=== PATIENT | male | born 1940 | race Caucasian/White ===

== ENCOUNTER 2021-07-25 10:54 | Emergency (ER) | payer BC, MEDICARE ==
[2021-07-25] MEDS ORDERED: SODIUM CHLORIDE 0.9% 1,000 ML IV STA (12:28)
--- NOTE | 2021-07-25 12:38 | ED ---
General Adult HPI - General Chief complaint: Syncope Stated complaint: SHARON/Fall Time Seen by Provider: 07/25/21 11:54 Source: patient, RN notes reviewed, old records reviewed Mode of arrival: wheelchair Limitations: no limitations - History of Present Illness Initial comments: I evaluated the patient at the beginning of my shift after he had been in the room for approximately an hour and a half. He is an 80-year-old male with past medical history remarkable for hypertension, hypothyroidism who presents emergency Department complaining of a multitude a history of increased generalized fatigue, exertional shortness of breath, lack of appetite. Patient had was concerned with was a syncopal episode yesterday. He states he stood up and felt lightheaded immediately and fell back on the couch. He did not hit his head as far as he knows. They brought him to the emergency departemnet today because he was feeling worse. He is having a nonproductive cough. Denies chest pain, abdominal pain. Denies any nausea, vomiting, diarrhea. He was not v accinated for COVID-19. Denies any known sick contacts. Denies any fevers. He has no other acute complaints at this time. Patient's son-in-law presents with the patient and assists with the history, as the patient does not have his hearing aids and is hard of hearing. - Related Data Home Medications Medication Instructions Recorded Confirmed Levothyroxine Sodium [Synthroid] 50 mcg PO DAILY 07/25/21 07/25/21 Simvastatin [Zocor] 40 mg PO HS 07/25/21 07/25/21 carvediloL [Coreg] 6.25 mg PO BID 07/25/21 07/25/21 Previous Rx's Medication Instructions Recorded Sulfamethox-Tmp 800-160Mg [Bactrim 1 tab PO Q12HR 5 Days #10 tab 07/25/21 DS 800-160 mg] Allergies Allergy/AdvReac Type Severity Reaction Status Date / Time No Known Allergies Allergy Verified 07/25/21 13:04 Review of Systems ROS Statement: Those systems with pertinent positive or pertinent negative responses have been documented in the HPI. Review of Systems: CONST: Endorses generalized fatigue. EYES: Denies blurry vision ENT: Denies nasal congestion C/V: Denies Chest pain RESP: Endorses shortness of breath GI: Denies abdominal pain : Denies dysuria SKIN: Denies rash. MSK: Denies joint pain. NEURO: Denies headache ROS Other: All systems not noted in ROS Statement are negative. Past Medical History Past Medical History: Cancer, Hypertension History of Any Multi-Drug Resistant Organisms: None Reported Past Surgical History: Cholecystectomy, Hernia Repair Past Psychological History: No Psychological Hx Reported Smoking Status: Never smoker Past Alcohol Use History: None Reported Past Drug Use History: None Reported General Exam - General Exam Comments Initial Comments: General: Appears somewhat fatigued and dehydrated. HEAD: Normal with no signs of head trauma. EYES: PERRLA, EOMI, conjunctiva normal, no discharge. ENT: Hard of hearing but hearing is grossly intact. Normal oropharynx. Mucous membranes are somewhat dry. RESPIRATORY: Relatively clear breath sounds bilaterally without any obvious wheezes or rhonchi. No increased work of breathing. Patient is mildly hypoxic on room air between 91 and 93% at rest. C/V: Patient is tachycardic with a regular rhythm. S1 and S2 auscultated. No peripheral edema. Peripheral pulses are 2+ and intact throughout. ABD: Abd is soft, nontender, nondistended EXT: Normal range of motion, no obvious deformity SKIN: No rashes or lesions observed on exposed skin. NEURO: Alert and oriented x 4. Cranial nerves II-XII intact. No focal sensory or strength deficits. NIH stroke scale is 0. Limitations: no limitations Course Vital Signs 07/25/21 07/25/21 07/25/21 11:16 13:05 14:30 Temperature 97.7 F Pulse Rate 105 H 90 85 Respiratory 16 20 20 Rate Blood Pressure 128/76 146/79 145/87 O2 Sat by Pulse 91 L 92 L 95 Oximetry 07/25/21 07/25/21 07/25/21 16:25 17:02 17:30 Temperature 98.2 F Pulse Rate 83 81 81 Respiratory 20 18 18 Rate Blood Pressure 149/88 149/64 142/80 O2 Sat by Pulse 93 L 94 L 94 L Oximetry 07/25/21 07/25/21 18:00 18:38 Temperature Pulse Rate 82 82 Respiratory 18 18 Rate Blood Pressure 149/83 159/89 O2 Sat by Pulse 94 L 95 Oximetry Medical Decision Making - Medical Decision Making Based on the patient's presentation and physical exam, I'm concerned for infectious etiology for his current symptoms but possibly cardiac etiology. Patient does not perk out. While score for pulmonary embolism is low at 1.5. Therefore screening d-dimer will be obtained. We will also obtain Covid swab. As the patient had 1 possible syncopal episode yesterday, we will obtain a CT head due to his age and uncertainty of etiology. Neuro exam however is normal at this time. Patient will administered a 1 L fluid bolus and connected to continuous cardiac monitoring. He was in agreement this plan. Patient's EKG shows normal sinus rhythm without any signs of acute ischemia. Ch est x-ray shows patchy bibasilar opacities suggestive of pneumonia. CT brain showed no acute intracranial process. There are old chronic findings. Laboratory studies were remarkable for a negative troponin. D-dimer is elevated to 1.65. Urinalysis reveals a urinary tract infection. Covid is positive. I discussed the findings with the patient and son-in-law. He is feeling improved. Oxygen saturations remained in the low to mid 90%'s. Good like to go home if possible. We will obtain a CT PE to rule out possibly pulmonary embolism as he does have an elevated d-dimer and they were in agreement this plan. CT PE revealed no signs of acute pulmonary embolism. There are bilateral patchy interstitial infiltrates suggestive of pneumonia, likely from covid. Heart score is 2. Due to the patient being Covid positive, I do believe that he would benefit from monoclonal antibody therapy. Patient consented to therapy. He will be treated. He will also be started on antibiotics for his UTI. I discussed the CT imaging with the patient and believe it is safe for him to be discharged home following therapy with close follow-up. They were in agreement this plan. Patient did not have an ALLERGIC reaction following therapy and will be discharged home in fair condition. I will provide the patient with a prescription for Bactrim DS. I instructed the patient to follow up with their PCP in the next 3 days. I explained that the patient should return to the emergency department if they experience any worsening symptoms. Strict return precautions were discussed with the patient. The patient expressed understanding of these instructions. I answered all questions that the patient had. The patient was discharged home in fair condition with their prescriptions and follow up information. - Lab Data Result diagrams: 07/25/21 12:32 07/25/21 12:32 Lab Results 07/25/21 07/25/21 07/25/21 Range/Units 12:32 12:32 12:32 WBC 4.5 (3.8-10.6) k/uL RBC 5.42 (4.30-5.90) m/uL Hgb 16.1 (13.0-17.5) gm/dL Hct 48.5 (39.0-53.0) % MCV 89.5 (80.0-100.0) fL MCH 29.8 (25.0-35.0) pg MCHC 33.2 (31.0-37.0) g/dL RDW 13.9 (11.5-15.5) % Plt Count 119 L (150-450) k/uL MPV 8.8 Neutrophils % 74 % Lymphocytes % 18 % Monocytes % 6 % Eosinophils % 0 % Basophils % 0 % Neutrophils # 3.3 (1.3-7.7) k/uL Lymphocytes # 0.8 L (1.0-4.8) k/uL Monocytes # 0.3 (0-1.0) k/uL Eosinophils # 0.0 (0-0.7) k/uL Basophils # 0.0 (0-0.2) k/uL PT 10.7 (9.0-12.0) sec INR 1.0 (<1.2) APTT 23.7 (22.0-30.0) sec D-Dimer 1.65 H (<0.60) mg/L FEU Sodium 140 (137-145) mmol/L Potassium 5.0 (3.5-5.1) mmol/L Chloride 105 (98-107) mmol/L Carbon Dioxide 22 (22-30) mmol/L Anion Gap 13 mmol/L BUN 34 H (9-20) mg/dL Creatinine 1.21 (0.66-1.25) mg/dL Est GFR (CKD-EPI)AfAm 64 (>60 ml/min/1.73 sqM) Est GFR (CKD-EPI)NonAf 56 (>60 ml/min/1.73 sqM) Glucose 116 H (74-99) mg/dL Plasma Lactic Acid Jakub (0.7-2.0) mmol/L Calcium 9.0 (8.4-10.2) mg/dL Magnesium 2.4 H (1.6-2.3) mg/dL Total Bilirubin 1.0 (0.2-1.3) mg/dL AST 128 H (17-59) U/L ALT 55 H (4-49) U/L Alkaline Phosphatase 92 (38-126) U/L Troponin I (0.000-0.034) ng/mL Total Protein 7.2 (6.3-8.2) g/dL Albumin 3.9 (3.5-5.0) g/dL Urine Color Urine Appearance (Clear) Urine pH (5.0-8.0) Ur Specific [place] (1.001-1.035) Urine Protein (Negative) Urine Glucose (UA) (Negative) Urine Ketones (Negative) Urine Blood (Negative) Urine Nitrite (Negative) Urine Bilirubin (Negative) Urine Urobilinogen (<2.0) mg/dL Ur Leukocyte Esterase (Negative) Urine RBC (0-5) /hpf Urine WBC (0-5) /hpf Ur Squamous Epith Cells (0-4) /hpf Urine Bacteria (None) /hpf Urine Mucus (None) /hpf Coronavirus (PCR) (Not Detectd) 07/25/21 07/25/21 07/25/21 Range/Units 12:32 12:32 13:00 WBC (3.8-10.6) k/uL RBC (4.30-5.90) m/uL Hgb (13.0-17.5) gm/dL Hct (39.0-53.0) % MCV (80.0-100.0) fL MCH (25.0-35.0) pg MCHC (31.0-37.0) g/dL RDW (11.5-15.5) % Plt Count (150-450) k/uL MPV Neutrophils % % Lymphocytes % % Monocytes % % Eosinophils % % Basophils % % Neutrophils # (1.3-7.7) k/uL Lymphocytes # (1.0-4.8) k/uL Monocytes # (0-1.0) k/uL Eosinophils # (0-0.7) k/uL Basophils # (0-0.2) k/uL PT (9.0-12.0) sec INR (<1.2) APTT (22.0-30.0) sec D-Dimer (<0.60) mg/L FEU Sodium (137-145) mmol/L Potassium (3.5-5.1) mmol/L Chloride (98-107) mmol/L Carbon Dioxide (22-30) mmol/L Anion Gap mmol/L BUN (9-20) mg/dL Creatinine (0.66-1.25) mg/dL Est GFR (CKD-EPI)AfAm (>60 ml/min/1.73 sqM) Est GFR (CKD-EPI)NonAf (>60 ml/min/1.73 sqM) Glucose (74-99) mg/dL Plasma Lactic Acid Jakub 1.8 (0.7-2.0) mmol/L Calcium (8.4-10.2) mg/dL Magnesium (1.6-2.3) mg/dL Total Bilirubin (0.2-1.3) mg/dL AST (17-59) U/L ALT (4-49) U/L Alkaline Phosphatase (38-126) U/L Troponin I 0.023 (0.000-0.034) ng/mL Total Protein (6.3-8.2) g/dL Albumin (3.5-5.0) g/dL Urine Color Urine Appearance (Clear) Urine pH (5.0-8.0) Ur Specific [place] (1.001-1.035) Urine Protein (Negative) Urine Glucose (UA) (Negative) Urine Ketones (Negative) Urine Blood (Negative) Urine Nitrite (Negative) Urine Bilirubin (Negative) Urine Urobilinogen (<2.0) mg/dL Ur Leukocyte Esterase (Negative) Urine RBC (0-5) /hpf Urine WBC (0-5) /hpf Ur Squamous Epith Cells (0-4) /hpf Urine Bacteria (None) /hpf Urine Mucus (None) /hpf Coronavirus (PCR) Detected A (Not Detectd) 07/25/21 Range/Units 16:25 WBC (3.8-10.6) k/uL RBC (4.30-5.90) m/uL Hgb (13.0-17.5) gm/dL Hct (39.0-53.0) % MCV (80.0-100.0) fL MCH (25.0-35.0) pg MCHC (31.0-37.0) g/dL RDW (11.5-15.5) % Plt Count (150-450) k/uL MPV Neutrophils % % Lymphocytes % % Monocytes % % Eosinophils % % Basophils % % Neutrophils # (1.3-7.7) k/uL Lymphocytes # (1.0-4.8) k/uL Monocytes # (0-1.0) k/uL Eosinophils # (0-0.7) k/uL Basophils # (0-0.2) k/uL PT (9.0-12.0) sec INR (<1.2) APTT (22.0-30.0) sec D-Dimer (<0.60) mg/L FEU Sodium (137-145) mmol/L Potassium (3.5-5.1) mmol/L Chloride (98-107) mmol/L Carbon Dioxide (22-30) mmol/L Anion Gap mmol/L BUN (9-20) mg/dL Creatinine (0.66-1.25) mg/dL Est GFR (CKD-EPI)AfAm (>60 ml/min/1.73 sqM) Est GFR (CKD-EPI)NonAf (>60 ml/min/1.73 sqM) Glucose (74-99) mg/dL Plasma Lactic Acid Jakub (0.7-2.0) mmol/L Calcium (8.4-10.2) mg/dL Magnesium (1.6-2.3) mg/dL Total Bilirubin (0.2-1.3) mg/dL AST (17-59) U/L ALT (4-49) U/L Alkaline Phosphatase (38-126) U/L Troponin I (0.000-0.034) ng/mL Total Protein (6.3-8.2) g/dL Albumin (3.5-5.0) g/dL Urine Color Yellow Urine Appearance Clear (Clear) Urine pH 5.5 (5.0-8.0) Ur Specific [place] >1.050 H (1.001-1.035) Urine Protein 2+ H (Negative) Urine Glucose (UA) Negative (Negative) Urine Ketones 1+ H (Negative) Urine Blood Moderate H (Negative) Urine Nitrite Positive (Negative) Urine Bilirubin Negative (Negative) Urine Urobilinogen <2.0 (<2.0) mg/dL Ur Leukocyte Esterase Moderate H (Negative) Urine RBC 3 (0-5) /hpf Urine WBC 35 H (0-5) /hpf Ur Squamous Epith Cells 2 (0-4) /hpf Urine Bacteria Many H (None) /hpf Urine Mucus Occasional H (None) /hpf Coronavirus (PCR) (Not Detectd) - EKG Data -: EKG Interpreted by Me EKG Comments: 12-lead Electrocardiogram Interpretation Note EKG was reviewed and interpreted by myself. 12-lead ECG performed at 1124 is interpreted by me as revealing normal sinus rhythm at a rate of 99 beats per minute. [place] is rightward deviated. AR interval is 152 ms, QRS duration is 84 ms, QTc is 433 ms.. There were no ST or T wave abnormalities to suggest myocardial ischemia or injury. R wave progression across the precordium was satisfactory. By my interpretation this EKG is non-diagnostic for acute ischemia. No prior EKG for comparison. Disposition Clinical Impression: COVID-19, Fatigue, UTI (urinary tract infection) Disposition: HOME SELF-CARE Condition: Fair Instructions (If sedation given, give patient instructions): Coronavirus Disease 2019 (COVID-19) Prescriptions: Sulfamethox-Tmp 800-160Mg [Bactrim DS 800-160 mg] 1 tab PO Q12HR 5 Days #10 tab Is patient prescribed a controlled substance at d/c from ED?: No Referrals: Nonstaff,Physician [Primary Care Provider] - 1-2 days Jennifer Hernandez MD [REFERRING] - 1-2 days
[2021-07-25 13:09] LABS: Basophils % (A) 0 %; Eosinophils % (A) 0 %; HCT 48.5 % (39.0-53.0); HGB 16.1 gm/dL (13.0-17.5); Lymphocytes # (A) 0.8 k/uL (1.0-4.8); Lymphocytes % (A) 18 %; MCH 29.8 pg (25.0-35.0); MCHC 33.2 g/dL (31.0-37.0); MCV 89.5 fL (80.0-100.0); Mean Platelet Volume 8.8; Monocytes # (A) 0.3 k/uL (0-1.0); Monocytes % (A) 6 %; Neutrophils # (A) 3.3 k/uL (1.3-7.7); Neutrophils % (A) 74 %; Platelet Count 119 k/uL (150-450); RBC 5.42 m/uL (4.30-5.90); RDW 13.9 % (11.5-15.5); WBC 4.5 k/uL (3.8-10.6)
--- NOTE | 2021-07-25 13:11 | CT ---
EXAMINATION TYPE: CT brain wo con DATE OF EXAM: 07/25/2021 COMPARISON: None HISTORY: SHARON, Fall TECHNIQUE: CT scan of the head performed without contrast CT DLP: 1064.4 mGycm Automated exposure control for dose reduction was used. FINDINGS: No acute intracranial hemorrhage, midline shift or mass effect. Garcia-white matter differentiation is preserved. Prominence of the CSF spaces and pedicles likely on the basis of mild brain volume loss. Mild patchy low-attenuation in the white matter and periventricular region likely on the basis of chr onic microvascular ischemic changes. Tiny scattered low attenuating lesions in the posterior limb of the left internal capsule bilateral b claire ganglia likely on the basis of lacunar infarcts. No acute orbital osseous or soft tissue abnormalities seen. Mild mucosal sinus disease in the right maxillary sinus. No air-fluid level in the paranasal sinuses and mastoid air cells. IMPRESSION: 1. NO ACUTE INTRACRANIAL HEMORRHAGE MIDLINE SHIFT OR MASS EFFECT. 2. 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
[2021-07-25 13:21] LABS: Albumin 3.9 g/dL (3.5-5.0); Magnesium 2.4 mg/dL (1.6-2.3); Total Protein 7.2 g/dL (6.3-8.2)
--- NOTE | 2021-07-25 13:27 | XR ---
EXAMINATION TYPE: XR chest 2V DATE OF EXAM: 07/25/2021 COMPARISON: NONE HISTORY: 80 years Male. STUDY INDICATION GIVEN: Weakness . TECHNIQUE: Frontal and lateral chest radiographs IMPRESSION: Patchy bibasilar opacities may be reflective of chronic lung disease such as interstitial fibrosis, s ubsegmental atelectasis, or pneumonic infiltrate. The cardiomediastinal silhouette is normal. No pneumothorax or large effusion. Generalized osteopenia. Degenerative changes in the spine and bilateral shoulder joints.
[2021-07-25 13:32] LABS: Partial Thromboplastin Time 23.7 sec (22.0-30.0); Prothrombin Time 10.7 sec (9.0-12.0)
--- NOTE | 2021-07-25 14:46 | CT ---
EXAMINATION TYPE: CT chest angio for PE DATE OF EXAM: 07/25/2021 COMPARISON: None HISTORY: Cough. Congestion. Elevated d-dimer CT DLP: mGycm Automated exposure control for dose reduction was used. Images obtained from the thoracic inlet to the diaphragm with contrast Isovue 80 mL. There are 3-D po st processed images. There is some patchy peripheral pulmonary interstitial groundglass infiltrates. There is no pleural e ffusion. Heart appears slightly enlarged. There is no pericardial effusion. There is no mediastinal a denopathy. There are no hilar masses. There is normal contrast opacification of the pulmonary arterie s. There are no filling defects. Thoracic spine is intact. There is no compression fracture. Sternum is intact. I see no bony destructive process. IMPRESSION: No evidence of pulmonary embolism. Moderate bilateral patchy interstitial infiltrates. This is consis tent with multifocal pneumonia.
[2021-07-25] MEDS ORDERED: BAMLANIVIMAB (EUA) 700 MG, ETESEVIMAB (EUA) 1,400 MG in SODIUM CHLORIDE 0.9% 50 ML IVPB ONE (16:00)
[2021-07-25 16:27] VITALS: TEMP 98.2
[2021-07-25] MEDS ORDERED: SODIUM CHLORIDE 0.9% 50 ML IVPB ONE (16:30)
[2021-07-25 17:03] VITALS: RESP 18
[2021-07-25 17:14] LABS: Appearance,Urine Clear (Clear); Bacteria,Urine Many /hpf; Bilirubin,Urine Negative (Negative); Blood,Urine Moderate (Negative); Color,Urine Yellow; Glucose,Urine (UA) Negative (Negative); Ketones,Urine 1+ (Negative); Leukocyte Esterase,Urine Moderate (Negative); Mucus,Urine Occasional /hpf; Nitrite,Urine Positive (Negative); PH, Urine 5.5 (5.0-8.0); Protein,Urine 2+ (Negative); RBC,Urine 3 /hpf (0-5); Squamous Epithelial Cell,Urine 2 /hpf (0-4); Urobilinogen,Urine <2.0 mg/dL (<2.0); WBC,Urine 35 /hpf (0-5)
[2021-07-25 17:28] LABS: Specific Gravity,Urine >1.050 (1.001-1.035)
[2021-07-25] MEDS ORDERED: SULFAMETH-TMP DS STARTER PACK 2 TAB BTL PO STA (18:19)
[2021-07-25 18:42] VITALS: PULSE 82
[2021-07-25 18:43] VITALS: BP 159/89
== END 2021-07-25 18:38 | disposition home or self-care (01) ==
LOC: EC 10:54
DX: U07.1 COVID-19 (principal); N39.0 Urinary tract infection, site not specified; I10 Essential (primary) hypertension; Z79.899 Other long term (current) drug therapy
CPT/HCPCS: 36415; 93005; 85379; 80053; 83605; 83735; 84484; 85025; 85610; 85730; 81001; 87086; 87635; 71046; 70450; 71275; 99285; 96365; 96361; Q9967; J3490; 87077; 87186

== ENCOUNTER 2021-07-26 22:21 | Inpatient (IN) | payer BC, MEDICARE ==
--- NOTE | 2021-07-26 23:22 | ED ---
SOB HPI - General Chief Complaint: Shortness of Breath Stated Complaint: Low O2 Time Seen by Provider: 07/26/21 22:49 Source: patient, family Mode of arrival: wheelchair Limitations: no limitations - History of Present Illness Initial Comments: This patient is an 80-year-old man here to be evaluated for low pulse oximetry readings at home. The patient has been having a number days of coughing, fever and chills, diarrhea. He was seen in the emergency department yesterday and diagnosed with COVID-19 infection. The patient had the [place] antibody therapy and went home. Today the evening he was noted to have some low pulse oximetry readings. He was short of breath at home. The patient is not feeling short of breath on the supplemental oxygen here. MD Complaint: shortness of breath, cough -: days(s) Severity scale (1-10): 0 Improves With: oxygen Worsens With: nothing Associated Symptoms: cough Treatments Prior to Arrival: none - Related Data Home Medications Medication Instructions Recorded Confirmed Levothyroxine Sodium [Synthroid] 50 mcg PO DAILY 07/25/21 07/25/21 Simvastatin [Zocor] 40 mg PO HS 07/25/21 07/25/21 carvediloL [Coreg] 6.25 mg PO BID 07/25/21 07/25/21 Previous Rx's Medication Instructions Recorded Sulfamethox-Tmp 800-160Mg [Bactrim 1 tab PO Q12HR 5 Days #10 tab 07/25/21 DS 800-160 mg] Allergies Allergy/AdvReac Type Severity Reaction Status Date / Time No Known Allergies Allergy Verified 07/26/21 22:36 Review of Systems ROS Statement: Those systems with pertinent positive or pertinent negative responses have been documented in the HPI. ROS Other: All systems not noted in ROS Statement are negative. Constitutional: Reports: fever, chills Respiratory: Reports: cough, dyspnea Cardiovascular: Denies: chest pain, palpitations Gastrointestinal: Reports: diarrhea. Denies: abdominal pain, nausea, vomiting Genitourinary: Denies: dysuria, hematuria Musculoskeletal: Denies: back pain Skin: Denies: rash Neurological: Denies: headache, weakness Past Medical History Past Medical History: Cancer, Hypertension History of Any Multi-Drug Resistant Organisms: None Reported Past Surgical History: Cholecystectomy, Hernia Repair Past Psychological History: No Psychological Hx Reported Smoking Status: Never smoker Past Alcohol Use History: None Reported Past Drug Use History: None Reported General Exam Limitations: no limitations General appearance: alert, in no apparent distress Head exam: Present: atraumatic, normocephalic Eye exam: Present: normal appearance. Absent: scleral icterus, conjunctival injection ENT exam: Present: mucous membranes dry Neck exam: Present: normal inspection, full ROM Respiratory exam: Present: respiratory distress (Mild tachypnea), rales. Abs ent: wheezes, rhonchi, stridor Cardiovascular Exam: Present: normal rhythm, tachycardia, normal heart sounds. Absent: systolic murmur, diastolic murmur, rubs, gallop GI/Abdominal exam: Present: soft. Absent: distended, tenderness, guarding, rebound, rigid, mass, pulsatile mass Extremities exam: Present: normal inspection, normal capillary refill. Absent: pedal edema, calf tenderness Back exam: Present: normal inspection Neurological exam: Present: alert Skin exam: Present: warm, dry, intact, normal color. Absent: rash Course Vital Signs 07/26/21 07/26/21 22:32 23:47 Temperature 96.9 F L Pulse Rate 101 H 96 Respiratory 24 18 Rate Blood Pressure 100/68 117/79 O2 Sat by Pulse 84 L 93 L Oximetry Medical Decision Making - Lab Data Result diagrams: 07/26/21 23:28 07/26/21 23:28 Lab Results 07/26/21 07/26/21 07/26/21 Range/Units 23:28 23:28 23:28 WBC 6.5 (3.8-10.6) k/uL RBC 5.13 (4.30-5.90) m/uL Hgb 15.1 (13.0-17.5) gm/dL Hct 45.5 (39.0-53.0) % MCV 88.8 (80.0-100.0) fL MCH 29.5 (25.0-35.0) pg MCHC 33.3 (31.0-37.0) g/dL RDW 13.7 (11.5-15.5) % Plt Count 133 L (150-450) k/uL MPV 8.3 Neutrophils % 82 % Lymphocytes % 10 % Monocytes % 7 % Eosinophils % 0 % Basophils % 0 % Neutrophils # 5.3 (1.3-7.7) k/uL Lymphocytes # 0.7 L (1.0-4.8) k/uL Monocytes # 0.4 (0-1.0) k/uL Eosinophils # 0.0 (0-0.7) k/uL Basophils # 0.0 (0-0.2) k/uL PT 11.3 (9.0-12.0) sec INR 1.1 (<1.2) APTT 23.3 (22.0-30.0) sec D-Dimer 1.53 H (<0.60) mg/L FEU Sodium 135 L (137-145) mmol/L Potassium 4.7 (3.5-5.1) mmol/L Chloride 104 (98-107) mmol/L Carbon Dioxide 21 L (22-30) mmol/L Anion Gap 10 mmol/L BUN 32 H (9-20) mg/dL Creatinine 1.50 H (0.66-1.25) mg/dL Est GFR (CKD-EPI)AfAm 50 (>60 ml/min/1.73 sqM) Est GFR (CKD-EPI)NonAf 43 (>60 ml/min/1.73 sqM) Glucose 124 H (74-99) mg/dL Plasma Lactic Acid Jakub (0.7-2.0) mmol/L Calcium 8.6 (8.4-10.2) mg/dL Total Bilirubin 0.7 (0.2-1.3) mg/dL AST 113 H (17-59) U/L ALT 51 H (4-49) U/L Alkaline Phosphatase 83 (38-126) U/L Troponin I (0.000-0.034) ng/mL NT-Pro-B Natriuret Pep pg/mL Total Protein 6.3 (6.3-8.2) g/dL Albumin 3.3 L (3.5-5.0) g/dL 07/26/21 07/26/21 07/26/21 Range/Units 23:28 23:28 23:28 WBC (3.8-10.6) k/uL RBC (4.30-5.90) m/uL Hgb (13.0-17.5) gm/dL Hct (39.0-53.0) % MCV (80.0-100.0) fL MCH (25.0-35.0) pg MCHC (31.0-37.0) g/dL RDW (11.5-15.5) % Plt Count (150-450) k/uL MPV Neutrophils % % Lymphocytes % % Monocytes % % Eosinophils % % Basophils % % Neutrophils # (1.3-7.7) k/uL Lymphocytes # (1.0-4.8) k/uL Monocytes # (0-1.0) k/uL Eosinophils # (0-0.7) k/uL Basophils # (0-0.2) k/uL PT (9.0-12.0) sec INR (<1.2) APTT (22.0-30.0) sec D-Dimer (<0.60) mg/L FEU Sodium (137-145) mmol/L Potassium (3.5-5.1) mmol/L Chloride (98-107) mmol/L Carbon Dioxide (22-30) mmol/L Anion Gap mmol/L BUN (9-20) mg/dL Creatinine (0.66-1.25) mg/dL Est GFR (CKD-EPI)AfAm (>60 ml/min/1.73 sqM) Est GFR (CKD-EPI)NonAf (>60 ml/min/1.73 sqM) Glucose (74-99) mg/dL Plasma Lactic Acid Jakub 1.6 (0.7-2.0) mmol/L Calcium (8.4-10.2) mg/dL Total Bilirubin (0.2-1.3) mg/dL AST (17-59) U/L ALT (4-49) U/L Alkaline Phosphatase (38-126) U/L Troponin I 0.031 (0.000-0.034) ng/mL NT-Pro-B Natriuret Pep 833 pg/mL Total Protein (6.3-8.2) g/dL Albumin (3.5-5.0) g/dL - EKG Data EKG shows normal: sinus rhythm, axis (Left axis deviation), intervals (Normal), ST-T waves (Normal) Rate: normal (Rate 95 bpm) Interpretation: other (Possible old septal infarct.) Disposition Clinical Impression: COVID-19, Pneumonia due to COVID-19 virus Disposition: ADMITTED IP TO THIS [facility] Referrals: James Ghotra MD [Primary Care Provider] - 1-2 days
--- NOTE | 2021-07-26 23:48 | XR ---
EXAMINATION TYPE: XR chest 1V portable DATE OF EXAM: 07/26/2021 COMPARISON: Yesterday HISTORY: Short of breath TECHNIQUE: FINDINGS: Heart and mediastinum are normal. There is some mild interstitial infiltrate in the mid and lower lung amin. There are chest leads. There are no hilar masses. Costophrenic angles are clear. IMPRESSION: Pulmonary interstitial infiltrates are new compared to exam yesterday. No pulmonary conso lidation.
[2021-07-26 23:56] LABS: Basophils % (A) 0 %; Eosinophils % (A) 0 %; HCT 45.5 % (39.0-53.0); HGB 15.1 gm/dL (13.0-17.5); Lymphocytes # (A) 0.7 k/uL (1.0-4.8); Lymphocytes % (A) 10 %; MCH 29.5 pg (25.0-35.0); MCHC 33.3 g/dL (31.0-37.0); MCV 88.8 fL (80.0-100.0); Mean Platelet Volume 8.3; Monocytes # (A) 0.4 k/uL (0-1.0); Monocytes % (A) 7 %; Neutrophils # (A) 5.3 k/uL (1.3-7.7); Neutrophils % (A) 82 %; Platelet Count 133 k/uL (150-450); RBC 5.13 m/uL (4.30-5.90); RDW 13.7 % (11.5-15.5); WBC 6.5 k/uL (3.8-10.6)
[2021-07-27 00:07] LABS: INR 1.1 (<1.2); Partial Thromboplastin Time 23.3 sec (22.0-30.0); Prothrombin Time 11.3 sec (9.0-12.0)
[2021-07-27 00:23] LABS: Albumin 3.3 g/dL (3.5-5.0); Calcium 8.6 mg/dL (8.4-10.2); Potassium 4.7 mmol/L (3.5-5.1); Total Bilirubin 0.7 mg/dL (0.2-1.3); Total Protein 6.3 g/dL (6.3-8.2)
[2021-07-27] MEDS ORDERED: NALOXONE 0.4 MG/ML 1 ML VIAL IV PRN (00:48)
--- NOTE | 2021-07-27 03:39 | P.HPIM ---
History of Present Illness H&P Date: 07/27/21 Patient is an 80-year-old male with a PMH of hypertension and hypothyroidism who presents to the emergency room with complaints of gradually worsening shortness of breath, lethargy, and cough. The patient had previously presented to the emergency room on 07/25 with similar complaints and was diagnosed with COVID 19. He was given Bamlanivimab and was sent home. The patient reports that he continued to feel worse and the patient's son-in-law at the bedside reports that the checked his SpO2 via monitor at home which was 83%, at which point they decided to bring him to the emergency room. The patient reports ongoing nonproductive cough and poor oral intake with diarrhea. The patient is not v accinated for COVID 19. Chest CTA on the prior visit was negative for PE. After evaluation was reviewed. Review of systems: Pertinent positives and negatives as discussed in HPI, a complete review of systems was performed and all other systems are negative. Physical examination: General: non toxic, no distress, appears at stated age, normal weight Derm: no unusual rashes/lesions no unusual ecchymoses, warm, dry Head: atraumatic, normocephalic, symmetric Eyes: EOMI, no lid lag, anicteric sclera, pupils equal round reactive to light ENT: Nose and ears atraumatic, no thrush, no pharyngeal erythema Neck: No thyromegaly, no cervical lymphadenopathy, trachea midline, supple Mouth: no lip lesion, mucus membranes very dry Cardiovascular: S1S2 reg, no murmur, positive posterior tibial pulse bilateral, no edema, capillary refill less than 2 seconds Lungs: Scattered rhonchi, no wheezing, no accessory muscle use Abdominal: soft, nontender to palpation, no guarding, no appreciable organomegaly, normal bowel sounds Ext: no gross muscle atrophy, muscle strength 5 out of 5 in all 4 extremities grossly, no contractures, Neuro: CN II-XI grossly intact, light touch intact all 4 extremities, finger to nose within normal limits, Psych: Alert, oriented, appropriate affect Assessment/plan COVID-19 pneumonia with acute hypoxic respiratory failure -Decadron -Supplemental oxygen -Pulmonary consulted -Vitamin C, vitamin D, melatonin, zinc Acute kidney injury likely secondary to poor oral intake -IV fluids Thrombocytopenia -Likely secondary to ongoing COVID pneumonia -Monitor for now Current conditions: Hypertension, hypothyroidism -Continue home meds DVT prophylaxis -Lovenox The patient is admitted with an anticipated greater than 2 midnight stay for evaluation of COVID CODE STATUS: Full Code Discussed with: Patient, son in law Anticipated discharge date: 2-[address]: Home Past Medical History Past Medical History: Cancer, Hypertension History of Any Multi-Drug Resistant Organisms: None Reported Past Surgical History: Cholecystectomy, Hernia Repair Past Psychological History: No Psychological Hx Reported Smoking Status: Never smoker Past Alcohol Use History: None Reported Past Drug Use History: None Reported Medications and Allergies Home Medications Medication Instructions Recorded Confirmed Type Levothyroxine Sodium [Synthroid] 50 mcg PO DAILY 07/25/21 07/25/21 History Simvastatin [Zocor] 40 mg PO HS 07/25/21 07/25/21 History Sulfamethox-Tmp 800-160Mg [Bactrim 1 tab PO Q12HR 5 Days #10 tab 07/25/21 Rx DS 800-160 mg] carvediloL [Coreg] 6.25 mg PO BID 07/25/21 07/25/21 History Allergies Allergy/AdvReac Type Severity Reaction Status Date / Time No Known Allergies Allergy Verified 07/26/21 22:36 Physical Exam Vitals: Vital Signs Temp Pulse Resp BP Pulse Ox 07/27/21 02:47 87 17 119/69 93 L 07/26/21 23:47 96 18 117/79 93 L 07/26/21 22:32 96.9 F L 101 H 24 100/68 84 L Intake and Output 07/26/21 07/26/21 07/27/21 14:59 22:59 06:59 Other: Weight 70.307 kg Results CBC & Chem 7: 07/26/21 23:28 07/26/21 23:28 Labs: Abnormal Lab Results - Last 24 Hours (Table) 07/26/21 07/26/21 07/26/21 Range/Units 23:28 23:28 23:28 Plt Count 133 L (150-450) k/uL Lymphocytes # 0.7 L (1.0-4.8) k/uL D-Dimer 1.53 H (<0.60) mg/L FEU Sodium 135 L (137-145) mmol/L Carbon Dioxide 21 L (22-30) mmol/L BUN 32 H (9-20) mg/dL Creatinine 1.50 H (0.66-1.25) mg/dL Glucose 124 H (74-99) mg/dL AST 113 H (17-59) U/L ALT 51 H (4-49) U/L Albumin 3.3 L (3.5-5.0) g/dL
[2021-07-27] MEDS ORDERED: dexAMETHasone 2 MG TAB PO ONE (04:00)
[2021-07-27] MEDS: SODIUM CHLORIDE 0.9% 1,000 ML IV SCH ×2 (04:36→22:05)
[2021-07-27] MEDS: CHOLECALCIFEROL 125 MCG (5000 IU) TABLET PO SCH (08:20)
[2021-07-27] MEDS: ZINC SULFATE 220 MG CAP PO SCH (08:20)
[2021-07-27] MEDS: ENOXAPARIN 40 MG/0.4 ML SYRINGE SQ SCH (08:20)
[2021-07-27] MEDS: dexAMETHasone 2 MG TAB PO SCH (08:20)
[2021-07-27] MEDS: ASCORBIC ACID 500 MG TAB PO SCH (08:20)
[2021-07-27 09:40] LABS: African American GFR (CKD) 49.5 (60.0-200.0); BUN/Creat Ratio 22.87 Ratio (12.00-20.00); Blood Urea Nitrogen 34.3 mg/dL (9.0-27.0); Calcium 8.2 mg/dL (8.7-10.3); Non-African American GFR(CKD) 42.7 (60.0-200.0); Potassium 4.8 mmol/L (3.5-5.5)
[2021-07-27] MEDS ORDERED: REMDESIVIR 200 MG in SODIUM CHLORIDE 0.9% 250 ML IVPB ONE (10:00)
[2021-07-27 10:02] LABS: HCT 42.9 % (39.6-50.0); HGB 14.1 g/dL (13.0-17.0); MCHC 32.9 g/dL (32.0-37.0); MCV 88.1 fL (80.0-97.0); Mean Platelet Volume 10.6 fL (9.5-12.2); Platelet Count 134 X 10*3/uL (140-440); RBC 4.87 X 10*6/uL (4.40-5.60); RDW 14.1 % (11.5-14.5); WBC 5.87 X 10*3/uL (4.50-10.00)
--- NOTE | 2021-07-27 11:04 | P.CNPUL ---
History of Present Illness Consult date: 07/27/21 Requesting physician: Blanca Alva Reason for consult: dyspnea, cough, hypoxemia, pneumonia, abnormal CXR/CT Chief complaint: Hypoxia, dyspnea History of present illness: 80-year-old white male patient with past medical history of hypertension, hypothyroidism, nonsmoker, who presented to emergency department on 07/26/2021 evaluation of low O2 saturation readings at home. Patient started having symptoms of COVID-19 infection last [place] on 07/23/2021. Has been having symptoms of coughing, fever, chills, diarrhea. On 07/25/2021 he was seen in the emergency department for a possible syncopal episode, increased generalized fatigue, exertional shortness of breath, lack of appetite. he had a brain CT was completed showing no acute intracranial findings. He was diagnosed with COVID-19 pneumonia. Is not vaccinated against COVID-19. His d-dimer was also elevated at 1.65, and CT angiogram was obtained showing no signs of acute pulmonary embolism, but was positive for bilateral patchy interstitial infiltrates. Patient was on room air, he did receive monoclonal antibody in the emergency department on 07/25/2021. He was also diagnosed with a urinary tract infection and was given a course of Bactrim DS and discharged home. The discharge home he continued to worsen, and his pulse oximetry readings were low. Patient was more short of breath. His chest x-ray showed pulmonary inter stitial infiltrates. His pulse ox in the emergency department was 84% on room air, and he was placed on supplemental oxygen currently requiring 5 L. He has been afebrile, he is receiving IV hydration with 0.9 normal saline at a rate of 75 ML per hour. Started on Decadron and COVID-19 vitamins and prophylactic anticoagulation in the form of Lovenox. Admission blood work was reviewed showing white blood cell count is 6.5, hemoglobin is 15.1, platelet count of 133, lymphocyte count 0.7 d-dimer is 1.53, sodium is 135, potassium is 4.7, CO2 is 21, BUN is 32, creatinine is 1.5, and patient previously had normal renal function, plasma lactic acid was 1.6, AST was 113 ALT was 51, pro calcitonin level was negative at 0.19. Review of Systems All systems: negative Constitutional: Reports anorexia, Reports fatigue, Reports weakness, Denies chills, Denies fever Eyes: denies blurred vision, denies pain Ears, nose, mouth and throat: Denies headache, Denies sore throat Cardiovascular: Denies chest pain, Denies shortness of breath Respiratory: Reports cough, Reports dyspnea Gastrointestinal: Denies abdominal pain, Denies diarrhea, Denies nausea, Denies vomiting Musculoskeletal: Denies myalgias Integumentary: Denies pruritus, Denies rash Neurological: Denies numbness, Denies weakness Psychiatric: Denies anxiety, Denies depression Endocrine: Denies fatigue, Denies weight change Past Medical History Past Medical History: Cancer, Hypertension History of Any Multi-Drug Resistant Organisms: None Reported Past Surgical History: Cholecystectomy, Hernia Repair Past Psychological History: No Psychological Hx Reported Smoking Status: Never smoker Past Alcohol Use History: None Reported Past Drug Use History: None Reported Medications and Allergies Home Medications Medication Instructions Recorded Confirmed Type Levothyroxine Sodium [Synthroid] 50 mcg PO DAILY 07/25/21 07/27/21 History Simvastatin [Zocor] 40 mg PO HS 07/25/21 07/27/21 History Sulfamethox-Tmp 800-160Mg [Bactrim 1 tab PO Q12HR 5 Days #10 tab 07/25/21 07/27/21 Rx DS 800-160 mg] carvediloL [Coreg] 6.25 mg PO BID 07/25/21 07/27/21 History Allergies Allergy/AdvReac Type Severity Reaction Status Date / Time No Known Allergies Allergy Verified 07/27/21 09:28 Physical Exam Vitals: Vital Signs Temp Pulse Pulse Resp BP BP Pulse Ox 07/27/21 08:00 78 16 119/70 96 07/27/21 02:56 99.0 F 86 18 130/74 96 07/27/21 02:47 87 17 119/69 93 L 07/26/21 23:47 96 18 117/79 93 L 07/26/21 22:32 96.9 F L 101 H 24 100/68 84 L Intake and Output 07/26/21 07/27/21 07/27/21 22:59 06:59 14:59 Other: Weight 70.307 kg 70.307 kg GENERAL EXAM: Alert, pleasant, 80-year-old white female, on 5 L oxygen with a pulse ox of 93-96%, comfortable in no apparent distress. HEAD: Normocephalic/atraumatic. EYES: Normal reaction of pupils, equal size. Conjunctiva pink, sclera white. NOSE: Clear with pink turbinates. THROAT: No erythema or exudates. NECK: No masses, no JVD, no thyroid enlargement, no adenopathy. CHEST: No chest wall deformity. Symmetrical expansion. LUNGS: Equal air entry with basilar crackles CVS: Regular rate and rhythm, normal S1 and S2, no gallops, no murmurs, no rubs ABDOMEN: Soft, nontender. No hepatosplenomegaly, normal bowel sounds, no guarding or rigidity. EXTREMITIES: No clubbing, no edema, no cyanosis, 2+ pulses and upper and lower extremities. MUSCULOSKELETAL: Muscle strength and tone normal. SPINE: No scoliosis or deformity SKIN: No rashes CENTRAL NERVOUS SYSTEM: Alert and oriented -3. No focal deficits, tone is normal in all 4 extremities. PSYCHIATRIC: Alert and oriented -3. Appropriate affect. Intact judgment and insight. Results - Laboratory Findings CBC and BMP: 07/27/21 06:35 07/27/21 06:35 PT/INR, D-dimer PT 11.3 sec (9.0-12.0) 07/26/21 23:28 INR 1.1 (<1.2) 07/26/21 23:28 D-Dimer 1.53 mg/L FEU (<0.60) H 07/26/21 23:28 Abnormal lab findings: Abnormal Labs 07/26/21 07/26/21 07/26/21 23:28 23:28 23:28 Plt Count 133 L Absolute Nucleated RBC Lymphocytes # 0.7 L NRBC/100 WBC Diff D-Dimer 1.53 H Sodium 135 L Carbon Dioxide 21 L Anion Gap BUN 32 H Creatinine 1.50 H Est GFR (CKD-EPI)AfAm Est GFR (CKD-EPI)NonAf BUN/Creatinine Ratio Glucose 124 H Calcium AST 113 H ALT 51 H Albumin 3.3 L Procalcitonin 07/26/21 07/27/21 07/27/21 23:28 06:35 06:35 Plt Count 134 L Absolute Nucleated RBC 0.02 H Lymphocytes # NRBC/100 WBC Diff 0.3 H D-Dimer Sodium Carbon Dioxide 18.0 L Anion Gap 15.00 H BUN 34.3 H Creatinine Est GFR (CKD-EPI)AfAm 49.5 L Est GFR (CKD-EPI)NonAf 42.7 L BUN/Creatinine Ratio 22.87 H Glucose Calcium 8.2 L AST ALT Albumin Procalcitonin 0.19 H - Diagnostic Findings Chest x-ray: report reviewed, image reviewed CT scan - chest: report reviewed, image reviewed Assessment and Plan Plan: Assessment: #1. Acute hypoxic respiratory failure related to COVID-19 pneumonia with onset of symptoms 5 days ago on 07/23/2021, status post monoclonal antibody fusion on 07/25/2021. We will start on Remdesivir today on 07/27/2021 #2. Elevated d-dimer, CT angiogram of the chest was negative for pulmonary embolism #3. Elevated LFTs, related to viral pneumonia #4. Recent urinary tract infection diagnosed on 07/25/2021, patient was discharged home on Bactrim DS, recheck urinalysis #5. Recent syncopal or presyncopal episode at home on 07/25/2021 possibly related to dehydration, brain CT was obtained and was negative #6. History of hypertension #7. Hypothyroidism #8. Nonsmoker Plan: We'll start patient on Remdesivir Continue Decadron 6 mg once daily Continue COVID-19 vitamins and prophylactic Lovenox We'll send a urinalysis, however the pro calcitonin level is low Continue IV hydration We'll continue to monitor progression of his symptoms I performed a history & physical examination of the patient and discussed their management with my nurse practitioner, Lucy Acosta. I reviewed the nurse practitioner's note and agree with the documented findings and plan of care. Lung sounds are positive for diminished breath sounds throughout the lung amin. The findings and the impression was discussed with the patient. I attest to the documentation by the nurse practitioner. Time with Patient: Greater than 30
[2021-07-27 11:37] LABS: Appearance,Urine Cloudy (Clear); Bacteria,Urine Rare /hpf; Bilirubin,Urine Negative (Negative); Blood,Urine Moderate (Negative); Color,Urine Yellow; Glucose,Urine (UA) Negative (Negative); Ketones,Urine 1+ (Negative); Leukocyte Esterase,Urine Trace (Negative); Mucus,Urine Rare /hpf; Nitrite,Urine Negative (Negative); PH, Urine 5.5 (5.0-8.0); Protein,Urine 2+ (Negative); RBC,Urine 1 /hpf (0-5); Specific Gravity,Urine 1.023 (1.001-1.035); Squamous Epithelial Cell,Urine 1 /hpf (0-4); Urobilinogen,Urine <2.0 mg/dL (<2.0); WBC,Urine 6 /hpf (0-5)
[2021-07-27] MEDS: carvediloL 6.25 MG TAB PO SCH ×2 (12:55→21:53)
[2021-07-27] MEDS: LEVOTHYROXINE 50 MCG TAB PO SCH (12:55)
--- NOTE | 2021-07-27 17:57 | P.PN ---
Subjective Progress Note Date: 07/27/21 Patient is an 80-year-old male with a PMH of hypertension and hypothyroidism who presents to the emergency room with complaints of gradually worsening shortness of breath, lethargy, and cough. The patient had previously presented to the emergency room on 07/25 with similar complaints and was diagnosed with COVID 19. He was given Bamlanivimab and was sent home. The patient reports that he con tinued to feel worse and the patient's son-in-law at the bedside reports that the checked his SpO2 via monitor at home which was 83%, at which point they decided to bring him to the emergency room. The patient reports ongoing nonproductive cough and poor oral intake with diarrhea. The patient is not vaccinated for COVID 19. Chest CTA on the prior visit was negative for PE. Patient seen and evaluated at bedside, today patient does not report any worsening of his breathing or report any new significant chest pain. Patient remains in no acute distress. Patient questions and concerns addressed at bedside, proper counseling done. Plan discussed with nursing staff. Objective - Vital Signs Vital signs: Vital Signs Temp 97.6 F 07/27/21 15:52 Pulse 87 07/27/21 15:52 Resp 20 07/27/21 15:52 BP 128/78 07/27/21 15:52 Pulse Ox 96 07/27/21 15:52 Intake & Output 07/26/21 07/27/21 07/27/21 18:59 06:59 18:59 Weight 70.307 kg Other: Voiding Method Urinal General: non toxic, no acute distress, hard of hearing Head: atraumatic, normocephalic, symmetric Eyes: no lid lesion], anicteric sclera Mouth: no lip lesion, mucus membranes moist Abdominal: Nondistended Ext: no gross muscle atrophy, no edema extremities Neuro: Alert oriented to time place and person, exam grossly nonfocal, hard of hearing Psych: Mood and affect appropriate, patient not so certain Skin exam: No rashes no jaundice - Labs CBC & Chem 7: 07/27/21 06:35 07/27/21 06:35 Labs: Abnormal Lab Results - Last 24 Hours (Table) 07/26/21 07/26/21 07/26/21 Range/Units 23:28 23:28 23:28 Plt Count 133 L (150-450) k/uL Absolute Nucleated RBC (0.00-0.00) X 10*3/uL Lymphocytes # 0.7 L (1.0-4.8) k/uL NRBC/100 WBC Diff (0.0-0.0) /100 WBCS D-Dimer 1.53 H (<0.60) mg/L FEU Sodium 135 L (137-145) mmol/L Carbon Dioxide 21 L (22-30) mmol/L Anion Gap (4.00-12.00) mmol/L BUN 32 H (9-20) mg/dL Creatinine 1.50 H (0.66-1.25) mg/dL Est GFR (CKD-EPI)AfAm (60.0-200.0) Est GFR (CKD-EPI)NonAf (60.0-200.0) BUN/Creatinine Ratio (12.00-20.00) Ratio Glucose 124 H (74-99) mg/dL Calcium (8.7-10.3) mg/dL AST 113 H (17-59) U/L ALT 51 H (4-49) U/L Albumin 3.3 L (3.5-5.0) g/dL Procalcitonin (0.02-0.09) ng/mL Urine Protein (Negative) Urine Ketones (Negative) Urine Blood (Negative) Ur Leukocyte Esterase (Negative) Urine WBC (0-5) /hpf Urine Bacteria (None) /hpf Urine Mucus (None) /hpf 07/26/21 07/27/21 07/27/21 Range/Units 23:28 06:35 06:35 Plt Count 134 L (150-450) k/uL Absolute Nucleated RBC 0.02 H (0.00-0.00) X 10*3/uL Lymphocytes # (1.0-4.8) k/uL NRBC/100 WBC Diff 0.3 H (0.0-0.0) /100 WBCS D-Dimer (<0.60) mg/L FEU Sodium (137-145) mmol/L Carbon Dioxide 18.0 L (22-30) mmol/L Anion Gap 15.00 H (4.00-12.00) mmol/L BUN 34.3 H (9-20) mg/dL Creatinine (0.66-1.25) mg/dL Est GFR (CKD-EPI)AfAm 49.5 L (60.0-200.0) Est GFR (CKD-EPI)NonAf 42.7 L (60.0-200.0) BUN/Creatinine Ratio 22.87 H (12.00-20.00) Ratio Glucose (74-99) mg/dL Calcium 8.2 L (8.7-10.3) mg/dL AST (17-59) U/L ALT (4-49) U/L Albumin (3.5-5.0) g/dL Procalcitonin 0.19 H (0.02-0.09) ng/mL Urine Protein (Negative) Urine Ketones (Negative) Urine Blood (Negative) Ur Leukocyte Esterase (Negative) Urine WBC (0-5) /hpf Urine Bacteria (None) /hpf Urine Mucus (None) /hpf 07/27/21 Range/Units 10:05 Plt Count (150-450) k/uL Absolute Nucleated RBC (0.00-0.00) X 10*3/uL Lymphocytes # (1.0-4.8) k/uL NRBC/100 WBC Diff (0.0-0.0) /100 WBCS D-Dimer (<0.60) mg/L FEU Sodium (137-145) mmol/L Carbon Dioxide (22-30) mmol/L Anion Gap (4.00-12.00) mmol/L BUN (9-20) mg/dL Creatinine (0.66-1.25) mg/dL Est GFR (CKD-EPI)AfAm (60.0-200.0) Est GFR (CKD-EPI)NonAf (60.0-200.0) BUN/Creatinine Ratio (12.00-20.00) Ratio Glucose (74-99) mg/dL Calcium (8.7-10.3) mg/dL AST (17-59) U/L ALT (4-49) U/L Albumin (3.5-5.0) g/dL Procalcitonin (0.02-0.09) ng/mL Urine Protein 2+ H (Negative) Urine Ketones 1+ H (Negative) Urine Blood Moderate H (Negative) Ur Leukocyte Esterase Trace H (Negative) Urine WBC 6 H (0-5) /hpf Urine Bacteria Rare H (None) /hpf Urine Mucus Rare H (None) /hpf Assessment and Plan Assessment: Acute hypoxic respiratory failure Likely due to COVID-[address] angiogram of the chest was negative for pulmonary embolism Status post monoclonal antibody fusion on 07/25/2021 Pulm started remdesivir 07/27/21-07/31/21 -Decadron -Supplemental oxygen -Pulmonary consulted -Vitamin C, vitamin D, melatonin, zinc COVID-19 pneumonia In the setting of above, continue management as above Acute kidney injury likely secondary to poor oral intake -IV fluids Thrombocytopenia -Likely secondary to ongoing COVID pneumonia -Monitor for now Hypertension -Continue home meds Hypothyroidism -Continue home meds DVT prophylaxis:Lovenox The patient is admitted with an anticipated greater than 2 midnight stay for evaluation of COVID CODE STATUS: Full Code Discussed with: Patient, son in law Anticipated discharge date: 2-[address]: Home
[2021-07-27] MEDS: ATORVASTATIN 20 MG TAB PO SCH (22:05)
[2021-07-28 04:52] LABS: HCT 43.4 % (39.0-53.0); HGB 14.2 gm/dL (13.0-17.5); MCH 29.5 pg (25.0-35.0); MCHC 32.8 g/dL (31.0-37.0); MCV 89.9 fL (80.0-100.0); Mean Platelet Volume 8.6; Platelet Count 157 k/uL (150-450); RBC 4.82 m/uL (4.30-5.90); RDW 13.9 % (11.5-15.5); WBC 9.5 k/uL (3.8-10.6)
[2021-07-28 05:09] LABS: Calcium 8.4 mg/dL (8.4-10.2); Potassium 4.3 mmol/L (3.5-5.1)
[2021-07-28] MEDS: LEVOTHYROXINE 50 MCG TAB PO SCH (06:31)
[2021-07-28] MEDS: SODIUM CHLORIDE 0.9% 1,000 ML IV SCH (07:48)
[2021-07-28] MEDS: CHOLECALCIFEROL 125 MCG (5000 IU) TABLET PO SCH (07:52)
[2021-07-28] MEDS: dexAMETHasone 2 MG TAB PO SCH (07:52)
[2021-07-28] MEDS: ASCORBIC ACID 500 MG TAB PO SCH (07:52)
[2021-07-28] MEDS: ENOXAPARIN 40 MG/0.4 ML SYRINGE SQ SCH (07:52)
[2021-07-28] MEDS: carvediloL 6.25 MG TAB PO SCH ×2 (07:52→19:23)
[2021-07-28] MEDS: ZINC SULFATE 220 MG CAP PO SCH (07:52)
[2021-07-28] MEDS: REMDESIVIR 100 MG in SODIUM CHLORIDE 0.9% 250 ML IVPB SCH (10:32)
--- NOTE | 2021-07-28 10:54 | P.PN ---
Subjective Progress Note Date: 07/28/21 Principal diagnosis: COVID-19 pneumonia 80-year-old white male patient with past medical history of hypertension, hypothyroidism, nonsmoker, who presented to emergency department on 07/26/2021 evaluation of low O2 saturation readings at home. Patient started having symptoms of COVID-19 infection last Monday on 07/23/2021. Has been having symptoms of coughing, fever, chills, diarrhea. On 07/25/2021 he was seen in the emergency department for a possible syncopal episode, increased generalized fatigue, exertional shortness of breath, lack of appetite. he had a brain CT w as completed showing no acute intracranial findings. He was diagnosed with COVID-19 pneumonia. Is not vaccinated against COVID-19. His d-dimer was also elevated at 1.65, and CT angiogram was obtained showing no signs of acute pulmonary embolism, but was positive for bilateral patchy interstitial i nfiltrates. Patient was on room air, he did receive monoclonal antibody in the emergency department on 07/25/2021. He was also diagnosed with a urinary tract infection and was given a course of Bactrim DS and discharged home. The discharge home he continued to worsen, and his pulse oximetry readings were low. Patient was more short of breath. His chest x-ray showed pulmonary interstitial infiltrates. His pulse ox in the emergency department was 84% on room air, and he was placed on supplemental oxygen currently requiring 5 L. He has been afebrile, he is receiving IV hydration with 0.9 normal saline at a rate of 75 ML per hour. Started on Decadron and COVID-19 vitamins and prophylactic anticoagulation in the form of Lovenox. Admission blood work was reviewed showing white blood cell count is 6.5, hemoglobin is 15.1, platelet count of 133, lymphocyte count 0.7 d-dimer is 1.53, sodium is 135, potassium is 4.7, CO2 is 21, BUN is 32, creatinine is 1.5, and patient previously had normal renal function, plasma lactic acid was 1.6, AST was 113 ALT was 51, pro calcitonin level was negative at 0.19. The patient is seen today 07/28/2021 in follow-up on the observation unit. He is currently resting fairly comfortably in bed. Awake and alert in no acute distress. He states his breathing is about the same today compared to yesterday. He is maintaining O2 saturations in the low 90s on 5 L nasal cannula. She's afebrile. Hemodynamically stable. White count 9.5. Hemoglobin 14.2. Sodium 138. Potassium 4.3. Glucose 144. This is day #2 of Remdesivir. He is continued on Decadron, Lovenox, vitamin supplements. Objective - Vital Signs Vital signs: Vital Signs Temp 97.4 F L 07/28/21 07:41 Pulse 78 07/28/21 07:41 Resp 18 07/28/21 08:00 BP 149/77 07/28/21 07:41 Pulse Ox 94 L 07/28/21 07:41 Intake & Output 07/27/21 07/28/21 07/28/21 18:59 06:59 18:59 Output Total 200 Balance -200 Output: Urine 200 Other: Voiding Method Urinal Urinal # Voids 1 # Bowel Movements 1 - Exam GENERAL EXAM: Alert, pleasant 80-year-old gentleman, on 5 L nasal cannula, fairly comfortable in no apparent distress. HEAD: Normocephalic. EYES: Normal reaction of pupils, equal size. NOSE: Clear with pink turbinates. THROAT: No erythema or exudates. NECK: No masses, no JVD. CHEST: No chest wall deformity. LUNGS: Equal air entry with coarse crackles in the bilateral bases CVS: S1 and S2 normal with no audible murmur, regular rhythm. ABDOMEN: No hepatosplenomegaly, normal bowel sounds, no guarding or rigidity. SPINE: No scoliosis or deformity SKIN: No rashes CENTRAL NERVOUS SYSTEM: No focal deficits, tone is normal in all 4 extremities. EXTREMITIES: There is no peripheral edema. No clubbing, no cyanosis. Peripheral pulses are intact. - Labs CBC & Chem 7: 07/28/21 04:26 07/28/21 04:26 Labs: Abnormal Lab Results - Last 24 Hours (Table) 07/27/21 07/28/21 Range/Units 10:05 04:26 Chloride 111 H (98-107) mmol/L Carbon Dioxide 19 L (22-30) mmol/L BUN 44 H (9-20) mg/dL Glucose 144 H (74-99) mg/dL Urine Protein 2+ H (Negative) Urine Ketones 1+ H (Negative) Urine Blood Moderate H (Negative) Ur Leukocyte Esterase Trace H (Negative) Urine WBC 6 H (0-5) /hpf Urine Bacteria Rare H (None) /hpf Urine Mucus Rare H (None) /hpf Assessment and Plan Assessment: 1 Acute hypoxic respiratory failure related to COVID-19 pneumonia with onset of symptoms 5 days ago on 07/23/2021, status post monoclonal antibody fusion on 07/25/2021. Started on Remdesivir on 07/27/2021 2 Elevated d-dimer, CT angiogram of the chest was negative for pulmonary embolism 3 Elevated LFTs, related to viral pneumonia 4 Recent urinary tract infection diagnosed on 07/25/2021, patient was discharged home on Bactrim DS, recheck urinalysis 5 Recent syncopal or presyncopal episode at home on 07/25/2021 possibly related to dehydration, brain CT was obtained and was negative 6 History of hypertension 7 Hypothyroidism 8 Nonsmoker Plan: The patient was seen and evaluated by Dr. Lal Currently stable from the pulmonary standpoint Titrate the FiO2 as tolerated Day #2 of Remdesivir Continue Decadron, Lovenox, vitamin supplements We'll continue to follow I, the cosigning physician, performed a history & physical examination of the patient. Lungs sounds with coarse crackles in the bilateral bases. Maintaining good O2 saturations in the 90s on 5 L nasal cannula. I discussed the assessment and plan of care with my nurse practitioner, Vale Florez. I attest to the above note as dictated by her.
--- NOTE | 2021-07-28 19:11 | P.PN ---
Subjective Progress Note Date: 07/28/21 Principal diagnosis: shortness of breath Patient is an 80-year-old male with a past medical history of hypertension and hypothyroidism who presented to the emergency department secondary to shortness of breath, lethargy, and cough. On 07/25 he was diagnosed with COVID-19. He was given monoclonal antibody and was subsequently discharged home. He checked his home pulse ox was found to be at 83%. He presented to the ER. There he was found to have tachycardia with a pulse of 101 and oxygen saturation of 84% on room air. Laboratory analysis showed an elevated creatinine at 1.5 which may be due to his CT of the chest on 07/25 which revealed no evidence of pulmonary embolism). He was also found to have an AST of 113 and ALT of 51. He was initially diagnosed with a urinary tract infection however repeat urinalysis showed a white blood cell count of 1. He is given a dose of Decadron and arrangements were made for admission. Patient was seen by pulmonary. He was started on Remdesivir. Patient seen and examined at bedside. He states he does not feel short of breath though he becomes dyspneic when speaking. He denies any chest pain. No nausea or vomiting. No diarrhea. He states he is eating and drinking well. General: non toxic, no distress, appears at stated age Derm: warm, dry Head: atraumatic, normocephalic, symmetric, hard of hearing Eyes: EOMI, no lid lag, anicteric sclera Mouth: no lip lesion, mucus membranes dry Cardiovascular: S1S2 reg, no murmur, positive posterior tibial pulse bilateral, Lungs: Course breath sounds bilateral, no rhonchi, no rales , no accessory muscle use Abdominal: soft, nontender to palpation, no guarding, no appreciable organomegaly Ext: no gross muscle atrophy, no edema, no contractures Neuro: CN II-XI grossly intact, no focal neuro deficits Psych: Alert, oriented, appropriate affect COVID-19 pneumonia in an unvaccinated individual Acute hypoxic respiratory failure -Decadron d #2 - Remdesivir d# 2 - zinc, vit D, and vit C - follow COVID labs - Pulm recs appreciated - wean O2 as able - had CT chest 07/25 negative for PE Thrombocytopenia, resolved HTN, controlled - Coreg - follow BD Hypothyroidism - synthroid Hyperchloremic metabolic acidosis -Discontinue IV fluids -Recheck basic metabolic profile in a.m. FABIENNE, resolved DVT prophylaxis: Lovenox Discussed with: patient, nursing Anticipated discharge: in 3-[address]: home A total of 45 minutes was spent on the care of this complex patient more than 50% of the time was spent in counseling and care coordination. Objective - Vital Signs Vital signs: Vital Signs Temp 97.8 F 07/28/21 02:00 Pulse 80 07/28/21 02:00 Resp 18 07/28/21 02:00 BP 126/58 07/28/21 02:00 Pulse Ox 92 L 07/28/21 02:00 Intake & Output 07/27/21 07/28/21 07/28/21 18:59 06:59 18:59 Output Total 200 Balance -200 Output: Urine 200 Other: Voiding Method Urinal - Labs CBC & Chem 7: 07/28/21 04:26 07/28/21 04:26 Labs: Abnormal Lab Results - Last 24 Hours (Table) 07/26/21 07/27/21 07/27/21 Range/Units 23:28 06:35 06:35 Plt Count 134 L (140-440) X 10*3/uL Absolute Nucleated RBC 0.02 H (0.00-0.00) X 10*3/uL NRBC/100 WBC Diff 0.3 H (0.0-0.0) /100 WBCS Chloride (98-107) mmol/L Carbon Dioxide 18.0 L (21.6-31.8) mmol/L Anion Gap 15.00 H (4.00-12.00) mmol/L BUN 34.3 H (9.0-27.0) mg/dL Est GFR (CKD-EPI)AfAm 49.5 L (60.0-200.0) Est GFR (CKD-EPI)NonAf 42.7 L (60.0-200.0) BUN/Creatinine Ratio 22.87 H (12.00-20.00) Ratio Glucose (74-99) mg/dL Calcium 8.2 L (8.7-10.3) mg/dL Procalcitonin 0.19 H (0.02-0.09) ng/mL Urine Protein (Negative) Urine Ketones (Negative) Urine Blood (Negative) Ur Leukocyte Esterase (Negative) Urine WBC (0-5) /hpf Urine Bacteria (None) /hpf Urine Mucus (None) /hpf 07/27/21 07/28/21 Range/Units 10:05 04:26 Plt Count (140-440) X 10*3/uL Absolute Nucleated RBC (0.00-0.00) X 10*3/uL NRBC/100 WBC Diff (0.0-0.0) /100 WBCS Chloride 111 H (98-107) mmol/L Carbon Dioxide 19 L (21.6-31.8) mmol/L Anion Gap (4.00-12.00) mmol/L BUN 44 H (9.0-27.0) mg/dL Est GFR (CKD-EPI)AfAm (60.0-200.0) Est GFR (CKD-EPI)NonAf (60.0-200.0) BUN/Creatinine Ratio (12.00-20.00) Ratio Glucose 144 H (74-99) mg/dL Calcium (8.7-10.3) mg/dL Procalcitonin (0.02-0.09) ng/mL Urine Protein 2+ H (Negative) Urine Ketones 1+ H (Negative) Urine Blood Moderate H (Negative) Ur Leukocyte Esterase Trace H (Negative) Urine WBC 6 H (0-5) /hpf Urine Bacteria Rare H (None) /hpf Urine Mucus Rare H (None) /hpf
[2021-07-28] MEDS: ATORVASTATIN 20 MG TAB PO SCH (20:02)
[2021-07-29] MEDS: LEVOTHYROXINE 50 MCG TAB PO SCH (05:54)
[2021-07-29] MEDS: ASCORBIC ACID 500 MG TAB PO SCH (08:10)
[2021-07-29] MEDS: carvediloL 6.25 MG TAB PO SCH ×2 (08:10→16:42)
[2021-07-29] MEDS: ENOXAPARIN 40 MG/0.4 ML SYRINGE SQ SCH (08:10)
[2021-07-29] MEDS: ZINC SULFATE 220 MG CAP PO SCH (08:11)
[2021-07-29] MEDS: dexAMETHasone 2 MG TAB PO SCH (08:11)
[2021-07-29] MEDS: CHOLECALCIFEROL 125 MCG (5000 IU) TABLET PO SCH (08:11)
[2021-07-29 09:01] LABS: HCT 46.4 % (39.0-53.0); HGB 15.4 gm/dL (13.0-17.5); MCH 29.7 pg (25.0-35.0); MCHC 33.1 g/dL (31.0-37.0); MCV 89.8 fL (80.0-100.0); Mean Platelet Volume 8.4; Platelet Count 227 k/uL (150-450); RBC 5.17 m/uL (4.30-5.90); RDW 13.9 % (11.5-15.5); WBC 14.7 k/uL (3.8-10.6)
[2021-07-29] MEDS: REMDESIVIR 100 MG in SODIUM CHLORIDE 0.9% 250 ML IVPB SCH (09:16)
[2021-07-29 09:24] LABS: ALT 51 U/L (4-49); AST 69 U/L (17-59); African American GFR (CKD) 81 (>60 ml/min/1.73 sqM); Albumin 3.1 g/dL (3.5-5.0); Alkaline Phosphatase 80 U/L (38-126); Anion Gap 7 mmol/L; Blood Urea Nitrogen 43 mg/dL (9-20); C Reactive Protein 3.6 mg/dL (<1.0); Calcium 8.7 mg/dL (8.4-10.2); Carbon Dioxide 19 mmol/L (22-30); Chloride 111 mmol/L (98-107); Glucose 158 mg/dL (74-99); LDH 1605 U/L (313-618); Magnesium 2.2 mg/dL (1.6-2.3); Non-African American GFR(CKD) 70 (>60 ml/min/1.73 sqM); Phosphorus 3.6 mg/dL (2.5-4.5); Potassium 4.1 mmol/L (3.5-5.1); Sodium 137 mmol/L (137-145); Total Bilirubin 0.7 mg/dL (0.2-1.3); Total Protein 6.1 g/dL (6.3-8.2)
--- NOTE | 2021-07-29 16:04 | P.PN ---
Subjective Progress Note Date: 07/29/21 Principal diagnosis: COVID-19 pneumonia 80-year-old white male patient with past medical history of hypertension, hypothyroidism, nonsmoker, who presented to emergency department on 07/26/2021 evaluation of low O2 saturation readings at home. Patient started having symptoms of COVID-19 infection last Monday on 07/23/2021. Has been having symptoms of coughing, fever, chills, diarrhea. On 07/25/2021 he was seen in the emergency department for a possible syncopal episode, increased generalized fatigue, exertional shortness of breath, lack of appetite. he had a brain CT w as completed showing no acute intracranial findings. He was diagnosed with COVID-19 pneumonia. Is not vaccinated against COVID-19. His d-dimer was also elevated at 1.65, and CT angiogram was obtained showing no signs of acute pulmonary embolism, but was positive for bilateral patchy interstitial i nfiltrates. Patient was on room air, he did receive monoclonal antibody in the emergency department on 07/25/2021. He was also diagnosed with a urinary tract infection and was given a course of Bactrim DS and discharged home. The discharge home he continued to worsen, and his pulse oximetry readings were low. Patient was more short of breath. His chest x-ray showed pulmonary interstitial infiltrates. His pulse ox in the emergency department was 84% on room air, and he was placed on supplemental oxygen currently requiring 5 L. He has been afebrile, he is receiving IV hydration with 0.9 normal saline at a rate of 75 ML per hour. Started on Decadron and COVID-19 vitamins and prophylactic anticoagulation in the form of Lovenox. Admission blood work was reviewed showing white blood cell count is 6.5, hemoglobin is 15.1, platelet count of 133, lymphocyte count 0.7 d-dimer is 1.53, sodium is 135, potassium is 4.7, CO2 is 21, BUN is 32, creatinine is 1.5, and patient previously had normal renal function, plasma lactic acid was 1.6, AST was 113 ALT was 51, pro calcitonin level was negative at 0.19. The patient is seen today 07/28/2021 in follow-up on the observation unit. He is currently resting fairly comfortably in bed. Awake and alert in no acute distress. He states his breathing is about the same today compared to yesterday. He is maintaining O2 saturations in the low 90s on 5 L nasal cannula. She's afebrile. Hemodynamically stable. White count 9.5. Hemoglobin 14.2. Sodium 138. Potassium 4.3. Glucose 144. This is day #2 of Remdesivir. He is continued on Decadron, Lovenox, vitamin supplements. The patient is seen today 07/29/2021 in follow-up on the regular medical floor. He is currently resting in bed. He is now requiring 15 L high flow nasal cannu la to maintain O2 saturations in the low 90s. He was on 5 L yesterday. He is afebrile. I count 14.7. Hemoglobin 15.4. D-dimer 1.27. Sodium 137. Creatinine 1.0. Glucose 158. AST 69. ALT 51. LDH 1605. C-reactive protein 3.6. He is continued on Lovenox, Decadron, vitamin supplements. He is also on Remdesivir day #3. Objective - Vital Signs Vital signs: Vital Signs Temp 97.6 F 07/29/21 13:43 Pulse 84 07/29/21 13:43 Resp 18 07/29/21 13:43 BP 132/78 07/29/21 13:43 Pulse Ox 90 L 07/29/21 13:43 Intake & Output 07/28/21 07/29/21 07/29/21 18:59 06:59 18:59 Intake Total 480 Balance 480 Intake: Oral 480 Other: Voiding Method Urinal Urinal Urinal # Voids 1 2 # Bowel Movements 1 - Exam GENERAL EXAM: Alert, pleasant 80-year-old gentleman, on 15 L high flow nasal cannula, in mild respiratory distress distress. HEAD: Normocephalic. EYES: Normal reaction of pupils, equal size. NOSE: Clear with pink turbinates. THROAT: No erythema or exudates. NECK: No masses, no JVD. CHEST: No chest wall deformity. LUNGS: Equal air entry with coarse crackles in the bilateral bases CVS: S1 and S2 normal with no audible murmur, regular rhythm. ABDOMEN: No hepatosplenomegaly, normal bowel sounds, no guarding or rigidity. SPINE: No scoliosis or deformity SKIN: No rashes CENTRAL NERVOUS SYSTEM: No focal deficits, tone is normal in all 4 extremities. EXTREMITIES: There is no peripheral edema. No clubbing, no cyanosis. Peripheral pulses are intact. - Labs CBC & Chem 7: 07/29/21 08:31 07/29/21 08:31 Labs: Abnormal Lab Results - Last 24 Hours (Table) 07/29/21 07/29/21 07/29/21 Range/Units 08:31 08:31 08:31 WBC 14.7 H (3.8-10.6) k/uL D-Dimer 1.27 H (<0.60) mg/L FEU Chloride 111 H (98-107) mmol/L Carbon Dioxide 19 L (22-30) mmol/L BUN 43 H (9-20) mg/dL Glucose 158 H (74-99) mg/dL AST 69 H (17-59) U/L ALT 51 H (4-49) U/L Lactate Dehydrogenase 1605 H (313-618) U/L C-Reactive Protein 3.6 H (<1.0) mg/dL Total Protein 6.1 L (6.3-8.2) g/dL Albumin 3.1 L (3.5-5.0) g/dL Assessment and Plan Assessment: 1 Acute hypoxic respiratory failure related to COVID-19 pneumonia with onset of symptoms 5 days ago on 07/23/2021, status post monoclonal antibody fusion on 07/25/2021. Started on Remdesivir on 07/27/2021. We will stop it today 07/29/2021. Initiate Baricitinib. Oxygen requirements are up to 15 L high flow nasal cannula today. 2 Elevated d-dimer, CT angiogram of the chest was negative for pulmonary embolism 3 Elevated LFTs, related to viral pneumonia 4 Recent urinary tract infection diagnosed on 07/25/2021, patient was discharged home on Bactrim DS, recheck urinalysis 5 Recent syncopal or presyncopal episode at home on 07/25/2021 possibly related to dehydration, brain CT was obtained and was negative 6 History of hypertension 7 Hypothyroidism 8 Nonsmoker Plan: The patient was seen and evaluated by Dr. Lal The patient is requiring increased oxygen requirements now on 15 L high flow We'll add nonrebreather and may require AirVo We will discontinue the Remdesivir and initiate Baricitinib Continue Decadron, Lovenox, vitamin supplements Prognosis is guarded We'll continue to follow I, the cosigning physician, performed a history & physical examination of the patient. Lungs sounds with coarse crackles in the bilateral bases. Maintaining O2 saturations in the 90s on 15 L nasal cannula. I discussed the assessment and plan of care with my nurse practitioner, Vale Florez. I attest to the above note as dictated by her.
[2021-07-29] MEDS: BARICITINIB 2 MG TABLET PO SCH (17:01)
--- NOTE | 2021-07-29 17:37 | P.PN ---
Subjective Progress Note Date: 07/29/21 (delayed charting seen at 1030) Principal diagnosis: shortness of breath Patient is an 80-year-old male with a past medical history of hypertension and hypothyroidism who presented to the emergency department secondary to shortness of breath, lethargy, and cough. On 07/25 he was diagnosed with COVID-19. He was given monoclonal antibody and was subsequently discharged home. He checked his home pulse ox was found to be at 83%. He presented to the ER. There he was found to have tachycardia with a pulse of 101 and oxygen saturation of 84% on room air. Laboratory analysis showed an elevated creatinine at 1.5 which may be due to his CT of the chest on 07/25 which revealed no evidence of pulmonary embolism). He was also found to have an AST of 113 and ALT of 51. He was initially diagnosed with a urinary tract infection however repeat urinalysis showed a white blood cell count of 1. He is given a dose of Decadron and arrangements were made for admission. Patient was seen by pulmonary. He was started on Remdesivir and Decadron was continued. Overnight on 07/28 and 07/29 his oxygen requirements went from 5 L to 15 years. His Remdesivir was stopped a nd he was started on Baricitnib. Patient seen and examined at bedside. In denies shortness of breath appears dyspneic. He states he ate some breakfast. Denies any nausea or vomiting. Denies any chest discomfort. States he overall feels well. General: non toxic, no distress, appears at stated age Derm: warm, dry Head: atraumatic, normocephalic, symmetric, hard of hearing Eyes: EOMI, no lid lag, anicteric sclera Mouth: no lip lesion, mucus membranes dry Cardiovascular: S1S2 reg, no murmur, positive posterior tibial pulse bilateral, Lungs: Course breath sounds bilateral, no rhonchi, no rales , no accessory muscle use, 3 word conversational dyspnea Abdominal: soft, nontender to palpation, no guarding, no appreciable organomegaly Ext: no gross muscle atrophy, no edema, no contractures Neuro: CN II-XI grossly intact, no focal neuro deficits Psych: Alert, oriented, appropriate affect COVID-19 pneumonia in an unvaccinated individual Acute hypoxic respiratory failure -Decadron d #3 -Started on Baricitnib, Remdesivir is continued as patient's oxygen status worsened - zinc, vit D, and vit C - follow COVID labs - Pulm recs appreciated - wean O2 as able - had CT chest 07/25 negative for PE Thrombocytopenia, resolved HTN, controlled - Coreg - follow Bp Hypothyroidism - synthroid Hyperchloremic metabolic acidosis -Recheck basic metabolic profile in a.m. FABIENNE, resolved Patient's nephew updated over phone. DVT prophylaxis: Lovenox Discussed with: patient, nursing Anticipated discharge: Unknown Anticipated discharge place: home A total of 35 minutes was spent on the care of this complex patient more than 50% of the time was spent in counseling and care coordination. Objective - Vital Signs Vital signs: Vital Signs Temp 97.6 F 07/29/21 13:43 Pulse 84 07/29/21 13:43 Resp 18 07/29/21 13:43 BP 132/78 07/29/21 13:43 Pulse Ox 90 L 07/29/21 13:43 Intake & Output 07/28/21 07/29/21 07/29/21 18:59 06:59 18:59 Intake Total 480 250 Balance 480 250 Intake: Intake, IV Titration 250 Amount Remdesivir 100 mg In 250 Sodium Chloride 0.9% 250 ml @ 250 mls/hr IVPB DAILY@1000 [facility] Rx#: [id number] Oral 480 Other: Voiding Method Urinal Urinal Urinal # Voids 1 2 # Bowel Movements 1 2 - Labs CBC & Chem 7: 07/29/21 08:31 07/29/21 08:31 Labs: Abnormal Lab Results - Last 24 Hours (Table) 07/29/21 07/29/21 07/29/21 Range/Units 08:31 08:31 08:31 WBC 14.7 H (3.8-10.6) k/uL D-Dimer 1.27 H (<0.60) mg/L FEU Chloride 111 H (98-107) mmol/L Carbon Dioxide 19 L (22-30) mmol/L BUN 43 H (9-20) mg/dL Glucose 158 H (74-99) mg/dL AST 69 H (17-59) U/L ALT 51 H (4-49) U/L Lactate Dehydrogenase 1605 H (313-618) U/L C-Reactive Protein 3.6 H (<1.0) mg/dL Total Protein 6.1 L (6.3-8.2) g/dL Albumin 3.1 L (3.5-5.0) g/dL
[2021-07-29] MEDS: ATORVASTATIN 20 MG TAB PO SCH (20:22)
[2021-07-30] MEDS: LEVOTHYROXINE 50 MCG TAB PO SCH (06:05)
[2021-07-30 07:44] LABS: Basophils % (A) 0 %; Eosinophils % (A) 0 %; HCT 43.5 % (39.0-53.0); HGB 14.6 gm/dL (13.0-17.5); Lymphocytes # (A) 0.8 k/uL (1.0-4.8); Lymphocytes % (A) 8 %; MCH 29.4 pg (25.0-35.0); MCHC 33.6 g/dL (31.0-37.0); MCV 87.5 fL (80.0-100.0); Mean Platelet Volume 8.7; Monocytes # (A) 0.7 k/uL (0-1.0); Monocytes % (A) 7 %; Neutrophils # (A) 8.3 k/uL (1.3-7.7); Neutrophils % (A) 83 %; Platelet Count 231 k/uL (150-450); RBC 4.97 m/uL (4.30-5.90); RDW 14.3 % (11.5-15.5); WBC 10.1 k/uL (3.8-10.6)
[2021-07-30 07:45] LABS: Glucose 131 mg/dL (74-99)
[2021-07-30 07:49] LABS: ALT 51 U/L (4-49); AST 50 U/L (17-59); African American GFR (CKD) 77 (>60 ml/min/1.73 sqM); Albumin 2.6 g/dL (3.5-5.0); Albumin/Globulin Ratio 0.9; Alkaline Phosphatase 79 U/L (38-126); Anion Gap 7 mmol/L; Blood Urea Nitrogen 38 mg/dL (9-20); C Reactive Protein 2.3 mg/dL (<1.0); Calcium 8.3 mg/dL (8.4-10.2); Carbon Dioxide 19 mmol/L (22-30); Chloride 116 mmol/L (98-107); Globulin 2.8 g/dL; Non-African American GFR(CKD) 67 (>60 ml/min/1.73 sqM); Sodium 142 mmol/L (137-145); Total Bilirubin 0.6 mg/dL (0.2-1.3); Total Protein 5.4 g/dL (6.3-8.2)
[2021-07-30] MEDS: ENOXAPARIN 40 MG/0.4 ML SYRINGE SQ SCH (10:11)
[2021-07-30] MEDS: dexAMETHasone 2 MG TAB PO SCH (10:12)
[2021-07-30] MEDS: ASCORBIC ACID 500 MG TAB PO SCH (10:12)
[2021-07-30] MEDS: carvediloL 6.25 MG TAB PO SCH ×2 (10:12→17:01)
[2021-07-30] MEDS: ZINC SULFATE 220 MG CAP PO SCH (10:12)
[2021-07-30] MEDS: CHOLECALCIFEROL 125 MCG (5000 IU) TABLET PO SCH (10:12)
--- NOTE | 2021-07-30 15:42 | P.PN ---
Subjective Progress Note Date: 07/30/21 (delayed charting seen at 0915) Principal diagnosis: shortness of breath Patient is an 80-year-old male with a past medical history of hypertension and hypothyroidism who presented to the emergency department secondary to shortness of breath, lethargy, and cough. On 07/25 he was diagnosed with COVID-19. He was given monoclonal antibody and was subsequently discharged home. He checked his home pulse ox was found to be at 83%. He presented to the ER. There he was found to have tachycardia with a pulse of 101 and oxygen saturation of 84% on room air. Laboratory analysis showed an elevated creatinine at 1.5 which may be due to his CT of the chest on 07/25 which revealed no evidence of pulmonary embolism). He was also found to have an AST of 113 and ALT of 51. He was initially diagnosed with a urinary tract infection however repeat urinalysis showed a white blood cell count of 1. He is given a dose of Decadron and arrangements were made for admission. Patient was seen by pulmonary. He was started on Remdesivir and Decadron was continued. Overnight on 07/28 and 07/29 his oxygen requirements went from 5 L to 15 years. His Remdesivir was stopped a nd he was started on Baricitnib. Patient seen and examined at bedside. He denies shortness of breath appears dyspneic. Denies any nausea or vomiting. Denies any chest discomfort. States he overall feels well and wants to go home. General: ill appearing, no distress, appears at stated age Derm: warm, dry Head: atraumatic, normocephalic, symmetric, hard of hearing Eyes: EOMI, no lid lag, anicteric sclera Mouth: no lip lesion, mucus membranes dry Cardiovascular: S1S2 reg, no murmur, positive posterior tibial pulse bilateral, Lungs: Course breath sounds bilateral, no rhonchi, no rales , + accessory muscle use, 3 word conversational dyspnea Abdominal: soft, nontender to palpation, no guarding, no appreciable organomegaly Ext: no gross muscle atrophy, no edema, no contractures Neuro: CN II-XI grossly intact, no focal neuro deficits Psych: Alert, oriented, appropriate affect COVID-19 pneumonia in an unvaccinated individual Acute hypoxic respiratory failure -Decadron d #4 -Baracitnib D # 2 - zinc, vit D, and vit C - follow COVID labs - Pulm recs appreciated - wean O2 as able - had CT chest 07/25 negative for PE Thrombocytopenia, resolved HTN, controlled - Coreg - follow Bp Hypothyroidism - synthroid Hyperchloremic metabolic acidosis - start lactate Ringers -Recheck basic metabolic profile in a.m. FABIENNE, resolved DVT prophylaxis: Lovenox Discussed with: patient, nursing Anticipated discharge: Unknown Anticipated discharge place: home A total of 35 minutes was spent on the care of this complex patient more than 50% of the time was spent in counseling and care coordination. Objective - Vital Signs Vital signs: Vital Signs Temp 98.3 F 07/30/21 13:37 Pulse 71 07/30/21 13:37 Resp 18 07/30/21 13:37 BP 148/89 07/30/21 13:37 Pulse Ox 91 L 07/30/21 13:37 Intake & Output 07/29/21 07/30/21 07/30/21 18:59 06:59 18:59 Intake Total 250 320 Balance 250 320 Intake: Intake, IV Titration 250 Amount Remdesivir 100 mg In 250 Sodium Chloride 0.9% 250 ml @ 250 mls/hr IVPB DAILY@1000 [facility] Rx#: [id number] Oral 320 Other: Voiding Method Urinal Urinal Urinal # Voids 1 # Bowel Movements 2 - Labs CBC & Chem 7: 07/30/21 06:55 07/30/21 06:55 Labs: Abnormal Lab Results - Last 24 Hours (Table) 07/29/21 07/30/21 07/30/21 Range/Units 08:31 06:55 06:55 Neutrophils # 8.3 H (1.3-7.7) k/uL Lymphocytes # 0.8 L (1.0-4.8) k/uL D-Dimer (<0.60) mg/L FEU Chloride 116 H (98-107) mmol/L Carbon Dioxide 19 L (22-30) mmol/L BUN 38 H (9-20) mg/dL Glucose 131 H (74-99) mg/dL Calcium 8.3 L (8.4-10.2) mg/dL Ferritin 2007.0 H (22.0-322.0) ng/mL ALT 51 H (4-49) U/L C-Reactive Protein 2.3 H (<1.0) mg/dL Total Protein 5.4 L (6.3-8.2) g/dL Albumin 2.6 L (3.5-5.0) g/dL 07/30/21 Range/Units 06:55 Neutrophils # (1.3-7.7) k/uL Lymphocytes # (1.0-4.8) k/uL D-Dimer 1.49 H (<0.60) mg/L FEU Chloride (98-107) mmol/L Carbon Dioxide (22-30) mmol/L BUN (9-20) mg/dL Glucose (74-99) mg/dL Calcium (8.4-10.2) mg/dL Ferritin (22.0-322.0) ng/mL ALT (4-49) U/L C-Reactive Protein (<1.0) mg/dL Total Protein (6.3-8.2) g/dL Albumin (3.5-5.0) g/dL
[2021-07-30] MEDS: BARICITINIB 2 MG TABLET PO SCH (17:01)
[2021-07-30] MEDS: LACTATED RINGERS 1,000 ML IV SCH (17:02)
--- NOTE | 2021-07-30 19:45 | P.PN ---
Subjective Progress Note Date: 07/30/21 Principal diagnosis: COVID-19 pneumonia 80-year-old white male patient with past medical history of hypertension, hypothyroidism, nonsmoker, who presented to emergency department on 07/26/2021 evaluation of low O2 saturation readings at home. Patient started having symptoms of COVID-19 infection last Monday on 07/23/2021. Has been having symptoms of coughing, fever, chills, diarrhea. On 07/25/2021 he was seen in the emergency department for a possible syncopal episode, increased generalized fatigue, exertional shortness of breath, lack of appetite. he had a brain CT w as completed showing no acute intracranial findings. He was diagnosed with COVID-19 pneumonia. Is not vaccinated against COVID-19. His d-dimer was also elevated at 1.65, and CT angiogram was obtained showing no signs of acute pulmonary embolism, but was positive for bilateral patchy interstitial i nfiltrates. Patient was on room air, he did receive monoclonal antibody in the emergency department on 07/25/2021. He was also diagnosed with a urinary tract infection and was given a course of Bactrim DS and discharged home. The discharge home he continued to worsen, and his pulse oximetry readings were low. Patient was more short of breath. His chest x-ray showed pulmonary interstitial infiltrates. His pulse ox in the emergency department was 84% on room air, and he was placed on supplemental oxygen currently requiring 5 L. He has been afebrile, he is receiving IV hydration with 0.9 normal saline at a rate of 75 ML per hour. Started on Decadron and COVID-19 vitamins and prophylactic anticoagulation in the form of Lovenox. Admission blood work was reviewed showing white blood cell count is 6.5, hemoglobin is 15.1, platelet count of 133, lymphocyte count 0.7 d-dimer is 1.53, sodium is 135, potassium is 4.7, CO2 is 21, BUN is 32, creatinine is 1.5, and patient previously had normal renal function, plasma lactic acid was 1.6, AST was 113 ALT was 51, pro calcitonin level was negative at 0.19. The patient is seen today 07/28/2021 in follow-up on the observation unit. He is currently resting fairly comfortably in bed. Awake and alert in no acute distress. He states his breathing is about the same today compared to yesterday. He is maintaining O2 saturations in the low 90s on 5 L nasal cannula. She's afebrile. Hemodynamically stable. White count 9.5. Hemoglobin 14.2. Sodium 138. Potassium 4.3. Glucose 144. This is day #2 of Remdesivir. He is continued on Decadron, Lovenox, vitamin supplements. The patient is seen today 07/29/2021 in follow-up on the regular medical floor. He is currently resting in bed. He is now requiring 15 L high flow nasal cannu la to maintain O2 saturations in the low 90s. He was on 5 L yesterday. He is afebrile. I count 14.7. Hemoglobin 15.4. D-dimer 1.27. Sodium 137. Creatinine 1.0. Glucose 158. AST 69. ALT 51. LDH 1605. C-reactive protein 3.6. He is continued on Lovenox, Decadron, vitamin supplements. He is also on Remdesivir day #3. The patient is seen today 07/30/2021 in follow-up by the regular medical floor. He is currently sitting up in bed having dinner. Doing a bit better today compared to yesterday. He is still requiring 15 L high flow nasal cannula. White count 10.1. Hemoglobin 14.6. Lymphocytic 0.8. D-dimer 1.49. Sodium 142. Potassium 4.0. Creatinine 1.04. C-reactive protein 2.3. He remains on Baricitinib, Decadron, Lovenox, vitamin supplements. Objective - Vital Signs Vital signs: Vital Signs Temp 97.8 F 07/30/21 17:28 Pulse 68 07/30/21 17:28 Resp 16 07/30/21 17:28 BP 173/78 07/30/21 17:28 Pulse Ox 92 L 07/30/21 17:28 Intake & Output 07/30/21 07/30/21 07/31/21 06:59 18:59 06:59 Intake Total 320 Balance 320 Intake: Oral 320 Other: Voiding Method Urinal Urinal # Voids 1 - Exam GENERAL EXAM: Alert, pleasant 80-year-old gentleman, on 15 L high flow nasal cannula, in mild respiratory distress distress. HEAD: Normocephalic. EYES: Normal reaction of pupils, equal size. NOSE: Clear with pink turbinates. THROAT: No erythema or exudates. NECK: No masses, no JVD. CHEST: No chest wall deformity. LUNGS: Equal air entry with coarse crackles in the bilateral bases CVS: S1 and S2 normal with no audible murmur, regular rhythm. ABDOMEN: No hepatosplenomegaly, normal bowel sounds, no guarding or rigidity. SPINE: No scoliosis or deformity SKIN: No rashes CENTRAL NERVOUS SYSTEM: No focal deficits, tone is normal in all 4 extremities. EXTREMITIES: There is no peripheral edema. No clubbing, no cyanosis. Pe ripheral pulses are intact. - Labs CBC & Chem 7: 07/30/21 06:55 07/30/21 06:55 Labs: Abnormal Lab Results - Last 24 Hours (Table) 07/30/21 07/30/21 07/30/21 Range/Units 06:55 06:55 06:55 Neutrophils # 8.3 H (1.3-7.7) k/uL Lymphocytes # 0.8 L (1.0-4.8) k/uL D-Dimer 1.49 H (<0.60) mg/L FEU Chloride 116 H (98-107) mmol/L Carbon Dioxide 19 L (22-30) mmol/L BUN 38 H (9-20) mg/dL Glucose 131 H (74-99) mg/dL Calcium 8.3 L (8.4-10.2) mg/dL ALT 51 H (4-49) U/L C-Reactive Protein 2.3 H (<1.0) mg/dL Total Protein 5.4 L (6.3-8.2) g/dL Albumin 2.6 L (3.5-5.0) g/dL Assessment and Plan Assessment: 1 Acute hypoxic respiratory failure related to COVID-19 pneumonia with onset of symptoms 5 days ago on 07/23/2021, status post monoclonal antibody fusion on 07/25/2021. Started on Remdesivir on 07/27/2021. Stopped on 07/29/2021. Initiated Baricitinib. Oxygen requirements are up to 15 L high flow nasal cannula. 2 Elevated d-dimer, CT angiogram of the chest was negative for pulmonary embolism 3 Elevated LFTs, related to viral pneumonia 4 Recent urinary tract infection diagnosed on 07/25/2021, patient was discharged home on Bactrim DS, recheck urinalysis 5 Recent syncopal or presyncopal episode at home on 07/25/2021 possibly related to dehydration, brain CT was obtained and was negative 6 History of hypertension 7 Hypothyroidism 8 Nonsmoker Plan: The patient was seen and evaluated by Dr. Lal Continue Baricitinib Continue Decadron, Lovenox, vitamin supplements Prognosis is guarded Follow-up chest x-ray in a.m. We'll continue to follow I, the cosigning physician, performed a history & physical examination of the patient. Lungs sounds with coarse crackles in the bilateral bases. Maintaining O2 saturations in the 90s on 15 L nasal cannula. I discussed the assessment and plan of care with my nurse practitioner, Vale Florez. I attest to the above note as dictated by her.
[2021-07-30] MEDS: ATORVASTATIN 20 MG TAB PO SCH (20:59)
[2021-07-31] MEDS: LEVOTHYROXINE 50 MCG TAB PO SCH (06:03)
[2021-07-31 07:03] LABS: Basophils % (A) 0 %; Eosinophils % (A) 0 %; HCT 42.8 % (39.0-53.0); HGB 14.7 gm/dL (13.0-17.5); Lymphocytes # (A) 1.1 k/uL (1.0-4.8); Lymphocytes % (A) 9 %; MCH 29.9 pg (25.0-35.0); MCHC 34.4 g/dL (31.0-37.0); MCV 86.9 fL (80.0-100.0); Mean Platelet Volume 8.2; Monocytes # (A) 0.9 k/uL (0-1.0); Monocytes % (A) 7 %; Neutrophils # (A) 10.2 k/uL (1.3-7.7); Neutrophils % (A) 82 %; Platelet Count 244 k/uL (150-450); RBC 4.93 m/uL (4.30-5.90); RDW 14.2 % (11.5-15.5); WBC 12.4 k/uL (3.8-10.6)
[2021-07-31 07:24] LABS: ALT 46 U/L (4-49); AST 43 U/L (17-59); African American GFR (CKD) 83 (>60 ml/min/1.73 sqM); Albumin 2.6 g/dL (3.5-5.0); Albumin/Globulin Ratio 0.9; Alkaline Phosphatase 84 U/L (38-126); Anion Gap 6 mmol/L; Blood Urea Nitrogen 33 mg/dL (9-20); Calcium 8.3 mg/dL (8.4-10.2); Carbon Dioxide 19 mmol/L (22-30); Chloride 111 mmol/L (98-107); Globulin 2.9 g/dL; Glucose 107 mg/dL (74-99); Non-African American GFR(CKD) 72 (>60 ml/min/1.73 sqM); Potassium 4.1 mmol/L (3.5-5.1); Sodium 136 mmol/L (137-145); Total Bilirubin 0.9 mg/dL (0.2-1.3); Total Protein 5.5 g/dL (6.3-8.2)
--- NOTE | 2021-07-31 08:10 | XR ---
EXAMINATION TYPE: XR chest 1V portable DATE OF EXAM: 07/31/2021 CLINICAL HISTORY: Cough and covid pneumonia progress study. TECHNIQUE: Single AP portable upright view of the chest is obtained. COMPARISON: Chest x-ray from 5 days earlier. CTA chest 6 days earlier. FINDINGS: Background mild underlying emphysematous change with persistent bilateral multifocal incre ased opacities greater in the lower lungs. Cardiac silhouette size stable and within normal limits. O sseous structures are somewhat demineralized. IMPRESSION: Mild underlying emphysematous change with persistent bilateral multifocal opacities great est in the lower lungs consistent with known covid-19 infection, no significant change from most rece nt x-ray 5 days earlier.
[2021-07-31] MEDS: CHOLECALCIFEROL 125 MCG (5000 IU) TABLET PO SCH (09:46)
[2021-07-31] MEDS: ENOXAPARIN 40 MG/0.4 ML SYRINGE SQ SCH (09:46)
[2021-07-31] MEDS: carvediloL 6.25 MG TAB PO SCH ×2 (09:46→16:48)
[2021-07-31] MEDS: dexAMETHasone 2 MG TAB PO SCH (09:46)
[2021-07-31] MEDS: ZINC SULFATE 220 MG CAP PO SCH (09:46)
[2021-07-31] MEDS: ASCORBIC ACID 500 MG TAB PO SCH (09:46)
[2021-07-31] MEDS: LACTATED RINGERS 1,000 ML IV SCH (11:31)
--- NOTE | 2021-07-31 15:30 | P.PN ---
Subjective Progress Note Date: 07/31/21 (delayed charting seen at 1030) Principal diagnosis: shortness of breath Patient is an 80-year-old male with a past medical history of hypertension and hypothyroidism who presented to the emergency department secondary to shortness of breath, lethargy, and cough. On 07/25 he was diagnosed with COVID-19. He was given monoclonal antibody and was subsequently discharged home. He checked his home pulse ox was found to be at 83%. He presented to the ER. There he was found to have tachycardia with a pulse of 101 and oxygen saturation of 84% on room air. Laboratory analysis showed an elevated creatinine at 1.5 which may be due to his CT of the chest on 07/25 which revealed no evidence of pulmonary embolism). He was also found to have an AST of 113 and ALT of 51. He was initially diagnosed with a urinary tract infection however repeat urinalysis showed a white blood cell count of 1. He is given a dose of Decadron and arrangements were made for admission. Patient was seen by pulmonary. He was started on Remdesivir and Decadron was continued. Overnight on 07/28 and 07/29 his oxygen requirements went from 5 L to 15 years. His Remdesivir was stopped a nd he was started on Baricitnib. Patient seen and examined at bedside. He states that he is feeling fine. Denies any chest pain, shortness breath, or nausea. He has been up in the chair today. He does seem slightly more confused. General: ill appearing, no distress, appears at stated age Derm: warm, dry Head: atraumatic, normocephalic, symmetric, hard of hearing Eyes: EOMI, no lid lag, anicteric sclera Mouth: no lip lesion, mucus membranes dry Cardiovascular: S1S2 reg, no murmur, positive posterior tibial pulse bilateral, Lungs: Course breath sounds bilateral, no rhonchi, no rales , + accessory muscle use, 3 word conversational dyspnea Abdominal: soft, nontender to palpation, no guarding, no appreciable organomegaly Ext: no gross muscle atrophy, no edema, no contractures Neuro: CN II-XI grossly intact, no focal neuro deficits Psych: Alert, oriented, appropriate affect COVID-19 pneumonia in an unvaccinated individual Acute hypoxic respiratory failure -Decadron d #5 -Baracitnib D # 3 - zinc, vit D, and vit C - follow COVID labs - Pulm recs appreciated - wean O2 as able - had CT chest 07/25 negative for PE Thrombocytopenia, resolved HTN, controlled - Coreg - follow Bp Hypothyroidism - synthroid Hyperchloremic metabolic acidosis, improving -Continue SLR -Recheck basic metabolic profile in a.m. FABIENNE, resolved DVT prophylaxis: Lovenox Discussed with: patient, nursing Anticipated discharge: Unknown Anticipated discharge place: home A total of 35 minutes was spent on the care of this complex patient more than 50% of the time was spent in counseling and care coordination. Objective - Vital Signs Vital signs: Vital Signs Temp 97.6 F 07/31/21 08:43 Pulse 78 07/31/21 08:43 Resp 18 07/31/21 08:43 BP 135/67 07/31/21 08:43 Pulse Ox 96 07/31/21 08:43 Intake & Output 07/30/21 07/31/21 07/31/21 18:59 06:59 18:59 Output Total 150 Balance -150 Output: Urine 150 Other: Voiding Method Urinal Urinal # Voids 3 1 - Labs CBC & Chem 7: 07/31/21 06:34 07/31/21 06:30 Labs: Abnormal Lab Results - Last 24 Hours (Table) 07/31/21 07/31/21 Range/Units 06:30 06:34 WBC 12.4 H (3.8-10.6) k/uL Neutrophils # 10.2 H (1.3-7.7) k/uL Sodium 136 L (137-145) mmol/L Chloride 111 H (98-107) mmol/L Carbon Dioxide 19 L (22-30) mmol/L BUN 33 H (9-20) mg/dL Glucose 107 H (74-99) mg/dL Calcium 8.3 L (8.4-10.2) mg/dL Total Protein 5.5 L (6.3-8.2) g/dL Albumin 2.6 L (3.5-5.0) g/dL
--- NOTE | 2021-07-31 16:45 | P.PN ---
Subjective Progress Note Date: 07/31/21 Principal diagnosis: dyspnea On 07/31/2021 patient seen in follow-up on medical surgical floor. He is more confused on today's exam, his FiO2 requirement is up to 15 L per high flow nasal cannula, and his pulse ox is 92-96%, afebrile, hemodynamically he is stable, does not appear to be in acute respiratory distress, lung sounds reveal bibasilar crackles, he is a poor historian, but he is able to make his basic needs known, today's chest x-ray shows a mild underlying emphysematous change with persistent bilateral multifocal opacities consistent with known history of COVID-19 infection. He remains on Decadron 6 blood gram daily, he is on prophylactic dose Lovenox 40 mg daily, he is on IV fluids with lactated Ringer's at 50 ML per hour and COVID-19 vitamins. he continues onBaricitinib 4 mg daily. Objective - Vital Signs Vital signs: Vital Signs Temp 97.6 F 07/31/21 14:51 Pulse 88 07/31/21 14:51 Resp 18 07/31/21 14:51 BP 130/74 07/31/21 14:51 Pulse Ox 93 L 07/31/21 14:51 Intake & Output 07/30/21 07/31/21 07/31/21 18:59 06:59 18:59 Output Total 150 Balance -150 Output: Urine 150 Other: Voiding Method Urinal Urinal # Voids 3 1 - Exam GENERAL EXAM: Alert, very pleasant, 80-year-old white male, confused, resting in bed, does not appear to be in acute respiratory distress, he is currently on 15 L oxygen pulse ox of 93% comfortable in no apparent distress. HEAD: Normocephalic/atraumatic. EYES: Normal reaction of pupils, equal size. Conjunctiva pink, sclera white. NOSE: Clear with pink turbinates. THROAT: No erythema or exudates. NECK: No masses, no JVD, no thyroid enlargement, no adenopathy. CHEST: No chest wall deformity. Symmetrical expansion. LUNGS: Equal air entry with basilar rales CVS: Regular rate and rhythm, normal S1 and S2, no gallops, no murmurs, no rubs ABDOMEN: Soft, nontender. No hepatosplenomegaly, normal bowel sounds, no guarding or rigidity. EXTREMITIES: No clubbing, no edema, no cyanosis, 2+ pulses and upper and lower extremities. MUSCULOSKELETAL: Muscle strength and tone normal. SPINE: No scoliosis or deformity SKIN: No rashes CENTRAL NERVOUS SYSTEM: Alert and oriented -2. No focal deficits, tone is normal in all 4 extremities. PSYCHIATRIC: Alert and oriented -2. Appropriate affect. Intact judgment and insight. - Labs CBC & Chem 7: 07/31/21 06:34 07/31/21 06:30 Labs: Abnormal Lab Results - Last 24 Hours (Table) 07/31/21 07/31/21 Range/Units 06:30 06:34 WBC 12.4 H (3.8-10.6) k/uL Neutrophils # 10.2 H (1.3-7.7) k/uL Sodium 136 L (137-145) mmol/L Chloride 111 H (98-107) mmol/L Carbon Dioxide 19 L (22-30) mmol/L BUN 33 H (9-20) mg/dL Glucose 107 H (74-99) mg/dL Calcium 8.3 L (8.4-10.2) mg/dL Total Protein 5.5 L (6.3-8.2) g/dL Albumin 2.6 L (3.5-5.0) g/dL Assessment and Plan Plan: Assessment: #1. Acute hypoxic respiratory failure related to COVID-19 pneumonia with onset of symptoms 5 days ago on 07/23/2021, status post monoclonal antibody fusion on 07/25/2021. We will start on Remdesivir today on 07/27/2021, Fio2 requirements were sent, and patient was started on Baricitinib on 07/29/2021 #2. Elevated d-dimer, CT angiogram of the chest was negative for pulmonary embolism #3. Elevated LFTs, related to viral pneumonia #4. Recent urinary tract infection diagnosed on 07/25/2021, patient was discharged home on Bactrim DS, recheck urinalysis #5. Recent syncopal or presyncopal episode at home on 07/25/2021 possibly related to dehydration, brain CT was obtained and was negative #6. History of hypertension #7. Hypothyroidism #8. Nonsmoker #9. Increased confusion possibly multifactorial related to hypoxic respiratory failure, and metabolic encephalopathy Plan: Continue Decadron 6 mg once daily Continue Baricitinib Continue COVID-19 vitamins and prophylactic Lovenox Urinalysis was reviewed, and did not show clear evidence of urinary tract infection Continue IV hydration We'll continue to monitor progression of his symptoms I performed a history & physical examination of the patient and discussed their management with my nurse practitioner, Lucy Acosta. I reviewed the nurse practitioner's note and agree with the documented findings and plan of care. Lung sounds are positive for diminished breath sounds throughout the lung amin. The findings and the impression was discussed with the patient. I attest to the documentation by the nurse practitioner. Time with Patient: Less than 30
[2021-07-31] MEDS: BARICITINIB 2 MG TABLET PO SCH (16:47)
[2021-07-31] MEDS: ATORVASTATIN 20 MG TAB PO SCH (20:57)
[2021-08-01] MEDS: LEVOTHYROXINE 50 MCG TAB PO SCH (05:39)
[2021-08-01 08:13] LABS: ALT 45 U/L (4-49); AST 41 U/L (17-59); African American GFR (CKD) 86 (>60 ml/min/1.73 sqM); Albumin 2.5 g/dL (3.5-5.0); Albumin/Globulin Ratio 0.8; Alkaline Phosphatase 92 U/L (38-126); Anion Gap 5 mmol/L; Blood Urea Nitrogen 28 mg/dL (9-20); Calcium 8.3 mg/dL (8.4-10.2); Carbon Dioxide 22 mmol/L (22-30); Chloride 108 mmol/L (98-107); Glucose 97 mg/dL (74-99); LDH 1573 U/L (313-618); Non-African American GFR(CKD) 75 (>60 ml/min/1.73 sqM); Potassium 4.1 mmol/L (3.5-5.1); Sodium 135 mmol/L (137-145); Total Protein 5.5 g/dL (6.3-8.2)
[2021-08-01 08:15] LABS: Basophils % (A) 0 %; Eosinophils % (A) 0 %; HGB 15.4 gm/dL (13.0-17.5); Lymphocytes # (A) 1.2 k/uL (1.0-4.8); Lymphocytes % (A) 8 %; MCH 30.1 pg (25.0-35.0); MCV 85.9 fL (80.0-100.0); Mean Platelet Volume 8.7; Monocytes # (A) 1.2 k/uL (0-1.0); Monocytes % (A) 8 %; Neutrophils # (A) 11.9 k/uL (1.3-7.7); Neutrophils % (A) 82 %; Platelet Count 282 k/uL (150-450); RBC 5.12 m/uL (4.30-5.90); RDW 14.1 % (11.5-15.5); WBC 14.5 k/uL (3.8-10.6)
[2021-08-01 08:37] LABS: C Reactive Protein 1.9 mg/dL (<1.0)
[2021-08-01] MEDS: ZINC SULFATE 220 MG CAP PO SCH (08:38)
[2021-08-01] MEDS: ENOXAPARIN 40 MG/0.4 ML SYRINGE SQ SCH (08:38)
[2021-08-01] MEDS: carvediloL 6.25 MG TAB PO SCH ×2 (08:38→17:06)
[2021-08-01] MEDS: ASCORBIC ACID 500 MG TAB PO SCH (08:38)
[2021-08-01] MEDS: dexAMETHasone 2 MG TAB PO SCH (08:38)
[2021-08-01] MEDS: CHOLECALCIFEROL 125 MCG (5000 IU) TABLET PO SCH (08:40)
[2021-08-01] MEDS: LACTATED RINGERS 1,000 ML IV SCH (08:41)
[2021-08-01] MEDS: ACETAMINOPHEN TAB 325 MG TAB PO PRN ×2 (13:09→20:51)
[2021-08-01] MEDS: BARICITINIB 2 MG TABLET PO SCH (17:29)
--- NOTE | 2021-08-01 17:56 | P.PN ---
Subjective Progress Note Date: 08/01/21 (delayed charting seen at 1015) Principal diagnosis: shortness of breath Patient is an 80-year-old male with a past medical history of hypertension and hypothyroidism who presented to the emergency department secondary to shortness of breath, lethargy, and cough. On 07/25 he was diagnosed with COVID-19. He was given monoclonal antibody and was subsequently discharged home. He checked his home pulse ox was found to be at 83%. He presented to the ER. There he was found to have tachycardia with a pulse of 101 and oxygen saturation of 84% on room air. Laboratory analysis showed an elevated creatinine at 1.5 which may be due to his CT of the chest on 07/25 which revealed no evidence of pulmonary embolism). He was also found to have an AST of 113 and ALT of 51. He was initially diagnosed with a urinary tract infection however repeat urinalysis showed a white blood cell count of 1. He is given a dose of Decadron and arrangements were made for admission. Patient was seen by pulmonary. He was started on Remdesivir and Decadron was continued. Overnight on 07/28 and 07/29 his oxygen requirements went from 5 L to 15 years. His Remdesivir was stopped a nd he was started on Baricitnib. He developed worsening confusion. Patient seen and examined at bedside. Moaning when I enter the room. He does complain of shortness of breath. He thinks it is 2021 and knows he is in the hospital for COVID. General: ill appearing, no distress, appears at stated age Derm: warm, dry Head: atraumatic, normocephalic, symmetric, hard of hearing Eyes: EOMI, no lid lag, anicteric sclera Mouth: no lip lesion, mucus membranes dry Cardiovascular: S1S2 reg, no murmur, positive posterior tibial pulse bilateral, Lungs: Course breath sounds bilateral, no rhonchi, no rales , + accessory muscle use, 3 word conversational dyspnea Abdominal: soft, nontender to palpation, no guarding, no appreciable organomegaly Ext: no gross muscle atrophy, no edema, no contractures Neuro: CN II-XI grossly intact, no focal neuro deficits Psych: Alert, oriented, appropriate affect COVID-19 pneumonia in an unvaccinated individual Acute hypoxic respiratory failure Metabolic encephalopathy -Decadron d #6 -Baracitnib D # 4 - zinc, vit D, and vit C - follow COVID labs in 48hours, d-dimer increasing - Pulm recs appreciated - wean O2 as able - had CT chest 07/25 negative for PE Thrombocytopenia, resolved HTN, controlled - Coreg - follow Bp Hypothyroidism - synthroid Hyperchloremic metabolic acidosis, improving -Continue LR -Recheck basic metabolic profile in a.m. FABIENNE, resolved DVT prophylaxis: Lovenox Discussed with: patient, nursing Anticipated discharge: Unknown Anticipated discharge place: home A total of 25 minutes was spent on the care of this complex patient more than 50% of the time was spent in counseling and care coordination. Objective - Vital Signs Vital signs: Vital Signs Temp 97 F L 08/01/21 13:48 Pulse 91 08/01/21 13:48 Resp 18 08/01/21 08:38 BP 98/63 08/01/21 13:48 Pulse Ox 94 L 08/01/21 17:20 Intake & Output 07/31/21 08/01/21 08/01/21 18:59 06:59 18:59 Intake Total 900 Output Total 950 1000 600 Balance -950 -100 -600 Intake: Intake, IV Titration 600 Amount Lactated Ringers 1,000 ml 600 @ 50 mls/hr IV .Q20H SOLEDAD Rx#:[id number] Oral 300 Output: Urine 950 1000 600 Other: Voiding Method Urinal # Voids 1 10 - Labs CBC & Chem 7: 08/01/21 07:05 08/01/21 07:05 Labs: Abnormal Lab Results - Last 24 Hours (Table) 08/01/21 08/01/21 08/01/21 Range/Units 07:05 07:05 07:05 WBC 14.5 H (3.8-10.6) k/uL Neutrophils # 11.9 H (1.3-7.7) k/uL Monocytes # 1.2 H (0-1.0) k/uL D-Dimer 7.90 H (<0.60) mg/L FEU Sodium 135 L (137-145) mmol/L Chloride 108 H (98-107) mmol/L BUN 28 H (9-20) mg/dL Calcium 8.3 L (8.4-10.2) mg/dL Lactate Dehydrogenase 1573 H (313-618) U/L C-Reactive Protein 1.9 H (<1.0) mg/dL Total Protein 5.5 L (6.3-8.2) g/dL Albumin 2.5 L (3.5-5.0) g/dL
--- NOTE | 2021-08-01 18:00 | P.PN ---
Subjective Progress Note Date: 08/01/21 Principal diagnosis: COVID-19 pneumonia 80-year-old white male patient with past medical history of hypertension, hypothyroidism, nonsmoker, who presented to emergency department on 07/26/2021 evaluation of low O2 saturation readings at home. Patient started having symptoms of COVID-19 infection last Monday on 07/23/2021. Has been having symptoms of coughing, fever, chills, diarrhea. On 07/25/2021 he was seen in the emergency department for a possible syncopal episode, increased generalized fatigue, exertional shortness of breath, lack of appetite. he had a brain CT w as completed showing no acute intracranial findings. He was diagnosed with COVID-19 pneumonia. Is not vaccinated against COVID-19. His d-dimer was also elevated at 1.65, and CT angiogram was obtained showing no signs of acute pulmonary embolism, but was positive for bilateral patchy interstitial i nfiltrates. Patient was on room air, he did receive monoclonal antibody in the emergency department on 07/25/2021. He was also diagnosed with a urinary tract infection and was given a course of Bactrim DS and discharged home. The discharge home he continued to worsen, and his pulse oximetry readings were low. Patient was more short of breath. His chest x-ray showed pulmonary interstitial infiltrates. His pulse ox in the emergency department was 84% on room air, and he was placed on supplemental oxygen currently requiring 5 L. He has been afebrile, he is receiving IV hydration with 0.9 normal saline at a rate of 75 ML per hour. Started on Decadron and COVID-19 vitamins and prophylactic anticoagulation in the form of Lovenox. Admission blood work was reviewed showing white blood cell count is 6.5, hemoglobin is 15.1, platelet count of 133, lymphocyte count 0.7 d-dimer is 1.53, sodium is 135, potassium is 4.7, CO2 is 21, BUN is 32, creatinine is 1.5, and patient previously had normal renal function, plasma lactic acid was 1.6, AST was 113 ALT was 51, pro calcitonin level was negative at 0.19. The patient is seen today 07/28/2021 in follow-up on the observation unit. He is currently resting fairly comfortably in bed. Awake and alert in no acute distress. He states his breathing is about the same today compared to yesterday. He is maintaining O2 saturations in the low 90s on 5 L nasal cannula. She's afebrile. Hemodynamically stable. White count 9.5. Hemoglobin 14.2. Sodium 138. Potassium 4.3. Glucose 144. This is day #2 of Remdesivir. He is continued on Decadron, Lovenox, vitamin supplements. The patient is seen today 07/29/2021 in follow-up on the regular medical floor. He is currently resting in bed. He is now requiring 15 L high flow nasal cannu la to maintain O2 saturations in the low 90s. He was on 5 L yesterday. He is afebrile. I count 14.7. Hemoglobin 15.4. D-dimer 1.27. Sodium 137. Creatinine 1.0. Glucose 158. AST 69. ALT 51. LDH 1605. C-reactive protein 3.6. He is continued on Lovenox, Decadron, vitamin supplements. He is also on Remdesivir day #3. The patient is seen today 07/30/2021 in follow-up by the regular medical floor. He is currently sitting up in bed having dinner. Doing a bit better today compared to yesterday. He is still requiring 15 L high flow nasal cannula. White count 10.1. Hemoglobin 14.6. Lymphocytic 0.8. D-dimer 1.49. Sodium 142. Potassium 4.0. Creatinine 1.04. C-reactive protein 2.3. He remains on Baricitinib, Decadron, Lovenox, vitamin supplements. the patient is seen today 08/01/2021 in follow-up on the regular medical floor. He is currently resting in bed. He is requiring 15 L high flow nasal cannula to maintain O2 saturations in the 90s. He has normal saline at 50 MLS per hour. He is continued on Baricitinib, Lovenox, Decadron, vitamin supplements. White count 14.5. Hemoglobin 15.4. Leukocytes 1.2. D-dimer 7.9. Sodium 135. Potassium 4.1. Creatinine 0.95. LDH 1573. C-reactive protein 1.9. Objective - Vital Signs Vital signs: Vital Signs Temp 97 F L 08/01/21 13:48 Pulse 91 08/01/21 13:48 Resp 18 08/01/21 08:38 BP 98/63 08/01/21 13:48 Pulse Ox 94 L 08/01/21 17:20 Intake & Output 07/31/21 08/01/21 08/01/21 18:59 06:59 18:59 Intake Total 900 Output Total 950 1000 600 Balance -950 -100 -600 Intake: Intake, IV Titration 600 Amount Lactated Ringers 1,000 ml 600 @ 50 mls/hr IV .Q20H [facility] Rx#:[id number] Oral 300 Output: Urine 950 1000 600 Other: Voiding Method Urinal # Voids 1 10 - Exam GENERAL EXAM: Alert, pleasant 80-year-old gentleman, on 15 L high flow nasal cannula, in mild respiratory distress distress. HEAD: Normocephalic. EYES: Normal reaction of pupils, equal size. NOSE: Clear with pink turbinates. THROAT: No erythema or exudates. NECK: No masses, no JVD. CHEST: No chest wall deformity. LUNGS: Equal air entry with coarse crackles in the bilateral bases CVS: S1 and S2 normal with no audible murmur, regular rhythm. ABDOMEN: No hepatosplenomegaly, normal bowel sounds, no guarding or rigidity. SPINE: No scoliosis or deformity SKIN: No rashes CENTRAL NERVOUS SYSTEM: No focal deficits, tone is normal in all 4 extremities. EXTREMITIES: There is no peripheral edema. No clubbing, no cyanosis. Peripheral pulses are intact. - Labs CBC & Chem 7: 08/01/21 07:05 08/01/21 07:05 Labs: Abnormal Lab Results - Last 24 Hours (Table) 08/01/21 08/01/21 08/01/21 Range/Units 07:05 07:05 07:05 WBC 14.5 H (3.8-10.6) k/uL Neutrophils # 11.9 H (1.3-7.7) k/uL Monocytes # 1.2 H (0-1.0) k/uL D-Dimer 7.90 H (<0.60) mg/L FEU Sodium 135 L (137-145) mmol/L Chloride 108 H (98-107) mmol/L BUN 28 H (9-20) mg/dL Calcium 8.3 L (8.4-10.2) mg/dL Lactate Dehydrogenase 1573 H (313-618) U/L C-Reactive Protein 1.9 H (<1.0) mg/dL Total Protein 5.5 L (6.3-8.2) g/dL Albumin 2.5 L (3.5-5.0) g/dL Assessment and Plan Assessment: 1 Acute hypoxic respiratory failure related to COVID-19 pneumonia with onset of symptoms 5 days ago on 07/23/2021, status post monoclonal antibody fusion on 07/25/2021. Started on Remdesivir on 07/27/2021. Stopped on 07/29/2021. Initiated Baricitinib. Oxygen requirements are up to 15 L high flow nasal cannula. 2 Elevated d-dimer, CT angiogram of the chest was negative for pulmonary embolism 3 Elevated LFTs, related to viral pneumonia 4 Recent urinary tract infection diagnosed on 07/25/2021, patient was discharged home on Bactrim DS, recheck urinalysis 5 Recent syncopal or presyncopal episode at home on 07/25/2021 possibly related to dehydration, brain CT was obtained and was negative 6 History of hypertension 7 Hypothyroidism 8 Nonsmoker Plan: The patient was seen and evaluated by Dr. Lal Labs reviewed, d-dimer elevated Could not tolerate CT angiogram, obtain a Doppler of the lower extremities Continue Baricitinib, Decadron, Lovenox, vitamin supplements Prognosis is guarded Follow-up chest x-ray in a.m. We'll continue to follow I, the cosigning physician, performed a history & physical examination of the patient. Lungs sounds with coarse crackles in the bilateral bases. Maintaining O2 saturations in the 90s on 15 L nasal cannula. I discussed the assessment and plan of care with my nurse practitioner, Vale Florez. I attest to the above note as dictated by her.
--- NOTE | 2021-08-01 19:46 | US ---
EXAMINATION TYPE: US venous doppler duplex LE DATE OF EXAM: 08/01/2021 7:37 PM COMPARISON: NONE CLINICAL HISTORY: Elevated D dimer, CoVID. Exam done portable on Covid patient SIDE PERFORMED: Bilateral TECHNIQUE: The lower extremity deep venous system is examined utilizing real time linear array sonog lester with graded compression, doppler sonography and color-flow sonography. VESSELS IMAGED: Common Femoral Vein Deep Femoral Vein Greater Saphenous Vein * Femoral Vein Popliteal Vein Small Saphenous Vein * Proximal Calf Veins (* superficial vessels) Right Leg: Appears negative for DVT Left Leg: Appears negative for DVT IMPRESSION: No evidence of deep vein thrombosis in both legs.
[2021-08-01] MEDS: ATORVASTATIN 20 MG TAB PO SCH (20:51)
[2021-08-02] MEDS: ACETAMINOPHEN TAB 325 MG TAB PO PRN (05:31)
[2021-08-02] MEDS: LEVOTHYROXINE 50 MCG TAB PO SCH (05:31)
[2021-08-02] MEDS: LACTATED RINGERS 1,000 ML IV SCH ×2 (05:33→20:39)
[2021-08-02] MEDS: ASCORBIC ACID 500 MG TAB PO SCH (07:33)
[2021-08-02] MEDS: CHOLECALCIFEROL 125 MCG (5000 IU) TABLET PO SCH (07:33)
[2021-08-02] MEDS: ENOXAPARIN 40 MG/0.4 ML SYRINGE SQ SCH (07:33)
[2021-08-02] MEDS: ZINC SULFATE 220 MG CAP PO SCH (07:33)
[2021-08-02] MEDS: carvediloL 6.25 MG TAB PO SCH ×2 (07:33→17:46)
[2021-08-02] MEDS: dexAMETHasone 2 MG TAB PO SCH (07:33)
[2021-08-02 08:11] LABS: Basophils % (A) 0 %; Eosinophils % (A) 0 %; HCT 45.7 % (39.0-53.0); HGB 15.7 gm/dL (13.0-17.5); Lymphocytes # (A) 1.2 k/uL (1.0-4.8); Lymphocytes % (A) 9 %; MCH 29.6 pg (25.0-35.0); MCHC 34.3 g/dL (31.0-37.0); MCV 86.3 fL (80.0-100.0); Mean Platelet Volume 8.6; Monocytes # (A) 1.3 k/uL (0-1.0); Monocytes % (A) 10 %; Neutrophils # (A) 10.7 k/uL (1.3-7.7); Neutrophils % (A) 80 %; Platelet Count 231 k/uL (150-450); RDW 14.2 % (11.5-15.5); WBC 13.4 k/uL (3.8-10.6)
[2021-08-02 08:26] LABS: ALT 42 U/L (4-49); AST 47 U/L (17-59); African American GFR (CKD) 86 (>60 ml/min/1.73 sqM); Albumin 2.5 g/dL (3.5-5.0); Albumin/Globulin Ratio 0.9; Alkaline Phosphatase 97 U/L (38-126); Anion Gap 5 mmol/L; Blood Urea Nitrogen 26 mg/dL (9-20); Calcium 8.3 mg/dL (8.4-10.2); Carbon Dioxide 23 mmol/L (22-30); Chloride 108 mmol/L (98-107); Globulin 2.9 g/dL; Glucose 91 mg/dL (74-99); Non-African American GFR(CKD) 75 (>60 ml/min/1.73 sqM); Potassium 4.2 mmol/L (3.5-5.1); Sodium 136 mmol/L (137-145); Total Protein 5.4 g/dL (6.3-8.2)
[2021-08-02 12:57] VITALS: BMI 23.6
--- NOTE | 2021-08-02 13:13 | P.PN ---
Subjective Progress Note Date: 08/02/21 80-year-old white male patient with past medical history of hypertension, hypothyroidism, nonsmoker, who presented to emergency department on 07/26/2021 evaluation of low O2 saturation readings at home. Patient started having symptoms of COVID-19 infection last [place] on 07/23/2021. Has been having sy mptoms of coughing, fever, chills, diarrhea. On 07/25/2021 he was seen in the emergency department for a possible syncopal episode, increased generalized fatigue, exertional shortness of breath, lack of appetite. he had a brain CT was completed showing no acute intracranial findings. He was diagnosed with COVID-19 pneumonia. Is not vaccinated against COVID-19. His d-dimer was also elevated at 1.65, and CT angiogram was obtained showing no signs of acute pulmonary embolism, but was positive for bilateral patchy interstitial infiltrates. Patient was on room air, he did receive monoclonal antibody in the emergency department on 07/25/2021. He was also diagnosed with a urinary tract infection and was given a course of Bactrim DS and discharged home. The discharge home he continued to worsen, and his pulse oximetry readings were low. Patient was more short of breath. His chest x-ray showed pulmonary interstitial infiltrates. His pulse ox in the emergency department was 84% on room air, and he was placed on supplemental oxygen currently requiring 5 L. He has been afebrile, he is receiving IV hydration with 0.9 normal saline at a rate of 75 ML per hour. Started on Decadron and COVID-19 vitamins and prophylactic anticoagulation in the form of Lovenox. Admission blood work was reviewed showing white blood cell count is 6.5, hemoglobin is 15.1, platelet count of 133, lymphocyte count 0.7 d-dimer is 1.53, sodium is 135, potassium is 4.7, CO2 is 21, BUN is 32, creatinine is 1.5, and patient previously had normal renal function, plasma lactic acid was 1.6, AST was 113 ALT was 51, pro calcitonin level was negative at 0.19. The patient is seen today 07/28/2021 in follow-up on the observation unit. He is currently resting fairly comfortably in bed. Awake and alert in no acute distress. He states his breathing is about the same today compared to yesterday. He is maintaining O2 saturations in the low 90s on 5 L nasal cannula. She's afebrile. Hemodynamically stable. White count 9.5. Hemoglobin 14.2. Sodium 138. Potassium 4.3. Glucose 144. This is day #2 of Remdesivir. He is continued on Decadron, Lovenox, vitamin supplements. The patient is seen today 07/29/2021 in follow-up on the regular medical floor. He is currently resting in bed. He is now requiring 15 L high flow nasal cannula to maintain O2 saturations in the low 90s. He was on 5 L yesterday. He is afebrile. I count 14.7. Hemoglobin 15.4. D-dimer 1.27. Sodium 137. Creatinine 1.0. Glucose 158. AST 69. ALT 51. LDH 1605. C-reactive protein 3.6. He is continued on Lovenox, Decadron, vitamin supplements. He is also on Remdesivir day #3. The patient is seen today 07/30/2021 in follow-up by the regular medical floor. He is currently sitting up in bed having dinner. Doing a bit better today compared to yesterday. He is still requiring 15 L high flow nasal cannula. Whi te count 10.1. Hemoglobin 14.6. Lymphocytic 0.8. D-dimer 1.49. Sodium 142. Potassium 4.0. Creatinine 1.04. C-reactive protein 2.3. He remains on Baricitinib, Decadron, Lovenox, vitamin supplements. the patient is seen today 08/01/2021 in follow-up on the regular medical floor. He is currently resting in bed. He is requiring 15 L high flow nasal cannula to maintain O2 saturations in the 90s. He has normal saline at 50 MLS per hour. He is continued on Baricitinib, Lovenox, Decadron, vitamin supplements. White count 14.5. Hemoglobin 15.4. Leukocytes 1.2. D-dimer 7.9. Sodium 135. Potassium 4.1. Creatinine 0.95. LDH 1573. C-reactive protein 1.9. Evaluation of 08/02/2021, I'm seeing the patient for a follow-up. Is a 80-year-old male patient with COVID 19 related pneumonia. The patient presented to us with worsening shortness of breath and cough and the patient also had a possible syncopal episodes/presyncope. The patient generalized weakness. Computed tomography scan of the chest showed no evidence of any pulmonary embolism and was consistent with bilateral pneumonia. The patient was initially on room air oxygen. He received monoclonal antibodies in the emergency and ultimately he was discharged home after being also diagnosed having a UTI. He subsequently presented back to us initially on 5 L about 2 by nasal cannula and his oxygen requirements progressively got worse and the patient is currently on 15 L of oxygen by nasal cannula. The patient is being seen for a follow-up today. The patient has been maintained on Decadron and Baricitinib was also added per protocol. The patient has a white cell count of 13.4, hemoglobin is at 15.7, d-dimer is at 24.4, BUN is at 26 with a creatinine of 0.9, sodium level is at 136. The Doppler of the lower extremities was completed and the patient has no evidence of DVT in both lower extremities. In terms of anticoagulants, the patient remains on Lovenox 40 mg subcu for DVT prophylaxis. His LDH level w as 1573 from yesterday. Objective - Vital Signs Vital signs: Vital Signs Temp 97.6 F 08/02/21 10:00 Pulse 77 08/02/21 10:00 Resp 17 08/02/21 10:00 BP 108/66 08/02/21 10:00 Pulse Ox 94 L 08/02/21 10:00 Intake & Output 08/01/21 08/02/21 08/02/21 18:59 06:59 18:59 Intake Total 600 Output Total 600 150 Balance -600 450 Weight 70.307 kg Intake: Intake, IV Titration 600 Amount Lactated Ringers 1,000 ml 600 @ 50 mls/hr IV .Q20H [facility] Rx#:[id number] Output: Urine 600 150 Other: Voiding Method Urinal Urinal # Voids 3 # Bowel Movements 1 - Exam GENERAL EXAM: Alert, pleasant 80-year-old gentleman, on 15 L high flow nasal cannula, in mild respiratory distress distress. HEAD: Normocephalic. EYES: Normal reaction of pupils, equal size. NOSE: Clear with pink turbinates. THROAT: No erythema or exudates. NECK: No masses, no JVD. CHEST: No chest wall deformity. LUNGS: Equal air entry with coarse crackles in the bilateral bases CVS: S1 and S2 normal with no audible murmur, regular rhythm. ABDOMEN: No hepatosplenomegaly, normal bowel sounds, no guarding or rigidity. SPINE: No scoliosis or deformity SKIN: No rashes CENTRAL NERVOUS SYSTEM: No focal deficits, tone is normal in all 4 extremities. EXTREMITIES: There is no peripheral edema. No clubbing, no cyanosis. Peripheral pulses are intact. - Labs CBC & Chem 7: 08/02/21 07:16 08/02/21 07:16 Labs: Abnormal Lab Results - Last 24 Hours (Table) 08/02/21 08/02/21 08/02/21 Range/Units 07:16 07:16 07:16 WBC 13.4 H (3.8-10.6) k/uL Neutrophils # 10.7 H (1.3-7.7) k/uL Monocytes # 1.3 H (0-1.0) k/uL D-Dimer 24.40 H (<0.60) mg/L FEU Sodium 136 L (137-145) mmol/L Chloride 108 H (98-107) mmol/L BUN 26 H (9-20) mg/dL Calcium 8.3 L (8.4-10.2) mg/dL Total Protein 5.4 L (6.3-8.2) g/dL Albumin 2.5 L (3.5-5.0) g/dL Assessment and Plan Plan: 1 Acute hypoxic respiratory failure related to COVID-19 pneumonia with onset of symptoms 5 days ago on 07/23/2021, status post monoclonal antibody fusion on 07/25/2021. Started on Remdesivir on 07/27/2021. Stopped on 07/29/2021. . Oxygen requirements are up to 15 L high flow nasal cannula. Patient is stable compared to yesterday. The patient continues to be on a combination of Decadr Baricitinib . D-dimer was elevated and the Doppler of the lower extremities have been negative for DVT. Note that the patient is not vaccinated for COVID 19. 2 Elevated d-dimer, CT angiogram of the chest was negative for pulmonary embolism , Lovenox for DVT prophylaxis as the patient's Doppler of the lower extremity has been also negative for DVT. 3 Elevated LFTs, related to viral pneumonia 4 Recent urinary tract infection diagnosed on 07/25/2021, patient was discharged home on Bactrim DS, recheck urinalysis 5 Recent syncopal or presyncopal episode at home on 07/25/2021 possibly related to dehydration, brain CT was obtained and was negative 6 History of hypertension 7 Hypothyroidism 8 Nonsmoker Plan: Continue Baricitinib, Decadron, Lovenox, vitamin supplements Monitor inflammatory markers Prognosis is guarded Oxygenation is stable currently on 15 L I will going to monitor the saturation and made further adjustments accordingly We'll continue to followI
--- NOTE | 2021-08-02 13:43 | P.PN ---
<Elmer uY - Last Filed: 08/02/21 13:20> Subjective Progress Note Date: 08/02/21 Hospital course: Patient is an 80-year-old male with a past medical history of hypertension and hypothyroidism who presented to the emergency department on 07/26/21 with a chief complaint of shortness of breath, lethargy, and cough status post diagnosis with Covid 19 virus infection on 07/25/21. EKG revealing normal sinus rhythm and 95 bpm with no noted T-wave or ST abnormalities showing no signs of acute ischemia. Patient received monoclonal antibodies on 07/25/21 after initial Covid diagnosis. CTA chest completed 07/25/21 negative for PE. Upon arrival to facility patient was found to be in acute hypoxic respiratory failure requiring oxygen supplementation and was started on steroids and Remdesivir and after receiving a total of 3 doses, oxygen needs increased and Remdesivir was discontinued and pt started on Baricitinib with continuation of steroids. Bilateral lower extremity Dopplers completed negative for DVTs. Physical examination: Patient seen and examined at bedside. Upon examination and patient alert and oriented to person, place, and time. He reports he is hard of hearing and thus has a difficult time talking on the phone and has not spoke with his since arrival to facility. Discussed with RN for arrangements for video chat to be made. Patient reports feeling short of breath but denies having any lighthea dedness, dizziness, chest pain, nausea, vomiting, diarrhea, or experiencing any numbness/tingling/weakness in his extremities. Patient currently on 12 L high flow nasal cannula at time of assessment. Morning labs revealed mild leukocytosis with WBC count of 13.4, elevated d-dimer of 24.40, and BUN of 26. LDH and CRP drawn yesterday resulting with LDH of 1573 and CRP of 1.9. Bilateral lower extremity Dopplers completed yesterday were negative for DVTs. General: ill appearing, mild distress secondary to increased respiratory effort, appears at stated age Derm: warm, dry Head: atraumatic, normocephalic, symmetric, hard of hearing Eyes: EOMI, no lid lag, anicteric sclera Mouth: no lip lesion, mucus membranes dry Cardiovascular: S1S2 reg, no murmur, positive posterior tibial pulses bilater ally, cap refill less than 2 seconds. Lungs: Respirations with increased respiratory effort, conversational dyspnea noted, patient on 12 L high flow nasal cannula. No accessory muscle usage. Lungs with coarse crackles bilateral bases, no wheezes. Abdominal: soft, nontender to palpation, no guarding, no appreciable organomegaly Ext: no gross muscle atrophy, no edema, no contractures Neuro: CN II-XI grossly intact, GCS 14-15 as patient has been having episodes of confusion, no focal neuro deficits Psych: Alert, oriented, appropriate affect Assessment and plan of care: COVID-19 pneumonia in an unvaccinated individual Acute hypoxic respiratory failure Metabolic encephalopathy Acute respiratory failure with hypoxia secondary to COVID 19 pneumonia -Oxygenation to be administered and titrated as needed to maintain SPO2 equal to or greater than 90% -Telemetry monitoring. -Continue trending inflammatory markers -Encourage Incentive Spirometry 10-15x hourly while awake -Steroids: Decadron 6 mg daily, dose #7 of steroids -Continue vitamin C, Vitamin D, and Zinc. -Pulmonology following, appreciate further recommendations. -DVT prophylaxis with Lovenox. -Strict Droplet plus Contact precautions -Patient received Remdesivir, 3 doses prior to discontinuing and starting patient on Baricitinib -Baricitinib day 5 of Thrombocytopenia, resolved Hypertension, controlled -Monitor vital signs and continue daily medication regimen with Coreg Hypothyroidism -Continue daily medication regimen with synthroid Hyperchloremic metabolic acidosis, resolved FABIENNE, resolved DVT prophylaxis: Lovenox Discussed with: Patient and RN Anticipated discharge: Clinical course to determine Anticipated discharge place: home A total of 45 minutes was spent on the care of this complex patient more than 50% of the time was spent in counseling and care coordination. Objective - Vital Signs Vital signs: Vital Signs Temp 97.6 F 08/02/21 10:00 Pulse 77 08/02/21 10:00 Resp 17 08/02/21 10:00 BP 108/66 08/02/21 10:00 Pulse Ox 94 L 08/02/21 10:00 Intake & Output 08/01/21 08/02/21 08/02/21 18:59 06:59 18:59 Intake Total 600 Output Total 600 150 Balance -600 450 Intake: Intake, IV Titration 600 Amount Lactated Ringers 1,000 ml 600 @ 50 mls/hr IV .Q20H [facility] Rx#:[id number] Output: Urine 600 150 Other: Voiding Method Urinal Urinal # Voids 3 # Bowel Movements 1 - Labs CBC & Chem 7: 08/02/21 07:16 08/02/21 07:16 Labs: Abnormal Lab Results - Last 24 Hours (Table) 08/02/21 08/02/21 08/02/21 Range/Units 07:16 07:16 07:16 WBC 13.4 H (3.8-10.6) k/uL Neutrophils # 10.7 H (1.3-7.7) k/uL Monocytes # 1.3 H (0-1.0) k/uL D-Dimer 24.40 H (<0.60) mg/L FEU Sodium 136 L (137-145) mmol/L Chloride 108 H (98-107) mmol/L BUN 26 H (9-20) mg/dL Calcium 8.3 L (8.4-10.2) mg/dL Total Protein 5.4 L (6.3-8.2) g/dL Albumin 2.5 L (3.5-5.0) g/dL <Marilin Birch - Last Filed: 08/02/21 13:51> Subjective Elmer Yu NP rendered care for this patient independently, reviewed the findings and plan as documented in the note above. I did not physically speak with or examine the patient on this date. Patient was increasing d-dimer. We'll check lower extremity venous Dopplers. Due to advanced age CTA chest risks outweigh benefits currently as patient's O2 requirements have gone down. Should they go up would recommend CTA of chest secondary to increasing d-dimer. Objective - Vital Signs Vital signs: Vital Signs Temp 97.8 F 08/02/21 13:45 Pulse 92 08/02/21 13:45 Resp 17 08/02/21 13:45 BP 123/67 08/02/21 13:45 Pulse Ox 95 08/02/21 13:45 Intake & Output 08/01/21 08/02/21 08/02/21 18:59 06:59 18:59 Intake Total 600 Output Total 600 150 Balance -600 450 Weight 70.307 kg Intake: Intake, IV Titration 600 Amount Lactated Ringers 1,000 ml 600 @ 50 mls/hr IV .Q20H [facility] Rx#:[id number] Output: Urine 600 150 Other: Voiding Method Urinal Urinal # Voids 3 # Bowel Movements 1 - Labs CBC & Chem 7: 08/02/21 07:16 08/02/21 07:16 Labs: Abnormal Lab Results - Last 24 Hours (Table) 08/02/21 08/02/21 08/02/21 Range/Units 07:16 07:16 07:16 WBC 13.4 H (3.8-10.6) k/uL Neutrophils # 10.7 H (1.3-7.7) k/uL Monocytes # 1.3 H (0-1.0) k/uL D-Dimer 24.40 H (<0.60) mg/L FEU Sodium 136 L (137-145) mmol/L Chloride 108 H (98-107) mmol/L BUN 26 H (9-20) mg/dL Calcium 8.3 L (8.4-10.2) mg/dL Total Protein 5.4 L (6.3-8.2) g/dL Albumin 2.5 L (3.5-5.0) g/dL
[2021-08-02] MEDS: BARICITINIB 2 MG TABLET PO SCH (17:46)
[2021-08-02] MEDS: ATORVASTATIN 20 MG TAB PO SCH (20:39)
[2021-08-03] MEDS: LEVOTHYROXINE 50 MCG TAB PO SCH (05:32)
[2021-08-03] MEDS: dexAMETHasone 2 MG TAB PO SCH (07:26)
[2021-08-03] MEDS: CHOLECALCIFEROL 125 MCG (5000 IU) TABLET PO SCH (07:26)
[2021-08-03] MEDS: carvediloL 6.25 MG TAB PO SCH ×2 (07:26→16:34)
[2021-08-03] MEDS: ENOXAPARIN 40 MG/0.4 ML SYRINGE SQ SCH (07:26)
[2021-08-03] MEDS: ZINC SULFATE 220 MG CAP PO SCH (07:26)
[2021-08-03] MEDS: ASCORBIC ACID 500 MG TAB PO SCH (07:26)
[2021-08-03 09:20] LABS: HCT 42.7 % (39.6-50.0); HGB 14.3 g/dL (13.0-17.0); MCH 28.5 pg (27.0-32.0); MCHC 33.5 g/dL (32.0-37.0); MCV 85.2 fL (80.0-97.0); Mean Platelet Volume 10.7 fL (9.5-12.2); Platelet Count 222 X 10*3/uL (140-440); RBC 5.01 X 10*6/uL (4.40-5.60); WBC 18.32 X 10*3/uL (4.50-10.00)
[2021-08-03 09:44] LABS: African American GFR (CKD) 80.9 (60.0-200.0); Albumin 2.8 g/dL (3.8-4.9); Albumin/Globulin Ratio 1.33 (1.60-3.17); BUN/Creat Ratio 24.1 Ratio (12.00-20.00); Blood Urea Nitrogen 24.1 mg/dL (9.0-27.0); Calcium 8.2 mg/dL (8.7-10.3); Globulin 2.1 g/dL (1.6-3.3); Non-African American GFR(CKD) 69.8 (60.0-200.0); Potassium 3.8 mmol/L (3.5-5.5); Total Bilirubin 0.7 mg/dL (0.30-1.20); Total Protein 4.9 g/dL (6.2-8.2)
[2021-08-03 10:46] LABS: Basophils # (A) 0.04 X 10*3/uL (0.00-0.10); Basophils % (A) 0.2 %; Eosinophils # (A) 0.01 X 10*3/uL (0.04-0.35); Eosinophils % (A) 0.1 %; Lymphocytes # (A) 1.65 X 10*3/uL (0.90-5.00); Monocytes # (A) 2.13 X 10*3/uL (0.20-1.00); Monocytes % (A) 11.6 %
--- NOTE | 2021-08-03 13:10 | P.PN ---
Subjective Progress Note Date: 08/03/21 80-year-old white male patient with past medical history of hypertension, hypothyroidism, nonsmoker, who presented to emergency department on 07/26/2021 evaluation of low O2 saturation readings at home. Patient started having symptoms of COVID-19 infection last [place] on 07/23/2021. Has been having sy mptoms of coughing, fever, chills, diarrhea. On 07/25/2021 he was seen in the emergency department for a possible syncopal episode, increased generalized fatigue, exertional shortness of breath, lack of appetite. he had a brain CT was completed showing no acute intracranial findings. He was diagnosed with COVID-19 pneumonia. Is not vaccinated against COVID-19. His d-dimer was also elevated at 1.65, and CT angiogram was obtained showing no signs of acute pulmonary embolism, but was positive for bilateral patchy interstitial infiltrates. Patient was on room air, he did receive monoclonal antibody in the emergency department on 07/25/2021. He was also diagnosed with a urinary tract infection and was given a course of Bactrim DS and discharged home. The discharge home he continued to worsen, and his pulse oximetry readings were low. Patient was more short of breath. His chest x-ray showed pulmonary interstitial infiltrates. His pulse ox in the emergency department was 84% on room air, and he was placed on supplemental oxygen currently requiring 5 L. He has been afebrile, he is receiving IV hydration with 0.9 normal saline at a rate of 75 ML per hour. Started on Decadron and COVID-19 vitamins and prophylactic anticoagulation in the form of Lovenox. Admission blood work was reviewed showing white blood cell count is 6.5, hemoglobin is 15.1, platelet count of 133, lymphocyte count 0.7 d-dimer is 1.53, sodium is 135, potassium is 4.7, CO2 is 21, BUN is 32, creatinine is 1.5, and patient previously had normal renal function, plasma lactic acid was 1.6, AST was 113 ALT was 51, pro calcitonin level was negative at 0.19. The patient is seen today 07/28/2021 in follow-up on the observation unit. He is currently resting fairly comfortably in bed. Awake and alert in no acute distress. He states his breathing is about the same today compared to yesterday. He is maintaining O2 saturations in the low 90s on 5 L nasal cannula. She's afebrile. Hemodynamically stable. White count 9.5. Hemoglobin 14.2. Sodium 138. Potassium 4.3. Glucose 144. This is day #2 of Remdesivir. He is continued on Decadron, Lovenox, vitamin supplements. The patient is seen today 07/29/2021 in follow-up on the regular medical floor. He is currently resting in bed. He is now requiring 15 L high flow nasal cannula to maintain O2 saturations in the low 90s. He was on 5 L yesterday. He is afebrile. I count 14.7. Hemoglobin 15.4. D-dimer 1.27. Sodium 137. Creatinine 1.0. Glucose 158. AST 69. ALT 51. LDH 1605. C-reactive protein 3.6. He is continued on Lovenox, Decadron, vitamin supplements. He is also on Remdesivir day #3. The patient is seen today 07/30/2021 in follow-up by the regular medical floor. He is currently sitting up in bed having dinner. Doing a bit better today compared to yesterday. He is still requiring 15 L high flow nasal cannula. Whi te count 10.1. Hemoglobin 14.6. Lymphocytic 0.8. D-dimer 1.49. Sodium 142. Potassium 4.0. Creatinine 1.04. C-reactive protein 2.3. He remains on Baricitinib, Decadron, Lovenox, vitamin supplements. the patient is seen today 08/01/2021 in follow-up on the regular medical floor. He is currently resting in bed. He is requiring 15 L high flow nasal cannula to maintain O2 saturations in the 90s. He has normal saline at 50 MLS per hour. He is continued on Baricitinib, Lovenox, Decadron, vitamin supplements. White count 14.5. Hemoglobin 15.4. Leukocytes 1.2. D-dimer 7.9. Sodium 135. Potassium 4.1. Creatinine 0.95. LDH 1573. C-reactive protein 1.9. Evaluation of 08/02/2021, I'm seeing the patient for a follow-up. Is a 80-year-old male patient with COVID 19 related pneumonia. The patient presented to us with worsening shortness of breath and cough and the patient also had a possible syncopal episodes/presyncope. The patient generalized weakness. Computed tomography scan of the chest showed no evidence of any pulmonary embolism and was consistent with bilateral pneumonia. The patient was initially on room air oxygen. He received monoclonal antibodies in the emergency and ultimately he was discharged home after being also diagnosed having a UTI. He subsequently presented back to us initially on 5 L about 2 by nasal cannula and his oxygen requirements progressively got worse and the patient is currently on 15 L of oxygen by nasal cannula. The patient is being seen for a follow-up today. The patient has been maintained on Decadron and Baricitinib was also added per protocol. The patient has a white cell count of 13.4, hemoglobin is at 15.7, d-dimer is at 24.4, BUN is at 26 with a creatinine of 0.9, sodium level is at 136. The Doppler of the lower extremities was completed and the patient has no evidence of DVT in both lower extremities. In terms of anticoagulants, the patient remains on Lovenox 40 mg subcu for DVT prophylaxis. His LDH level w as 1573 from yesterday. 07/17/2021, I'm seeing the patient for a follow-up regarding his COVID 19 r elated pneumonia. The patient is doing better in terms of his oxygenation. The patient is currently down to 9 L of oxygen by nasal cannula. Yesterday he was on 15 L. He continues to be on a combination of Decadron and Baricitinib was added per protocol. The patient is not showing any DVT in the lower extremity and a CT angiogram showed no evidence of any pulmonary embolism. He remains on Lovenox 40 mg subcu for DVT prophylaxis. He has some limited dry cough. No significant sputum production. No altered mentation.The white cell count is at 18.3 with hemoglobin of 14.4, his d-dimer was 24, his renal function is stable with a creatinine of 1.0 with a BUN of 24, normal electrolytes, LDH level from 08/01/2021 was 1573 with a CRP level of 1.9. Objective - Vital Signs Vital signs: Vital Signs Temp 98.2 F 08/03/21 10:30 Pulse 70 08/03/21 10:30 Resp 18 08/03/21 10:30 BP 145/73 08/03/21 10:30 Pulse Ox 92 L 08/03/21 10:30 Intake & Output 08/02/21 08/03/21 08/03/21 18:59 06:59 18:59 Intake Total 600 Output Total 800 125 Balance -800 475 Weight 70.307 kg Intake: Intake, IV Titration 600 Amount Lactated Ringers 1,000 ml 600 @ 50 mls/hr IV .Q20H [facility] Rx#:[id number] Output: Urine 800 125 Other: Voiding Method Urinal Urinal # Voids 5 - Exam GENERAL EXAM: Alert, pleasant 80-year-old gentleman, on 9L high flow nasal cannula, in mild respiratory distress distress. HEAD: Normocephalic. EYES: Normal reaction of pupils, equal size. NOSE: Clear with pink turbinates. THROAT: No erythema or exudates. NECK: No masses, no JVD. CHEST: No chest wall deformity. LUNGS: Equal air entry with coarse crackles in the bilateral bases CVS: S1 and S2 normal with no audible murmur, regular rhythm. ABDOMEN: No hepatosplenomegaly, normal bowel sounds, no guarding or rigidity. SPINE: No scoliosis or deformity SKIN: No rashes CENTRAL NERVOUS SYSTEM: No focal deficits, tone is normal in all 4 extremities. EXTREMITIES: There is no peripheral edema. No clubbing, no cyanosis. Peripheral pulses are intact. - Labs CBC & Chem 7: 08/03/21 05:48 08/03/21 05:48 Labs: Abnormal Lab Results - Last 24 Hours (Table) 08/03/21 08/03/21 Range/Units 05:48 05:48 WBC 18.32 H (4.50-10.00) X 10*3/uL Immature Gran # 0.39 H (0.00-0.04) X 10*3/uL Neutrophils # 14.10 H (1.80-7.70) X 10*3/uL Monocytes # 2.13 H (0.20-1.00) X 10*3/uL Eosinophils # 0.01 L (0.04-0.35) X 10*3/uL BUN/Creatinine Ratio 24.10 H (12.00-20.00) Ratio Calcium 8.2 L (8.7-10.3) mg/dL Total Protein 4.9 L (6.2-8.2) g/dL Albumin 2.8 L (3.8-4.9) g/dL Albumin/Globulin Ratio 1.33 L (1.60-3.17) g/dL Assessment and Plan Plan: 1 Acute hypoxic respiratory failure related to COVID-19 pneumonia with onset of symptoms 5 days ago on 07/23/2021, status post monoclonal antibody fusion on 07/25/2021. Started on Remdesivir on 07/27/2021. Stopped on 07/29/2021. Patient is stable compared to yesterday. The patient continues to be on a combination of Decadr Baricitinib . D-dimer was elevated and the Doppler of the lower extremities have been negative for DVT. Note that the patient is not vaccinated for COVID 19. Clinically the patient is improving and today's evaluation has been weaned down to 9 L about 2 by nasal cannula. 2 Elevated d-dimer, CT angiogram of the chest was negative for pulmonary embolism , Lovenox for DVT prophylaxis as the patient's Doppler of the lower extremity has been also negative for DVT. 3 Elevated LFTs, related to viral pneumonia 4 Recent urinary tract infection diagnosed on 07/25/2021, patient was discharged home on Bactrim DS, recheck urinalysis 5 Recent syncopal or presyncopal episode at home on 07/25/2021 possibly related to dehydration, brain CT was obtained and was negative 6 History of hypertension 7 Hypothyroidism 8 Nonsmoker Plan: Continue Baricitinib, Decadron, Lovenox, vitamin supplements Clinically stable and oxygenation is also stable and the patient will be weaned down to 9 L of oxygen by nasal cannula Monitor inflammatory markers Prognosis is guarded We'll continue to followI
[2021-08-03 14:18] LABS: C Reactive Protein 1.1 mg/dL (<1.0)
--- NOTE | 2021-08-03 15:26 | P.PN ---
<Elmer Yu - Last Filed: 08/03/21 15:16> Subjective Progress Note Date: 08/03/21 Hospital course: Patient is an 80-year-old male with a past medical history of hypertension and hypothyroidism who presented to the emergency department on 07/26/21 with a chief complaint of shortness of breath, lethargy, and cough status post diagnosis with Covid 19 virus infection on 07/25/21. EKG revealing normal sinus rhythm and 95 bpm with no noted T-wave or ST abnormalities showing no signs of acute ischemia. Patient received monoclonal antibodies on 07/25/21 after initial Covid diagnosis. CTA chest completed 07/25/21 negative for PE. Upon arrival to facility patient was found to be in acute hypoxic respiratory failure requiring oxygen supplementation and was started on steroids and Remdesivir and after receiving a total of 3 doses, oxygen needs increased and Remdesivir was discontinued and pt started on Baricitinib with continuation of steroids. Bilateral lower extremity Dopplers completed negative for DVTs. Physical examination: Patient seen and examined at bedside. He has decreased oxygenation needs and is now down to 9 L O2 via nasal cannula from required 12 L yesterday. He remains alert to person, place, time, and situation. He states that he feels short of breath, "but no more than my usual." Patient states continued cough but denies bringing up any phlegm at this time. He continues to deny having any headache, lightheadedness, dizziness, chest pain, palpitations, or experiencing any numbness/tingling/weakness/swelling in his extremities. Morning labs revealed leukocytosis with the [facility] count of 18.32 and continued elevation of inflammatory markers with d-dimer of 24.76, LDH of 1536, and CRP of 1.1. General: ill appearing, no acute distress noted, appears at stated age Derm: warm, dry Head: atraumatic, normocephalic, symmetric, hard of hearing Eyes: EOMI, no lid lag, anicteric sclera Mouth: no lip lesion, mucus membranes dry Cardiovascular: S1S2 reg, no murmur, positive posterior tibial pulses bilaterally, cap refill less than 2 seconds. Lungs: Respirations with increased respiratory effort but no accessory muscle usage, conversational dyspnea continues but improved, patient now on 9L O2 via high flow nasal cannula. Lungs with bibasilar crackles. No wheezes, rales, or rhonchi. Abdominal: soft, nontender to palpation, no guarding, no appreciable organomegaly Ext: no gross muscle atrophy, no edema, no contractures Neuro: CN II-XI grossly intact, GCS 14-15 as patient has been having episodes of confusion, no focal neuro deficits Psych: Alert, oriented, appropriate affect Assessment and plan of care: COVID-19 pneumonia in an unvaccinated individual Acute hypoxic respiratory failure Metabolic encephalopathy Acute respiratory failure with hypoxia secondary to COVID 19 pneumonia -Oxygenation to be administered and titrated as needed to maintain SPO2 equal to or greater than 90% -Telemetry monitoring. -Continue trending inflammatory markers -Encourage Incentive Spirometry 10-15x hourly while awake -Steroids: Decadron 6 mg daily, day #8 of steroids -Continue vitamin C, Vitamin D, and Zinc. -Pulmonology following, appreciate further recommendations. -DVT prophylaxis with Lovenox. -Strict Droplet plus Contact precautions -Patient received Remdesivir, 3 doses prior to discontinuing and starting patient on Baricitinib -Baricitinib day 6 Thrombocytopenia, resolved Hypertension, controlled -Monitor vital signs and continue daily medication regimen with Coreg Hypothyroidism -Continue daily medication regimen with synthroid Hyperchloremic metabolic acidosis, resolved FABIENNE, resolved CODE STATUS: Full code DVT prophylaxis: Lovenox Discussed with: Patient and RN and called and left voicemail for Rai Martinez, pt's nephew at [phone] at 1521 pm Anticipated discharge: Clinical course to determine Anticipated discharge place: home A total of 45 minutes was spent on the care of this complex patient more than 50% of the time was spent in counseling and care coordination. Objective - Vital Signs Vital signs: Vital Signs Temp 97.7 F 08/03/21 06:05 Pulse 65 08/03/21 06:05 Resp 18 08/03/21 06:05 BP 144/81 08/03/21 06:05 Pulse Ox 92 L 08/03/21 06:05 Intake & Output 08/02/21 08/03/21 08/03/21 18:59 06:59 18:59 Intake Total 600 Output Total 800 125 Balance -800 475 Weight 70.307 kg Intake: Intake, IV Titration 600 Amount Lactated Ringers 1,000 ml 600 @ 50 mls/hr IV .Q20H [facility] Rx#:[id number] Output: Urine 800 125 Other: Voiding Method Urinal Urinal # Voids 5 - Labs CBC & Chem 7: 08/03/21 05:48 08/03/21 05:48 Labs: Abnormal Lab Results - Last 24 Hours (Table) 08/03/21 08/03/21 Range/Units 05:48 05:48 WBC 18.32 H (4.50-10.00) X 10*3/uL Immature Gran # 0.39 H (0.00-0.04) X 10*3/uL Neutrophils # 14.10 H (1.80-7.70) X 10*3/uL Monocytes # 2.13 H (0.20-1.00) X 10*3/uL Eosinophils # 0.01 L (0.04-0.35) X 10*3/uL BUN/Creatinine Ratio 24.10 H (12.00-20.00) Ratio Calcium 8.2 L (8.7-10.3) mg/dL Total Protein 4.9 L (6.2-8.2) g/dL Albumin 2.8 L (3.8-4.9) g/dL Albumin/Globulin Ratio 1.33 L (1.60-3.17) g/dL <Stacy Martni - Last Filed: 08/03/21 18:41> Subjective I reviewed the documentation as provided by the CHINO above, who is the original author of this note. I agree with the documented assessment and plan, with the following changes: None Objective - Vital Signs Vital signs: Vital Signs Temp 98.2 F 08/03/21 17:42 Pulse 101 H 08/03/21 17:42 Resp 16 08/03/21 17:42 BP 129/76 08/03/21 17:42 Pulse Ox 92 L 08/03/21 17:42 Intake & Output 08/02/21 08/03/21 08/03/21 18:59 06:59 18:59 Intake Total 600 236 Output Total 800 125 250 Balance -800 475 -14 Weight 70.307 kg Intake: Intake, IV Titration 600 Amount Lactated Ringers 1,000 ml 600 @ 50 mls/hr IV .Q20H [facility] Rx#:[id number] Oral 236 Output: Urine 800 125 250 Other: Voiding Method Urinal Urinal # Voids 5 - Labs CBC & Chem 7: 08/03/21 05:48 08/03/21 05:48 Labs: Abnormal Lab Results - Last 24 Hours (Table) 08/03/21 08/03/21 08/03/21 Range/Units 05:48 05:48 13:17 WBC 18.32 H (4.50-10.00) X 10*3/uL Immature Gran # 0.39 H (0.00-0.04) X 10*3/uL Neutrophils # 14.10 H (1.80-7.70) X 10*3/uL Monocytes # 2.13 H (0.20-1.00) X 10*3/uL Eosinophils # 0.01 L (0.04-0.35) X 10*3/uL D-Dimer (<0.60) mg/L FEU BUN/Creatinine Ratio 24.10 H (12.00-20.00) Ratio Calcium 8.2 L (8.7-10.3) mg/dL Lactate Dehydrogenase 1536 H (313-618) U/L C-Reactive Protein 1.1 H (<1.0) mg/dL Total Protein 4.9 L (6.2-8.2) g/dL Albumin 2.8 L (3.8-4.9) g/dL Albumin/Globulin Ratio 1.33 L (1.60-3.17) g/dL 08/03/21 Range/Units 13:17 WBC (4.50-10.00) X 10*3/uL Immature Gran # (0.00-0.04) X 10*3/uL Neutrophils # (1.80-7.70) X 10*3/uL Monocytes # (0.20-1.00) X 10*3/uL Eosinophils # (0.04-0.35) X 10*3/uL D-Dimer 24.76 H (<0.60) mg/L FEU BUN/Creatinine Ratio (12.00-20.00) Ratio Calcium (8.7-10.3) mg/dL Lactate Dehydrogenase (313-618) U/L C-Reactive Protein (<1.0) mg/dL Total Protein (6.2-8.2) g/dL Albumin (3.8-4.9) g/dL Albumin/Globulin Ratio (1.60-3.17) g/dL
[2021-08-03] MEDS: BARICITINIB 2 MG TABLET PO SCH (16:34)
[2021-08-03] MEDS: ATORVASTATIN 20 MG TAB PO SCH (21:16)
[2021-08-04] MEDS: LACTATED RINGERS 1,000 ML IV SCH ×2 (00:17→18:07)
[2021-08-04] MEDS: LEVOTHYROXINE 50 MCG TAB PO SCH (05:12)
[2021-08-04 06:28] LABS: Basophils % (A) 0 %; Eosinophils % (A) 0 %; HGB 15.6 gm/dL (13.0-17.5); Lymphocytes # (A) 1.4 k/uL (1.0-4.8); Lymphocytes % (A) 7 %; MCH 29.4 pg (25.0-35.0); MCHC 33.9 g/dL (31.0-37.0); MCV 86.7 fL (80.0-100.0); Mean Platelet Volume 8.4; Monocytes # (A) 1.4 k/uL (0-1.0); Monocytes % (A) 7 %; Neutrophils # (A) 15.9 k/uL (1.3-7.7); Neutrophils % (A) 84 %; Platelet Count 253 k/uL (150-450); RBC 5.31 m/uL (4.30-5.90); RDW 14.1 % (11.5-15.5); WBC 18.8 k/uL (3.8-10.6)
[2021-08-04 06:32] LABS: ALT 38 U/L (4-49); AST 31 U/L (17-59); African American GFR (CKD) 82 (>60 ml/min/1.73 sqM); Albumin 2.4 g/dL (3.5-5.0); Albumin/Globulin Ratio 0.9; Alkaline Phosphatase 105 U/L (38-126); Anion Gap 4 mmol/L; Blood Urea Nitrogen 23 mg/dL (9-20); Calcium 8.4 mg/dL (8.4-10.2); Carbon Dioxide 26 mmol/L (22-30); Chloride 108 mmol/L (98-107); Globulin 2.8 g/dL; Glucose 87 mg/dL (74-99); LDH 1366 U/L (313-618); Non-African American GFR(CKD) 71 (>60 ml/min/1.73 sqM); Potassium 3.8 mmol/L (3.5-5.1); Sodium 138 mmol/L (137-145); Total Bilirubin 0.8 mg/dL (0.2-1.3); Total Protein 5.2 g/dL (6.3-8.2)
[2021-08-04] MEDS: carvediloL 6.25 MG TAB PO SCH ×2 (07:58→18:08)
[2021-08-04] MEDS: dexAMETHasone 2 MG TAB PO SCH (07:58)
[2021-08-04] MEDS: ASCORBIC ACID 500 MG TAB PO SCH (07:58)
[2021-08-04] MEDS: ZINC SULFATE 220 MG CAP PO SCH (07:58)
[2021-08-04] MEDS: ACETAMINOPHEN TAB 325 MG TAB PO PRN (07:58)
[2021-08-04] MEDS: ENOXAPARIN 40 MG/0.4 ML SYRINGE SQ SCH (07:58)
[2021-08-04] MEDS: CHOLECALCIFEROL 125 MCG (5000 IU) TABLET PO SCH (07:59)
[2021-08-04 08:54] LABS: C Reactive Protein 1.4 mg/dL (<1.0)
[2021-08-04] MEDS ORDERED: HEPARIN SODIUM 1,000 UN/ML (10ML VL) IV PRN (11:42)
[2021-08-04] MEDS ORDERED: HEPARIN SOD,PORK IN 0.45% NACL 25,000 UNIT in 0.45% NACL 1 250ML.BAG IV SCH (11:45)
--- NOTE | 2021-08-04 12:57 | P.CRDCN ---
History of Present Illness History of present illness: HISTORY OF PRESENTING ILLNESS This is a pleasant 80-year-old male past medical history significant for hypertension, hypothyroidism. He does not follow with a senior occupational therapist. He follows with his Primary Dr. Song in [place]. We have been asked to see in consultation for new onset atrial fibrillation. Patient presents to the emergency department on 07/26/2021 with complaints of low oxygen saturations readings at home, and symptoms of cough, fever, chills, diarrhea that started on 07/23. He initially presented to the emergency department on 07/25/21 for a possible syncopal episode, increased generalized fatigue, exertional shortness of breath, lack of appetite. He was diagnosed with COVID-19 pneumonia. He had a brain CT was completed showing no acute intracranial findings. CT PE revealed no signs of acute pulmonary embolism, revealed bilateral patchy interstitial infiltrates. At that time he did receive monoclonal antibody on 07/25/2021, he was on room air and was discharged home. He presents again on 07/26/21 with low oxygen saturations at home. Patient is alert and oriented x 2-3, seems confused about medical history/situation. He denies any chest pain, palpitations, lighth eadedness, dizziness. Patient denies history of Diabetes, Stroke, CA, Hyperlipidemia or coronary artery disease. Denies any tobocco or alcohol use. This morning, nursing noted patient to be bradycardic HR 47 and irregular, telemetry reviewed and patient appeared to be in atrial fibrillation. EKG was performed which revealed atrial fibrillation with HR 88. DIAGNOSTICS EKG reveals atrial fibrillation HR 88 EKG on admission revealed sinus rhythm HR 95, no significant ST-T wave abnormalities. Telemetry tracings indicate atrial fibrillation, HR are controlled 80s-90s, occasionally low 100s Venous dopplers no DVT Laboratory reviewed, WBC 18.8, hemoglobin 15.6, platelets 253, d-dimer 15.2, sodium 138, potassium 3.8, BUN 23, serum creatinine 0.9 Current home medications include carvedilol 6.5 mg twice a day, simvastatin 40 mg nightly, levothyroxine REVIEW OF SYSTEMS At the time of my exam: CONSTITUTIONAL: + fever + chills. CARDIOVASCULAR: Denies chest pain, +shortness of breath, Denies orthopnea, PND or palpitations. RESPIRATORY: + cough. GASTROINTESTINAL: Denies abdominal pain, diarrhea, constipation, nausea or vomiting. MUSCULOSKELETAL: Denies myalgias. NEUROLOGIC: Denies numbness, tingling, headacbe or weakness. ENDOCRINE: Denies fatigue, weight change, polydipsia or polyurina. GENITOURINARY: Denies burning, hematuria or urgency with micturation. HEMATOLOGIC: Denies history of anemia or bleeding. PHYSICAL EXAMINATION Vitals 147/71, heart rate 66, afebrile, oxygen saturation 96% requiring high flow nasal cannula 11L CONSTITUTIONAL: No apparent distress. HEENT: Head is normocephalic. No JVD. CHEST EXAMINATION: No chest wall tenderness is noted on palpation or with deep breathing. HEART EXAMINATION: Irregular rate and rhythm. S1, S2 heard. ABDOMEN: Soft, nontender. EXTREMITIES: 2+ peripheral pulses, no lower extremity edema SKIN: warm, dry NEUROLOGIC EXAMINATION: Patient is awake, alert and oriented x2 ASSESSMENT New on set paroxysmal atrial fibrillation [id number] score 3 Hypertension Covid-19 PLAN -Spoke to patient's son Rai, patient does not follow with a senior occupational therapist as an outpatient and does not have a history of atrial fibrillation -Continue carvedilol 6.25mg BID, will adjust as tolerated, currently patient's heart rates are controlled -Continue cardiac telemetry, monitor patient's blood pressure -2D echocardiogram ordered -Start Eliquis 5mg BID, Consult case management for coverage. -Further recommendations based on evaluation by Dr. Russell and clinical course Nurse Practitioner note has been reviewed, I agree with a documented findings and plan of care. Patient was seen and examined. Past Medical History Past Medical History: Cancer, Hypertension History of Any Multi-Drug Resistant Organisms: None Reported Past Surgical History: Cholecystectomy, Hernia Repair Past Psychological History: No Psychological Hx Reported Smoking Status: Never smoker Past Alcohol Use History: None Reported Past Drug Use History: None Reported Medications and Allergies Home Medications Medication Instructions Recorded Confirmed Type Levothyroxine Sodium [Synthroid] 50 mcg PO DAILY 07/25/21 07/27/21 History Simvastatin [Zocor] 40 mg PO HS 07/25/21 07/27/21 History Sulfamethox-Tmp 800-160Mg [Bactrim 1 tab PO Q12HR 5 Days #10 tab 07/25/21 07/27/21 Rx DS 800-160 mg] carvediloL [Coreg] 6.25 mg PO BID 07/25/21 07/27/21 History Apixaban [Eliquis] 5 mg PO BID 30 Days #60 tab 08/04/21 Rx Allergies Allergy/AdvReac Type Severity Reaction Status Date / Time No Known Allergies Allergy Verified 07/27/21 09:28 Physical Exam Vitals: Vital Signs Temp Pulse Pulse Resp BP Pulse Ox 08/04/21 10:10 66 08/04/21 09:14 97.8 F 42 L 18 147/71 96 08/04/21 09:10 87 L 08/04/21 08:00 66 17 08/04/21 06:13 97.7 F 83 18 168/95 90 L 08/04/21 01:37 97.5 F L 67 18 173/88 89 L 08/03/21 22:21 98 F 93 20 144/70 93 L 08/03/21 17:42 98.2 F 101 H 16 129/76 92 L 08/03/21 14:00 97.6 F 82 22 128/71 95 Intake and Output 08/03/21 08/04/21 08/04/21 22:59 06:59 14:59 Intake Total 236 600 Output Total 100 Balance 136 600 Intake: Intake, IV Titration 600 Amount Lactated Ringers 1,000 ml 600 @ 50 mls/hr IV .Q20H [facility] Rx#:[id number] Oral 236 Output: Urine 100 Other: # Voids 1 # Bowel Movements 1 Results 08/04/21 05:38 08/04/21 05:38 Cardiac Enzymes 08/03/21 08/04/21 Range/Units 13:17 05:38 AST 31 (17-59) U/L Lactate Dehydrogenase 1536 H 1366 H (313-618) U/L CBC 08/04/21 Range/Units 05:38 WBC 18.8 H (3.8-10.6) k/uL RBC 5.31 (4.30-5.90) m/uL Hgb 15.6 (13.0-17.5) gm/dL Hct 46.0 (39.0-53.0) % Plt Count 253 (150-450) k/uL Comprehensive Metabolic Panel 08/04/21 Range/Units 05:38 Sodium 138 (137-145) mmol/L Potassium 3.8 (3.5-5.1) mmol/L Chloride 108 H (98-107) mmol/L Carbon Dioxide 26 (22-30) mmol/L BUN 23 H (9-20) mg/dL Creatinine 0.99 (0.66-1.25) mg/dL Glucose 87 (74-99) mg/dL Calcium 8.4 (8.4-10.2) mg/dL AST 31 (17-59) U/L ALT 38 (4-49) U/L Alkaline Phosphatase 105 (38-126) U/L Total Protein 5.2 L (6.3-8.2) g/dL Albumin 2.4 L (3.5-5.0) g/dL Current Medications Generic Name Dose Route Start Last Admin Trade Name Freq PRN Reason Stop Dose Admin Acetaminophen 650 mg 08/01/21 10:36 08/04/21 07:58 Acetaminophen Tab 325 Mg Tab PO 650 mg Q6HR PRN Administration Fever and/ or Pain Ascorbic Acid 1,000 mg 07/27/21 09:00 08/04/21 07:58 Ascorbic Acid 500 Mg Tab PO 1,000 mg DAILY [facility] Administration Atorvastatin Calcium 20 mg 07/27/21 21:00 08/03/21 21:16 Atorvastatin 20 Mg Tab PO 20 mg HS [facility] Administration Baricitinib 4 mg 07/29/21 18:00 08/03/21 16:34 Baricitinib 2 Mg Tablet PO 08/11/21 23:59 4 mg DAILY@1800 [facility] Administration Carvedilol 6.25 mg 07/27/21 11:00 08/04/21 07:58 Carvedilol 6.25 Mg Tab PO 6.25 mg BID-W/MEALS [facility] Administration Cholecalciferol 125 mcg 07/27/21 09:00 08/04/21 07:59 Cholecalciferol 125 Mcg (5000 Iu) Tablet PO 125 mcg DAILY [facility] Administration Dexamethasone 6 mg 07/27/21 09:00 08/04/21 07:58 Dexamethasone 2 Mg Tab PO 6 mg DAILY [facility] Administration Heparin Sodium (Porcine) 0 unit 08/04/21 11:42 Heparin Sodium 1,000 Un/Ml (10ml Vl) IV PER PROTOCOL PRN Low PTT Protocol Lactated Ringer's 1,000 mls @ 50 mls/hr 07/30/21 15:45 08/04/21 00:17 Lactated Ringers IV Not Given .Q20H [facility] Heparin Sodium/Sodium Chloride 250 mls @ 8.437 mls/hr 08/04/21 11:45 25,000 unit/ Sodium Chloride IV .Q24H [facility] Protocol 12 UNITS/KG/HR Levothyroxine Sodium 50 mcg 07/27/21 11:00 08/04/21 05:12 Levothyroxine 50 Mcg Tab PO 50 mcg 0630 [facility] Administration Melatonin 5 mg 07/27/21 03:37 Melatonin 5 Mg Tablet PO HS PRN Insomnia Naloxone HCl 0.2 mg 07/27/21 00:48 Naloxone 0.4 Mg/Ml 1 Ml Vial IV Q2M PRN Opioid Reversal Zinc Sulfate 220 mg 07/27/21 09:00 08/04/21 07:58 Zinc Sulfate 220 Mg Cap PO 220 mg DAILY [facility] Administration Intake and Output 08/03/21 08/04/21 08/04/21 22:59 06:59 14:59 Intake Total 236 600 Output Total 100 Balance 136 600 Intake: Intake, IV Titration 600 Amount Lactated Ringers 1,000 ml 600 @ 50 mls/hr IV .Q20H [facility] Rx#:[id number] Oral 236 Output: Urine 100 Other: # Voids 1 # Bowel Movements 1 08/04/21 05:38 08/04/21 05:38
[2021-08-04 13:36] LABS: INR 1.2 (<1.2); Partial Thromboplastin Time 22.7 sec (22.0-30.0); Prothrombin Time 12.6 sec (9.0-12.0)
[2021-08-04] MEDS: APIXABAN 5 MG TAB PO SCH ×2 (13:36→21:26)
--- NOTE | 2021-08-04 15:48 | P.PN ---
Subjective Progress Note Date: 08/04/21 Principal diagnosis: dyspnea On 07/31/2021 patient seen in follow-up on medical surgical floor. He is more confused on today's exam, his FiO2 requirement is up to 15 L per high flow nasal cannula, and his pulse ox is 92-96%, afebrile, hemodynamically he is stable, does not appear to be in acute respiratory distress, lung sounds reveal bibasilar crackles, he is a poor historian, but he is able to make his basic needs known, today's chest x-ray shows a mild underlying emphysematous change with persistent bilateral multifocal opacities consistent with known history of COVID-19 infection. He remains on Decadron 6 blood gram daily, he is on prophylactic dose Lovenox 40 mg daily, he is on IV fluids with lactated Ringer's at 50 ML per hour and COVID-19 vitamins. he continues onBaricitinib 4 mg daily. On 08/04/2021 patient seen in follow-up On medical surgical floor, patient went into new onset atrial fibrillation, with slow ventricular response with a rate of 40 overnight, currently she remains in atrial fibrillation with a rate of 65- 70. Cardiology has been consulted, please refer to the consultation note, his oxygenation at the same time seems to have worsened, and he is now requiring 11 L of oxygen and his pulse ox is 94%. Denies any chest pain, he is confused, but he is awake, he is answering some simple questions, but disoriented to place and time. Lung sounds reveal diffuse crackles. Occasional cough, his lower extremity Dopplers were negative for DVT, no recent chest x-ray was done, today's lab have been reviewed, white blood cell count is 18.8, hemoglobin is 15.6, INR today is 1.2, d-dimer is 15.2, down from 24.7, sodium is 138, potassium 3.8, chloride is 108, CO2 is 26, BUN is 23 creatinine 0.9, LDH is trending down, is down to 1366, CRP is 1.4. Patient was started on Eliquis per cardiology, and in terms of therapy for his COVID-19 pneumonia he remains on Decadron 6 blood gram daily, and Baricitinib, addition to multivitamins. His la st chest x-ray from 07/31/2021 showed mild underlying emphysematous changes persistent bilateral multifocal opacities greatest in the lower lobe consistent with known COVID-19 infection. Objective - Vital Signs Vital signs: Vital Signs Temp 98.2 F 08/04/21 14:01 Pulse 70 08/04/21 14:01 Resp 18 08/04/21 14:01 BP 97/66 08/04/21 14:01 Pulse Ox 94 L 08/04/21 14:01 Intake & Output 08/03/21 08/04/21 08/04/21 18:59 06:59 18:59 Intake Total 236 600 Output Total 250 100 Balance -14 500 Intake: Intake, IV Titration 600 Amount Lactated Ringers 1,000 ml 600 @ 50 mls/hr IV .Q20H [facility] Rx#:[id number] Oral 236 Output: Urine 250 100 Other: Voiding Method Urinal # Voids 1 # Bowel Movements 1 - Exam GENERAL EXAM: Alert, very pleasant, 80-year-old white male, confused, resting in bed, does not appear to be in acute respiratory distress, he is currently on 11 L oxygen pulse ox of 93% comfortable in no apparent distress. HEAD: Normocephalic/atraumatic. EYES: Normal reaction of pupils, equal size. Conjunctiva pink, sclera white. NOSE: Clear with pink turbinates. THROAT: No erythema or exudates. NECK: No masses, no JVD, no thyroid enlargement, no adenopathy. CHEST: No chest wall deformity. Symmetrical expansion. LUNGS: Equal air entry with basilar rales CVS: Irregular rate and rhythm, normal S1 and S2, no gallops, no murmurs, no rubs ABDOMEN: Soft, nontender. No hepatosplenomegaly, normal bowel sounds, no guarding or rigidity. EXTREMITIES: No clubbing, no edema, no cyanosis, 2+ pulses and upper and lower extremities. MUSCULOSKELETAL: Muscle strength and tone normal. SPINE: No scoliosis or deformity SKIN: No rashes CENTRAL NERVOUS SYSTEM: Alert and oriented -1. No focal deficits, tone is normal in all 4 extremities. PSYCHIATRIC: Alert and oriented -1. Appropriate affect. Intact judgment and insight. - Labs CBC & Chem 7: 08/04/21 05:38 08/04/21 05:38 Labs: Abnormal Lab Results - Last 24 Hours (Table) 08/04/21 08/04/21 08/04/21 Range/Units 05:38 05:38 05:38 WBC 18.8 H (3.8-10.6) k/uL Neutrophils # 15.9 H (1.3-7.7) k/uL Monocytes # 1.4 H (0-1.0) k/uL PT (9.0-12.0) sec INR (<1.2) D-Dimer 15.20 H (<0.60) mg/L FEU Chloride 108 H (98-107) mmol/L BUN 23 H (9-20) mg/dL Lactate Dehydrogenase 1366 H (313-618) U/L C-Reactive Protein 1.4 H (<1.0) mg/dL Total Protein 5.2 L (6.3-8.2) g/dL Albumin 2.4 L (3.5-5.0) g/dL 08/04/21 Range/Units 12:39 WBC (3.8-10.6) k/uL Neutrophils # (1.3-7.7) k/uL Monocytes # (0-1.0) k/uL PT 12.6 H (9.0-12.0) sec INR 1.2 H (<1.2) D-Dimer (<0.60) mg/L FEU Chloride (98-107) mmol/L BUN (9-20) mg/dL Lactate Dehydrogenase (313-618) U/L C-Reactive Protein (<1.0) mg/dL Total Protein (6.3-8.2) g/dL Albumin (3.5-5.0) g/dL Assessment and Plan Plan: Assessment: #1. Acute hypoxic respiratory failure related to COVID-19 pneumonia with onset of symptoms 5 days ago on 07/23/2021, status post monoclonal antibody fusion on 07/25/2021. We will start on Remdesivir today on 07/27/2021, Fio2 requirements were sent, and patient was started on Baricitinib on 07/29/2021 #2. New-onset atrial fibrillation, with a slow ventricular response, currently remains in nature fibrillation with a rate of 88, cardiology is on, and patient has been placed on Eliquis #3. Elevated d-dimer, CT angiogram of the chest was negative for pulmonary embolism #4. Elevated LFTs, related to viral pneumonia #5. Recent urinary tract infection diagnosed on 07/25/2021, patient was discharged home on Bactrim DS, recheck urinalysis #6. Recent syncopal or presyncopal episode at home on 07/25/2021 possibly related to dehydration, brain CT was obtained and was negative #7. History of hypertension #8. Hypothyroidism #9. Nonsmoker #10. Increased confusion possibly multifactorial related to hypoxic respiratory failure, and metabolic encephalopathy Plan: Continue current medical treatment Continue Decadron 6 mg once daily Continue Baricitinib Patient was started on the Eliquis for new onset atrial fibrillation, cardiology has been consulted Echocardiogram is pending FiO2 is currently at 11 L Wean FiO2 to keep O2 sats ration is at or above 90% No worsening dyspnea Inflammatory markers are improving Follow-up chest x-ray inflammatory markers and basic labs tomorrow I performed a history & physical examination of the patient and discussed their management with my nurse practitioner, Lucy Acosta. I reviewed the nurse practitioner's note and agree with the documented findings and plan of care. Lung sounds are positive for diminished breath sounds throughout the lung amin. The findings and the impression was discussed with the patient. I attest to the documentation by the nurse practitioner. Time with Patient: Less than 30
[2021-08-04] MEDS: BARICITINIB 2 MG TABLET PO SCH (18:08)
--- NOTE | 2021-08-04 18:11 | P.PN ---
<Elmer Yu - Last Filed: 08/04/21 18:04> Subjective Progress Note Date: 08/04/21 Hospital course: Patient is an 80-year-old male with a past medical history of hypertension and hypothyroidism who presented to the emergency department on 07/26/21 with a chief complaint of shortness of breath, lethargy, and cough status post diagnosis with Covid 19 virus infection on 07/25/21. EKG revealing normal sinus rhythm and 95 bpm with no noted T-wave or ST abnormalities showing no signs of acute ischemia. Patient received monoclonal antibodies on 07/25/21 after initial Covid diagnosis. CTA chest completed 07/25/21 negative for PE. Upon arrival to facility patient was found to be in acute hypoxic respiratory failure requiring oxygen supplementation and was started on steroids and Remdesivir and after receiving a total of 3 doses, oxygen needs increased and Remdesivir was discontinued and pt started on Baricitinib with continuation of steroids. Bilateral lower extremity Dopplers completed negative for DVTs. Physical examination: Patient seen and examined at bedside this morning. He remains on 9 L O2 via high flow nasal cannula and continues to have noted conversational dyspnea. Heart rate was noted to be irregular and EKG was completed. EKG confirmed patient to be in new onset atrial fibrillation with a controlled ventricular rate. Patient denied previous history of atrial fibrillation or any other heart arrhythmias and denies following with a manager of development. Echocardiogram to be completed. Patient started on anticoagulation with heparin and cardiology consulted. He continues to deny having any headache, lightheadedness, dizziness, chest pain, palpitations, or experiencing any numbness/tingling/weakness/swelling in his extremities. Morning labs revealed leukocytosis with the BBC count of 18.32 and continued elevation of inflammatory markers with d-dimer of 24.76, LDH of 1536, and CRP of 1.1. General: ill appearing, no acute distress noted, appears at stated age Derm: warm, dry Head: atraumatic, normocephalic, symmetric, hard of hearing Eyes: EOMI, no lid lag, anicteric sclera Mouth: no lip lesion, mucus membranes dry Cardiovascular: Irregularly irregular rhythm, normal S1 and S2, positive p osterior tibial pulses bilaterally, cap refill less than 2 seconds. Lungs: Respirations with increased respiratory effort but no accessory muscle usage, conversational dyspnea continues with 5-6 word sentences, remains on 9L O2 via high flow nasal cannula. Lungs with bibasilar crackles. No wheezes, rales, or rhonchi. Abdominal: soft, nontender to palpation, no guarding, no appreciable organome hardy Ext: no gross muscle atrophy, no edema, no contractures Neuro: CN II-XI grossly intact, GCS 14-15 as patient has been having episodes of confusion, no focal neuro deficits Psych: Alert, oriented, appropriate affect Assessment and plan of care: COVID-19 pneumonia in an unvaccinated individual Acute hypoxic respiratory failure Metabolic encephalopathy Acute respiratory failure with hypoxia secondary to COVID 19 pneumonia -Oxygenation to be administered and titrated as needed to maintain SPO2 equal to or greater than 90% -Telemetry monitoring. -Continue trending inflammatory markers -Encourage Incentive Spirometry 10-15x hourly while awake -Steroids: Decadron 6 mg daily, day #9 of steroids -Continue vitamin C, Vitamin D, and Zinc. -Pulmonology following, appreciate further recommendations. -Strict Droplet plus Contact precautions -Patient received Remdesivir, 3 doses prior to discontinuing and starting patient on Baricitinib -Baricitinib day 7 of 14 New-onset atrial fibrillation -Controlled ventricular rate at this time. -Patient started on anticoagulation with heparin -Cardiology consulted. -Patient to be placed on continuous telemetry monitoring. Thrombocytopenia, resolved Hypertension, controlled -Monitor vital signs and continue daily medication regimen with Coreg Hypothyroidism -Continue daily medication regimen with synthroid Hyperchloremic metabolic acidosis, resolved FABIENNE, resolved CODE STATUS: Full code DVT prophylaxis: Lovenox Discussed with: Patient and RN Anticipated discharge: Clinical course to determine Anticipated discharge place: home A total of 45 minutes was spent on the care of this complex patient more than 50% of the time was spent in counseling and care coordination. Objective - Vital Signs Vital signs: Vital Signs Temp 97.7 F 08/04/21 06:13 Pulse 83 08/04/21 06:13 Resp 18 08/04/21 06:13 BP 168/95 08/04/21 06:13 Pulse Ox 90 L 08/04/21 06:13 Intake & Output 08/03/21 08/04/21 08/04/21 18:59 06:59 18:59 Intake Total 236 600 Output Total 250 100 Balance -14 500 Intake: Intake, IV Titration 600 Amount Lactated Ringers 1,000 ml 600 @ 50 mls/hr IV .Q20H [facility] Rx#:[id number] Oral 236 Output: Urine 250 100 Other: Voiding Method Urinal # Voids 1 # Bowel Movements 1 - Labs CBC & Chem 7: 08/04/21 05:38 08/04/21 05:38 Labs: Abnormal Lab Results - Last 24 Hours (Table) 08/03/21 08/03/21 08/03/21 Range/Units 05:48 05:48 13:17 WBC 18.32 H (4.50-10.00) X 10*3/uL Immature Gran # 0.39 H (0.00-0.04) X 10*3/uL Neutrophils # 14.10 H (1.80-7.70) X 10*3/uL Monocytes # 2.13 H (0.20-1.00) X 10*3/uL Eosinophils # 0.01 L (0.04-0.35) X 10*3/uL D-Dimer (<0.60) mg/L FEU Chloride (98-107) mmol/L BUN (9-20) mg/dL BUN/Creatinine Ratio 24.10 H (12.00-20.00) Ratio Calcium 8.2 L (8.7-10.3) mg/dL Lactate Dehydrogenase 1536 H (313-618) U/L C-Reactive Protein 1.1 H (<1.0) mg/dL Total Protein 4.9 L (6.2-8.2) g/dL Albumin 2.8 L (3.8-4.9) g/dL Albumin/Globulin Ratio 1.33 L (1.60-3.17) g/dL 08/03/21 08/04/21 08/04/21 Range/Units 13:17 05:38 05:38 WBC 18.8 H (4.50-10.00) X 10*3/uL Immature Gran # (0.00-0.04) X 10*3/uL Neutrophils # 15.9 H (1.80-7.70) X 10*3/uL Monocytes # 1.4 H (0.20-1.00) X 10*3/uL Eosinophils # (0.04-0.35) X 10*3/uL D-Dimer 24.76 H (<0.60) mg/L FEU Chloride 108 H (98-107) mmol/L BUN 23 H (9-20) mg/dL BUN/Creatinine Ratio (12.00-20.00) Ratio Calcium (8.7-10.3) mg/dL Lactate Dehydrogenase 1366 H (313-618) U/L C-Reactive Protein (<1.0) mg/dL Total Protein 5.2 L (6.2-8.2) g/dL Albumin 2.4 L (3.8-4.9) g/dL Albumin/Globulin Ratio (1.60-3.17) g/dL 08/04/21 Range/Units 05:38 WBC (4.50-10.00) X 10*3/uL Immature Gran # (0.00-0.04) X 10*3/uL Neutrophils # (1.80-7.70) X 10*3/uL Monocytes # (0.20-1.00) X 10*3/uL Eosinophils # (0.04-0.35) X 10*3/uL D-Dimer 15.20 H (<0.60) mg/L FEU Chloride (98-107) mmol/L BUN (9-20) mg/dL BUN/Creatinine Ratio (12.00-20.00) Ratio Calcium (8.7-10.3) mg/dL Lactate Dehydrogenase (313-618) U/L C-Reactive Protein (<1.0) mg/dL Total Protein (6.2-8.2) g/dL Albumin (3.8-4.9) g/dL Albumin/Globulin Ratio (1.60-3.17) g/dL <Juan Knox - Last Filed: 08/04/21 18:24> Subjective I am in agreement with with the assessment and plan as written above. Objective - Vital Signs Vital signs: Vital Signs Temp 98.3 F 08/04/21 17:03 Pulse 83 08/04/21 17:03 Resp 17 08/04/21 17:03 BP 175/76 08/04/21 17:03 Pulse Ox 93 L 08/04/21 17:03 Intake & Output 08/03/21 08/04/21 08/04/21 18:59 06:59 18:59 Intake Total 236 600 Output Total 250 100 Balance -14 500 Intake: Intake, IV Titration 600 Amount Lactated Ringers 1,000 ml 600 @ 50 mls/hr IV .Q20H [facility] Rx#:[id number] Oral 236 Output: Urine 250 100 Other: Voiding Method Urinal # Voids 1 3 # Bowel Movements 1 - Labs CBC & Chem 7: 08/04/21 05:38 08/04/21 05:38 Labs: Abnormal Lab Results - Last 24 Hours (Table) 08/04/21 08/04/21 08/04/21 Range/Units 05:38 05:38 05:38 WBC 18.8 H (3.8-10.6) k/uL Neutrophils # 15.9 H (1.3-7.7) k/uL Monocytes # 1.4 H (0-1.0) k/uL PT (9.0-12.0) sec INR (<1.2) D-Dimer 15.20 H (<0.60) mg/L FEU Chloride 108 H (98-107) mmol/L BUN 23 H (9-20) mg/dL Lactate Dehydrogenase 1366 H (313-618) U/L C-Reactive Protein 1.4 H (<1.0) mg/dL Total Protein 5.2 L (6.3-8.2) g/dL Albumin 2.4 L (3.5-5.0) g/dL 08/04/21 Range/Units 12:39 WBC (3.8-10.6) k/uL Neutrophils # (1.3-7.7) k/uL Monocytes # (0-1.0) k/uL PT 12.6 H (9.0-12.0) sec INR 1.2 H (<1.2) D-Dimer (<0.60) mg/L FEU Chloride (98-107) mmol/L BUN (9-20) mg/dL Lactate Dehydrogenase (313-618) U/L C-Reactive Protein (<1.0) mg/dL Total Protein (6.3-8.2) g/dL Albumin (3.5-5.0) g/dL
[2021-08-04] MEDS: ATORVASTATIN 20 MG TAB PO SCH (21:25)
[2021-08-05] MEDS: LEVOTHYROXINE 50 MCG TAB PO SCH (05:33)
--- NOTE | 2021-08-05 08:17 | ECHOF ---
Referral Reason:new onset atrial fibrillation MEASUREMENTS -------- HEIGHT: 172.7 cm WEIGHT: 70.3 kg BP: 147/71 RVIDd: 2.3 cm (< 3.3) IVSd: 1.3 cm (0.6 - 1.1) LVIDd: 3.1 cm (3.9 - 5.3) LVPWd: 1.2 cm (0.6 - 1.1) IVSs: 1.7 cm LVIDs: 1.9 cm LVPWs: 1.6 cm LA Diam: 3.1 cm (2.7 - 3.8) Ao Diam: 3.3 cm (2.0 - 3.7) AV Cusp: 1.6 cm (1.5 - 2.6) MV EXCURSION: 18.525 mm (> 18.000) MV EF SLOPE: 31 mm/s (70 - 150) EPSS: 0.4 cm FINDINGS -------- This was a technically adequate study. The left ventricular size is normal. There is mild concentric left ventricular hypertrophy. Overa ll left ventricular systolic function is normal with, an EF between 55 - 60 %. The right ventricle is normal in size. The left atrium is normal in size. The right atrium is normal in size. Interatrial and interventricular septum intact. The aortic valve is trileaflet, and appears structurally normal. No aortic stenosis or regurgitation. The mitral valve is normal. There is trace mitral regurgitation. The tricuspid valve appears structurally normal. Unable to estimate RVSP due to inadequate TR jet s pectral doppler profile. The pulmonic valve was not well visualized. The aortic root size is normal. Normal inferior vena cava with normal inspiratory collapse consistent with estimated right atrial pre ssure of 5 mmHg. There is no pericardial effusion. CONCLUSIONS -------- 1. The left ventricular size is normal. 2. There is mild concentric left ventricular hypertrophy. 3. Overall left ventricular systolic function is normal with, an EF between 55 - 60 %. 4. The aortic valve is trileaflet, and appears structurally normal. No aortic stenosis or regurgitati on. 5. The mitral valve is normal. 6. There is trace mitral regurgitation. 7. There is no pericardial effusion. STEAM BRUSH OPERATOR: Nohelia Siddiqi [facility]
[2021-08-05] MEDS: ZINC SULFATE 220 MG CAP PO SCH (08:19)
[2021-08-05] MEDS: carvediloL 6.25 MG TAB PO SCH (08:20)
[2021-08-05] MEDS: CHOLECALCIFEROL 125 MCG (5000 IU) TABLET PO SCH (08:20)
[2021-08-05] MEDS: dexAMETHasone 2 MG TAB PO SCH (08:20)
[2021-08-05] MEDS: ASCORBIC ACID 500 MG TAB PO SCH (08:20)
[2021-08-05] MEDS: APIXABAN 5 MG TAB PO SCH ×2 (08:20→20:14)
[2021-08-05 08:50] LABS: ALT 52 U/L (4-49); AST 38 U/L (17-59); African American GFR (CKD) 79 (>60 ml/min/1.73 sqM); Albumin/Globulin Ratio 0.9; Alkaline Phosphatase 131 U/L (38-126); Anion Gap 7 mmol/L; Blood Urea Nitrogen 23 mg/dL (9-20); Calcium 8.8 mg/dL (8.4-10.2); Carbon Dioxide 25 mmol/L (22-30); Chloride 107 mmol/L (98-107); Globulin 3.3 g/dL; Glucose 101 mg/dL (74-99); LDH 1721 U/L (313-618); Non-African American GFR(CKD) 68 (>60 ml/min/1.73 sqM); Potassium 4.1 mmol/L (3.5-5.1); Sodium 139 mmol/L (137-145); Total Protein 6.3 g/dL (6.3-8.2)
[2021-08-05 08:51] LABS: Basophils # (A) 0.1 k/uL (0-0.2); Basophils % (A) 0 %; Eosinophils % (A) 0 %; HCT 53.9 % (39.0-53.0); HGB 18.2 gm/dL (13.0-17.5); Lymphocytes # (A) 1.6 k/uL (1.0-4.8); Lymphocytes % (A) 6 %; MCH 29.6 pg (25.0-35.0); MCHC 33.8 g/dL (31.0-37.0); MCV 87.7 fL (80.0-100.0); Mean Platelet Volume 8.6; Monocytes # (A) 1.5 k/uL (0-1.0); Monocytes % (A) 6 %; Neutrophils # (A) 23.5 k/uL (1.3-7.7); Neutrophils % (A) 87 %; Platelet Count 349 k/uL (150-450); RBC 6.14 m/uL (4.30-5.90); RDW 14.2 % (11.5-15.5); WBC 26.9 k/uL (3.8-10.6)
[2021-08-05 08:53] LABS: INR 1.2 (<1.2); Prothrombin Time 12.1 sec (9.0-12.0)
[2021-08-05] MEDS ORDERED: METOPROLOL TARTRATE 50 MG TAB PO SCH (09:00)
--- NOTE | 2021-08-05 09:10 | P.PN ---
Subjective Progress Note Date: 08/05/21 Hospital course: Patient is an 80-year-old male with a past medical history of hypertension and hypothyroidism who presented to the emergency department on 07/26/21 with a chief complaint of shortness of breath, lethargy, and cough status post diagnosis with Covid 19 virus infection on 07/25/21. EKG revealing normal sinus rhythm and 95 bpm with no noted T-wave or ST abnormalities showing no signs of acute ischemia. Patient received monoclonal antibodies on 07/25/21 after initial Covid diagnosis. CTA chest completed 07/25/21 negative for PE. Upon arrival to facility patient was found to be in acute hypoxic respiratory failure requiring oxygen supplementation and was started on steroids and Remdesivir and after receiving a total of 3 doses, oxygen needs increased and Remdesivir was discontinued and pt started on Baricitinib with continuation of steroids. Bilateral lower extremity Dopplers completed negative for DVTs. On 08/04/21 patient was noted to have a irregular heart rhythmn and an EKG was completed confirming new onset atrial fibrillation. Patient was started on heparin infusion and later transitioned to oral antocoagulant with Eliquis. Cardiology was also consulted and patient had echocardiogram completed which revealed a normal EF between 55 and 60% with no significant valvular abnormalities. On 08/05/21 patient's oxygen needs significantly increased from previous 9 L to 15 L high flow nasal cannula along with 100% nonrebreather mask. Order placed for CT PE and pro-calcitonin at this time. Physical examination: Patient seen and examined at bedside this morning. Patient has had increased oxygenation needs and is now on 15 L high flow nasal cannula and 100% nonrebreather mask. Patient appeared much more weak this morning, but respirations remained even and unlabored without any accessory muscle usage. Patient denies experiencing increased shortness of breath, chest pain, or palpitations. Morning labs reviewed and CBC reveals WBC count significantly elevated at 26.9 with hemoglobin of 18.2, BMP showing no significant abnormalities, and liver profile revealing elevated ALT of 50 to an elevated alkaline phosphatase of 131. Inflammatory markers increasing with d-dimer of 27.16, LDH of 1721, and CRP of 2.1. Order placed for CT PE at this time to rule out pulmonary emboli especially with patient's new onset atrial fibrillation. Patient has been afebrile, but with significant jump in leukocytosis will also plan to get pro-calcitonin to rule out infectious process. Called and spoke with patient's nephew, Rai and updated him on pt's worsening condition and increased oxygen needs. Readdressed CODE STATUS at this time and patient's nephew/next of kin wants patient to be intubated if condition worsens. General: ill appearing, no acute distress noted, appears at stated age Derm: warm, dry Head: atraumatic, normocephalic, symmetric, hard of hearing Eyes: EOMI, no lid lag, anicteric sclera Mouth: no lip lesion, mucus membranes dry Cardiovascular: Irregularly irregular rhythm, normal S1 and S2, positive posterior tibial pulses bilaterally, cap refill less than 2 seconds. Lungs: Respirations with increased respiratory effort but no accessory muscle usage, conversational dyspnea continues with 5-6 word sentences. Lungs with bibasilar crackles. No wheezes, rales, or rhonchi.Patient on 15 L high flow nasal cannula +15 L NRB. Abdominal: soft, nontender to palpation, no guarding, no appreciable organomegaly Ext: no gross muscle atrophy, no edema, no contractures Neuro: CN II-XI grossly intact, GCS 14-15 as patient has been having episodes of confusion, no focal neuro deficits Psych: Alert, oriented, appropriate affect Assessment and plan of care: COVID-19 pneumonia in an unvaccinated individual Acute hypoxic respiratory failure Metabolic encephalopathy Acute respiratory failure with hypoxia secondary to COVID 19 pneumonia -Oxygenation to be administered and titrated as needed to maintain SPO2 equal to or greater than 90% -Telemetry monitoring. -Continue trending inflammatory markers -Encourage Incentive Spirometry 10-15x hourly while awake -Steroids: Decadron 6 mg daily, day #10 of steroids -Continue vitamin C, Vitamin D, and Zinc. -Pulmonology following, appreciate further recommendations. -Strict Droplet plus Contact precautions -Patient received Remdesivir, 3 doses prior to discontinuing and starting patient on Baricitinib -Baricitinib day 8 of 14 New-onset atrial fibrillation -Controlled ventricular rate at this time. -Continue anticoagulation with Eliquis -Cardiology consulted. -Echocardiogram showing normal EF between 55 and 60% with no significant valvular abnormalities. Thrombocytopenia, resolved Hypertension, controlled -Monitor vital signs and continue daily medication regimen with Coreg Hypothyroidism -Continue daily medication regimen with synthroid Hyperchloremic metabolic acidosis, resolved FABIENNE, resolved CODE STATUS: Full code DVT prophylaxis: Lovenox Discussed with: Patient and RN, and nephew Vicente Anticipated discharge: Clinical course to determine Anticipated discharge place:Clinical course to determine A total of 45 minutes was spent on the care of this complex patient more than 50% of the time was spent in counseling and care coordination. Objective - Vital Signs Vital signs: Vital Signs Temp 98.2 F 08/05/21 05:56 Pulse 90 08/05/21 05:56 Resp 17 08/05/21 05:56 BP 182/86 08/05/21 05:56 Pulse Ox 88 L 08/05/21 05:56 Intake & Output 08/04/21 08/05/21 08/05/21 18:59 06:59 18:59 Intake Total 218 Output Total 200 Balance 18 Intake: Oral 218 Output: Urine 200 Other: # Voids 3 4 - Labs CBC & Chem 7: 08/05/21 08:14 08/05/21 08:14 Labs: Abnormal Lab Results - Last 24 Hours (Table) 08/04/21 08/05/21 08/05/21 Range/Units 12:39 08:14 08:14 WBC 26.9 H (3.8-10.6) k/uL RBC 6.14 H (4.30-5.90) m/uL Hgb 18.2 H (13.0-17.5) gm/dL Hct 53.9 H (39.0-53.0) % Neutrophils # 23.5 H (1.3-7.7) k/uL Monocytes # 1.5 H (0-1.0) k/uL PT 12.6 H (9.0-12.0) sec INR 1.2 H (<1.2) D-Dimer (<0.60) mg/L FEU BUN 23 H (9-20) mg/dL Glucose 101 H (74-99) mg/dL ALT 52 H (4-49) U/L Alkaline Phosphatase 131 H (38-126) U/L Lactate Dehydrogenase 1721 H (313-618) U/L Albumin 3.0 L (3.5-5.0) g/dL 08/05/21 Range/Units 08:14 WBC (3.8-10.6) k/uL RBC (4.30-5.90) m/uL Hgb (13.0-17.5) gm/dL Hct (39.0-53.0) % Neutrophils # (1.3-7.7) k/uL Monocytes # (0-1.0) k/uL PT 12.1 H (9.0-12.0) sec INR 1.2 H (<1.2) D-Dimer 27.16 H (<0.60) mg/L FEU BUN (9-20) mg/dL Glucose (74-99) mg/dL ALT (4-49) U/L Alkaline Phosphatase (38-126) U/L Lactate Dehydrogenase (313-618) U/L Albumin (3.5-5.0) g/dL
[2021-08-05 09:26] LABS: C Reactive Protein 2.1 mg/dL (<1.0)
--- NOTE | 2021-08-05 10:22 | XR ---
EXAMINATION TYPE: XR chest 1V portable DATE OF EXAM: 08/05/2021 COMPARISON: 07/31/2021 HISTORY: covid TECHNIQUE: Single frontal view of the chest is obtained. FINDINGS: Background mild underlying emphysematous change with persistent bilateral multifocal incre ased opacities greater in the lower lungs. Cardiac silhouette size stable and within normal limits. O sseous structures are somewhat demineralized. IMPRESSION: Mild underlying emphysematous change with persistent bilateral multifocal opacities grea test in the lower lungs consistent with known covid-19 infection, no significant change.
--- NOTE | 2021-08-05 10:40 | P.PN ---
Subjective HISTORY OF PRESENTING ILLNESS This is a pleasant 80-year-old male past medical history significant for hypertension, hypothyroidism. He does not follow with a kraft digester operator. He follows with his Primary Dr. Song in [place]. We have been asked to see in consultation for new onset atrial fibrillation. Patient presents to the emergency department on 07/26/2021 with complaints of low oxygen saturations readings at home, and symptoms of cough, fever, chills, diarrhea that started on 07/23. He initially presented to the emergency department on 07/25/21 for a possible syncopal episode, increased generalized fatigue, exertional shortness of breath, lack of appetite. He was diagnosed with COVID-19 pneumonia. He had a brain CT was completed showing no acute intracranial findings. CT PE revealed no signs of acute pulmonary embolism, revealed bilateral patchy interstitial infiltrates. At that time he did receive monoclonal antibody on 07/25/2021, he was on room air and was discharged home. He presents again on 07/26/21 with low oxygen saturations at home. Patient is alert and oriented x 2-3, seems confused about medical history/situation. He denies any chest pain, palpitations, lightheadedness, dizziness. Patient denies history of Diabetes, Stroke, PR, Hyperlipidemia or coronary artery disease. Denies any tobocco or alcohol use. On 08/04/21 nursing noted patient to be bradycardic HR 47 and irregular, telemetry reviewed and patient appeared to be in atrial fibrillation. EKG was performed which revealed atrial fibrillation with HR 88. Spoke to patient's son Rai, patient does not follow with a kraft digester operator as an outpatient and does not have a history of atrial fibrillation 08/05/21: Patient continues to be in atrial fibrillation HR 70s-low 100s, occasionally up to 115. He is maintained on carvedilol 6.25mg BID, and Eliquis 5mg BID. He continues to be hypertensive, however was hypotensive yesterday afternoon with a BP 97/66. He continues to be hypoxic requiring 15L high flow nasal cannula. Echocardiogram was performed which showed an EF of 5560 percent, trace mitral regurgitation. Labs, sodium 139, potassium 4.1, BUN 23, serum creatinine 1.0, d-dimer 27, WBC 26, hemoglobin 18, platelets 349. PHYSICAL EXAMINATION Vitals 182/86, heart rate 90, afebrile, oxygen saturation 88% requiring high fl ow nasal cannula now up to 15L CONSTITUTIONAL: No apparent distress. HEART EXAMINATION: Irregular rate and rhythm. S1, S2 heard. NEUROLOGIC EXAMINATION: Patient is awake, alert and oriented x2 ASSESSMENT New onset paroxysmal atrial fibrillation [id number] score 3 Hypertension Covid-19 PLAN -We will discontinue carvedilol and Start metoprolol tartrate 50mg TID. -Continue Eliquis 5mg BID anticoagulation, per case management for coverage, patient's Eliquis is covered $30 copay, patient will receive a free month. -Continue cardiac telemetry, monitor patient's blood pressure -2D echocardiogram revealed normal EF, no wall motion abnormalities. -Patient does not follow with a kraft digester operator, recommend following up with Dr. Russell as an outpatient when recovered from COVID-19. -From a cardiology perspective, we will monitor the patient as needed basis. Nurse Practitioner note has been reviewed, I agree with a documented findings and plan of care. Patient was seen and examined. Objective - Vital Signs Vital signs: Vital Signs Temp 98.2 F 08/05/21 05:56 Pulse 90 08/05/21 05:56 Resp 17 08/05/21 05:56 BP 182/86 08/05/21 05:56 Pulse Ox 88 L 08/05/21 05:56 Intake & Output 08/04/21 08/05/21 08/05/21 18:59 06:59 18:59 Intake Total 218 Output Total 200 Balance 18 Intake: Oral 218 Output: Urine 200 Other: # Voids 3 4 - Labs CBC & Chem 7: 08/05/21 08:14 08/05/21 08:14 Labs: Abnormal Lab Results - Last 24 Hours (Table) 08/04/21 08/05/21 08/05/21 Range/Units 12:39 08:14 08:14 WBC 26.9 H (3.8-10.6) k/uL RBC 6.14 H (4.30-5.90) m/uL Hgb 18.2 H (13.0-17.5) gm/dL Hct 53.9 H (39.0-53.0) % Neutrophils # 23.5 H (1.3-7.7) k/uL Monocytes # 1.5 H (0-1.0) k/uL PT 12.6 H (9.0-12.0) sec INR 1.2 H (<1.2) D-Dimer (<0.60) mg/L FEU BUN 23 H (9-20) mg/dL Glucose 101 H (74-99) mg/dL ALT 52 H (4-49) U/L Alkaline Phosphatase 131 H (38-126) U/L Lactate Dehydrogenase 1721 H (313-618) U/L C-Reactive Protein 2.1 H (<1.0) mg/dL Albumin 3.0 L (3.5-5.0) g/dL 08/05/21 Range/Units 08:14 WBC (3.8-10.6) k/uL RBC (4.30-5.90) m/uL Hgb (13.0-17.5) gm/dL Hct (39.0-53.0) % Neutrophils # (1.3-7.7) k/uL Monocytes # (0-1.0) k/uL PT 12.1 H (9.0-12.0) sec INR 1.2 H (<1.2) D-Dimer 27.16 H (<0.60) mg/L FEU BUN (9-20) mg/dL Glucose (74-99) mg/dL ALT (4-49) U/L Alkaline Phosphatase (38-126) U/L Lactate Dehydrogenase (313-618) U/L C-Reactive Protein (<1.0) mg/dL Albumin (3.5-5.0) g/dL
--- NOTE | 2021-08-05 12:49 | P.PN ---
Subjective Progress Note Date: 08/05/21 08/05/2021, the patient is being seen for a follow-up. This is a case of COVID 19 related pneumonia with secondary respiratory failure. The patient is currently being treated with a combination of Decadron on Baricitinib. Patient also has new onset atrial fibrillation with slow ventricular response and for that reason the patient was started on long-term and to coagulation with Eliquis. The heart rate remains under control for now, adequate patient continues to receive treatment for COVID 19 with a combination of Decadron and Baricitinib. His current d-dimer is 27.1. His LDH level is 1721 with a CRP of 2.1, rest of the electrodes are all within normal limits. His white cell count is at 26 with a hemoglobin of 18.2. He is currently on high flow oxygen at 15 L per minute nasal cannula with a pulse ox of 96%. Repeat chest x-ray showed COPD with persistent bilateral multifocal opacities more so in the lower lobes without any significant interval change. He is resting comfortably in bed. His breathing is nonlabored. Objective - Vital Signs Vital signs: Vital Signs Temp 97.4 F L 08/05/21 10:56 Pulse 92 08/05/21 10:56 Resp 17 08/05/21 10:56 BP 133/82 08/05/21 10:56 Pulse Ox 96 08/05/21 10:56 Intake & Output 08/04/21 08/05/21 08/05/21 18:59 06:59 18:59 Intake Total 218 Output Total 200 Balance 18 Intake: Oral 218 Output: Urine 200 Other: Voiding Method Urinal # Voids 3 4 - Exam GENERAL EXAM: Alert, pleasant 80-year-old gentleman, on 15L high flow nasal cannula, in mild respiratory distress distress. HEAD: Normocephalic. EYES: Normal reaction of pupils, equal size. NOSE: Clear with pink turbinates. THROAT: No erythema or exudates. NECK: No masses, no JVD. CHEST: No chest wall deformity. LUNGS: Equal air entry with coarse crackles in the bilateral bases CVS: S1 and S2 normal with no audible murmur, regular rhythm. ABDOMEN: No hepatosplenomegaly, normal bowel sounds, no guarding or rigidity. SPINE: No scoliosis or deformity SKIN: No rashes CENTRAL NERVOUS SYSTEM: No focal deficits, tone is normal in all 4 extremities. EXTREMITIES: There is no peripheral edema. No clubbing, no cyanosis. Peripheral pulses are intact. - Labs CBC & Chem 7: 08/05/21 08:14 08/05/21 08:14 Labs: Abnormal Lab Results - Last 24 Hours (Table) 08/04/21 08/05/21 08/05/21 Range/Units 12:39 08:14 08:14 WBC 26.9 H (3.8-10.6) k/uL RBC 6.14 H (4.30-5.90) m/uL Hgb 18.2 H (13.0-17.5) gm/dL Hct 53.9 H (39.0-53.0) % Neutrophils # 23.5 H (1.3-7.7) k/uL Monocytes # 1.5 H (0-1.0) k/uL PT 12.6 H (9.0-12.0) sec INR 1.2 H (<1.2) D-Dimer (<0.60) mg/L FEU BUN 23 H (9-20) mg/dL Glucose 101 H (74-99) mg/dL ALT 52 H (4-49) U/L Alkaline Phosphatase 131 H (38-126) U/L Lactate Dehydrogenase 1721 H (313-618) U/L C-Reactive Protein 2.1 H (<1.0) mg/dL Albumin 3.0 L (3.5-5.0) g/dL 08/05/21 Range/Units 08:14 WBC (3.8-10.6) k/uL RBC (4.30-5.90) m/uL Hgb (13.0-17.5) gm/dL Hct (39.0-53.0) % Neutrophils # (1.3-7.7) k/uL Monocytes # (0-1.0) k/uL PT 12.1 H (9.0-12.0) sec INR 1.2 H (<1.2) D-Dimer 27.16 H (<0.60) mg/L FEU BUN (9-20) mg/dL Glucose (74-99) mg/dL ALT (4-49) U/L Alkaline Phosphatase (38-126) U/L Lactate Dehydrogenase (313-618) U/L C-Reactive Protein (<1.0) mg/dL Albumin (3.5-5.0) g/dL Assessment and Plan Plan: 1 Acute hypoxic respiratory failure related to COVID-19 pneumonia with onset of symptoms 5 days ago on 07/23/2021, status post monoclonal antibody fusion on 07/25/2021. Started on Remdesivir on 07/27/2021. Stopped on 07/29/2021. Patient is stable compared to yesterday. The patient continues to be on a combination of Decadr Baricitinib . The patient remains on 15 L of oxygen by nasal cannula. The patient's chest x-ray from today shows stable bilateral pulmonary infiltrates consistent with fluid and he related pneumonia most on the lung bases bilaterally. LDH level remains to be elevated. 2 Elevated d-dimer, CT angiogram of the chest was negative for pulmonary embolism , Lovenox for DVT prophylaxis as the patient's Doppler of the lower extremity has been also negative for DVT. 3 Elevated LFTs, related to viral pneumonia 4 Recent urinary tract infection diagnosed on 07/25/2021, patient was discharged home on Bactrim DS, recheck urinalysis 5 Recent syncopal or presyncopal episode at home on 07/25/2021 possibly related to dehydration, brain CT was obtained and was negative 6 History of hypertension 7 Hypothyroidism 8 Nonsmoker 9 leukocytosis Plan: Continue Baricitinib, Decadron, Lovenox, vitamin supplements Continue oxygen currently on 15 L nasal cannula. Monitor inflammatory markers Continue long-term anticoagulation with Eliquis Monitor inflammatory markers The white cell count is on the rise. We'll check a pro-calcitonin level. Prognosis is guarded We'll continue to follow
[2021-08-05] MEDS: LACTATED RINGERS 1,000 ML IV SCH (13:12)
[2021-08-05] MEDS: METOPROLOL TARTRATE 50 MG TAB PO SCH ×2 (17:00→20:15)
[2021-08-05] MEDS: BARICITINIB 2 MG TABLET PO SCH (17:00)
--- NOTE | 2021-08-05 17:08 | CT ---
EXAMINATION TYPE: CT chest angio for PE DATE OF EXAM: 08/05/2021 COMPARISON: CTA chest July 25, 2021 HISTORY: Dyspnea. CT DLP: 429 mGycm. Automated Exposure Control for Dose Reduction was Utilized. CONTRAST: CTA scan of the thorax is performed with IV Contrast, patient injected with 80ml mL of Isovue 370, pu lmonary embolism protocol. MIP Images are created on CT scanner and reviewed. FINDINGS: LUNGS: Worsening groundglass opacities and organizing consolidations bilaterally greatest in the gorge phery and in the lower lobes. There is no pleural effusion or pneumothorax seen. The tracheobronch ial tree is patent. MEDIASTINUM: There is some motion artifact but no central pulmonary embolism. Smaller defects suspici ous for subsegmental in the lingular branches on axial image 88 and in the left lower lobe axial imag e 94 are felt present. No cardiomegaly or pericardial effusion is seen. Moderate peripheral plaque in the aortic arch without dissection. OTHER: There is a 4.4 cm simple thin-walled cyst in the upper pole left kidney partially imaged. IMPRESSION: 1. Small subsegmental acute PE in the lingula and left lower lobe distribution now present. 2. Worsening groundglass opacities organizing consolidations consistent with covid-19 infection progr ession.
[2021-08-05] MEDS: ATORVASTATIN 20 MG TAB PO SCH (20:14)
[2021-08-05] MEDS: MELATONIN 5 MG TABLET PO PRN (22:21)
[2021-08-06] MEDS: LEVOTHYROXINE 50 MCG TAB PO SCH (05:42)
[2021-08-06] MEDS: LACTATED RINGERS 1,000 ML IV SCH (07:14)
[2021-08-06] MEDS: ASCORBIC ACID 500 MG TAB PO SCH (07:37)
[2021-08-06] MEDS: APIXABAN 5 MG TAB PO SCH ×2 (07:37→20:43)
[2021-08-06] MEDS: METOPROLOL TARTRATE 50 MG TAB PO SCH ×3 (07:37→20:43)
[2021-08-06] MEDS: CHOLECALCIFEROL 125 MCG (5000 IU) TABLET PO SCH (07:37)
[2021-08-06] MEDS: dexAMETHasone 2 MG TAB PO SCH (07:37)
[2021-08-06] MEDS: ZINC SULFATE 220 MG CAP PO SCH (07:38)
[2021-08-06 08:57] LABS: HGB 16.7 gm/dL (13.0-17.5); MCH 29.8 pg (25.0-35.0); MCHC 33.4 g/dL (31.0-37.0); Mean Platelet Volume 8.2; Platelet Count 297 k/uL (150-450); RBC 5.62 m/uL (4.30-5.90); RDW 14.2 % (11.5-15.5); WBC 20.2 k/uL (3.8-10.6)
[2021-08-06 09:07] LABS: ALT 44 U/L (4-49); AST 32 U/L (17-59); African American GFR (CKD) 75 (>60 ml/min/1.73 sqM); Albumin 2.7 g/dL (3.5-5.0); Albumin/Globulin Ratio 0.9; Alkaline Phosphatase 106 U/L (38-126); Anion Gap 4 mmol/L; Blood Urea Nitrogen 32 mg/dL (9-20); C Reactive Protein 5.4 mg/dL (<1.0); Calcium 8.5 mg/dL (8.4-10.2); Carbon Dioxide 27 mmol/L (22-30); Chloride 104 mmol/L (98-107); Globulin 3.1 g/dL; Glucose 96 mg/dL (74-99); LDH 1274 U/L (313-618); Magnesium 2.3 mg/dL (1.6-2.3); Non-African American GFR(CKD) 65 (>60 ml/min/1.73 sqM); Potassium 4.3 mmol/L (3.5-5.1); Sodium 135 mmol/L (137-145); Total Bilirubin 0.7 mg/dL (0.2-1.3); Total Protein 5.8 g/dL (6.3-8.2)
--- NOTE | 2021-08-06 13:05 | P.PN ---
Subjective Progress Note Date: 08/06/21 08/06/2021, seeing the patient for a follow-up. The patient is feeling slightly better compared to yesterday. Currently is on 12 L of oxygen by nasal cannula. His oxidation in general is improved slightly compared to yesterday. He was able to sit up on the recliner. Oral intake is improving. He remains on examination of Decadron and Baricitinib. He is afebrile hemodynamically stable. His breathing is nonlabored at this point in time. No aspiration noted. He is white cell count is at 20.2 with a hemoglobin 16.7. D-dimer is at 14.9. BNP is a 32 with a creatinine of 1, sodium is 135, LDH level is improved and stop down to 1274 with a CRP level of 5.4. Total sodium level is at 0.06. The patient will specific complaints. Is resting comfortably in bed. X-ray from yesterday showed persistent bilateral multifocal opacities in the lower lobes bilaterally. Objective - Vital Signs Vital signs: Vital Signs Temp 98.4 F 08/06/21 10:00 Pulse 76 08/06/21 10:00 Resp 20 08/06/21 10:00 BP 119/76 08/06/21 10:00 Pulse Ox 92 L 08/06/21 10:00 Intake & Output 08/05/21 08/06/21 08/06/21 18:59 06:59 18:59 Intake Total 672 Output Total 950 800 Balance -278 -800 Intake: Oral 672 Output: Urine 950 800 Other: Voiding Method Urinal Urinal # Voids 2 - Exam GENERAL EXAM: Alert, pleasant 80-year-old gentleman, on 12 L high flow nasal cannula, in mild respiratory distress distress. HEAD: Normocephalic. EYES: Normal reaction of pupils, equal size. NOSE: Clear with pink turbinates. THROAT: No erythema or exudates. NECK: No masses, no JVD. CHEST: No chest wall deformity. LUNGS: Equal air entry with coarse crackles in the bilateral bases CVS: S1 and S2 normal with no audible murmur, regular rhythm. ABDOMEN: No hepatosplenomegaly, normal bowel sounds, no guarding or rigidity. SPINE: No scoliosis or deformity SKIN: No rashes CENTRAL NERVOUS SYSTEM: No focal deficits, tone is normal in all 4 extremities. EXTREMITIES: There is no peripheral edema. No clubbing, no cyanosis. Peripheral pulses are intact. - Labs CBC & Chem 7: 08/06/21 08:19 08/06/21 08:19 Labs: Abnormal Lab Results - Last 24 Hours (Table) 08/06/21 08/06/21 08/06/21 Range/Units 08:19 08:19 08:19 WBC 20.2 H (3.8-10.6) k/uL D-Dimer 14.95 H (<0.60) mg/L FEU Sodium 135 L (137-145) mmol/L BUN 32 H (9-20) mg/dL Lactate Dehydrogenase 1274 H (313-618) U/L C-Reactive Protein 5.4 H (<1.0) mg/dL Total Protein 5.8 L (6.3-8.2) g/dL Albumin 2.7 L (3.5-5.0) g/dL Assessment and Plan Plan: 1 Acute hypoxic respiratory failure related to COVID-19 pneumonia with onset of symptoms 5 days ago on 07/23/2021, status post monoclonal antibody fusion on 07/25/2021. Started on Remdesivir on 07/27/2021. Stopped on 07/29/2021. Patient is stable compared to yesterday. The patient continues to be on a combination of Decadr Baricitinib . The patient's chest x-ray from today edward ws stable bilateral pulmonary infiltrates consistent with fluid and he related pneumonia most on the lung bases bilaterally. LDH level remains to be elevated, although the level is improved compared to yesterday. Currently the patient on 12 L of oxygen by nasal cannula. There are diminished level is improving. Clinically the patient is feeling well. D-dimer is lower compared to yesterday. 2 Elevated d-dimer, CT angiogram of the chest was negative for pulmonary embolism , Lovenox for DVT prophylaxis as the patient's Doppler of the lower extremity has been also negative for DVT. 3 Elevated LFTs, related to viral pneumonia 4 Recent urinary tract infection diagnosed on 07/25/2021, patient was discharged home on Bactrim DS, recheck urinalysis 5 Recent syncopal or presyncopal episode at home on 07/25/2021 possibly related to dehydration, brain CT was obtained and was negative 6 History of hypertension 7 Hypothyroidism 8 Nonsmoker 9 leukocytosis Plan: Continue Baricitinib, Decadron, Lovenox, vitamin supplements Continue oxygen currently on 12 L L nasal cannula. Monitor inflammatory markers, LDH level is dropped and the d-dimer level has dropped Continue long-term anticoagulation with Eliquis Monitor inflammatory markers The white cell count is on the rise. The pro-calcitonin level is low at 0.06 Prognosis is guarded We'll continue to follow
[2021-08-06] MEDS: BARICITINIB 2 MG TABLET PO SCH (17:15)
--- NOTE | 2021-08-06 18:13 | P.PN ---
Subjective Progress Note Date: 08/06/21 Hospital course: Patient is an 80-year-old male with a past medical history of hypertension and hypothyroidism who presented to the emergency department on 07/26/21 with a chief complaint of shortness of breath, lethargy, and cough status post diagnosis with Covid 19 virus infection on 07/25/21. EKG revealing normal sinus rhythm and 95 bpm with no noted T-wave or ST abnormalities showing no signs of acute ischemia. Patient received monoclonal antibodies on 07/25/21 after initial Covid diagnosis. CTA chest completed 07/25/21 negative for PE. Upon arrival to facility patient was found to be in acute hypoxic respiratory failure requiring oxygen supplementation and was started on steroids and Remdesivir and after receiving a total of 3 doses, oxygen needs increased and Remdesivir was discontinued and pt started on Baricitinib with continuation of steroids. Bilateral lower extremity Dopplers completed negative for DVTs. On 08/04/21 patient was noted to have a irregular heart rhythmn and an EKG was completed confirming new onset atrial fibrillation. Patient was started on heparin infusion and later transitioned to oral antocoagulant with Eliquis. Cardiology was also consulted and patient had echocardiogram completed which revealed a normal EF between 55 and 60% with no significant valvular abnormalities. On 08/05/21 patient's oxygen needs significantly increased from previous 9 L to 15 L high flow nasal cannula along with 100% nonrebreather mask. Order placed for CT PE and pro-calcitonin at this time. Pro-calcitonin with 0.06. CTA revealing small subsegmental acute PE in the lingula and left lower lobe and worsening groundglass opacities organizing consolidations consistent with Covid 19 infection progression. Physical examination: Patient seen and examined at bedside this morning. Patient's oxygen needs improving overnight he has now down to 12 L O2 via high flow nasal cannula. Respirations remained even and unlabored. Patient remains alert to person and place but does show episodes of intermittent confusion, reorientates easily. Morning labs show improvement of leukocytosis down to 20.2. Inflammatory markers with d-dimer 14.95, LDH 1274, and CRP of 5.4. Pro-calcitonin was negative and CTA did reveal a small subsegmental acute PE in the left lower lobe. Patient reports feeling comfortable this morning. He does state that he is mildly short of breath but denies having any headache, lightheadedness, dizziness, chest pain, palpitations, or experiencing any numbnes s/tingling/weakness in his extremities. Called and updated patient's nephewVicente on patient's condition. General: ill appearing, no acute distress noted, appears at stated age Derm: warm, dry Head: atraumatic, normocephalic, symmetric, hard of hearing Eyes: EOMI, no lid lag, anicteric sclera Mouth: no lip lesion, mucus membranes dry Cardiovascular: Irregularly irregular rhythm, normal S1 and S2, positive posterior tibial pulses bilaterally, cap refill less than 2 seconds. Lungs: Respirations with increased respiratory effort but no accessory muscle usage, conversational dyspnea continues with 5-6 word sentences. Lungs with bibasilar crackles. No wheezes, rales, or rhonchi. Patient on 12L high flow nasal cannula. Abdominal: soft, nontender to palpation, no guarding, no appreciable organomegaly Ext: no gross muscle atrophy, no edema, no contractures Neuro: CN II-XI grossly intact, GCS 14-15 as patient has been having episodes of confusion, no focal neuro deficits Psych: Alert, oriented, appropriate affect Assessment and plan of care: COVID-19 pneumonia in an unvaccinated individual Acute hypoxic respiratory failure Metabolic encephalopathy Acute respiratory failure with hypoxia secondary to COVID 19 pneumonia Subsegmental acute PE in the lingula and left lower lobe -Oxygenation to be administered and titrated as needed to maintain SPO2 equal to or greater than 90% -Telemetry monitoring. -Continue trending inflammatory markers -Encourage Incentive Spirometry 10-15x hourly while awake -Steroids: Decadron 6 mg daily -Continue vitamin C, Vitamin D, and Zinc. -Pulmonology following, appreciate further recommendations. -Strict Droplet plus Contact precautions -Patient received Remdesivir, 3 doses prior to discontinuing and starting patient on Baricitinib -Baricitinib day 9 of 14 -Continue anticoagulation with Eliquis New-onset atrial fibrillation, controlled ventricular rate at this time -Continue anticoagulation with Eliquis -Cardiology consulted. -Echocardiogram showing normal EF between 55 and 60% with no significant valvular abnormalities. Thrombocytopenia, resolved Hypertension, controlled -Monitor vital signs and continue daily medication regimen with Coreg Hypothyroidism -Continue daily medication regimen with synthroid Hyperchloremic metabolic acidosis, resolved FABIENNE, resolved CODE STATUS: Full code DVT prophylaxis: Lovenox Discussed with: Patient and RN, and nephew Vicente Anticipated discharge: Clinical course to determine Anticipated discharge place:Clinical course to determine A total of 45 minutes was spent on the care of this complex patient more than 50% of the time was spent in counseling and care coordination. Objective - Vital Signs Vital signs: Vital Signs Temp 98.4 F 08/06/21 10:00 Pulse 76 08/06/21 10:00 Resp 20 08/06/21 10:00 BP 119/76 08/06/21 10:00 Pulse Ox 92 L 08/06/21 10:00 Intake & Output 08/05/21 08/06/21 08/06/21 18:59 06:59 18:59 Intake Total 672 Output Total 950 800 Balance -278 -800 Intake: Oral 672 Output: Urine 950 800 Other: Voiding Method Urinal Urinal # Voids 2 - Labs CBC & Chem 7: 08/06/21 08:19 08/06/21 08:19 Labs: Abnormal Lab Results - Last 24 Hours (Table) 08/06/21 08/06/21 08/06/21 Range/Units 08:19 08:19 08:19 WBC 20.2 H (3.8-10.6) k/uL D-Dimer 14.95 H (<0.60) mg/L FEU Sodium 135 L (137-145) mmol/L BUN 32 H (9-20) mg/dL Lactate Dehydrogenase 1274 H (313-618) U/L C-Reactive Protein 5.4 H (<1.0) mg/dL Total Protein 5.8 L (6.3-8.2) g/dL Albumin 2.7 L (3.5-5.0) g/dL
[2021-08-06] MEDS: ATORVASTATIN 20 MG TAB PO SCH (20:43)
[2021-08-07] MEDS: LACTATED RINGERS 1,000 ML IV SCH ×2 (03:35→23:04)
[2021-08-07] MEDS: LEVOTHYROXINE 50 MCG TAB PO SCH (05:27)
[2021-08-07] MEDS: dexAMETHasone 2 MG TAB PO SCH (08:31)
[2021-08-07] MEDS: APIXABAN 5 MG TAB PO SCH ×2 (08:31→20:27)
[2021-08-07] MEDS: METOPROLOL TARTRATE 50 MG TAB PO SCH ×3 (08:31→20:26)
[2021-08-07] MEDS: ASCORBIC ACID 500 MG TAB PO SCH (08:32)
[2021-08-07] MEDS: CHOLECALCIFEROL 125 MCG (5000 IU) TABLET PO SCH (08:32)
[2021-08-07] MEDS: ZINC SULFATE 220 MG CAP PO SCH (08:32)
[2021-08-07 10:38] LABS: HCT 48.6 % (39.0-53.0); HGB 16.3 gm/dL (13.0-17.5); MCH 29.3 pg (25.0-35.0); MCHC 33.6 g/dL (31.0-37.0); MCV 87.1 fL (80.0-100.0); Mean Platelet Volume 8.2; Platelet Count 298 k/uL (150-450); RBC 5.58 m/uL (4.30-5.90); RDW 13.6 % (11.5-15.5); WBC 22.6 k/uL (3.8-10.6)
[2021-08-07 11:06] LABS: ALT 74 U/L (4-49); AST 48 U/L (17-59); African American GFR (CKD) 80 (>60 ml/min/1.73 sqM); Albumin 2.6 g/dL (3.5-5.0); Albumin/Globulin Ratio 0.9; Alkaline Phosphatase 116 U/L (38-126); Anion Gap 5 mmol/L; Blood Urea Nitrogen 31 mg/dL (9-20); Calcium 8.3 mg/dL (8.4-10.2); Carbon Dioxide 28 mmol/L (22-30); Chloride 102 mmol/L (98-107); Glucose 140 mg/dL (74-99); Non-African American GFR(CKD) 69 (>60 ml/min/1.73 sqM); Sodium 135 mmol/L (137-145); Total Bilirubin 0.7 mg/dL (0.2-1.3); Total Protein 5.6 g/dL (6.3-8.2)
--- NOTE | 2021-08-07 13:57 | P.PN ---
Subjective Progress Note Date: 08/07/21 Hospital course: Patient is an 80-year-old male with a past medical history of hypertension and hypothyroidism who presented to the emergency department on 07/26/21 with a chief complaint of shortness of breath, lethargy, and cough status post diagnosis with Covid 19 virus infection on 07/25/21. EKG revealing normal sinus rhythm and 95 bpm with no noted T-wave or ST abnormalities showing no signs of acute ischemia. Patient received monoclonal antibodies on 07/25/21 after initial Covid diagnosis. CTA chest completed 07/25/21 negative for PE. Upon arrival to facility patient was found to be in acute hypoxic respiratory failure requiring oxygen supplementation and was started on steroids and Remdesivir and after receiving a total of 3 doses, oxygen needs increased and Remdesivir was discontinued and pt started on Baricitinib with continuation of steroids. Bilateral lower extremity Dopplers completed negative for DVTs. On 08/04/21 patient was noted to have a irregular heart rhythmn and an EKG was completed confirming new onset atrial fibrillation. Patient was started on heparin infusion and later transitioned to oral antocoagulant with Eliquis. Cardiology was also consulted and patient had echocardiogram completed which revealed a normal EF between 55 and 60% with no significant valvular abnormalities. On 08/05/21 patient's oxygen needs significantly increased from previous 9 L to 15 L high flow nasal cannula along with 100% nonrebreather mask. Order placed for CT PE and pro-calcitonin at this time. Pro-calcitonin with 0.06. CTA revealing small subsegmental acute PE in the lingula and left lower lobe and worsening groundglass opacities organizing consolidations consistent with Covid 19 infection progression. Physical examination: Patient seen and examined at bedside this morning. He remains on 12 L O2 via high flow nasal cannula maintaining SpO2 at 94%. He appeared to be resting comfortably. Patient reports feeling "so-so". He denies having chest pain, palpitations, or feeling short of breath. Morning labs showing persistent leukocytosis with WBC count of 22.6, d-dimer 14.95, BUN 31, LDH 1274 and CRP of 5.4. Pro-calcitonin was negative at 0.06. Patient to continue vitamin C, vitamin D, zinc, Decadron and Baricitinib day 10 of 14. General: ill appearing, no acute distress noted, appears at stated age Derm: warm, dry Head: atraumatic, normocephalic, symmetric, hard of hearing Eyes: EOMI, no lid lag, anicteric sclera Mouth: no lip lesion, mucus membranes dry Cardiovascular: Irregularly irregular rhythm, normal S1 and S2, positive posterior tibial pulses bilaterally, cap refill less than 2 seconds. Lungs: Respirations with increased respiratory effort but no accessory muscle usage, conversational dyspnea continues with 5-6 word sentences. Lungs with bibasilar crackles. No wheezes, rales, or rhonchi. Patient on 12 L high flow nasal cannula. Abdominal: soft, nontender to palpation, no guarding, no appreciable organomegaly Ext: no gross muscle atrophy, no edema, no contractures Neuro: CN II-XI grossly intact, GCS 14-15 as patient has been having episodes of confusion, no focal neuro deficits Psych: Alert, oriented, appropriate affect Assessment and plan of care: COVID-19 pneumonia in an unvaccinated individual Acute hypoxic respiratory failure Metabolic encephalopathy Acute respiratory failure with hypoxia secondary to COVID 19 pneumonia Subsegmental acute PE in the lingula and left lower lobe -Oxygenation to be administered and titrated as needed to maintain SPO2 equal to or greater than 90% -Telemetry monitoring. -Continue trending inflammatory markers -Encourage Incentive Spirometry 10-15x hourly while awake -Steroids: Decadron 6 mg daily -Continue vitamin C, Vitamin D, and Zinc. -Pulmonology following, appreciate further recommendations. -Strict Droplet plus Contact precautions -Patient received Remdesivir, 3 doses prior to discontinuing and starting patie nt on Baricitinib -Baricitinib day 10 of 14 -Continue anticoagulation with Eliquis New-onset atrial fibrillation, controlled ventricular rate at this time -Continue anticoagulation with Eliquis -Cardiology consulted. -Echocardiogram showing normal EF between 55 and 60% with no significant valvular abnormalities. Thrombocytopenia, resolved Hypertension, controlled -Monitor vital signs and continue daily medication regimen with Coreg Hypothyroidism -Continue daily medication regimen with synthroid Hyperchloremic metabolic acidosis, resolved FABIENNE, resolved CODE STATUS: Full code DVT prophylaxis: Lovenox Discussed with: Patient and RN, and nephmolly Zhang Anticipated discharge: Clinical course to determine Anticipated discharge place:Clinical course to determine A total of 45 minutes was spent on the care of this complex patient more than 50% of the time was spent in counseling and care coordination. Objective - Vital Signs Vital signs: Vital Signs Temp 97.2 F L 12/04/21 10:00 Pulse 102 H 08/07/21 10:00 Resp 24 08/07/21 10:00 BP 123/82 08/07/21 10:00 Pulse Ox 92 L 08/07/21 10:00 Intake & Output 08/06/21 08/07/21 08/07/21 18:59 06:59 18:59 Output Total 200 250 Balance -200 -250 Output: Urine 200 250 Other: Voiding Method Urinal Urinal # Voids 1 4 - Labs CBC & Chem 7: 08/07/21 10:11 08/07/21 10:11 Labs: Abnormal Lab Results - Last 24 Hours (Table) 08/07/21 08/07/21 Range/Units 10:11 10:11 WBC 22.6 H (3.8-10.6) k/uL Sodium 135 L (137-145) mmol/L BUN 31 H (9-20) mg/dL Glucose 140 H (74-99) mg/dL Calcium 8.3 L (8.4-10.2) mg/dL ALT 74 H (4-49) U/L Total Protein 5.6 L (6.3-8.2) g/dL Albumin 2.6 L (3.5-5.0) g/dL
[2021-08-07 15:04] LABS: Lymphocytes # (M) 1.36 k/uL (1.0-4.8); Monocytes # (M) 1.58 k/uL (0-1.0); Neutrophils # (M) 19.66 k/uL (1.3-7.7); Neutrophils % (M) 87 %; Nucleated Red Blood Cells 0 /100 WBC (0-0); Total Cells Counted 100
[2021-08-07 15:06] LABS: Toxic Granulation Present
--- NOTE | 2021-08-07 15:30 | P.PN ---
Subjective Progress Note Date: 08/07/21 Principal diagnosis: COVID-19 pneumonia 80-year-old white male patient with past medical history of hypertension, hypothyroidism, nonsmoker, who presented to emergency department on 07/26/2021 evaluation of low O2 saturation readings at home. Patient started having symptoms of COVID-19 infection last Monday on 07/23/2021. Has been having symptoms of coughing, fever, chills, diarrhea. On 07/25/2021 he was seen in the emergency department for a possible syncopal episode, increased generalized fatigue, exertional shortness of breath, lack of appetite. he had a brain CT w as completed showing no acute intracranial findings. He was diagnosed with COVID-19 pneumonia. Is not vaccinated against COVID-19. His d-dimer was also elevated at 1.65, and CT angiogram was obtained showing no signs of acute pulmonary embolism, but was positive for bilateral patchy interstitial i nfiltrates. Patient was on room air, he did receive monoclonal antibody in the emergency department on 07/25/2021. He was also diagnosed with a urinary tract infection and was given a course of Bactrim DS and discharged home. The discharge home he continued to worsen, and his pulse oximetry readings were low. Patient was more short of breath. His chest x-ray showed pulmonary interstitial infiltrates. His pulse ox in the emergency department was 84% on room air, and he was placed on supplemental oxygen currently requiring 5 L. He has been afebrile, he is receiving IV hydration with 0.9 normal saline at a rate of 75 ML per hour. Started on Decadron and COVID-19 vitamins and prophylactic anticoagulation in the form of Lovenox. Admission blood work was reviewed showing white blood cell count is 6.5, hemoglobin is 15.1, platelet count of 133, lymphocyte count 0.7 d-dimer is 1.53, sodium is 135, potassium is 4.7, CO2 is 21, BUN is 32, creatinine is 1.5, and patient previously had normal renal function, plasma lactic acid was 1.6, AST was 113 ALT was 51, pro calcitonin level was negative at 0.19. The patient is seen today 07/28/2021 in follow-up on the observation unit. He is currently resting fairly comfortably in bed. Awake and alert in no acute distress. He states his breathing is about the same today compared to yesterday. He is maintaining O2 saturations in the low 90s on 5 L nasal cannula. She's afebrile. Hemodynamically stable. White count 9.5. Hemoglobin 14.2. Sodium 138. Potassium 4.3. Glucose 144. This is day #2 of Remdesivir. He is continued on Decadron, Lovenox, vitamin supplements. The patient is seen today 07/29/2021 in follow-up on the regular medical floor. He is currently resting in bed. He is now requiring 15 L high flow nasal cannu la to maintain O2 saturations in the low 90s. He was on 5 L yesterday. He is afebrile. I count 14.7. Hemoglobin 15.4. D-dimer 1.27. Sodium 137. Creatinine 1.0. Glucose 158. AST 69. ALT 51. LDH 1605. C-reactive protein 3.6. He is continued on Lovenox, Decadron, vitamin supplements. He is also on Remdesivir day #3. The patient is seen today 07/30/2021 in follow-up by the regular medical floor. He is currently sitting up in bed having dinner. Doing a bit better today compared to yesterday. He is still requiring 15 L high flow nasal cannula. White count 10.1. Hemoglobin 14.6. Lymphocytic 0.8. D-dimer 1.49. Sodium 142. Potassium 4.0. Creatinine 1.04. C-reactive protein 2.3. He remains on Baricitinib, Decadron, Lovenox, vitamin supplements. the patient is seen today 08/01/2021 in follow-up on the regular medical floor. He is currently resting in bed. He is requiring 15 L high flow nasal cannula to maintain O2 saturations in the 90s. He has normal saline at 50 MLS per hour. He is continued on Baricitinib, Lovenox, Decadron, vitamin supplements. White count 14.5. Hemoglobin 15.4. Leukocytes 1.2. D-dimer 7.9. Sodium 135. Potassium 4.1. Creatinine 0.95. LDH 1573. C-reactive protein 1.9. The patient is seen today 08/07/2021 in follow-up on the regular medical floor. He is currently sitting up in bed. Awake and alert in no acute distress. He is currently on 13 L high flow nasal cannula with O2 saturation 96%. He is afebrile. Hemodynamically stable. I count 22.6. Hemoglobin 16.3. Lymphocytes 1.36. Sodium 135. Isn't 0. Creatinine 1.01. Glucose 140. Recent pro calcitonin 0.06. Elevated d-dimer's. CT angiogram from 08/05/2021 revealed a small subsegmental acute PE in the lingula and left lower lobe. Worsening groundglass opacities. He is maintained on Eliquis, Decadron, vitamin supplements. Objective - Vital Signs Vital signs: Vital Signs Temp 98.1 F 08/07/21 14:00 Pulse 81 08/07/21 14:00 Resp 22 08/07/21 14:00 BP 104/66 08/07/21 14:00 Pulse Ox 96 08/07/21 14:00 Intake & Output 08/06/21 08/07/21 08/07/21 18:59 06:59 18:59 Output Total 200 250 Balance -200 -250 Output: Urine 200 250 Other: Voiding Method Urinal Urinal # Voids 1 4 - Exam GENERAL EXAM: Alert, pleasant 80-year-old gentleman, on 13 L high flow nasal cannula, in mild respiratory distress distress. HEAD: Normocephalic. EYES: Normal reaction of pupils, equal size. NOSE: Clear with pink turbinates. THROAT: No erythema or exudates. NECK: No masses, no JVD. CHEST: No chest wall deformity. LUNGS: Equal air entry with coarse crackles in the bilateral bases CVS: S1 and S2 normal with no audible murmur, regular rhythm. ABDOMEN: No hepatosplenomegaly, normal bowel sounds, no guarding or rigidity. SPINE: No scoliosis or deformity SKIN: No rashes CENTRAL NERVOUS SYSTEM: No focal deficits, tone is normal in all 4 extremities. EXTREMITIES: There is no peripheral edema. No clubbing, no cyanosis. Peripheral pulses are intact. - Labs CBC & Chem 7: 08/07/21 10:11 08/07/21 10:11 Labs: Abnormal Lab Results - Last 24 Hours (Table) 08/07/21 08/07/21 Range/Units 10:11 10:11 WBC 22.6 H (3.8-10.6) k/uL Neutrophils # (Manual) 19.66 H (1.3-7.7) k/uL Monocytes # (Manual) 1.58 H (0-1.0) k/uL Sodium 135 L (137-145) mmol/L BUN 31 H (9-20) mg/dL Glucose 140 H (74-99) mg/dL Calcium 8.3 L (8.4-10.2) mg/dL ALT 74 H (4-49) U/L Total Protein 5.6 L (6.3-8.2) g/dL Albumin 2.6 L (3.5-5.0) g/dL Assessment and Plan Assessment: 1 Acute hypoxic respiratory failure related to COVID-19 pneumonia with onset of symptoms 5 days ago on 07/23/2021, status post monoclonal antibody fusion on 07/25/2021. Started on Remdesivir on 07/27/2021. Stopped on 07/29/2021. Initiated Baricitinib. Oxygen requirements down to 13 L high flow nasal cannula. 2 Elevated d-dimer, follow up CT angiogram of the chest was negative for pulmo nary embolism 3 Elevated LFTs, related to viral pneumonia 4 Recent urinary tract infection diagnosed on 07/25/2021, patient was discharged home on Bactrim DS, recheck urinalysis 5 Recent syncopal or presyncopal episode at home on 07/25/2021 possibly related to dehydration, brain CT was obtained and was negative 6 History of hypertension 7 Hypothyroidism 8 Nonsmoker Plan: The patient was seen and evaluated Labs reviewed, d-dimer elevated Anticoagulated with Eliquis Continue Baricitinib, Decadron, Lovenox, vitamin supplements
[2021-08-07] MEDS: BARICITINIB 2 MG TABLET PO SCH (17:17)
[2021-08-07] MEDS: ATORVASTATIN 20 MG TAB PO SCH (20:27)
[2021-08-08] MEDS: LEVOTHYROXINE 50 MCG TAB PO SCH (05:28)
[2021-08-08] MEDS: ASCORBIC ACID 500 MG TAB PO SCH (07:36)
[2021-08-08] MEDS: METOPROLOL TARTRATE 50 MG TAB PO SCH ×3 (07:36→22:00)
[2021-08-08] MEDS: CHOLECALCIFEROL 125 MCG (5000 IU) TABLET PO SCH (07:36)
[2021-08-08] MEDS: ZINC SULFATE 220 MG CAP PO SCH (07:36)
[2021-08-08] MEDS: APIXABAN 5 MG TAB PO SCH ×2 (07:36→21:59)
[2021-08-08] MEDS: dexAMETHasone 2 MG TAB PO SCH (07:37)
--- NOTE | 2021-08-08 13:56 | P.PN ---
Subjective Progress Note Date: 08/08/21 Hospital course: Patient is an 80-year-old male with a past medical history of hypertension and hypothyroidism who presented to the emergency department on 07/26/21 with a chief complaint of shortness of breath, lethargy, and cough status post diagnosis with Covid 19 virus infection on 07/25/21. EKG revealing normal sinus rhythm and 95 bpm with no noted T-wave or ST abnormalities showing no signs of acute ischemia. Patient received monoclonal antibodies on 07/25/21 after initial Covid diagnosis. CTA chest completed 07/25/21 negative for PE. Upon arrival to facility patient was found to be in acute hypoxic respiratory failure requiring oxygen supplementation and was started on steroids and Remdesivir and after receiving a total of 3 doses, oxygen needs increased and Remdesivir was discontinued and pt started on Baricitinib with continuation of steroids. Bilateral lower extremity Dopplers completed negative for DVTs. On 08/04/21 patient was noted to have a irregular heart rhythmn and an EKG was completed confirming new onset atrial fibrillation. Patient was started on heparin infusion and later transitioned to oral antocoagulant with Eliquis. Cardiology was also consulted and patient had echocardiogram completed which revealed a normal EF between 55 and 60% with no significant valvular abnormalities. On 08/05/21 patient's oxygen needs significantly increased from previous 9 L to 15 L high flow nasal cannula along with 100% nonrebreather mask. Order placed for CT PE and pro-calcitonin at this time. Pro-calcitonin with 0.06. CTA revealing small subsegmental acute PE in the lingula and left lower lobe and worsening groundglass opacities organizing consolidations consistent with Covid 19 infection progression. Physical examination: Patient seen and examined at bedside this morning. Patient now on 13 L high flow nasal cannula and appeared to be a bit restless in bed this morning. Discussed with RN and we will medicate patient with some Tylenol at this time is he appeared to be restless and uncomfortable, despite denying any headache, chest pain, back pain, or experiencing any generalized body aches or pains in extremities. Patient did report feeling "a little short of breath." At this time we will continue to monitor closely. Patient to continue vitamin C, vitamin D, zinc, Decadron and Baricitinib day 11 of 14. General: ill appearing, no acute distress noted, appears at stated age Derm: warm, dry Head: atraumatic, normocephalic, symmetric, hard of hearing Eyes: EOMI, no lid lag, anicteric sclera Mouth: no lip lesion, mucus membranes dry Cardiovascular: Irregularly irregular rhythm, normal S1 and S2, positive posterior tibial pulses bilaterally, cap refill less than 2 seconds. Lungs: Respirations with increased respiratory effort but no accessory muscle usage, conversational dyspnea continues with 5-6 word sentences. Lungs with bibasilar crackles. No wheezes, rales, or rhonchi. Patient on 12 L high flow nasal cannula. Abdominal: soft, nontender to palpation, no guarding, no appreciable organomegaly Ext: no gross muscle atrophy, no edema, no contractures Neuro: CN II-XI grossly intact, GCS 14-15 as patient has been having episodes of confusion, no focal neuro deficits Psych: Alert, oriented, appropriate affect Assessment and plan of care: COVID-19 pneumonia in an unvaccinated individual Acute hypoxic respiratory failure Metabolic encephalopathy Acute respiratory failure with hypoxia secondary to COVID 19 pneumonia Subsegmental acute PE in the lingula and left lower lobe -Oxygenation to be administered and titrated as needed to maintain SPO2 equal to or greater than 90% -Telemetry monitoring. -Continue trending inflammatory markers -Encourage Incentive Spirometry 10-15x hourly while awake -Steroids: Decadron 6 mg daily -Continue vitamin C, Vitamin D, and Zinc. -Pulmonology following, appreciate further recommendations. -Strict Droplet plus Contact precautions -Patient received Remdesivir, 3 doses prior to discontinuing and starting patient on Baricitinib -Baricitinib day 11 of 14 -Continue anticoagulation with Eliquis New-onset atrial fibrillation, controlled ventricular rate at this time Bradycardia Cardiac pauses lasting up to 2.2 seconds -Continue anticoagulation with Eliquis -Cardiology following. -Echocardiogram showing normal EF between 55 and 60% with no significant valvular abnormalities. Thrombocytopenia, resolved Hypertension, controlled -Monitor vital signs and continue daily medication regimen with Coreg Hypothyroidism -Continue daily medication regimen with synthroid Hyperchloremic metabolic acidosis, resolved FABIENNE, resolved CODE STATUS: Full code DVT prophylaxis: Lovenox Discussed with: Patient and RN, and nephew Vicente Anticipated discharge: Clinical course to determine Anticipated discharge place:Clinical course to determine A total of 45 minutes was spent on the care of this complex patient more than 50% of the time was spent in counseling and care coordination. Objective - Vital Signs Vital signs: Vital Signs Temp 97.5 F L 08/08/21 06:00 Pulse 85 08/08/21 06:00 Resp 20 08/07/21 20:00 BP 132/79 08/08/21 06:00 Pulse Ox 98 08/08/21 07:52 Intake & Output 08/07/21 08/08/21 08/08/21 18:59 06:59 18:59 Intake Total 800 Output Total 3 350 Balance 797 -350 Intake: Oral 800 Output: Urine 3 350 Other: Voiding Method Urinal Urinal Urinal # Voids 5 - Labs CBC & Chem 7: 08/07/21 10:11 08/07/21 10:11 Labs: Abnormal Lab Results - Last 24 Hours (Table) 08/07/21 08/07/21 Range/Units 10:11 10:11 WBC 22.6 H (3.8-10.6) k/uL Neutrophils # (Manual) 19.66 H (1.3-7.7) k/uL Monocytes # (Manual) 1.58 H (0-1.0) k/uL Sodium 135 L (137-145) mmol/L BUN 31 H (9-20) mg/dL Glucose 140 H (74-99) mg/dL Calcium 8.3 L (8.4-10.2) mg/dL ALT 74 H (4-49) U/L Total Protein 5.6 L (6.3-8.2) g/dL Albumin 2.6 L (3.5-5.0) g/dL
--- NOTE | 2021-08-08 16:25 | P.PN ---
Subjective Progress Note Date: 08/08/21 Principal diagnosis: COVID-19 pneumonia 80-year-old white male patient with past medical history of hypertension, hypothyroidism, nonsmoker, who presented to emergency department on 07/26/2021 evaluation of low O2 saturation readings at home. Patient started having symptoms of COVID-19 infection last Monday on 07/23/2021. Has been having symptoms of coughing, fever, chills, diarrhea. On 07/25/2021 he was seen in the emergency department for a possible syncopal episode, increased generalized fatigue, exertional shortness of breath, lack of appetite. he had a brain CT w as completed showing no acute intracranial findings. He was diagnosed with COVID-19 pneumonia. Is not vaccinated against COVID-19. His d-dimer was also elevated at 1.65, and CT angiogram was obtained showing no signs of acute pulmonary embolism, but was positive for bilateral patchy interstitial i nfiltrates. Patient was on room air, he did receive monoclonal antibody in the emergency department on 07/25/2021. He was also diagnosed with a urinary tract infection and was given a course of Bactrim DS and discharged home. The discharge home he continued to worsen, and his pulse oximetry readings were low. Patient was more short of breath. His chest x-ray showed pulmonary interstitial infiltrates. His pulse ox in the emergency department was 84% on room air, and he was placed on supplemental oxygen currently requiring 5 L. He has been afebrile, he is receiving IV hydration with 0.9 normal saline at a rate of 75 ML per hour. Started on Decadron and COVID-19 vitamins and prophylactic anticoagulation in the form of Lovenox. Admission blood work was reviewed showing white blood cell count is 6.5, hemoglobin is 15.1, platelet count of 133, lymphocyte count 0.7 d-dimer is 1.53, sodium is 135, potassium is 4.7, CO2 is 21, BUN is 32, creatinine is 1.5, and patient previously had normal renal function, plasma lactic acid was 1.6, AST was 113 ALT was 51, pro calcitonin level was negative at 0.19. The patient is seen today 07/28/2021 in follow-up on the observation unit. He is currently resting fairly comfortably in bed. Awake and alert in no acute distress. He states his breathing is about the same today compared to yesterday. He is maintaining O2 saturations in the low 90s on 5 L nasal cannula. She's afebrile. Hemodynamically stable. White count 9.5. Hemoglobin 14.2. Sodium 138. Potassium 4.3. Glucose 144. This is day #2 of Remdesivir. He is continued on Decadron, Lovenox, vitamin supplements. The patient is seen today 07/29/2021 in follow-up on the regular medical floor. He is currently resting in bed. He is now requiring 15 L high flow nasal cannu la to maintain O2 saturations in the low 90s. He was on 5 L yesterday. He is afebrile. I count 14.7. Hemoglobin 15.4. D-dimer 1.27. Sodium 137. Creatinine 1.0. Glucose 158. AST 69. ALT 51. LDH 1605. C-reactive protein 3.6. He is continued on Lovenox, Decadron, vitamin supplements. He is also on Remdesivir day #3. The patient is seen today 07/30/2021 in follow-up by the regular medical floor. He is currently sitting up in bed having dinner. Doing a bit better today compared to yesterday. He is still requiring 15 L high flow nasal cannula. White count 10.1. Hemoglobin 14.6. Lymphocytic 0.8. D-dimer 1.49. Sodium 142. Potassium 4.0. Creatinine 1.04. C-reactive protein 2.3. He remains on Baricitinib, Decadron, Lovenox, vitamin supplements. the patient is seen today 08/01/2021 in follow-up on the regular medical floor. He is currently resting in bed. He is requiring 15 L high flow nasal cannula to maintain O2 saturations in the 90s. He has normal saline at 50 MLS per hour. He is continued on Baricitinib, Lovenox, Decadron, vitamin supplements. White count 14.5. Hemoglobin 15.4. Leukocytes 1.2. D-dimer 7.9. Sodium 135. Potassium 4.1. Creatinine 0.95. LDH 1573. C-reactive protein 1.9. The patient is seen today 08/07/2021 in follow-up on the regular medical floor. He is currently sitting up in bed. Awake and alert in no acute distress. He is currently on 13 L high flow nasal cannula with O2 saturation 96%. He is afebrile. Hemodynamically stable. I count 22.6. Hemoglobin 16.3. Lymphocytes 1.36. Sodium 135. Isn't 0. Creatinine 1.01. Glucose 140. Recent pro calcitonin 0.06. Elevated d-dimer's. CT angiogram from 08/05/2021 revealed a small subsegmental acute PE in the lingula and left lower lobe. Worsening groundglass opacities. He is maintained on Eliquis, Decadron, vitamin supplements. Patient is seen today 08/08/2021 in follow-up on the regular medical floor. Continue stress comfortably in bed. Awake and alert in no acute distress. Maintaining O2 saturations in the 90s on 13 L high flow nasal cannula. He's b een afebrile. Hemodynamically stable. No new labs today. He is anticoagulated with Eliquis. Remains on Decadron, Baricitinib, vitamin supplements. Objective - Vital Signs Vital signs: Vital Signs Temp 96.4 F L 08/08/21 10:49 Pulse 66 08/08/21 14:00 Resp 16 08/08/21 14:00 BP 105/65 08/08/21 14:00 Pulse Ox 93 L 08/08/21 14:00 Intake & Output 08/07/21 08/08/21 08/08/21 18:59 06:59 18:59 Intake Total 800 Output Total 3 350 Balance 797 -350 Intake: Oral 800 Output: Urine 3 350 Other: Voiding Method Urinal Urinal Urinal # Voids 5 - Exam GENERAL EXAM: Alert, pleasant 80-year-old gentleman, on 13 L high flow nasal cannula, in mild respiratory distress distress. HEAD: Normocephalic. EYES: Normal reaction of pupils, equal size. NOSE: Clear with pink turbinates. THROAT: No erythema or exudates. NECK: No masses, no JVD. CHEST: No chest wall deformity. LUNGS: Equal air entry with coarse crackles in the bilateral bases CVS: S1 and S2 normal with no audible murmur, regular rhythm. ABDOMEN: No hepatosplenomegaly, normal bowel sounds, no guarding or rigidity. SPINE: No scoliosis or deformity SKIN: No rashes CENTRAL NERVOUS SYSTEM: No focal deficits, tone is normal in all 4 extremities. EXTREMITIES: There is no peripheral edema. No clubbing, no cyanosis. Peripheral pulses are intact. - Labs CBC & Chem 7: 08/07/21 10:11 08/07/21 10:11 Assessment and Plan Assessment: 1 Acute hypoxic respiratory failure related to COVID-19 pneumonia with onset of symptoms 5 days ago on 07/23/2021, status post monoclonal antibody fusion on 07/25/2021. Started on Remdesivir on 07/27/2021. Stopped on 07/29/2021. Initiated Baricitinib. Oxygen requirements down to 13 L high flow nasal cannula. 2 Elevated d-dimer, follow up CT angiogram of the chest was negative for pulmonary embolism 3 Elevated LFTs, related to viral pneumonia 4 Recent urinary tract infection diagnosed on 07/25/2021, patient was discharged home on Bactrim DS, recheck urinalysis 5 Recent syncopal or presyncopal episode at home on 07/25/2021 possibly related to dehydration, brain CT was obtained and was negative 6 History of hypertension 7 Hypothyroidism 8 Nonsmoker Plan: The patient was seen and evaluated Anticoagulated with Eliquis Continue Baricitinib, Decadron, Lovenox, vitamin supplements Follow-up chest x-ray and inflammatory markers in the a.m. We will continue to follow
[2021-08-08] MEDS: BARICITINIB 2 MG TABLET PO SCH (17:06)
[2021-08-08] MEDS: ATORVASTATIN 20 MG TAB PO SCH (22:00)
[2021-08-09] MEDS: LACTATED RINGERS 1,000 ML IV SCH ×2 (05:56→13:58)
[2021-08-09] MEDS: LEVOTHYROXINE 50 MCG TAB PO SCH (05:58)
[2021-08-09] MEDS: CHOLECALCIFEROL 125 MCG (5000 IU) TABLET PO SCH (07:37)
[2021-08-09] MEDS: APIXABAN 5 MG TAB PO SCH ×2 (07:37→20:37)
[2021-08-09] MEDS: METOPROLOL TARTRATE 50 MG TAB PO SCH ×3 (07:37→20:37)
[2021-08-09] MEDS: dexAMETHasone 2 MG TAB PO SCH (07:37)
[2021-08-09] MEDS: ZINC SULFATE 220 MG CAP PO SCH (07:37)
[2021-08-09] MEDS: ASCORBIC ACID 500 MG TAB PO SCH (07:37)
--- NOTE | 2021-08-09 08:34 | XR ---
EXAMINATION TYPE: XR chest 1V portable DATE OF EXAM: 08/09/2021 COMPARISON: Chest x-ray and CT 08/05/2021 HISTORY: Covid pneumonia TECHNIQUE: Single frontal view of the chest is obtained. FINDINGS: Bilateral airspace disease is present. Cardiac mediastinal silhouette is stable. No eviden t pneumothorax or pleural effusion. Right hemidiaphragm is elevated. Aorta is dense. There are overly ing artifacts. There may be underlying COPD. IMPRESSION: Correlate for pneumonia. Abnormality on CT may represent branch point rather than pulmon janice embolus.
[2021-08-09 09:32] LABS: HCT 55.1 % (39.6-50.0); HGB 17.8 g/dL (13.0-17.0); MCH 28.3 pg (27.0-32.0); MCHC 32.3 g/dL (32.0-37.0); MCV 87.7 fL (80.0-97.0); Mean Platelet Volume 10.5 fL (9.5-12.2); Platelet Count 337 X 10*3/uL (140-440); RBC 6.28 X 10*6/uL (4.40-5.60); RDW 13.7 % (11.5-14.5); WBC 21.03 X 10*3/uL (4.50-10.00)
[2021-08-09 10:17] LABS: African American GFR (CKD) 72.1 (60.0-200.0); Albumin 3.3 g/dL (3.8-4.9); Albumin/Globulin Ratio 1.27 (1.60-3.17); Anion Gap 12.5 mmol/L (10.00-18.00); BUN/Creat Ratio 28.36 Ratio (12.00-20.00); Blood Urea Nitrogen 31.2 mg/dL (9.0-27.0); C Reactive Protein 2.1 mg/dL (0.00-0.80); Calcium 8.6 mg/dL (8.7-10.3); Carbon Dioxide 22.5 mmol/L (20.0-27.5); Globulin 2.6 g/dL (1.6-3.3); Magnesium 2.4 mg/dL (1.5-2.4); Non-African American GFR(CKD) 62.2 (60.0-200.0); Potassium 4.8 mmol/L (3.5-5.5); Total Bilirubin 0.8 mg/dL (0.30-1.20); Total Protein 5.9 g/dL (6.2-8.2)
--- NOTE | 2021-08-09 15:07 | P.PN ---
<Elmer Yu - Last Filed: 08/09/21 15:04> Subjective Progress Note Date: 08/09/21 Hospital course: Patient is an 80-year-old male with a past medical history of hypertension and hypothyroidism who presented to the emergency department on 07/26/21 with a chief complaint of shortness of breath, lethargy, and cough status post diagnosis with Covid 19 virus infection on 07/25/21. EKG revealing normal sinus rhythm and 95 bpm with no noted T-wave or ST abnormalities showing no signs of acute ischemia. Patient received monoclonal antibodies on 07/25/21 after initial Covid diagnosis. CTA chest completed 07/25/21 negative for PE. Upon arrival to facility patient was found to be in acute hypoxic respiratory failure requiring oxygen supplementation and was started on steroids and Remdesivir and after receiving a total of 3 doses, oxygen needs increased and Remdesivir was discontinued and pt started on Baricitinib with continuation of steroids. Bilateral lower extremity Dopplers completed negative for DVTs. On 08/04/21 patient was noted to have a irregular heart rhythmn and an EKG was completed confirming new onset atrial fibrillation. Patient was started on heparin infusion and later transitioned to oral antocoagulant with Eliquis. Cardiology was also consulted and patient had echocardiogram completed which revealed a normal EF between 55 and 60% with no significant valvular abnormalities. On 08/05/21 patient's oxygen needs significantly increased from previous 9 L to 15 L high flow nasal cannula along with 100% nonrebreather mask. Order placed for CT PE and pro-calcitonin at this time. Pro-calcitonin with 0.06. CTA revealing small subsegmental acute PE in the lingula and left lower lobe and worsening groundglass opacities organizing consolidations consistent with Covid 19 infection progression. Physical examination: Patient seen and examined at bedside this morning. Patient remains on 13 L high flow nasal cannula and appeared much or comfortable this morning. Patient no longer restless, he reports mild shortness of breath but states "not bad". He continues to deny having any dizziness, lightheadedness, chest pain, palpitations, or experiencing any generalized body aches, pains, or numbness/t ingling/weakness in his extremities. Morning labs reviewed revealing persistent leukocytosis with WBC count of 21.03, elevated hemoglobin of 17.8 and persistently elevated inflammatory markers with d-dimer is 10.61, LDH 635, and CRP of 2.10. Patient to continue vitamin C, vitamin D, zinc, Decadron and Baricitinib day 12 of 14. General: ill appearing, no acute distress noted, appears at stated age Derm: warm, dry Head: atraumatic, normocephalic, symmetric, hard of hearing Eyes: EOMI, no lid lag, anicteric sclera Mouth: no lip lesion, mucus membranes dry Cardiovascular: Irregularly irregular rhythm, normal S1 and S2, positive posterior tibial pulses bilaterally, cap refill less than 2 seconds. Lungs: Respirations with increased respiratory effort but no accessory muscle usage, conversational dyspnea continues with 5-6 word sentences. Lungs with bibasilar crackles. No wheezes, rales, or rhonchi. Patient on 12 L high flow nasal cannula. Abdominal: soft, nontender to palpation, no guarding, no appreciable organomegaly Ext: no gross muscle atrophy, no edema, no contractures Neuro: CN II-XI grossly intact, GCS 14-15 as patient has been having episodes of confusion, no focal neuro deficits Psych: Alert, oriented, appropriate affect Assessment and plan of care: COVID-19 pneumonia in an unvaccinated individual Acute hypoxic respiratory failure Metabolic encephalopathy Acute respiratory failure with hypoxia secondary to COVID 19 pneumonia Subsegmental acute PE in the lingula and left lower lobe -Oxygenation to be administered and titrated as needed to maintain SPO2 equal to or greater than 90% -Telemetry monitoring. -Continue trending inflammatory markers -Encourage Incentive Spirometry 10-15x hourly while awake -Steroids: Decadron 6 mg daily -Continue vitamin C, Vitamin D, and Zinc. -Pulmonology following, appreciate further recommendations. -Strict Droplet plus Contact precautions -Patient received Remdesivir, 3 doses prior to discontinuing and starting patient on Baricitinib -Baricitinib day 12 of 14 -Continue anticoagulation with Eliquis New-onset atrial fibrillation, controlled ventricular rate at this time Bradycardia Cardiac pauses lasting up to 2.2 seconds -Continue anticoagulation with Eliquis -Cardiology following. -Echocardiogram showing normal EF between 55 and 60% with no significant valvular abnormalities. Thrombocytopenia, resolved Leukocytosis, likely reactive We will continue to monitor with repeat a.m. labs. Pro-calcitonin 0.06. Hypertension, controlled -Monitor vital signs and continue daily medication regimen with Coreg Hypothyroidism -Continue daily medication regimen with synthroid Hyperchloremic metabolic acidosis, resolved FABIENNE, resolved CODE STATUS: Full code DVT prophylaxis: Lovenox Discussed with: Patient and RN, and nephew Vicente Anticipated discharge: Clinical course to determine Anticipated discharge place:Clinical course to determine A total of 45 minutes was spent on the care of this complex patient more than 50% of the time was spent in counseling and care coordination. Objective - Vital Signs Vital signs: Vital Signs Temp 96.3 F L 08/09/21 05:22 Pulse 71 08/09/21 05:22 Resp 17 08/08/21 20:00 BP 146/91 08/09/21 05:22 Pulse Ox 92 L 08/09/21 05:22 Intake & Output 08/08/21 08/09/21 08/09/21 18:59 06:59 18:59 Intake Total 500 400 Output Total 350 Balance 500 50 Intake: Oral 500 400 Output: Urine 350 Other: Voiding Method Urinal Bedside Commode Urinal # Voids 1 4 # Bowel Movements 1 1 - Labs CBC & Chem 7: 08/09/21 05:44 08/09/21 05:44 Labs: Abnormal Lab Results - Last 24 Hours (Table) 08/09/21 08/09/21 Range/Units 05:44 05:44 WBC 21.03 H (4.50-10.00) X 10*3/uL RBC 6.28 H (4.40-5.60) X 10*6/uL Hgb 17.8 H (13.0-17.0) g/dL Hct 55.1 H (39.6-50.0) % D-Dimer 10.61 H (<0.60) mg/L FEU <Marilin Birch - Last Filed: 08/09/21 15:35> Subjective Elmer Yu NP rendered care for this patient independently, reviewed the findings and plan as documented in the note above. I did not physically speak with or examine the patient on this date. Objective - Vital Signs Vital signs: Vital Signs Temp 97.7 F 08/09/21 10:00 Pulse 72 08/09/21 10:00 Resp 19 08/09/21 10:00 BP 115/75 08/09/21 10:00 Pulse Ox 93 L 08/09/21 10:00 Intake & Output 08/08/21 08/09/21 08/09/21 18:59 06:59 18:59 Intake Total 500 400 360 Output Total 350 Balance 500 50 360 Intake: Oral 500 400 360 Output: Urine 350 Other: Voiding Method Urinal Bedside Commode Bedside Commode Urinal Urinal # Voids 1 4 # Bowel Movements 1 1 - Labs CBC & Chem 7: 08/09/21 05:44 08/09/21 05:44 Labs: Abnormal Lab Results - Last 24 Hours (Table) 08/09/21 08/09/21 08/09/21 Range/Units 05:44 05:44 05:44 WBC 21.03 H (4.50-10.00) X 10*3/uL RBC 6.28 H (4.40-5.60) X 10*6/uL Hgb 17.8 H (13.0-17.0) g/dL Hct 55.1 H (39.6-50.0) % D-Dimer 10.61 H (<0.60) mg/L FEU BUN 31.2 H (9.0-27.0) mg/dL BUN/Creatinine Ratio 28.36 H (12.00-20.00) Ratio Calcium 8.6 L (8.7-10.3) mg/dL AST 45 H (14-35) U/L ALT 104 H (10-49) U/L Alkaline Phosphatase 139 H (41-126) U/L Lactate Dehydrogenase 635 H (120-246) U/L C-Reactive Protein 2.10 H (0.00-0.80) mg/dL Total Protein 5.9 L (6.2-8.2) g/dL Albumin 3.3 L (3.8-4.9) g/dL Albumin/Globulin Ratio 1.27 L (1.60-3.17) g/dL
[2021-08-09] MEDS: BARICITINIB 2 MG TABLET PO SCH (17:06)
--- NOTE | 2021-08-09 18:20 | P.PN ---
Subjective Progress Note Date: 08/09/21 Principal diagnosis: dyspnea On 07/31/2021 patient seen in follow-up on medical surgical floor. He is more confused on today's exam, his FiO2 requirement is up to 15 L per high flow nasal cannula, and his pulse ox is 92-96%, afebrile, hemodynamically he is stable, does not appear to be in acute respiratory distress, lung sounds reveal bibasilar crackles, he is a poor historian, but he is able to make his basic needs known, today's chest x-ray shows a mild underlying emphysematous change with persistent bilateral multifocal opacities consistent with known history of COVID-19 infection. He remains on Decadron 6 blood gram daily, he is on prophylactic dose Lovenox 40 mg daily, he is on IV fluids with lactated Ringer's at 50 ML per hour and COVID-19 vitamins. he continues onBaricitinib 4 mg daily. On 08/04/2021 patient seen in follow-up On medical surgical floor, patient went into new onset atrial fibrillation, with slow ventricular response with a rate of 40 overnight, currently she remains in atrial fibrillation with a rate of 65- 70. Cardiology has been consulted, please refer to the consultation note, his oxygenation at the same time seems to have worsened, and he is now requiring 11 L of oxygen and his pulse ox is 94%. Denies any chest pain, he is confused, but he is awake, he is answering some simple questions, but disoriented to place and time. Lung sounds reveal diffuse crackles. Occasional cough, his lower extremity Dopplers were negative for DVT, no recent chest x-ray was done, today's lab have been reviewed, white blood cell count is 18.8, hemoglobin is 15.6, INR today is 1.2, d-dimer is 15.2, down from 24.7, sodium is 138, potassium 3.8, chloride is 108, CO2 is 26, BUN is 23 creatinine 0.9, LDH is trending down, is down to 1366, CRP is 1.4. Patient was started on Eliquis per cardiology, and in terms of therapy for his COVID-19 pneumonia he remains on Decadron 6 blood gram daily, and Baricitinib, addition to multivitamins. His la st chest x-ray from 07/31/2021 showed mild underlying emphysematous changes persistent bilateral multifocal opacities greatest in the lower lobe consistent with known COVID-19 infection. On 08/09/2021 patient seen in follow-up on medical surgical floor. He is awake and alert, in no acute distress, currently on 13 L of oxygen pulse ox of 95%. Clinically she looks quite comfortable, doesn't appear to be in any acute distress, he is on day 12 of Baricitinib treatment, he continues on Decadron 6 mg daily he is on Eliquis for new onset A. fib which is currently better controlled, cardiology is following. He looks quite comfortable, he is resting in bed, today's chest x-ray showing bilateral airspace disease, no evident pneumothorax or pleural effusion. Elevated right hemidiaphragm. Today's labs have been reviewed, white blood cell, is 21.03, hemoglobin is 17.8, d-dimer is improving and is down to 10.6, electrolytes and renal profile are unremarkable, his LDH is improving and is down to 635 and CRP is down to 2.1 on today's labs, pro-calcitonin level was negative at 0.06. Objective - Vital Signs Vital signs: Vital Signs Temp 97.3 F L 08/09/21 14:00 Pulse 84 08/09/21 14:00 Resp 20 08/09/21 14:00 BP 108/72 08/09/21 14:00 Pulse Ox 95 08/09/21 14:00 Intake & Output 08/08/21 08/09/21 08/09/21 18:59 06:59 18:59 Intake Total 500 400 360 Output Total 350 Balance 500 50 360 Intake: Oral 500 400 360 Output: Urine 350 Other: Voiding Method Urinal Bedside Commode Bedside Commode Urinal Urinal # Voids 1 4 # Bowel Movements 1 1 - Exam GENERAL EXAM: Alert, very pleasant, 80-year-old white male, resting in bed, does not appear to be in acute respiratory distress, he is currently on 13 L oxygen pulse ox of 93% comfortable in no apparent distress. HEAD: Normocephalic/atraumatic. EYES: Normal reaction of pupils, equal size. Conjunctiva pink, sclera white. NOSE: Clear with pink turbinates. THROAT: No erythema or exudates. NECK: No masses, no JVD, no thyroid enlargement, no adenopathy. CHEST: No chest wall deformity. Symmetrical expansion. LUNGS: Equal air entry with basilar rales CVS: Irregular rate and rhythm, normal S1 and S2, no gallops, no murmurs, no rubs ABDOMEN: Soft, nontender. No hepatosplenomegaly, normal bowel sounds, no guarding or rigidity. EXTREMITIES: No clubbing, no edema, no cyanosis, 2+ pulses and upper and lower extremities. MUSCULOSKELETAL: Muscle strength and tone normal. SPINE: No scoliosis or deformity SKIN: No rashes CENTRAL NERVOUS SYSTEM: Alert and oriented -1. No focal deficits, tone is normal in all 4 extremities. PSYCHIATRIC: Alert and oriented -1. Appropriate affect. Intact judgment and insight. - Labs CBC & Chem 7: 08/09/21 05:44 08/09/21 05:44 Labs: Abnormal Lab Results - Last 24 Hours (Table) 08/09/21 08/09/21 08/09/21 Range/Units 05:44 05:44 05:44 WBC 21.03 H (4.50-10.00) X 10*3/uL RBC 6.28 H (4.40-5.60) X 10*6/uL Hgb 17.8 H (13.0-17.0) g/dL Hct 55.1 H (39.6-50.0) % D-Dimer 10.61 H (<0.60) mg/L FEU BUN 31.2 H (9.0-27.0) mg/dL BUN/Creatinine Ratio 28.36 H (12.00-20.00) Ratio Calcium 8.6 L (8.7-10.3) mg/dL AST 45 H (14-35) U/L ALT 104 H (10-49) U/L Alkaline Phosphatase 139 H (41-126) U/L Lactate Dehydrogenase 635 H (120-246) U/L C-Reactive Protein 2.10 H (0.00-0.80) mg/dL Total Protein 5.9 L (6.2-8.2) g/dL Albumin 3.3 L (3.8-4.9) g/dL Albumin/Globulin Ratio 1.27 L (1.60-3.17) g/dL Assessment and Plan Plan: Assessment: #1. Acute hypoxic respiratory failure related to COVID-19 pneumonia with onset of symptoms 5 days ago on 07/23/2021, status post monoclonal antibody fusion on 07/25/2021. We will start on Remdesivir today on 07/27/2021, Fio2 requirements were sent, and patient was started on Baricitinib on 07/29/2021 #2. New-onset atrial fibrillation, with a slow ventricular response, currently remains in nature fibrillation with a rate of 88, cardiology is on, and patient has been placed on Eliquis #3. Elevated d-dimer, CT angiogram of the chest was negative for pulmonary embolism #4. Elevated LFTs, related to viral pneumonia #5. Recent urinary tract infection diagnosed on 07/25/2021, patient was discharged home on Bactrim DS, recheck urinalysis #6. Recent syncopal or presyncopal episode at home on 07/25/2021 possibly related to dehydration, brain CT was obtained and was negative #7. History of hypertension #8. Hypothyroidism #9. Nonsmoker #10. Increased confusion possibly multifactorial related to hypoxic respiratory failure, and metabolic encephalopathy, improved Plan: Continue current medical treatment Patient has 2 more days on Baricitinib Continue Decadron 6 mg once daily Patient was started on the Eliquis for new onset atrial fibrillation, on which she remains D-dimer levels are improving, inflammatory markers are improving Continue weaning FiO2 to keep O2 sats ration is at or above 90% Once his FiO2 requirements are down to 5 L and less may consider discharge to subacute rehab or home Will need physical therapy evaluation and recommendation regarding the placement type after discharge I performed a history & physical examination of the patient and discussed their management with my nurse practitioner, Lucy Acosta. I reviewed the nurse practitioner's note and agree with the documented findings and plan of care. Lung sounds are positive for diminished breath sounds throughout the lung amin. The findings and the impression was discussed with the patient. I attest to the documentation by the nurse practitioner. Time with Patient: Less than 30
[2021-08-09] MEDS: ATORVASTATIN 20 MG TAB PO SCH (20:37)
[2021-08-10] MEDS: LEVOTHYROXINE 50 MCG TAB PO SCH (05:34)
[2021-08-10 09:31] LABS: Basophils # (A) 0.05 X 10*3/uL (0.00-0.10); Basophils % (A) 0.3 %; Eosinophils # (A) 0 X 10*3/uL (0.04-0.35); Eosinophils % (A) 0 %; HCT 50.5 % (39.6-50.0); HGB 16.3 g/dL (13.0-17.0); Lymphocytes % (A) 12.5 %; MCH 28.6 pg (27.0-32.0); MCHC 32.3 g/dL (32.0-37.0); MCV 88.8 fL (80.0-97.0); Mean Platelet Volume 10.6 fL (9.5-12.2); Monocytes # (A) 2.01 X 10*3/uL (0.20-1.00); Monocytes % (A) 10.9 %; Neutrophils % (A) 74.8 %; Platelet Count 302 X 10*3/uL (140-440); RBC 5.69 X 10*6/uL (4.40-5.60); RDW 13.6 % (11.5-14.5); WBC 18.43 X 10*3/uL (4.50-10.00)
--- NOTE | 2021-08-10 10:43 | P.PN ---
Subjective Progress Note Date: 08/10/21 Principal diagnosis: dyspnea On 07/31/2021 patient seen in follow-up on medical surgical floor. He is more confused on today's exam, his FiO2 requirement is up to 15 L per high flow nasal cannula, and his pulse ox is 92-96%, afebrile, hemodynamically he is stable, does not appear to be in acute respiratory distress, lung sounds reveal bibasilar crackles, he is a poor historian, but he is able to make his basic needs known, today's chest x-ray shows a mild underlying emphysematous change with persistent bilateral multifocal opacities consistent with known history of COVID-19 infection. He remains on Decadron 6 blood gram daily, he is on prophylactic dose Lovenox 40 mg daily, he is on IV fluids with lactated Ringer's at 50 ML per hour and COVID-19 vitamins. he continues onBaricitinib 4 mg daily. On 08/04/2021 patient seen in follow-up On medical surgical floor, patient went into new onset atrial fibrillation, with slow ventricular response with a rate of 40 overnight, currently she remains in atrial fibrillation with a rate of 65- 70. Cardiology has been consulted, please refer to the consultation note, his oxygenation at the same time seems to have worsened, and he is now requiring 11 L of oxygen and his pulse ox is 94%. Denies any chest pain, he is confused, but he is awake, he is answering some simple questions, but disoriented to place and time. Lung sounds reveal diffuse crackles. Occasional cough, his lower extremity Dopplers were negative for DVT, no recent chest x-ray was done, today's lab have been reviewed, white blood cell count is 18.8, hemoglobin is 15.6, INR today is 1.2, d-dimer is 15.2, down from 24.7, sodium is 138, potassium 3.8, chloride is 108, CO2 is 26, BUN is 23 creatinine 0.9, LDH is trending down, is down to 1366, CRP is 1.4. Patient was started on Eliquis per cardiology, and in terms of therapy for his COVID-19 pneumonia he remains on Decadron 6 blood gram daily, and Baricitinib, addition to multivitamins. His la st chest x-ray from 07/31/2021 showed mild underlying emphysematous changes persistent bilateral multifocal opacities greatest in the lower lobe consistent with known COVID-19 infection. On 08/09/2021 patient seen in follow-up on medical surgical floor. He is awake and alert, in no acute distress, currently on 13 L of oxygen pulse ox of 95%. Clinically she looks quite comfortable, doesn't appear to be in any acute distress, he is on day 12 of Baricitinib treatment, he continues on Decadron 6 mg daily he is on Eliquis for new onset A. fib which is currently better controlled, cardiology is following. He looks quite comfortable, he is resting in bed, today's chest x-ray showing bilateral airspace disease, no evident pneumothorax or pleural effusion. Elevated right hemidiaphragm. Today's labs have been reviewed, white blood cell, is 21.03, hemoglobin is 17.8, d-dimer is improving and is down to 10.6, electrolytes and renal profile are unremarkable, his LDH is improving and is down to 635 and CRP is down to 2.1 on today's labs, pro-calcitonin level was negative at 0.06. On 08/10/2021 patient seen in follow-up on medical surgical floor, he is currently up in the chair, lethargic, but arouses to voice. He just recently was assisted in the chair, he had gotten up to use the bathroom and had a bowel movement, he got very is given Zyrtec, he desatted and currently has FiO2 requi rement has increased from 6 L to 13 L his pulse ox is 90%, breathing is nonlabored. No cough, no complaints of chest discomfort, he remains in atrial fibrillation/flutter with a controlled rate, she is on Eliquis for anticoagulation, he is afebrile, today's chest x-ray showing bilateral airspace disease ground of COPD. Elevated right hemidiaphragm. 7 reviewed, his white blood cell count is improving and is down to 18.4, hemoglobin is 16.3, his d- dimer is improving and is down to 9.82, his BMP is still pending from today, his inflammatory markers were improving on yesterday's labs, his pro calcitonin level was negative from a few days ago. he continues on Decadron 6 mg daily, Eliquis, and COVID-19 vitamins. Objective - Vital Signs Vital signs: Vital Signs Temp 97.6 F 08/10/21 06:00 Pulse 61 08/10/21 06:00 Resp 16 08/10/21 10:27 BP 107/74 08/10/21 06:00 Pulse Ox 90 L 08/10/21 10:27 Intake & Output 08/09/21 08/10/21 08/10/21 18:59 06:59 18:59 Intake Total 760 200 200 Output Total 250 Balance 510 200 200 Intake: Oral 760 200 200 Output: Urine 250 Other: Voiding Method Bedside Commode Bedside Commode Bedside Commode Urinal Urinal Urinal # Voids 4 2 # Bowel Movements 1 2 - Exam GENERAL EXAM: Lethargic but arousable to voice 80 white male, currently on 13 L of oxygen and the pulse ox of 90%, sitting up in the recliner does not appear to be in acute respiratory distress, worn-out looking HEAD: Normocephalic/atraumatic. EYES: Normal reaction of pupils, equal size. Conjunctiva pink, sclera white. NOSE: Clear with pink turbinates. THROAT: No erythema or exudates. NECK: No masses, no JVD, no thyroid enlargement, no adenopathy. CHEST: No chest wall deformity. Symmetrical expansion. LUNGS: Equal air entry with basilar rales CVS: Irregular rate and rhythm, normal S1 and S2, no gallops, no murmurs, no rubs ABDOMEN: Soft, nontender. No hepatosplenomegaly, normal bowel sounds, no guarding or rigidity. EXTREMITIES: No clubbing, no edema, no cyanosis, 2+ pulses and upper and lower extremities. MUSCULOSKELETAL: Muscle strength and tone normal. SPINE: No scoliosis or deformity SKIN: No rashes CENTRAL NERVOUS SYSTEM: lethargic oriented -1. No focal deficits, tone is normal in all 4 extremities. - Labs CBC & Chem 7: 08/10/21 06:36 08/09/21 05:44 Labs: Abnormal Lab Results - Last 24 Hours (Table) 08/10/21 08/10/21 Range/Units 06:36 06:36 WBC 18.43 H (4.50-10.00) X 10*3/uL RBC 5.69 H (4.40-5.60) X 10*6/uL Hct 50.5 H (39.6-50.0) % Immature Gran # 0.27 H (0.00-0.04) X 10*3/uL Neutrophils # 13.80 H (1.80-7.70) X 10*3/uL Monocytes # 2.01 H (0.20-1.00) X 10*3/uL Eosinophils # 0 L (0.04-0.35) X 10*3/uL D-Dimer 9.28 H (<0.60) mg/L FEU Assessment and Plan Plan: Assessment: #1. Acute hypoxic respiratory failure related to COVID-19 pneumonia with onset of symptoms 5 days ago on 07/23/2021, status post monoclonal antibody fusion on 07/25/2021. We will start on Remdesivir today on 07/27/2021, Fio2 requirements were sent, and patient was started on Baricitinib on 07/29/2021 #2. New-onset atrial fibrillation, with a slow ventricular response, currently remains in nature fibrillation with a rate of 88, cardiology is on, and patient has been placed on Eliquis #3. Elevated d-dimer, CT angiogram of the chest was negative for pulmonary embolism #4. Elevated LFTs, related to viral pneumonia #5. Recent urinary tract infection diagnosed on 07/25/2021, patient was discharged home on Bactrim DS, recheck urinalysis #6. Recent syncopal or presyncopal episode at home on 07/25/2021 possibly related to dehydration, brain CT was obtained and was negative #7. History of hypertension #8. Hypothyroidism #9. Nonsmoker #10. Increased confusion possibly multifactorial related to hypoxic respiratory failure, and metabolic encephalopathy, improved Plan: Continue current medical treatment Patient has 1 more days on Baricitinib Continue Decadron 6 mg once daily Continue Eliquis D-dimer levels are improving, inflammatory markers are improving on yesterday's labs Continue weaning FiO2 to keep O2 sats at or above 90% Generally patient is pretty debilitated, his oxygen requirement do increase with any exertion, He may have to be considered for subacute rehab placement after discharge Currently he is back on 13 L of oxygen, will wean back down as tolerated to keep O2 sats ration is at 90% or better His been reviewed, labs reviewed We'll continue current medical treatment I performed a history & physical examination of the patient and discussed their management with my nurse practitioner, Lucy Acosta. I reviewed the nurse practitioner's note and agree with the documented findings and plan of care. Lung sounds are positive for diminished breath sounds throughout the lung amin. The findings and the impression was discussed with the patient. I attest to the documentation by the nurse practitioner. Time with Patient: Less than 30
[2021-08-10] MEDS: METOPROLOL TARTRATE 50 MG TAB PO SCH ×3 (10:44→20:28)
[2021-08-10] MEDS: APIXABAN 5 MG TAB PO SCH ×2 (10:44→20:28)
[2021-08-10] MEDS: dexAMETHasone 2 MG TAB PO SCH (10:44)
[2021-08-10] MEDS: ZINC SULFATE 220 MG CAP PO SCH (10:44)
[2021-08-10] MEDS: CHOLECALCIFEROL 125 MCG (5000 IU) TABLET PO SCH (10:45)
[2021-08-10] MEDS: ASCORBIC ACID 500 MG TAB PO SCH (10:45)
[2021-08-10] MEDS: LACTATED RINGERS 1,000 ML IV SCH (10:47)
--- NOTE | 2021-08-10 11:42 | P.PN ---
<Elmer Yu - Last Filed: 08/10/21 11:30> Subjective Progress Note Date: 08/10/21 Hospital course: Patient is an 80-year-old male with a past medical history of hypertension and hypothyroidism who presented to the emergency department on 07/26/21 with a chief complaint of shortness of breath, lethargy, and cough status post diagnosis with Covid 19 virus infection on 07/25/21. EKG revealing normal sinus rhythm and 95 bpm with no noted T-wave or ST abnormalities showing no signs of acute ischemia. Patient received monoclonal antibodies on 07/25/21 after initial Covid diagnosis. CTA chest completed 07/25/21 negative for PE. Upon arrival to facility patient was found to be in acute hypoxic respiratory failure requiring oxygen supplementation and was started on steroids and Remdesivir and after receiving a total of 3 doses, oxygen needs increased and Remdesivir was discontinued and pt started on Baricitinib with continuation of steroids. Bilateral lower extremity Dopplers completed negative for DVTs. On 08/04/21 patient was noted to have a irregular heart rhythmn and an EKG was completed confirming new onset atrial fibrillation. Patient was started on heparin infusion and later transitioned to oral antocoagulant with Eliquis. Cardiology was also consulted and patient had echocardiogram completed which revealed a normal EF between 55 and 60% with no significant valvular abnormalities. On 08/05/21 patient's oxygen needs significantly increased from previous 9 L to 15 L high flow nasal cannula along with 100% nonrebreather mask. Order placed for CT PE and pro-calcitonin at this time. Pro-calcitonin with 0.06. CTA revealing small subsegmental acute PE in the lingula and left lower lobe and worsening groundglass opacities organizing consolidations consistent with Covid 19 infection progression. Physical examination: Patient seen and examined at bedside this morning. Patient was doing well this morning and oxygen was turned down to 6 L O2 via nasal cannula and patient was maintaining SpO2 between 95 and 98%. Patient got up to bedside commode and became significantly hypoxic desaturating quickly requiring increasing oxygen back to 13 L high flow nasal cannula to obtain an SpO2 of 90%. Patient is now on day 13 of Baricitinib. He reports shortness of breath with exertion but states he is comfortable at rest and continues to deny any other complaints at this time including lightheadedness, dizziness, chest pain, palpitations, numbness/tingling/weakness in extremities. morning labs reviewed revealing continued leukocytosis with WBC count of 18.43 and d-dimer improving to 9.3. Awaiting CRP, CMP, and LDH to result. Patient to continue vitamin C, vitamin D, zinc, Decadron, Eliquis, and Baricitinib day of . Patient was able to talk with and nephew via face time yesterday evening. General: No acute distress noted, appears at stated age Derm: warm, dry Head: atraumatic, normocephalic, symmetric, hard of hearing Eyes: EOMI, no lid lag, anicteric sclera Mouth: no lip lesion, mucus membranes dry Cardiovascular: Irregularly irregular rhythm, normal S1 and S2, positive pos terior tibial pulses bilaterally, cap refill less than 2 seconds. Lungs: Respirations even and unlabored no accessory muscle usage. Lungs with bibasilar crackles. No wheezes, rales, or rhonchi. Patient was decreased down to 6 L high flow nasal cannula but rapidly declined with exertion and now req uiring 13 L O2 via nasal cannula. Abdominal: soft, nontender to palpation, no guarding, no appreciable organomegaly Ext: no gross muscle atrophy, no edema, no contractures Neuro: CN II-XI grossly intact, GCS 14-15 as patient has been having episodes of confusion, no focal neuro deficits Psych: Alert, oriented, appropriate affect Assessment and plan of care: COVID-19 pneumonia in an unvaccinated individual Acute hypoxic respiratory failure Metabolic encephalopathy Acute respiratory failure with hypoxia secondary to COVID 19 pneumonia Subsegmental acute PE in the lingula and left lower lobe -Oxygenation to be administered and titrated as needed to maintain SPO2 equal to or greater than 90% -Telemetry monitoring. -Continue trending inflammatory markers -Encourage Incentive Spirometry 10-15x hourly while awake -Steroids: Decadron 6 mg daily -Continue vitamin C, Vitamin D, and Zinc. -Pulmonology following, appreciate further recommendations. -Strict Droplet plus Contact precautions -Patient received Remdesivir, 3 doses prior to discontinuing and starting patient on Baricitinib -Baricitinib day 13 of 14 -Continue anticoagulation with Eliquis -PT/OT New-onset atrial fibrillation, controlled ventricular rate at this time Bradycardia Cardiac pauses lasting up to 2.2 seconds -Continue anticoagulation with Eliquis -Cardiology following. -Echocardiogram showing normal EF between 55 and 60% with no significant valvular abnormalities. Thrombocytopenia, resolved Leukocytosis, likely reactive We will continue to monitor with repeat a.m. labs. Pro-calcitonin 0.06. Hypertension, controlled -Monitor vital signs and continue daily medication regimen with Coreg Hypothyroidism -Continue daily medication regimen with synthroid Hyperchloremic metabolic acidosis, resolved FABIENNE, resolved CODE STATUS: Full code DVT prophylaxis: Lovenox Discussed with: Patient and RN Anticipated discharge: Clinical course to determine Anticipated discharge place:Clinical course to determine A total of 45 minutes was spent on the care of this complex patient more than 50% of the time was spent in counseling and care coordination. Objective - Vital Signs Vital signs: Vital Signs Temp 97.6 F 08/10/21 06:00 Pulse 61 08/10/21 06:00 Resp 16 08/10/21 09:19 BP 107/74 08/10/21 06:00 Pulse Ox 97 08/10/21 09:19 Intake & Output 08/09/21 08/10/21 08/10/21 18:59 06:59 18:59 Intake Total 760 200 200 Output Total 250 Balance 510 200 200 Intake: Oral 760 200 200 Output: Urine 250 Other: Voiding Method Bedside Commode Bedside Commode Bedside Commode Urinal Urinal Urinal # Voids 4 2 # Bowel Movements 1 2 - Labs CBC & Chem 7: 08/10/21 06:36 08/09/21 05:44 Labs: Abnormal Lab Results - Last 24 Hours (Table) 08/09/21 08/09/21 08/10/21 Range/Units 05:44 05:44 06:36 WBC 21.03 H (4.50-10.00) X 10*3/uL RBC 6.28 H (4.40-5.60) X 10*6/uL Hgb 17.8 H (13.0-17.0) g/dL Hct 55.1 H (39.6-50.0) % D-Dimer 9.28 H (<0.60) mg/L FEU BUN 31.2 H (9.0-27.0) mg/dL BUN/Creatinine Ratio 28.36 H (12.00-20.00) Ratio Calcium 8.6 L (8.7-10.3) mg/dL AST 45 H (14-35) U/L ALT 104 H (10-49) U/L Alkaline Phosphatase 139 H (41-126) U/L Lactate Dehydrogenase 635 H (120-246) U/L C-Reactive Protein 2.10 H (0.00-0.80) mg/dL Total Protein 5.9 L (6.2-8.2) g/dL Albumin 3.3 L (3.8-4.9) g/dL Albumin/Globulin Ratio 1.27 L (1.60-3.17) g/dL <Marilin Birch - Last Filed: 08/10/21 16:10> Subjective Elmer Yu NP rendered care for this patient independently, reviewed the findings and plan as documented in the note above. I did not physically speak with or examine the patient on this date. Objective - Vital Signs Vital signs: Vital Signs Temp 97.6 F 08/10/21 14:00 Pulse 85 08/10/21 14:00 Resp 17 08/10/21 14:00 BP 96/62 08/10/21 14:00 Pulse Ox 90 L 08/10/21 14:29 Intake & Output 08/09/21 08/10/21 08/10/21 18:59 06:59 18:59 Intake Total 760 200 200 Output Total 250 Balance 510 200 200 Intake: Oral 760 200 200 Output: Urine 250 Other: Voiding Method Bedside Commode Bedside Commode Bedside Commode Urinal Urinal Urinal # Voids 4 2 # Bowel Movements 1 2 - Labs CBC & Chem 7: 08/10/21 06:36 08/10/21 06:36 Labs: Abnormal Lab Results - Last 24 Hours (Table) 08/10/21 08/10/21 08/10/21 Range/Units 06:36 06:36 06:36 WBC 18.43 H (4.50-10.00) X 10*3/uL RBC 5.69 H (4.40-5.60) X 10*6/uL Hct 50.5 H (39.6-50.0) % Immature Gran # 0.27 H (0.00-0.04) X 10*3/uL Neutrophils # 13.80 H (1.80-7.70) X 10*3/uL Monocytes # 2.01 H (0.20-1.00) X 10*3/uL Eosinophils # 0 L (0.04-0.35) X 10*3/uL D-Dimer 9.28 H (<0.60) mg/L FEU BUN 34.9 H (9.0-27.0) mg/dL BUN/Creatinine Ratio 31.73 H (12.00-20.00) Ratio Calcium 8.5 L (8.7-10.3) mg/dL Magnesium 2.5 H (1.5-2.4) mg/dL AST 40 H (14-35) U/L ALT 104 H (10-49) U/L Alkaline Phosphatase 128 H (41-126) U/L Lactate Dehydrogenase 519 H (120-246) U/L C-Reactive Protein 2.50 H (0.00-0.80) mg/dL Total Protein 5.6 L (6.2-8.2) g/dL Albumin 3.1 L (3.8-4.9) g/dL Albumin/Globulin Ratio 1.24 L (1.60-3.17) g/dL
[2021-08-10 11:51] LABS: African American GFR (CKD) 72.1 (60.0-200.0); Albumin 3.1 g/dL (3.8-4.9); Albumin/Globulin Ratio 1.24 (1.60-3.17); Anion Gap 14.9 mmol/L (10.00-18.00); BUN/Creat Ratio 31.73 Ratio (12.00-20.00); Blood Urea Nitrogen 34.9 mg/dL (9.0-27.0); C Reactive Protein 2.5 mg/dL (0.00-0.80); Calcium 8.5 mg/dL (8.7-10.3); Carbon Dioxide 22.1 mmol/L (20.0-27.5); Globulin 2.5 g/dL (1.6-3.3); Magnesium 2.5 mg/dL (1.5-2.4); Non-African American GFR(CKD) 62.2 (60.0-200.0); Potassium 4.6 mmol/L (3.5-5.5); Total Bilirubin 0.8 mg/dL (0.30-1.20); Total Protein 5.6 g/dL (6.2-8.2)
[2021-08-10] MEDS: BARICITINIB 2 MG TABLET PO SCH (15:31)
[2021-08-10] MEDS: ATORVASTATIN 20 MG TAB PO SCH (20:28)
[2021-08-11] MEDS: LEVOTHYROXINE 50 MCG TAB PO SCH (05:46)
[2021-08-11] MEDS: LACTATED RINGERS 1,000 ML IV SCH (08:20)
[2021-08-11] MEDS: METOPROLOL TARTRATE 50 MG TAB PO SCH ×3 (08:29→20:41)
[2021-08-11] MEDS: APIXABAN 5 MG TAB PO SCH ×2 (08:29→20:41)
[2021-08-11] MEDS: ASCORBIC ACID 500 MG TAB PO SCH (08:29)
[2021-08-11] MEDS: ZINC SULFATE 220 MG CAP PO SCH (08:29)
[2021-08-11] MEDS: CHOLECALCIFEROL 125 MCG (5000 IU) TABLET PO SCH (08:29)
[2021-08-11] MEDS: dexAMETHasone 2 MG TAB PO SCH (08:29)
[2021-08-11 09:43] LABS: Basophils # (A) 0.04 X 10*3/uL (0.00-0.10); Basophils % (A) 0.2 %; Eosinophils # (A) 0 X 10*3/uL (0.04-0.35); Eosinophils % (A) 0 %; HCT 47.3 % (39.6-50.0); HGB 15.2 g/dL (13.0-17.0); Lymphocytes # (A) 1.53 X 10*3/uL (0.90-5.00); Lymphocytes % (A) 9.2 %; MCH 28.7 pg (27.0-32.0); MCHC 32.1 g/dL (32.0-37.0); MCV 89.4 fL (80.0-97.0); Mean Platelet Volume 10.4 fL (9.5-12.2); Monocytes # (A) 1.81 X 10*3/uL (0.20-1.00); Monocytes % (A) 10.8 %; Neutrophils # (A) 13.12 X 10*3/uL (1.80-7.70); Neutrophils % (A) 78.7 %; Platelet Count 282 X 10*3/uL (140-440); RBC 5.29 X 10*6/uL (4.40-5.60); RDW 13.6 % (11.5-14.5); WBC 16.69 X 10*3/uL (4.50-10.00)
[2021-08-11 10:39] LABS: African American GFR (CKD) 74.5 (60.0-200.0); Albumin 2.9 g/dL (3.8-4.9); Albumin/Globulin Ratio 1.2 (1.60-3.17); Anion Gap 9.6 mmol/L (10.00-18.00); BUN/Creat Ratio 34.58 Ratio (12.00-20.00); Calcium 8.3 mg/dL (8.7-10.3); Carbon Dioxide 22.2 mmol/L (20.0-27.5); Globulin 2.4 g/dL (1.6-3.3); Non-African American GFR(CKD) 64.3 (60.0-200.0); Potassium 4.8 mmol/L (3.5-5.5); Total Bilirubin 0.7 mg/dL (0.30-1.20); Total Protein 5.3 g/dL (6.2-8.2)
--- NOTE | 2021-08-11 10:49 | P.PN ---
Subjective Progress Note Date: 08/11/21 Principal diagnosis: dyspnea On 07/31/2021 patient seen in follow-up on medical surgical floor. He is more confused on today's exam, his FiO2 requirement is up to 15 L per high flow nasal cannula, and his pulse ox is 92-96%, afebrile, hemodynamically he is stable, does not appear to be in acute respiratory distress, lung sounds reveal bibasilar crackles, he is a poor historian, but he is able to make his basic needs known, today's chest x-ray shows a mild underlying emphysematous change with persistent bilateral multifocal opacities consistent with known history of COVID-19 infection. He remains on Decadron 6 blood gram daily, he is on prophylactic dose Lovenox 40 mg daily, he is on IV fluids with lactated Ringer's at 50 ML per hour and COVID-19 vitamins. he continues onBaricitinib 4 mg daily. On 08/04/2021 patient seen in follow-up On medical surgical floor, patient went into new onset atrial fibrillation, with slow ventricular response with a rate of 40 overnight, currently she remains in atrial fibrillation with a rate of 65- 70. Cardiology has been consulted, please refer to the consultation note, his oxygenation at the same time seems to have worsened, and he is now requiring 11 L of oxygen and his pulse ox is 94%. Denies any chest pain, he is confused, but he is awake, he is answering some simple questions, but disoriented to place and time. Lung sounds reveal diffuse crackles. Occasional cough, his lower extremity Dopplers were negative for DVT, no recent chest x-ray was done, today's lab have been reviewed, white blood cell count is 18.8, hemoglobin is 15.6, INR today is 1.2, d-dimer is 15.2, down from 24.7, sodium is 138, potassium 3.8, chloride is 108, CO2 is 26, BUN is 23 creatinine 0.9, LDH is trending down, is down to 1366, CRP is 1.4. Patient was started on Eliquis per cardiology, and in terms of therapy for his COVID-19 pneumonia he remains on Decadron 6 blood gram daily, and Baricitinib, addition to multivitamins. His la st chest x-ray from 07/31/2021 showed mild underlying emphysematous changes persistent bilateral multifocal opacities greatest in the lower lobe consistent with known COVID-19 infection. On 08/09/2021 patient seen in follow-up on medical surgical floor. He is awake and alert, in no acute distress, currently on 13 L of oxygen pulse ox of 95%. Clinically she looks quite comfortable, doesn't appear to be in any acute distress, he is on day 12 of Baricitinib treatment, he continues on Decadron 6 mg daily he is on Eliquis for new onset A. fib which is currently better controlled, cardiology is following. He looks quite comfortable, he is resting in bed, today's chest x-ray showing bilateral airspace disease, no evident pneumothorax or pleural effusion. Elevated right hemidiaphragm. Today's labs have been reviewed, white blood cell, is 21.03, hemoglobin is 17.8, d-dimer is improving and is down to 10.6, electrolytes and renal profile are unremarkable, his LDH is improving and is down to 635 and CRP is down to 2.1 on today's labs, pro-calcitonin level was negative at 0.06. On 08/10/2021 patient seen in follow-up on medical surgical floor, he is currently up in the chair, lethargic, but arouses to voice. He just recently was assisted in the chair, he had gotten up to use the bathroom and had a bowel movement, he got very is given Zyrtec, he desatted and currently has FiO2 requi rement has increased from 6 L to 13 L his pulse ox is 90%, breathing is nonlabored. No cough, no complaints of chest discomfort, he remains in atrial fibrillation/flutter with a controlled rate, she is on Eliquis for anticoagulation, he is afebrile, today's chest x-ray showing bilateral airspace disease ground of COPD. Elevated right hemidiaphragm. 7 reviewed, his white blood cell count is improving and is down to 18.4, hemoglobin is 16.3, his d- dimer is improving and is down to 9.82, his BMP is still pending from today, his inflammatory markers were improving on yesterday's labs, his pro calcitonin level was negative from a few days ago. he continues on Decadron 6 mg daily, Eliquis, and COVID-19 vitamins. On 08/11/2021 patient is seen in follow-up on medical surgical floor. He sittin g up in the chair, in no acute distress, he is currently down to 4 L of oxygen, and his pulse ox is 91%, breathing comfortably, lung sounds reveal minimal crackles at bilateral bases, no coughing, no wheezing, no chest pain, vital signs have been stable overnight, no fever or chills. Oxygenation overall has improved during the course of his hospitalization, patient remains on Baricitinib, today is his last day of treatment, he remains on Decadron, Eliquis for atrial fibrillation, his A. fib is controlled, his had no acute events overnight, he is being considered for discharge to LTAC facility versus ECF Objective - Vital Signs Vital signs: Vital Signs Temp 98.0 F 08/11/21 06:00 Pulse 71 08/11/21 10:00 Resp 17 08/11/21 10:00 BP 100/61 08/11/21 10:00 Pulse Ox 97 08/11/21 10:00 Intake & Output 08/10/21 08/11/21 08/11/21 18:59 06:59 18:59 Intake Total 600 Balance 600 Intake: Oral 600 Other: Voiding Method Bedside Commode Bedside Commode Urinal Urinal Urinal Incontinent # Voids 5 # Bowel Movements 1 - Exam GENERAL EXAM: Lethargic but arousable to voice 80 white male, currently on 4 L of oxygen and the pulse ox of 91%, sitting up in the recliner does not appear to be in acute respiratory distress, worn-out looking HEAD: Normocephalic/atraumatic. EYES: Normal reaction of pupils, equal size. Conjunctiva pink, sclera white. NOSE: Clear with pink turbinates. THROAT: No erythema or exudates. NECK: No masses, no JVD, no thyroid enlargement, no adenopathy. CHEST: No chest wall deformity. Symmetrical expansion. LUNGS: Equal air entry with basilar rales CVS: Irregular rate and rhythm, normal S1 and S2, no gallops, no murmurs, no rubs ABDOMEN: Soft, nontender. No hepatosplenomegaly, normal bowel sounds, no guarding or rigidity. EXTREMITIES: No clubbing, no edema, no cyanosis, 2+ pulses and upper and lower extremities. MUSCULOSKELETAL: Muscle strength and tone normal. SPINE: No scoliosis or deformity SKIN: No rashes CENTRAL NERVOUS SYSTEM: lethargic oriented -1. No focal deficits, tone is normal in all 4 extremities. - Labs CBC & Chem 7: 08/11/21 06:40 08/11/21 06:40 Labs: Abnormal Lab Results - Last 24 Hours (Table) 08/10/21 08/11/21 08/11/21 Range/Units 06:36 06:40 06:40 WBC 16.69 H (4.50-10.00) X 10*3/uL Immature Gran # 0.19 H (0.00-0.04) X 10*3/uL Neutrophils # 13.12 H (1.80-7.70) X 10*3/uL Monocytes # 1.81 H (0.20-1.00) X 10*3/uL Eosinophils # 0 L (0.04-0.35) X 10*3/uL Anion Gap 9.60 L (10.00-18.00) mmol/L BUN 34.9 H 37.0 H (9.0-27.0) mg/dL BUN/Creatinine Ratio 31.73 H 34.58 H (12.00-20.00) Ratio Calcium 8.5 L 8.3 L (8.7-10.3) mg/dL Magnesium 2.5 H (1.5-2.4) mg/dL AST 40 H 41 H (14-35) U/L ALT 104 H 114 H (10-49) U/L Alkaline Phosphatase 128 H (41-126) U/L Lactate Dehydrogenase 519 H (120-246) U/L C-Reactive Protein 2.50 H (0.00-0.80) mg/dL Total Protein 5.6 L 5.3 L (6.2-8.2) g/dL Albumin 3.1 L 2.9 L (3.8-4.9) g/dL Albumin/Globulin Ratio 1.24 L 1.20 L (1.60-3.17) g/dL Assessment and Plan Plan: Assessment: #1. Acute hypoxic respiratory failure related to COVID-19 pneumonia with onset of symptoms 5 days ago on 07/23/2021, status post monoclonal antibody fusion on 07/25/2021. We will start on Remdesivir today on 07/27/2021, Fio2 requirements were sent, and patient was started on Baricitinib on 07/29/2021 #2. New-onset atrial fibrillation, with a slow ventricular response, currently remains in nature fibrillation with a rate of 88, cardiology is on, and patient has been placed on Eliquis #3. Elevated d-dimer, CT angiogram of the chest was negative for pulmonary embolism #4. Elevated LFTs, related to viral pneumonia #5. Recent urinary tract infection diagnosed on 07/25/2021, patient was discharged home on Bactrim DS, recheck urinalysis #6. Recent syncopal or presyncopal episode at home on 07/25/2021 possibly related to dehydration, brain CT was obtained and was negative #7. History of hypertension #8. Hypothyroidism #9. Nonsmoker #10. Increased confusion possibly multifactorial related to hypoxic respiratory failure, and metabolic encephalopathy, improved Plan: No acute events overnight Continue current medical treatment Finishing his Baricitinib today Continue Decadron 6 mg once daily Continue Eliquis Fio2 down to 6 l/min He is being considered for LTAC facility versus ECF I performed a history & physical examination of the patient and discussed their management with my nurse practitioner, Lucy Acosta. I reviewed the nurse practitioner's note and agree with the documented findings and plan of care. Lung sounds are positive for diminished breath sounds throughout the lung amin. The findings and the impression was discussed with the patient. I attest to the documentation by the nurse practitioner. Time with Patient: Less than 30
--- NOTE | 2021-08-11 14:26 | P.PN ---
<Elmer Yu - Last Filed: 08/11/21 14:18> Subjective Progress Note Date: 08/11/21 Hospital course: Patient is an 80-year-old male with a past medical history of hypertension and hypothyroidism who presented to the emergency department on 07/26/21 with a chief complaint of shortness of breath, lethargy, and cough status post diagnosis with Covid 19 virus infection on 07/25/21. EKG revealing normal sinus rhythm and 95 bpm with no noted T-wave or ST abnormalities showing no signs of acute ischemia. Patient received monoclonal antibodies on 07/25/21 after initial Covid diagnosis. CTA chest completed 07/25/21 negative for PE. Upon arrival to facility patient was found to be in acute hypoxic respiratory failure requiring oxygen supplementation and was started on steroids and Remdesivir and after receiving a total of 3 doses, oxygen needs increased and Remdesivir was discontinued and pt started on Baricitinib with continuation of steroids. Bilateral lower extremity Dopplers completed negative for DVTs. On 08/04/21 patient was noted to have a irregular heart rhythmn and an EKG was completed confirming new onset atrial fibrillation. Patient was started on heparin infusion and later transitioned to oral antocoagulant with Eliquis. Cardiology was also consulted and patient had echocardiogram completed which revealed a normal EF between 55 and 60% with no significant valvular abnormalities. On 08/05/21 patient's oxygen needs significantly increased from previous 9 L to 15 L high flow nasal cannula along with 100% nonrebreather mask. Order placed for CT PE and pro-calcitonin at this time. Pro-calcitonin with 0.06. CTA revealing small subsegmental acute PE in the lingula and left lower lobe and worsening groundglass opacities organizing consolidations consistent with Covid 19 infection progression. Physical examination: Patient seen and examined at bedside this morning. Patient continues to do well on 6 L O2 via nasal cannula maintaining SpO2 at 90-92%. Patient was sitting in chair at bedside this morning at time of assessment. He reports feeling well and reports only mild shortness of breath with exertion. Patient is completing his final dose of Baricitinib today. He continues to deny experiencing any dizziness, lightheadedness, headache, chest pain, palpitations, nausea, vomiting, or experiencing any numbness/tingling/weakness in extremities. Morning labs revealed leukocytosis with WBC count of 16.69, prerenal azotemia with BUN of 37 and stable elevation of liver enzymes with AST of 41, an ALT of 114. Patient to continue vitamin C, vitamin D, zinc, Decadron, and Eliquis. General: No acute distress noted, appears at stated age Derm: warm, dry Head: atraumatic, normocephalic, symmetric, hard of hearing Eyes: EOMI, no lid lag, anicteric sclera Mouth: no lip lesion, mucus membranes dry Cardiovascular: Irregularly irregular rhythm, normal S1 and S2, positive posterior tibial pulses bilaterally, cap refill less than 2 seconds. Lungs: Respirations even and unlabored no accessory muscle usage. Lungs with bibasilar crackles. No wheezes, rales, or rhonchi. Patient on 6 L high flow nasal cannula. Abdominal: soft, nontender to palpation, no guarding, no appreciable organome hardy Ext: no gross muscle atrophy, no edema, no contractures Neuro: CN II-XI grossly intact, GCS 14-15 as patient has been having episodes of confusion, no focal neuro deficits Psych: Alert, oriented, appropriate affect Assessment and plan of care: COVID-19 pneumonia in an unvaccinated individual Acute hypoxic respiratory failure Metabolic encephalopathy Acute respiratory failure with hypoxia secondary to COVID 19 pneumonia Subsegmental acute PE in the lingula and left lower lobe -Oxygenation to be administered and titrated as needed to maintain SPO2 equal to or greater than 90% -Telemetry monitoring. -Continue trending inflammatory markers -Encourage Incentive Spirometry 10-15x hourly while awake -Steroids: Decadron 6 mg daily -Continue vitamin C, Vitamin D, and Zinc. -Pulmonology following, appreciate further recommendations. -Strict Droplet plus Contact precautions -Patient received Remdesivir, 3 doses prior to discontinuing and starting patient on Baricitinib -Baricitinib day 14 of 14 -Continue anticoagulation with Eliquis -PT/OT New-onset atrial fibrillation, controlled ventricular rate at this time Bradycardia Cardiac pauses lasting up to 2.2 seconds -Continue anticoagulation with Eliquis -Cardiology following. -Echocardiogram showing normal EF between 55 and 60% with no significant valvular abnormalities. Thrombocytopenia, resolved Leukocytosis, likely reactive We will continue to monitor with repeat a.m. labs. Pro-calcitonin 0.06. Hypertension, controlled -Monitor vital signs and continue daily medication regimen with Coreg Hypothyroidism -Continue daily medication regimen with synthroid Hyperchloremic metabolic acidosis, resolved FABIENNE, resolved CODE STATUS: Full code DVT prophylaxis: Lovenox Discussed with: Patient and RN Anticipated discharge: Clinical course to determine Anticipated discharge place:Clinical course to determine A total of 45 minutes was spent on the care of this complex patient more than 50% of the time was spent in counseling and care coordination. Objective - Vital Signs Vital signs: Vital Signs Temp 98.0 F 08/11/21 06:00 Pulse 78 08/11/21 06:00 Resp 18 08/11/21 06:00 BP 128/74 08/11/21 06:00 Pulse Ox 98 08/11/21 06:00 Intake & Output 08/10/21 08/11/21 08/11/21 18:59 06:59 18:59 Intake Total 600 Balance 600 Intake: Oral 600 Other: Voiding Method Bedside Commode Bedside Commode Urinal Urinal Urinal Incontinent # Voids 5 # Bowel Movements 1 - Labs CBC & Chem 7: 08/11/21 06:40 08/11/21 06:40 Labs: Abnormal Lab Results - Last 24 Hours (Table) 08/10/21 08/11/21 Range/Units 06:36 06:40 WBC 16.69 H (4.50-10.00) X 10*3/uL Immature Gran # 0.19 H (0.00-0.04) X 10*3/uL Neutrophils # 13.12 H (1.80-7.70) X 10*3/uL Monocytes # 1.81 H (0.20-1.00) X 10*3/uL Eosinophils # 0 L (0.04-0.35) X 10*3/uL BUN 34.9 H (9.0-27.0) mg/dL BUN/Creatinine Ratio 31.73 H (12.00-20.00) Ratio Calcium 8.5 L (8.7-10.3) mg/dL Magnesium 2.5 H (1.5-2.4) mg/dL AST 40 H (14-35) U/L ALT 104 H (10-49) U/L Alkaline Phosphatase 128 H (41-126) U/L Lactate Dehydrogenase 519 H (120-246) U/L C-Reactive Protein 2.50 H (0.00-0.80) mg/dL Total Protein 5.6 L (6.2-8.2) g/dL Albumin 3.1 L (3.8-4.9) g/dL Albumin/Globulin Ratio 1.24 L (1.60-3.17) g/dL <Marilin Birch - Last Filed: 08/11/21 15:19> Subjective Elmer Yu NP rendered care for this patient independently, reviewed the findings and plan as documented in the note above. I did not physically speak with or examine the patient on this date. Objective - Vital Signs Vital signs: Vital Signs Temp 98.0 F 08/11/21 06:00 Pulse 70 08/11/21 14:00 Resp 16 08/11/21 14:00 BP 110/72 08/11/21 14:00 Pulse Ox 90 L 08/11/21 14:00 Intake & Output 08/10/21 08/11/21 08/11/21 18:59 06:59 18:59 Intake Total 600 Balance 600 Intake: Oral 600 Other: Voiding Method Bedside Commode Bedside Commode Urinal Urinal Urinal Incontinent # Voids 5 # Bowel Movements 1 - Labs CBC & Chem 7: 08/11/21 06:40 08/11/21 06:40 Labs: Abnormal Lab Results - Last 24 Hours (Table) 08/11/21 08/11/21 Range/Units 06:40 06:40 WBC 16.69 H (4.50-10.00) X 10*3/uL Immature Gran # 0.19 H (0.00-0.04) X 10*3/uL Neutrophils # 13.12 H (1.80-7.70) X 10*3/uL Monocytes # 1.81 H (0.20-1.00) X 10*3/uL Eosinophils # 0 L (0.04-0.35) X 10*3/uL Anion Gap 9.60 L (10.00-18.00) mmol/L BUN 37.0 H (9.0-27.0) mg/dL BUN/Creatinine Ratio 34.58 H (12.00-20.00) Ratio Calcium 8.3 L (8.7-10.3) mg/dL AST 41 H (14-35) U/L ALT 114 H (10-49) U/L Total Protein 5.3 L (6.2-8.2) g/dL Albumin 2.9 L (3.8-4.9) g/dL Albumin/Globulin Ratio 1.20 L (1.60-3.17) g/dL
[2021-08-11] MEDS: BARICITINIB 2 MG TABLET PO SCH (16:02)
[2021-08-11] MEDS: ATORVASTATIN 20 MG TAB PO SCH (20:41)
[2021-08-12] MEDS: LACTATED RINGERS 1,000 ML IV SCH (05:00)
[2021-08-12] MEDS: LEVOTHYROXINE 50 MCG TAB PO SCH (05:30)
[2021-08-12] MEDS: ASCORBIC ACID 500 MG TAB PO SCH (08:22)
[2021-08-12] MEDS: APIXABAN 5 MG TAB PO SCH ×2 (08:22→20:49)
[2021-08-12] MEDS: METOPROLOL TARTRATE 50 MG TAB PO SCH ×3 (08:22→20:49)
[2021-08-12] MEDS: dexAMETHasone 2 MG TAB PO SCH (08:22)
[2021-08-12] MEDS: CHOLECALCIFEROL 125 MCG (5000 IU) TABLET PO SCH (08:22)
[2021-08-12] MEDS: ZINC SULFATE 220 MG CAP PO SCH (08:22)
[2021-08-12 09:08] LABS: HCT 45.4 % (39.6-50.0); HGB 14.8 g/dL (13.0-17.0); MCH 28.7 pg (27.0-32.0); MCHC 32.6 g/dL (32.0-37.0); Mean Platelet Volume 10.5 fL (9.5-12.2); Platelet Count 260 X 10*3/uL (140-440); RBC 5.16 X 10*6/uL (4.40-5.60); RDW 13.5 % (11.5-14.5); WBC 16.77 X 10*3/uL (4.50-10.00)
[2021-08-12 09:43] LABS: Magnesium 2.3 mg/dL (1.5-2.4)
[2021-08-12 10:58] LABS: Albumin 2.9 g/dL (3.8-4.9); Albumin/Globulin Ratio 1.19 (1.60-3.17); Anion Gap 10.4 mmol/L (10.00-18.00); BUN/Creat Ratio 32.84 Ratio (12.00-20.00); Blood Urea Nitrogen 33.5 mg/dL (9.0-27.0); Calcium 8.5 mg/dL (8.7-10.3); Carbon Dioxide 23.7 mmol/L (20.0-27.5); Globulin 2.5 g/dL (1.6-3.3); Non-African American GFR(CKD) 68.1 (60.0-200.0); Potassium 4.9 mmol/L (3.5-5.5); Total Bilirubin 0.5 mg/dL (0.30-1.20); Total Protein 5.4 g/dL (6.2-8.2)
--- NOTE | 2021-08-12 14:17 | P.PN ---
Subjective Progress Note Date: 08/12/21 Principal diagnosis: dyspnea On 07/31/2021 patient seen in follow-up on medical surgical floor. He is more confused on today's exam, his FiO2 requirement is up to 15 L per high flow nasal cannula, and his pulse ox is 92-96%, afebrile, hemodynamically he is stable, does not appear to be in acute respiratory distress, lung sounds reveal bibasilar crackles, he is a poor historian, but he is able to make his basic needs known, today's chest x-ray shows a mild underlying emphysematous change with persistent bilateral multifocal opacities consistent with known history of COVID-19 infection. He remains on Decadron 6 blood gram daily, he is on prophylactic dose Lovenox 40 mg daily, he is on IV fluids with lactated Ringer's at 50 ML per hour and COVID-19 vitamins. he continues onBaricitinib 4 mg daily. On 08/04/2021 patient seen in follow-up On medical surgical floor, patient went into new onset atrial fibrillation, with slow ventricular response with a rate of 40 overnight, currently she remains in atrial fibrillation with a rate of 65- 70. Cardiology has been consulted, please refer to the consultation note, his oxygenation at the same time seems to have worsened, and he is now requiring 11 L of oxygen and his pulse ox is 94%. Denies any chest pain, he is confused, but he is awake, he is answering some simple questions, but disoriented to place and time. Lung sounds reveal diffuse crackles. Occasional cough, his lower extremity Dopplers were negative for DVT, no recent chest x-ray was done, today's lab have been reviewed, white blood cell count is 18.8, hemoglobin is 15.6, INR today is 1.2, d-dimer is 15.2, down from 24.7, sodium is 138, potassium 3.8, chloride is 108, CO2 is 26, BUN is 23 creatinine 0.9, LDH is trending down, is down to 1366, CRP is 1.4. Patient was started on Eliquis per cardiology, and in terms of therapy for his COVID-19 pneumonia he remains on Decadron 6 blood gram daily, and Baricitinib, addition to multivitamins. His la st chest x-ray from 07/31/2021 showed mild underlying emphysematous changes persistent bilateral multifocal opacities greatest in the lower lobe consistent with known COVID-19 infection. On 08/09/2021 patient seen in follow-up on medical surgical floor. He is awake and alert, in no acute distress, currently on 13 L of oxygen pulse ox of 95%. Clinically she looks quite comfortable, doesn't appear to be in any acute distress, he is on day 12 of Baricitinib treatment, he continues on Decadron 6 mg daily he is on Eliquis for new onset A. fib which is currently better controlled, cardiology is following. He looks quite comfortable, he is resting in bed, today's chest x-ray showing bilateral airspace disease, no evident pneumothorax or pleural effusion. Elevated right hemidiaphragm. Today's labs have been reviewed, white blood cell, is 21.03, hemoglobin is 17.8, d-dimer is improving and is down to 10.6, electrolytes and renal profile are unremarkable, his LDH is improving and is down to 635 and CRP is down to 2.1 on today's labs, pro-calcitonin level was negative at 0.06. On 08/10/2021 patient seen in follow-up on medical surgical floor, he is currently up in the chair, lethargic, but arouses to voice. He just recently was assisted in the chair, he had gotten up to use the bathroom and had a bowel movement, he got very is given Zyrtec, he desatted and currently has FiO2 requi rement has increased from 6 L to 13 L his pulse ox is 90%, breathing is nonlabored. No cough, no complaints of chest discomfort, he remains in atrial fibrillation/flutter with a controlled rate, she is on Eliquis for anticoagulation, he is afebrile, today's chest x-ray showing bilateral airspace disease ground of COPD. Elevated right hemidiaphragm. 7 reviewed, his white blood cell count is improving and is down to 18.4, hemoglobin is 16.3, his d- dimer is improving and is down to 9.82, his BMP is still pending from today, his inflammatory markers were improving on yesterday's labs, his pro calcitonin level was negative from a few days ago. he continues on Decadron 6 mg daily, Eliquis, and COVID-19 vitamins. On 08/11/2021 patient is seen in follow-up on medical surgical floor. He sittin g up in the chair, in no acute distress, he is currently down to 4 L of oxygen, and his pulse ox is 91%, breathing comfortably, lung sounds reveal minimal crackles at bilateral bases, no coughing, no wheezing, no chest pain, vital signs have been stable overnight, no fever or chills. Oxygenation overall has improved during the course of his hospitalization, patient remains on Baricitinib, today is his last day of treatment, he remains on Decadron, Eliquis for atrial fibrillation, his A. fib is controlled, his had no acute events overnight, he is being considered for discharge to LTAC facility versus ECF On 08/12/2021 patient seen in follow-up on medical surgical floor. He is resting comfortably in a chair, is currently down to 4 L of oxygen, appears to be in no acute distress, breathing comfortably, he is lethargic, arousable, he is answering simple questions, remains in A. fib with controlled rate. Vital signs have been stable, he is on Eliquis for anticoagulation, he remains on Decadron 6 blood gram daily, and COVID-19 vitamins. Today's labs have been noted, d-dimer is improving, down to 4.3, sodium is 134, the rest of electrolytes are within normal limits, BUN is 33, creatinine is 1. Inflammatory markers are improving. Objective - Vital Signs Vital signs: Vital Signs Temp 97.8 F 08/12/21 02:00 Pulse 63 08/12/21 06:00 Resp 18 08/12/21 06:00 BP 113/72 08/12/21 06:00 Pulse Ox 99 08/12/21 06:00 Intake & Output 08/11/21 08/12/21 08/12/21 18:59 06:59 18:59 Output Total 410 Balance -410 Output: Urine 410 Other: Voiding Method Urinal Urinal Incontinent Incontinent # Voids 1 7 - Exam GENERAL EXAM: Lethargic but arousable to voice 80 white male, currently on 4 L of oxygen and the pulse ox of 91%, sitting up in the recliner does not appear to be in acute respiratory distress, worn-out looking HEAD: Normocephalic/atraumatic. EYES: Normal reaction of pupils, equal size. Conjunctiva pink, sclera white. NOSE: Clear with pink turbinates. THROAT: No erythema or exudates. NECK: No masses, no JVD, no thyroid enlargement, no adenopathy. CHEST: No chest wall deformity. Symmetrical expansion. LUNGS: Equal air entry with basilar rales CVS: Irregular rate and rhythm, normal S1 and S2, no gallops, no murmurs, no rubs ABDOMEN: Soft, nontender. No hepatosplenomegaly, normal bowel sounds, no guarding or rigidity. EXTREMITIES: No clubbing, no edema, no cyanosis, 2+ pulses and upper and lower extremities. MUSCULOSKELETAL: Muscle strength and tone normal. SPINE: No scoliosis or deformity SKIN: No rashes CENTRAL NERVOUS SYSTEM: lethargic oriented -1. No focal deficits, tone is normal in all 4 extremities. - Labs CBC & Chem 7: 08/12/21 06:23 08/12/21 06:23 Labs: Abnormal Lab Results - Last 24 Hours (Table) 08/12/21 08/12/21 08/12/21 Range/Units 06:23 06:23 06:23 WBC 16.77 H (4.50-10.00) X 10*3/uL D-Dimer 4.32 H (<0.60) mg/L FEU Sodium 134 L (135-145) mmol/L BUN 33.5 H (9.0-27.0) mg/dL BUN/Creatinine Ratio 32.84 H (12.00-20.00) Ratio Calcium 8.5 L (8.7-10.3) mg/dL AST 77 H (14-35) U/L ALT 189 H (10-49) U/L Alkaline Phosphatase 129 H (41-126) U/L Lactate Dehydrogenase 441 H (120-246) U/L C-Reactive Protein 1.00 H (0.00-0.80) mg/dL Total Protein 5.4 L (6.2-8.2) g/dL Albumin 2.9 L (3.8-4.9) g/dL Albumin/Globulin Ratio 1.19 L (1.60-3.17) g/dL Assessment and Plan Plan: Assessment: #1. Acute hypoxic respiratory failure related to COVID-19 pneumonia with onset of symptoms 5 days ago on 07/23/2021, status post monoclonal antibody fusion on 07/25/2021. We will start on Remdesivir today on 07/27/2021, Fio2 requirements were sent, and patient was started on Baricitinib on 07/29/2021 #2. New-onset atrial fibrillation, with a slow ventricular response, currently remains in nature fibrillation with a rate of 88, cardiology is on, and patient has been placed on Eliquis #3. Elevated d-dimer, CT angiogram of the chest was negative for pulmonary embolism #4. Elevated LFTs, related to viral pneumonia #5. Recent urinary tract infection diagnosed on 07/25/2021, patient was discharged home on Bactrim DS, recheck urinalysis #6. Recent syncopal or presyncopal episode at home on 07/25/2021 possibly related to dehydration, brain CT was obtained and was negative #7. History of hypertension #8. Hypothyroidism #9. Nonsmoker #10. Increased confusion possibly multifactorial related to hypoxic respiratory failure, and metabolic encephalopathy, improved Plan: Clinically has remained stable FiO2 requirements are down to 4 L He completed his Baricitinib Continue Decadron 6 mg once daily Continue Eliquis Patient is being discharged to ECF today I performed a history & physical examination of the patient and discussed their management with my nurse practitioner, Lucy Acosta. I reviewed the nurse practitioner's note and agree with the documented findings and plan of care. Lung sounds are positive for diminished breath sounds throughout the lung amin. The findings and the impression was discussed with the patient. I attest to the documentation by the nurse practitioner. Time with Patient: Less than 30
--- NOTE | 2021-08-12 15:43 | P.PN ---
Subjective Progress Note Date: 08/12/21 Patient is still complaining of dyspnea on exertion, however, saturating well with 4 L of oxygen total. Objective - Vital Signs Vital signs: Vital Signs Temp 97.1 F L 08/12/21 14:00 Pulse 78 08/12/21 14:00 Resp 16 08/12/21 14:00 BP 103/66 08/12/21 14:00 Pulse Ox 91 L 08/12/21 14:00 Intake & Output 08/11/21 08/12/21 08/12/21 18:59 06:59 18:59 Output Total 410 Balance -410 Output: Urine 410 Other: Voiding Method Urinal Urinal Incontinent Incontinent # Voids 1 7 - Exam Gen: awake, alert HEENT: normocephalic, atraumatic, good hearing acuity, moist mucous membranes Resp: good air exchange, breathing comfortably with no accessory muscle use CVS: good distal perfusion x 4, GI: soft, NTTP, ND : no SPT, no CVAT, barillas catheter not present MSK: no pitting edema, no clubbing Neuro: non-focal, moving all extremities Psych: cooperative, euthymic mood - Labs CBC & Chem 7: 08/12/21 06:23 08/12/21 06:23 Labs: Abnormal Lab Results - Last 24 Hours (Table) 08/12/21 08/12/21 08/12/21 Range/Units 06:23 06:23 06:23 WBC 16.77 H (4.50-10.00) X 10*3/uL D-Dimer 4.32 H (<0.60) mg/L FEU Sodium 134 L (135-145) mmol/L BUN 33.5 H (9.0-27.0) mg/dL BUN/Creatinine Ratio 32.84 H (12.00-20.00) Ratio Calcium 8.5 L (8.7-10.3) mg/dL AST 77 H (14-35) U/L ALT 189 H (10-49) U/L Alkaline Phosphatase 129 H (41-126) U/L Lactate Dehydrogenase 441 H (120-246) U/L C-Reactive Protein 1.00 H (0.00-0.80) mg/dL Total Protein 5.4 L (6.2-8.2) g/dL Albumin 2.9 L (3.8-4.9) g/dL Albumin/Globulin Ratio 1.19 L (1.60-3.17) g/dL Assessment and Plan Assessment: COVID-19 pneumonia in an unvaccinated individual, improving Acute hypoxic respiratory failure, improving Metabolic encephalopathy , resolved Subsegmental acute PE in the lingula and left lower lobe , stable -Oxygenation to be administered and titrated as needed to maintain SPO2 equal to or greater than 90% -Telemetry monitoring. -Continue trending inflammatory markers -Encourage Incentive Spirometry 10-15x hourly while awake -Steroids: Decadron 6 mg daily -Continue vitamin C, Vitamin D, and Zinc. -Pulmonology following, appreciate further recommendations. -Strict Droplet plus Contact precautions -Patient received Remdesivir, 3 doses prior to discontinuing and starting patient on Baricitinib -Baricitinib day 14 of 14, completed -Continue anticoagulation with Eliquis -PT/OT New-onset atrial fibrillation, controlled ventricular rate at this time Bradycardia Cardiac pauses lasting up to 2.2 seconds -Continue anticoagulation with Eliquis -Cardiology following. -Echocardiogram showing normal EF between 55 and 60% with no significant valvular abnormalities. Thrombocytopenia, resolved Leukocytosis, likely reactive, improving We will continue to monitor with repeat a.m. labs. Pro-calcitonin 0.06. Hypertension, controlled -Monitor vital signs and continue daily medication regimen with Coreg Hypothyroidism , chronic, stable -Continue daily medication regimen with synthroid Hyperchloremic metabolic acidosis, resolved FABIENNE, resolved CODE STATUS: Full code DVT prophylaxis: Lovenox Discussed with: Patient and RN Anticipated discharge: Clinical course to determine Anticipated discharge place:Clinical course to determine A total of 45 minutes was spent on the care of this complex patient more than 50% of the time was spent in counseling and care coordination.
[2021-08-12] MEDS: ATORVASTATIN 20 MG TAB PO SCH (20:49)
[2021-08-13] MEDS: LACTATED RINGERS 1,000 ML IV SCH ×2 (04:46→20:54)
[2021-08-13] MEDS: LEVOTHYROXINE 50 MCG TAB PO SCH (05:42)
[2021-08-13] MEDS: dexAMETHasone 2 MG TAB PO SCH (08:43)
[2021-08-13] MEDS: ASCORBIC ACID 500 MG TAB PO SCH (08:43)
[2021-08-13] MEDS: METOPROLOL TARTRATE 50 MG TAB PO SCH ×3 (08:52→20:53)
[2021-08-13] MEDS: APIXABAN 5 MG TAB PO SCH ×2 (08:52→20:54)
[2021-08-13] MEDS: CHOLECALCIFEROL 125 MCG (5000 IU) TABLET PO SCH (08:53)
[2021-08-13] MEDS: ZINC SULFATE 220 MG CAP PO SCH (08:53)
[2021-08-13 13:50] LABS: Appearance,Urine Clear (Clear); Bacteria,Urine Few /hpf; Bilirubin,Urine Negative (Negative); Blood,Urine Negative (Negative); Color,Urine Light Yellow; Glucose,Urine (UA) Negative (Negative); Ketones,Urine Negative (Negative); Leukocyte Esterase,Urine Negative (Negative); Mucus,Urine Rare /hpf; Nitrite,Urine Positive (Negative); Protein,Urine Negative (Negative); RBC,Urine <1 /hpf (0-5); Specific Gravity,Urine 1.013 (1.001-1.035); Urobilinogen,Urine <2.0 mg/dL (<2.0); WBC,Urine 4 /hpf (0-5)
--- NOTE | 2021-08-13 17:24 | P.PN ---
Subjective Progress Note Date: 08/13/21 Patient is still complaining of dyspnea on exertion, however, saturating well with 4 L of oxygen total. Pending insurance auth for discharge Objective - Vital Signs Vital signs: Vital Signs Temp 97.9 F 08/13/21 14:00 Pulse 77 08/13/21 14:00 Resp 20 08/13/21 14:00 BP 101/63 08/13/21 14:00 Pulse Ox 95 08/13/21 14:00 Intake & Output 08/12/21 08/13/21 08/13/21 18:59 06:59 18:59 Output Total 400 1 Balance -400 -1 Output: Urine 400 Stool 1 Other: Voiding Method Bedside Commode Urinal Diaper Incontinent # Voids 5 # Bowel Movements 1 - Exam Gen: awake, alert HEENT: normocephalic, atraumatic, good hearing acuity, moist mucous membranes Resp: good air exchange, breathing comfortably with no accessory muscle use CVS: good distal perfusion x 4, GI: soft, NTTP, ND : no SPT, no CVAT, barillas catheter not present MSK: no pitting edema, no clubbing Neuro: non-focal, moving all extremities Psych: cooperative, euthymic mood - Labs CBC & Chem 7: 08/12/21 06:23 08/12/21 06:23 Labs: Abnormal Lab Results - Last 24 Hours (Table) 08/13/21 Range/Units 13:00 Urine Bacteria Few H (None) /hpf Urine Mucus Rare H (None) /hpf Assessment and Plan Assessment: COVID-19 pneumonia in an unvaccinated individual, improving Acute hypoxic respiratory failure, improving Metabolic encephalopathy , resolved Subsegmental acute PE in the lingula and left lower lobe , stable -Oxygenation to be administered and titrated as needed to maintain SPO2 equal to or greater than 90% -Telemetry monitoring. -Continue trending inflammatory markers -Encourage Incentive Spirometry 10-15x hourly while awake -Steroids: Decadron 6 mg daily -Continue vitamin C, Vitamin D, and Zinc. -Pulmonology following, appreciate further recommendations. -Strict Droplet plus Contact precautions -Patient received Remdesivir, 3 doses prior to discontinuing and starting patient on Baricitinib -Baricitinib day 14 of 14, completed -Continue anticoagulation with Eliquis -PT/OT New-onset atrial fibrillation, controlled ventricular rate at this time Bradycardia Cardiac pauses lasting up to 2.2 seconds -Continue anticoagulation with Eliquis -Cardiology following. -Echocardiogram showing normal EF between 55 and 60% with no significant valvul ar abnormalities. Thrombocytopenia, resolved Leukocytosis, likely reactive, improving We will continue to monitor with repeat a.m. labs. Pro-calcitonin 0.06. Hypertension, controlled -Monitor vital signs and continue daily medication regimen with Coreg Hypothyroidism , chronic, stable -Continue daily medication regimen with synthroid Hyperchloremic metabolic acidosis, resolved FABIENNE, resolved CODE STATUS: Full code DVT prophylaxis: Lovenox Discussed with: Patient and RN Anticipated discharge: Clinical course to determine Anticipated discharge place:Clinical course to determine A total of 45 minutes was spent on the care of this complex patient more than 50% of the time was spent in counseling and care coordination.
[2021-08-13] MEDS: ATORVASTATIN 20 MG TAB PO SCH (20:53)
[2021-08-14] MEDS: LEVOTHYROXINE 50 MCG TAB PO SCH (05:47)
[2021-08-14] MEDS: LACTATED RINGERS 1,000 ML IV SCH (07:42)
[2021-08-14] MEDS: ZINC SULFATE 220 MG CAP PO SCH (07:44)
[2021-08-14] MEDS: dexAMETHasone 2 MG TAB PO SCH (07:44)
[2021-08-14] MEDS: METOPROLOL TARTRATE 50 MG TAB PO SCH ×3 (07:44→21:30)
[2021-08-14] MEDS: CHOLECALCIFEROL 125 MCG (5000 IU) TABLET PO SCH (07:45)
[2021-08-14] MEDS: APIXABAN 5 MG TAB PO SCH ×2 (07:45→21:30)
[2021-08-14] MEDS: ASCORBIC ACID 500 MG TAB PO SCH (07:45)
--- NOTE | 2021-08-14 08:38 | XR ---
EXAMINATION TYPE: XR chest 1V DATE OF EXAM: 08/14/2021 COMPARISON: Chest x-ray 08/09/2021 HISTORY: Hypoxia TECHNIQUE: Single frontal view of the chest is obtained. FINDINGS: Bilateral patchy airspace disease shows a similar appearance. No evident pneumothorax or p leural effusion. Cardiac mediastinal silhouette is stable. IMPRESSION: Findings similar to prior exam, correlate for pneumonia
--- NOTE | 2021-08-14 12:42 | P.PN ---
Subjective Progress Note Date: 08/14/21 Patient is upset over still being stuck in the hospital. Pending insurance auth for discharge to one facility, has insurance auth for discharge to another facility without beds. Objective - Vital Signs Vital signs: Vital Signs Temp 97.6 F 08/14/21 09:23 Pulse 96 08/14/21 09:23 Resp 18 08/14/21 09:23 BP 146/75 08/14/21 09:23 Pulse Ox 93 L 08/14/21 09:23 Intake & Output 08/13/21 08/14/21 08/14/21 18:59 06:59 18:59 Output Total 400 1101 300 Balance -400 -1101 -300 Output: Urine 400 1100 300 Stool 1 Other: Voiding Method Bedside Commode Bedside Commode Bedside Commode Urinal Urinal Urinal Diaper Diaper Diaper Incontinent Incontinent Incontinent # Voids 8 # Bowel Movements 2 - Exam Gen: awake, alert HEENT: normocephalic, atraumatic, good hearing acuity, moist mucous membranes Resp: good air exchange, breathing comfortably with no accessory muscle use CVS: good distal perfusion x 4, GI: soft, NTTP, ND : no SPT, no CVAT, barillas catheter not present MSK: no pitting edema, no clubbing Neuro: non-focal, moving all extremities Psych: cooperative, euthymic mood - Labs CBC & Chem 7: 08/12/21 06:23 08/12/21 06:23 Labs: Abnormal Lab Results - Last 24 Hours (Table) 08/13/21 Range/Units 13:00 Urine Bacteria Few H (None) /hpf Urine Mucus Rare H (None) /hpf Assessment and Plan Assessment: COVID-19 pneumonia in an unvaccinated individual, improving Acute hypoxic respiratory failure, improving Metabolic encephalopathy , resolved Subsegmental acute PE in the lingula and left lower lobe , stable -Oxygenation to be administered and titrated as needed to maintain SPO2 equal to or greater than 90% -Telemetry monitoring. -Continue trending inflammatory markers -Encourage Incentive Spirometry 10-15x hourly while awake -Steroids: Decadron 6 mg daily -Continue vitamin C, Vitamin D, and Zinc. -Pulmonology following, appreciate further recommendations. -Strict Droplet plus Contact precautions -Patient received Remdesivir, 3 doses prior to discontinuing and starting patient on Baricitinib -Baricitinib day 14 of 14, completed -Continue anticoagulation with Eliquis -PT/OT New-onset atrial fibrillation, controlled ventricular rate at this time Bradycardia Cardiac pauses lasting up to 2.2 seconds -Continue anticoagulation with Eliquis -Cardiology following. -Echocardiogram showing normal EF between 55 and 60% with no significant valvular abnormalities. Thrombocytopenia, resolved Leukocytosis, likely reactive, improving We will continue to monitor with repeat a.m. labs. Pro-calcitonin 0.06. Hypertension, controlled -Monitor vital signs and continue daily medication regimen with Coreg Hypothyroidism , chronic, stable -Continue daily medication regimen with synthroid Hyperchloremic metabolic acidosis, resolved FABIENNE, resolved CODE STATUS: Full code DVT prophylaxis: Lovenox Discussed with: Patient and RN Anticipated discharge: Clinical course to determine Anticipated discharge place:Clinical course to determine A total of 45 minutes was spent on the care of this complex patient more than 50% of the time was spent in counseling and care coordination.
[2021-08-14] MEDS: ATORVASTATIN 20 MG TAB PO SCH (21:30)
[2021-08-15] MEDS: LEVOTHYROXINE 50 MCG TAB PO SCH (05:51)
[2021-08-15] MEDS: METOPROLOL TARTRATE 50 MG TAB PO SCH ×3 (08:01→20:53)
[2021-08-15] MEDS: APIXABAN 5 MG TAB PO SCH ×2 (08:01→20:53)
[2021-08-15] MEDS: dexAMETHasone 2 MG TAB PO SCH (08:01)
[2021-08-15] MEDS: ASCORBIC ACID 500 MG TAB PO SCH (08:01)
[2021-08-15] MEDS: ZINC SULFATE 220 MG CAP PO SCH (08:01)
[2021-08-15] MEDS: CHOLECALCIFEROL 125 MCG (5000 IU) TABLET PO SCH (08:01)
--- NOTE | 2021-08-15 14:14 | P.PN ---
Subjective Progress Note Date: 08/15/21 Patient has no new complaints, disposition pending insurance approval. Objective - Vital Signs Vital signs: Vital Signs Temp 97.4 F L 08/15/21 09:33 Pulse 109 H 08/15/21 09:33 Resp 20 08/15/21 09:33 BP 109/74 08/15/21 09:33 Pulse Ox 92 L 08/15/21 09:33 Intake & Output 08/14/21 08/15/21 08/15/21 18:59 06:59 18:59 Output Total 300 Balance -300 Output: Urine 300 Other: Voiding Method Bedside Commode Bedside Commode Bedside Commode Urinal Urinal Urinal Diaper Diaper Diaper Incontinent Incontinent Incontinent # Voids 1 1 # Bowel Movements 1 - Exam Gen: awake, alert HEENT: normocephalic, atraumatic, good hearing acuity, moist mucous membranes Resp: good air exchange, breathing comfortably with no accessory muscle use CVS: good distal perfusion x 4, GI: soft, NTTP, ND : no SPT, no CVAT, barillas catheter not present MSK: no pitting edema, no clubbing Neuro: non-focal, moving all extremities Psych: cooperative, euthymic mood - Labs CBC & Chem 7: 08/12/21 06:23 08/12/21 06:23 Assessment and Plan Assessment: COVID-19 pneumonia in an unvaccinated individual, improving Acute hypoxic respiratory failure, improving Metabolic encephalopathy , resolved Subsegmental acute PE in the lingula and left lower lobe , stable -Oxygenation to be administered and titrated as needed to maintain SPO2 equal to or greater than 90% -Telemetry monitoring. -Continue trending inflammatory markers -Encourage Incentive Spirometry 10-15x hourly while awake -Steroids: Decadron 6 mg daily -Continue vitamin C, Vitamin D, and Zinc. -Pulmonology following, appreciate further recommendations. -Strict Droplet plus Contact precautions -Patient received Remdesivir, 3 doses prior to discontinuing and starting patient on Baricitinib -Baricitinib day 14 of 14, completed -Continue anticoagulation with Eliquis -PT/OT New-onset atrial fibrillation, controlled ventricular rate at this time Bradycardia Cardiac pauses lasting up to 2.2 seconds -Continue anticoagulation with Eliquis -Cardiology following. -Echocardiogram showing normal EF between 55 and 60% with no significant v alvular abnormalities. Thrombocytopenia, resolved Leukocytosis, likely reactive, improving We will continue to monitor with repeat a.m. labs. Pro-calcitonin 0.06. Hypertension, controlled -Monitor vital signs and continue daily medication regimen with Coreg Hypothyroidism , chronic, stable -Continue daily medication regimen with synthroid Hyperchloremic metabolic acidosis, resolved FABIENNE, resolved CODE STATUS: Full code DVT prophylaxis: Lovenox Discussed with: Patient and RN Anticipated discharge: Clinical course to determine Anticipated discharge place:Clinical course to determine A total of 45 minutes was spent on the care of this complex patient more than 50% of the time was spent in counseling and care coordination.
[2021-08-15] MEDS: ATORVASTATIN 20 MG TAB PO SCH (20:53)
[2021-08-15] MEDS: MELATONIN 5 MG TABLET PO PRN (23:46)
[2021-08-16] MEDS: LEVOTHYROXINE 50 MCG TAB PO SCH (05:36)
[2021-08-16] MEDS: ZINC SULFATE 220 MG CAP PO SCH (09:41)
[2021-08-16] MEDS: ASCORBIC ACID 500 MG TAB PO SCH (09:41)
[2021-08-16] MEDS: CHOLECALCIFEROL 125 MCG (5000 IU) TABLET PO SCH (09:41)
[2021-08-16] MEDS: APIXABAN 5 MG TAB PO SCH ×2 (09:42→21:12)
[2021-08-16] MEDS: METOPROLOL TARTRATE 50 MG TAB PO SCH ×3 (09:42→21:12)
[2021-08-16] MEDS: dexAMETHasone 2 MG TAB PO SCH (09:42)
--- NOTE | 2021-08-16 15:08 | P.PN ---
Subjective Progress Note Date: 08/16/21 Pt has no new complaints. Pending insurance auth prior to discharge. Objective - Vital Signs Vital signs: Vital Signs Temp 97.3 F L 08/16/21 14:35 Pulse 82 08/16/21 14:35 Resp 18 08/16/21 14:35 BP 108/65 08/16/21 14:35 Pulse Ox 92 L 08/16/21 14:35 Intake & Output 08/15/21 08/16/21 08/16/21 18:59 06:59 18:59 Output Total 251 1 Balance -251 -1 Weight 70.307 kg Output: Urine 250 Stool 1 1 Other: Voiding Method Bedside Commode Bedside Commode Bedside Commode Urinal Urinal Urinal Diaper Diaper Diaper Incontinent Incontinent Incontinent # Voids 1 # Bowel Movements 1 - Exam Gen: awake, alert HEENT: normocephalic, atraumatic, good hearing acuity, moist mucous membranes Resp: good air exchange, breathing comfortably with no accessory muscle use CVS: good distal perfusion x 4, GI: soft, NTTP, ND : no SPT, no CVAT, barillas catheter not present MSK: no pitting edema, no clubbing Neuro: non-focal, moving all extremities Psych: cooperative, euthymic mood - Labs CBC & Chem 7: 08/12/21 06:23 08/12/21 06:23 Assessment and Plan Assessment: COVID-19 pneumonia in an unvaccinated individual, improving Acute hypoxic respiratory failure, improving Metabolic encephalopathy , resolved Subsegmental acute PE in the lingula and left lower lobe , stable -Oxygenation to be administered and titrated as needed to maintain SPO2 equal to or greater than 90% -Telemetry monitoring. -Continue trending inflammatory markers -Encourage Incentive Spirometry 10-15x hourly while awake -Steroids: Decadron 6 mg daily -Continue vitamin C, Vitamin D, and Zinc. -Pulmonology following, appreciate further recommendations. -Strict Droplet plus Contact precautions -Patient received Remdesivir, 3 doses prior to discontinuing and starting patient on Baricitinib -Baricitinib day 14 of 14, completed -Continue anticoagulation with Eliquis -PT/OT New-onset atrial fibrillation, controlled ventricular rate at this time Bradycardia Cardiac pauses lasting up to 2.2 seconds -Continue anticoagulation with Eliquis -Cardiology following. -Echocardiogram showing normal EF between 55 and 60% with no significant valvular abnormalities. Thrombocytopenia, resolved Leukocytosis, likely reactive, improving We will continue to monitor with repeat a.m. labs. Pro-calcitonin 0.06. Hypertension, controlled -Monitor vital signs and continue daily medication regimen with Coreg Hypothyroidism , chronic, stable -Continue daily medication regimen with synthroid Hyperchloremic metabolic acidosis, resolved FABIENNE, resolved CODE STATUS: Full code DVT prophylaxis: Lovenox Discussed with: Patient and RN Anticipated discharge: Clinical course to determine Anticipated discharge place:Clinical course to determine A total of 45 minutes was spent on the care of this complex patient more than 50% of the time was spent in counseling and care coordination.
[2021-08-16] MEDS: ATORVASTATIN 20 MG TAB PO SCH (21:12)
[2021-08-17] MEDS: LEVOTHYROXINE 50 MCG TAB PO SCH (05:28)
[2021-08-17] MEDS: dexAMETHasone 2 MG TAB PO SCH (08:35)
[2021-08-17] MEDS: CHOLECALCIFEROL 125 MCG (5000 IU) TABLET PO SCH (08:36)
[2021-08-17] MEDS: ASCORBIC ACID 500 MG TAB PO SCH (08:36)
[2021-08-17] MEDS: ZINC SULFATE 220 MG CAP PO SCH (08:36)
[2021-08-17] MEDS: APIXABAN 5 MG TAB PO SCH ×2 (08:36→20:49)
[2021-08-17] MEDS: METOPROLOL TARTRATE 50 MG TAB PO SCH ×3 (08:41→20:49)
--- NOTE | 2021-08-17 09:30 | P.PN ---
Subjective Progress Note Date: 08/17/21 Constitutional: No acute distress, conversant, pleasant Eyes: Anicteric sclerae, moist conjunctiva, no lid-lag PERRLA ENMT: NC/AT Oropharynx clear, no erythema, exudates Neck: Supple, FROM, no masses, or JVD No carotid bruits No thyromegaly Lungs: C, no accessory muscle use Cardiovascular: Stable Abdominal: Soft Nontender, no guarding, rebound or rigidity Abdomen moving with respiration Normoactive bowel sounds No hepatomegaly, No splenomegaly No palpable mass No abdominal wall hernia noted Skin: Normal temperature, tone, texture, turgor No induration No subcutaneous nodules No rash, lesions No ulcers Extremities: Psychiatric:Alert and oriented Neuro: Generalized weakness OVID-19 pneumonia in an unvaccinated individual, improving Acute hypoxic respiratory failure, improving Metabolic encephalopathy , resolved Subsegmental acute PE in the lingula and left lower lobe , stable -Oxygenation to be administered and titrated as needed to maintain SPO2 equal to or greater than 90% -Telemetry monitoring. -Continue trending inflammatory markers -Encourage Incentive Spirometry 10-15x hourly while awake -Steroids: Decadron 6 mg daily -Continue vitamin C, Vitamin D, and Zinc. -Pulmonology following, appreciate further recommendations. -Strict Droplet plus Contact precautions -Patient received Remdesivir, 3 doses prior to discontinuing and starting patient on Baricitinib -Baricitinib day 14 of 14, completed -Continue anticoagulation with Eliquis -PT/OT New-onset atrial fibrillation, controlled ventricular rate at this time Bradycardia Cardiac pauses lasting up to 2.2 seconds -Continue anticoagulation with Eliquis -Cardiology following. -Echocardiogram showing normal EF between 55 and 60% with no significant valvular abnormalities. Thrombocytopenia, resolved Leukocytosis, likely reactive, improving We will continue to monitor with repeat a.m. labs. Pro-calcitonin 0.06. Hypertension, controlled -Monitor vital signs and continue daily medication regimen with Coreg Hypothyroidism , chronic, stable -Continue daily medication regimen with synthroid Hyperchloremic metabolic acidosis, resolved FABIENNE, resolved patient feels okay was more hypoxic this a.m. Overall stable continue to be more hypoxic today we'll continue to monitor oxyg en requirement has been increased Objective - Vital Signs Vital signs: Vital Signs Temp 98.2 F 08/17/21 06:00 Pulse 73 08/17/21 06:00 Resp 18 08/17/21 06:00 BP 112/77 08/17/21 06:00 Pulse Ox 97 08/17/21 06:00 Intake & Output 08/16/21 08/17/21 08/17/21 18:59 06:59 18:59 Intake Total 200 Output Total 1 300 Balance -1 -100 Weight 70.307 kg Intake: Oral 200 Output: Urine 300 Stool 1 Other: Voiding Method Bedside Commode Incontinent Urinal Diaper Incontinent # Voids 4 - Labs CBC & Chem 7: 08/12/21 06:23 08/12/21 06:23
[2021-08-17] MEDS: ATORVASTATIN 20 MG TAB PO SCH (20:49)
[2021-08-18] MEDS: MELATONIN 5 MG TABLET PO PRN ×2 (00:12→21:22)
[2021-08-18] MEDS ORDERED: ALPRAZolam 0.25 MG TAB PO STA (01:17)
[2021-08-18] MEDS: LEVOTHYROXINE 50 MCG TAB PO SCH (06:03)
[2021-08-18] MEDS: CHOLECALCIFEROL 125 MCG (5000 IU) TABLET PO SCH (08:20)
[2021-08-18] MEDS: METOPROLOL TARTRATE 50 MG TAB PO SCH ×3 (08:20→21:22)
[2021-08-18] MEDS: ASCORBIC ACID 500 MG TAB PO SCH (08:20)
[2021-08-18] MEDS: dexAMETHasone 2 MG TAB PO SCH (08:20)
[2021-08-18] MEDS: APIXABAN 5 MG TAB PO SCH ×2 (08:20→21:22)
[2021-08-18] MEDS: ZINC SULFATE 220 MG CAP PO SCH (08:20)
[2021-08-18 09:29] LABS: Basophils # (A) 0.02 X 10*3/uL (0.00-0.10); Basophils % (A) 0.1 %; Eosinophils # (A) 0.02 X 10*3/uL (0.04-0.35); Eosinophils % (A) 0.1 %; HCT 47.4 % (39.6-50.0); HGB 15.3 g/dL (13.0-17.0); Lymphocytes # (A) 0.76 X 10*3/uL (0.90-5.00); MCH 28.5 pg (27.0-32.0); MCHC 32.3 g/dL (32.0-37.0); MCV 88.4 fL (80.0-97.0); Mean Platelet Volume 10.4 fL (9.5-12.2); Monocytes % (A) 8.5 %; Neutrophils # (A) 13.04 X 10*3/uL (1.80-7.70); Platelet Count 262 X 10*3/uL (140-440); RBC 5.36 X 10*6/uL (4.40-5.60); WBC 15.34 X 10*3/uL (4.50-10.00)
[2021-08-18 10:57] LABS: African American GFR (CKD) 91.9 (60.0-200.0); Albumin 2.9 g/dL (3.8-4.9); Albumin/Globulin Ratio 1.12 (1.60-3.17); Anion Gap 12.1 mmol/L (10.00-18.00); BUN/Creat Ratio 31.33 Ratio (12.00-20.00); Blood Urea Nitrogen 28.2 mg/dL (9.0-27.0); Calcium 8.5 mg/dL (8.7-10.3); Carbon Dioxide 21.9 mmol/L (20.0-27.5); Globulin 2.6 g/dL (1.6-3.3); Non-African American GFR(CKD) 79.3 (60.0-200.0); Potassium 4.7 mmol/L (3.5-5.5); Total Bilirubin 0.7 mg/dL (0.30-1.20); Total Protein 5.5 g/dL (6.2-8.2)
--- NOTE | 2021-08-18 11:36 | P.PN ---
Subjective Progress Note Date: 08/18/21 Principal diagnosis: Patient feels okay delete continues to be hypoxic but improving Constitutional: No acute distress, conversant, pleasant Eyes: Anicteric sclerae, moist conjunctiva, no lid-lag PERRLA ENMT: NC/AT Oropharynx clear, no erythema, exudates Neck: Supple, FROM, no masses, or JVD No carotid bruits No thyromegaly Lungs: C, no accessory muscle use Cardiovascular: Stable Abdominal: Soft Nontender, no guarding, rebound or rigidity Abdomen moving with respiration Normoactive bowel sounds No hepatomegaly, No splenomegaly No palpable mass No abdominal wall hernia noted Skin: Normal temperature, tone, texture, turgor No induration No subcutaneous nodules No rash, lesions No ulcers Extremities: Psychiatric:Alert and oriented Neuro: Generalized weakness OVID-19 pneumonia in an unvaccinated individual, improving Acute hypoxic respiratory failure, improving Metabolic encephalopathy , resolved Subsegmental acute PE in the lingula and left lower lobe , stable -Oxygenation to be administered and titrated as needed to maintain SPO2 equal to or greater than 90% -Telemetry monitoring. -Continue trending inflammatory markers -Encourage Incentive Spirometry 10-15x hourly while awake -Steroids: Decadron 6 mg daily -Continue vitamin C, Vitamin D, and Zinc. -Pulmonology following, appreciate further recommendations. -Strict Droplet plus Contact precautions -Patient received Remdesivir, 3 doses prior to discontinuing and starting patient on Baricitinib -Baricitinib day 14 of 14, completed -Continue anticoagulation with Eliquis -PT/OT New-onset atrial fibrillation, controlled ventricular rate at this time Bradycardia Cardiac pauses lasting up to 2.2 seconds -Continue anticoagulation with Eliquis -Cardiology following. -Echocardiogram showing normal EF between 55 and 60% with no significant valvular abnormalities. Thrombocytopenia, resolved Leukocytosis, likely reactive, improving We will continue to monitor with repeat a.m. labs. Pro-calcitonin 0.06. Hypertension, controlled -Monitor vital signs and continue daily medication regimen with Coreg Hypothyroidism , chronic, stable -Continue daily medication regimen with synthroid Hyperchloremic metabolic acidosis, resolved FABIENNE, resolved patient feels okay was more hypoxic this a.m. Patient continues to be hypoxic but improving we'll continue to wean oxygen Objective - Vital Signs Vital signs: Vital Signs Temp 97.5 F L 08/18/21 10:32 Pulse 94 08/18/21 10:32 Resp 17 12/15/21 10:32 BP 119/77 08/18/21 10:32 Pulse Ox 95 08/18/21 10:32 Intake & Output 08/17/21 08/18/21 08/18/21 18:59 06:59 18:59 Intake Total 600 400 Output Total 401 500 Balance 199 -100 Intake: Oral 600 400 Output: Urine 400 500 Stool 1 Other: Voiding Method Incontinent Urinal Diaper - Labs CBC & Chem 7: 08/18/21 06:35 08/18/21 06:35 Labs: Abnormal Lab Results - Last 24 Hours (Table) 08/17/21 08/18/21 08/18/21 Range/Units 18:48 06:35 06:35 WBC 15.34 H (4.50-10.00) X 10*3/uL Immature Gran # 0.20 H (0.00-0.04) X 10*3/uL Neutrophils # 13.04 H (1.80-7.70) X 10*3/uL Lymphocytes # 0.76 L (0.90-5.00) X 10*3/uL Monocytes # 1.30 H (0.20-1.00) X 10*3/uL Eosinophils # 0.02 L (0.04-0.35) X 10*3/uL D-Dimer 1.57 H (<0.60) mg/L FEU Sodium 132 L (135-145) mmol/L BUN 28.2 H (9.0-27.0) mg/dL BUN/Creatinine Ratio 31.33 H (12.00-20.00) Ratio Calcium 8.5 L (8.7-10.3) mg/dL ALT 121 H (10-49) U/L Total Protein 5.5 L (6.2-8.2) g/dL Albumin 2.9 L (3.8-4.9) g/dL Albumin/Globulin Ratio 1.12 L (1.60-3.17) g/dL
[2021-08-18] MEDS: ATORVASTATIN 20 MG TAB PO SCH (21:22)
[2021-08-18] MEDS: ACETAMINOPHEN TAB 325 MG TAB PO PRN (21:22)
[2021-08-19] MEDS: LEVOTHYROXINE 50 MCG TAB PO SCH (05:46)
[2021-08-19] MEDS: ASCORBIC ACID 500 MG TAB PO SCH (07:19)
[2021-08-19] MEDS: dexAMETHasone 2 MG TAB PO SCH (07:19)
[2021-08-19] MEDS: APIXABAN 5 MG TAB PO SCH (07:19)
[2021-08-19] MEDS: ZINC SULFATE 220 MG CAP PO SCH (07:20)
[2021-08-19] MEDS: METOPROLOL TARTRATE 50 MG TAB PO SCH ×2 (07:20→15:26)
[2021-08-19] MEDS: CHOLECALCIFEROL 125 MCG (5000 IU) TABLET PO SCH (07:20)
[2021-08-19 09:08] LABS: Basophils # (A) 0.03 X 10*3/uL (0.00-0.10); Basophils % (A) 0.2 %; Eosinophils # (A) 0.01 X 10*3/uL (0.04-0.35); Eosinophils % (A) 0.1 %; HCT 41.1 % (39.6-50.0); HGB 13.8 g/dL (13.0-17.0); Lymphocytes # (A) 0.76 X 10*3/uL (0.90-5.00); Lymphocytes % (A) 5.1 %; MCH 29.1 pg (27.0-32.0); MCHC 33.6 g/dL (32.0-37.0); MCV 86.5 fL (80.0-97.0); Mean Platelet Volume 10.3 fL (9.5-12.2); Monocytes # (A) 1.38 X 10*3/uL (0.20-1.00); Monocytes % (A) 9.3 %; Neutrophils % (A) 83.9 %; Platelet Count 225 X 10*3/uL (140-440); RBC 4.75 X 10*6/uL (4.40-5.60); WBC 14.89 X 10*3/uL (4.50-10.00)
--- NOTE | 2021-08-19 10:33 | P.PN ---
Subjective Progress Note Date: 08/19/21 Patient was still on 7 L oxygen this a.m. feels weak Patient feels okay delete continues to be hypoxic but improving Constitutional: No acute distress, conversant, pleasant Eyes: Anicteric sclerae, moist conjunctiva, no lid-lag PERRLA ENMT: NC/AT Oropharynx clear, no erythema, exudates Neck: Supple, FROM, no masses, or JVD No carotid bruits No thyromegaly Lungs: C, no accessory muscle use Cardiovascular: Stable Abdominal: Soft Nontender, no guarding, rebound or rigidity Abdomen moving with respiration Normoactive bowel sounds No hepatomegaly, No splenomegaly No palpable mass No abdominal wall hernia noted Skin: Normal temperature, tone, texture, turgor No induration No subcutaneous nodules No rash, lesions No ulcers Extremities: Psychiatric:Alert and oriented Neuro: Generalized weakness OVID-19 pneumonia in an unvaccinated individual, improving Acute hypoxic respiratory failure, improving Metabolic encephalopathy , resolved Subsegmental acute PE in the lingula and left lower lobe , stable -Oxygenation to be administered and titrated as needed to maintain SPO2 equal to or greater than 90% -Telemetry monitoring. -Continue trending inflammatory markers -Encourage Incentive Spirometry 10-15x hourly while awake -Steroids: Decadron 6 mg daily -Continue vitamin C, Vitamin D, and Zinc. -Pulmonology following, appreciate further recommendations. -Strict Droplet plus Contact precautions -Patient received Remdesivir, 3 doses prior to discontinuing and starting patient on Baricitinib -Baricitinib day 14 of 14, completed -Continue anticoagulation with Eliquis -PT/OT New-onset atrial fibrillation, controlled ventricular rate at this time Bradycardia Cardiac pauses lasting up to 2.2 seconds -Continue anticoagulation with Eliquis -Cardiology following. -Echocardiogram showing normal EF between 55 and 60% with no significant valvular abnormalities. Thrombocytopenia, resolved Leukocytosis, likely reactive, improving We will continue to monitor with repeat a.m. labs. Pro-calcitonin 0.06. Hypertension, controlled -Monitor vital signs and continue daily medication regimen with Coreg Hypothyroidism , chronic, stable -Continue daily medication regimen with synthroid Hyperchloremic metabolic acidosis, resolved FABIENNE, resolved patient feels okay was more hypoxic this a.m. Patient still hypoxic on 7 L we'll attempt to wean again if we'll maintain oxygen are around 4 L patient will be discharged to rehab Objective - Vital Signs Vital signs: Vital Signs Temp 97.3 F L 08/19/21 10:00 Pulse 87 08/19/21 10:00 Resp 18 08/19/21 10:00 BP 105/68 08/19/21 10:00 Pulse Ox 98 08/19/21 10:00 Intake & Output 08/18/21 08/19/21 08/19/21 18:59 06:59 18:59 Output Total 200 Balance -200 Output: Urine 200 Other: Voiding Method Urinal Bedside Commode Diaper Urinal Diaper # Bowel Movements 2 - Labs CBC & Chem 7: 08/19/21 06:40 08/18/21 06:35 Labs: Abnormal Lab Results - Last 24 Hours (Table) 08/18/21 08/19/21 Range/Units 06:35 06:40 WBC 14.89 H (4.50-10.00) X 10*3/uL Immature Gran # 0.21 H (0.00-0.04) X 10*3/uL Neutrophils # 12.50 H (1.80-7.70) X 10*3/uL Lymphocytes # 0.76 L (0.90-5.00) X 10*3/uL Monocytes # 1.38 H (0.20-1.00) X 10*3/uL Eosinophils # 0.01 L (0.04-0.35) X 10*3/uL Sodium 132 L (135-145) mmol/L BUN 28.2 H (9.0-27.0) mg/dL BUN/Creatinine Ratio 31.33 H (12.00-20.00) Ratio Calcium 8.5 L (8.7-10.3) mg/dL ALT 121 H (10-49) U/L Total Protein 5.5 L (6.2-8.2) g/dL Albumin 2.9 L (3.8-4.9) g/dL Albumin/Globulin Ratio 1.12 L (1.60-3.17) g/dL
[2021-08-19 11:55] LABS: African American GFR (CKD) 91.9 (60.0-200.0); Albumin 2.6 g/dL (3.8-4.9); Albumin/Globulin Ratio 1.18 (1.60-3.17); Anion Gap 11.1 mmol/L (10.00-18.00); BUN/Creat Ratio 31.11 Ratio (12.00-20.00); Carbon Dioxide 20.9 mmol/L (20.0-27.5); Globulin 2.2 g/dL (1.6-3.3); Non-African American GFR(CKD) 79.3 (60.0-200.0); Potassium 4.7 mmol/L (3.5-5.5); Total Bilirubin 0.5 mg/dL (0.30-1.20); Total Protein 4.8 g/dL (6.2-8.2)
--- NOTE | 2021-08-19 12:29 | P.DS ---
Providers Date of admission: 07/27/21 00:48 Expected date of discharge: 08/19/21 Attending physician: Blanca Alva MD Consults: 07/27/21 03:38 Consult Physician Urgent Consulting Provider: Harvey Mays Consult Reason/Comments: COVID Do you want consulting provider notified?: Yes 08/04/21 11:39 Consult Physician Routine Consulting Provider: Vianey Russell Consult Reason/Comments: new onset atrial fibrillation in covid patient Do you want consulting provider notified?: Yes Primary care physician: [facility] Course: Progress Note Date: 08/19/21 Patient was still on 4 L oxygen this a.m. feels weak Patient feels okay delete continues to be hypoxic but improving Constitutional: No acute distress, conversant, pleasant Eyes: Anicteric sclerae, moist conjunctiva, no lid-lag PERRLA ENMT: NC/AT Oropharynx clear, no erythema, exudates Neck: Supple, FROM, no masses, or JVD No carotid bruits No thyromegaly Lungs: C, no accessory muscle use Cardiovascular: Stable A No abdominal wall hernia noted Skin: Normal temperature, tone, texture, turgor No induration No subcutaneous nodules No rash, lesions No ulcers Extremities: Psychiatric:Alert and oriented Neuro: Generalized weakness OVID-19 pneumonia in an unvaccinated individual, improving Acute hypoxic respiratory failure, improving Metabolic encephalopathy , resolved Subsegmental acute PE in the lingula and left lower lobe , stable - -PT/OT New-onset atrial fibrillation, controlled ventricular rate at this time Bradycardia Cardiac pauses lasting up to 2.2 seconds -Continue anticoagulation with Eliquis - Thrombocytopenia, resolved Leukocytosis, likely reactive, improving Hypertension, controlled -Monitor vital signs and continue daily medication regimen with Coreg Hypothyroidism , chronic, stable -Continue daily medication regimen with synthroid Hyperchloremic metabolic acidosis, resolved FABIENNE, resolved patient feels okay Admitted to the hospital with Lopid 19 pneumonia patient was weak hypoxic during most of the hospital stay the patient also did have new onset atrial fibrillation where he has been started on eliquis Patient continued to be weak patient also has been started on beta blockers patient continued to be hypoxic although improving the patient did have episodes of hypoxia 2 days ago where oxygen has been increased to 10 L but currently has been weaned down and the patient is on 4 L and comfortable So patient will be discharged to longterm rehab for continuing weaning oxygen and continuing physical therapy patient overall is stable continue steroids New-onset fibrillation continue adequate as and Lopressor Patient Condition at Discharge: Stable Plan - Discharge Summary Discharge Rx Participant: No New Discharge Prescriptions: New dexAMETHasone ORAL [Hexadrol] 6 mg PO DAILY #10 tab Zinc Sulfate [Orazinc] 220 mg PO DAILY #30 cap Cefdinir 300 mg PO Q12HR #7 cap Apixaban [Eliquis] 5 mg PO BID 30 Days #60 tab Metoprolol Tartrate [Lopressor] 50 mg PO TID #90 tab Ascorbic Acid [Vitamin C] 1,000 mg PO DAILY #30 tab Cholecalciferol [Vitamin D3 (125 Mcg = 5000 Iu)] 125 mcg PO DAILY #30 tablet Apixaban [Eliquis] 5 mg PO BID #0 tab Continue Simvastatin [Zocor] 40 mg PO HS Levothyroxine Sodium [Synthroid] 50 mcg PO DAILY Discontinued Sulfamethox-Tmp 800-160Mg [Bactrim DS 800-160 mg] 1 tab PO Q12HR 5 Days #10 tab carvediloL [Coreg] 6.25 mg PO BID Discharge Medication List Levothyroxine Sodium [Synthroid] 50 mcg PO DAILY 07/25/21 [History] Simvastatin [Zocor] 40 mg PO HS 07/25/21 [History] Apixaban [Eliquis] 5 mg PO BID 30 Days #60 tab 08/04/21 [Rx] Ascorbic Acid [Vitamin C] 1,000 mg PO DAILY #30 tab 08/12/21 [Rx] Cholecalciferol [Vitamin D3 (125 Mcg = 5000 Iu)] 125 mcg PO DAILY #30 tablet 08/12/21 [Rx] Metoprolol Tartrate [Lopressor] 50 mg PO TID #90 tab 08/12/21 [Rx] Zinc Sulfate [Orazinc] 220 mg PO DAILY #30 cap 08/12/21 [Rx] dexAMETHasone ORAL [Hexadrol] 6 mg PO DAILY #10 tab 08/12/21 [Rx] Apixaban [Eliquis] 5 mg PO BID #0 tab 08/19/21 [Rx] Cefdinir 300 mg PO Q12HR #7 cap 08/19/21 [Rx] Follow up Appointment(s)/Referral(s): Vianey Russell MD [STAFF PHYSICIAN] - 4 Weeks (office busy Please call to schedule appointment ) [facility], [NON-STAFF] - As Needed Errol Song DO [Primary Care Provider] - 08/23/21 11:20 am Activity/Diet/Wound Care/Special Instructions: Emelyn costs $30 and is at [facility]. Discharge/Stand Alone Forms: Work/School Release / Restrict Discharge Disposition: TRANSFER TO SNF/ECF
[2021-08-19 14:16] VITALS: BP 106/70; PULSE 80; RESP 17; TEMP 98
== END 2021-08-19 15:35 | DRG 177 ==
LOC: EC 22:21 → 4SSUR 07-27 00:48 → 1SOBS 07-27 19:33 → 4SSUR 07-28 15:02
PROVIDERS: ADMIT Internal Medicine; ATTEND Internal Medicine
PROC: XW033E5 Introduction of Remdesivir Anti-infective into Peripheral Vein, Percutaneous Approach, New Technology Group 5 (ICD-10-PCS; principal; 2021-07-27)
PROC: 5A0955A Assistance with Respiratory Ventilation, Greater than 96 Consecutive Hours, High Flow/Velocity Cannula (ICD-10-PCS; 2021-07-28)
PROC: XW0DXM6 Introduction of Baricitinib into Mouth and Pharynx, External Approach, New Technology Group 6 (ICD-10-PCS; 2021-07-29)
DX: U07.1 COVID-19 (principal); G93.41 Metabolic encephalopathy; J12.82 Pneumonia due to coronavirus disease 2019; J96.01 Acute respiratory failure with hypoxia; I26.99 Other pulmonary embolism without acute cor pulmonale; E87.2 Acidosis; J44.0 Chronic obstructive pulmonary disease with (acute) lower respiratory infection; N17.9 Acute kidney failure, unspecified; N39.0 Urinary tract infection, site not specified; D69.6 Thrombocytopenia, unspecified; E03.9 Hypothyroidism, unspecified; H91.90 Unspecified hearing loss, unspecified ear; I10 Essential (primary) hypertension; I48.0 Paroxysmal atrial fibrillation; I95.9 Hypotension, unspecified; R79.89 Other specified abnormal findings of blood chemistry; R00.1 Bradycardia, unspecified; R19.7 Diarrhea, unspecified; E87.8 Other disorders of electrolyte and fluid balance, not elsewhere classified; Z79.01 Long term (current) use of anticoagulants; Z79.890 Hormone replacement therapy; Z79.899 Other long term (current) drug therapy; E86.0 Dehydration
CPT/HCPCS: 36415; 71045; 71275; 80048; 80053; 81001; 82728; 83605; 83615; 83735; 83880; 84100; 84145; 84484; 85025; 85027; 85379; 85610; 85730; 86140; 93005; 93306; 93970; 94760; 96365; 96366; 96372; 99285

== ENCOUNTER 2021-08-27 11:51 | Inpatient (IN) | payer BC, MEDICARE ==
--- NOTE | 2021-08-27 12:29 | ED ---
General Adult HPI - General Chief complaint: Shortness of Breath Stated complaint: SHARON Time Seen by Provider: 08/27/21 11:59 Source: EMS Mode of arrival: EMS Limitations: no limitations - History of Present Illness Initial comments: Dictation was produced using [employer] dictation software. please excuse any grammatical, word or spelling errors. Chief Complaint: 80-year-old male brought in from [facility] for altered mental status History of Present Illness: Patient is an 80-year-old male is brought to the emergency department from [facility]. Patient brought in by EMS. According to EMS the initial call was for altered mental status. He was found nodding off by group home staff. EMS was called evaluated patient and found to be hypoxic. It was unclear if patient had good waveform but there was measurements of 60% on room air. Patient does not use any home oxygen. EMS placed patient on positive pressure ventilation with improvement of mentation and oxygen saturations. While en route to the emergency department patient's mentation improved. At the bedside patient denies any issues at the moment. Does however say that he does feel short of breath slightly. Transfer documentation was reviewed. He was recently admitted to the hospital for COVID- 19 and hypoxic respiratory failure one month ago. He has no pain complaints. No nausea vomiting. The ROS documented in this emergency department record has been reviewed and confirmed by me. Those systems with pertinent positive or negative responses have been documented in the HPI. All other systems are other negative and/or noncontributory. PHYSICAL EXAM: General Impression: Alert and oriented x3, not in acute distress, 15L nonrebreather in place HEENT: Normocephalic atraumatic, extra-ocular movements intact, pupils equal and reactive to light bilaterally, mucous membranes moist. Cardiovascular: Heart regular rate and rhythm Chest: Able to complete full sentences, no retractions, no tachypnea Abdomen: abdomen soft, non-tender, non-distended, no organomegaly Musculoskeletal: Pulses present and equal in all extremities, no peripheral edema Motor: no focal deficits noted Neurological: CN II-XII grossly intact, no focal motor or sensory deficits noted Skin: Intact with no visualized rashes Psych: Normal affect and mood ED course: 80-year-old male presents emergency department for chief complaint of altered mental status. His found to be hypoxic and short of breath by EMS. Vital signs upon arrival shows heart rate of 1 week, respiratory 28, 90% saturation on 15 L nonrebreather. Patient transitioned to BiPAP. Medications were reviewed. Patient takes Eliquis and cephalosporin. He was diagnosed with new-onset A. fib while hospitalized recently. Laboratory evaluation obtained. Patient is leukocytosis of 17.3. Coag panel is unremarkable. Metabolic panel shows sodium 131, potassium 5.5 with hemolysis. Mild non-gap acidosis. Troponin 0.023, brain natruretic peptide of 2070. Covered test is negative. Given leukocytosis unclear patient having a serious bacterial illness versus chronic steroid use versus stress leukocytosis. X-ray suggests pneumonia. Medications were reviewed. He is on cephalosporins. Patient reevaluated at bedside at 2:00 PM. He is resting comfortably with BiPAP in place. Given degree of hypoxia and BiPAP requirements patient be admitted. Case is discussed with son physician group was went except patient's care. Patient given Lasix for elevated BNP. There is some concern of perhaps heart failure, however more than likely patient's respiratory issues instead of heart failure. Nonetheless cardiology is consulted. There is some concern that patient's clinical presentation is consistent with sepsis however given that there is concern for underlying heart failure patient not given 30 mL per KG bolus. Furthermore I believe significant IV fluid resuscitation could make his respiratory status worsened. EKG interpretation: Ventricular rate 135, A. fib with rapid ventricular rate, QRS 84, QTc 441. No ID prolongation, no QTC prolongation, no ST or T-wave changes noted. - Related Data Home Medications Medication Instructions Recorded Confirmed Levothyroxine Sodium [Synthroid] 50 mcg PO HS 07/25/21 08/27/21 Simvastatin [Zocor] 40 mg PO HS 07/25/21 08/27/21 Metoprolol Tartrate [Lopressor] 50 mg PO TID@0500,1300,2100 08/27/21 08/27/21 Zinc 50 mg PO HS 08/27/21 08/27/21 Previous Rx's Medication Instructions Recorded Ascorbic Acid [Vitamin C] 1,000 mg PO DAILY #30 tab 08/12/21 Cholecalciferol [Vitamin D3 (125 125 mcg PO DAILY #30 tablet 08/12/21 Mcg = 5000 Iu)] Apixaban [Eliquis] 5 mg PO BID #0 tab 08/19/21 Allergies Allergy/AdvReac Type Severity Reaction Status Date / Time No Known Allergies Allergy Verified 08/27/21 12:56 Review of Systems ROS Statement: Those systems with pertinent positive or pertinent negative responses have been documented in the HPI. ROS Other: All systems not noted in ROS Statement are negative. Past Medical History Past Medical History: Cancer, Hypertension History of Any Multi-Drug Resistant Organisms: None Reported Past Surgical History: Cholecystectomy, Hernia Repair Past Psychological History: No Psychological Hx Reported Smoking Status: Never smoker Past Alcohol Use History: None Reported Past Drug Use History: None Reported General Exam Limitations: no limitations Course Vital Signs 08/27/21 08/27/21 12:07 13:03 Temperature 97.7 F Pulse Rate 108 H Respiratory 28 H Rate Blood Pressure 145/125 O2 Sat by Pulse 90 L 98 Oximetry Medical Decision Making - Lab Data Result diagrams: 08/27/21 12:20 08/27/21 12:20 Lab Results 08/27/21 08/27/21 08/27/21 Range/Units 12:20 12:20 12:20 WBC 17.3 H (3.8-10.6) k/uL RBC 4.96 (4.30-5.90) m/uL Hgb 14.9 (13.0-17.5) gm/dL Hct 44.5 (39.0-53.0) % MCV 89.8 (80.0-100.0) fL MCH 30.1 (25.0-35.0) pg MCHC 33.6 (31.0-37.0) g/dL RDW 14.4 (11.5-15.5) % Plt Count 235 (150-450) k/uL MPV 7.7 Neutrophils % 87 % Lymphocytes % 7 % Monocytes % 5 % Eosinophils % 0 % Basophils % 1 % Neutrophils # 15.0 H (1.3-7.7) k/uL Lymphocytes # 1.2 (1.0-4.8) k/uL Monocytes # 0.9 (0-1.0) k/uL Eosinophils # 0.0 (0-0.7) k/uL Basophils # 0.1 (0-0.2) k/uL PT 11.3 (9.0-12.0) sec INR 1.1 (<1.2) APTT 20.0 L (22.0-30.0) sec Sodium 131 L (137-145) mmol/L Potassium 5.5 H (3.5-5.1) mmol/L Chloride 102 (98-107) mmol/L Carbon Dioxide 18 L (22-30) mmol/L Anion Gap 11 mmol/L BUN 32 H (9-20) mg/dL Creatinine 1.10 (0.66-1.25) mg/dL Est GFR (CKD-EPI)AfAm 72 (>60 ml/min/1.73 sqM) Est GFR (CKD-EPI)NonAf 62 (>60 ml/min/1.73 sqM) Glucose 85 (74-99) mg/dL Calcium 8.6 (8.4-10.2) mg/dL Magnesium 2.0 (1.6-2.3) mg/dL Total Bilirubin 0.9 (0.2-1.3) mg/dL AST 70 H (17-59) U/L ALT 160 H (4-49) U/L Alkaline Phosphatase 125 (38-126) U/L Troponin I (0.000-0.034) ng/mL NT-Pro-B Natriuret Pep pg/mL Total Protein 6.2 L (6.3-8.2) g/dL Albumin 3.0 L (3.5-5.0) g/dL Coronavirus (PCR) (Not Detectd) 08/27/21 08/27/21 08/27/21 Range/Units 12:20 12:20 12:20 WBC (3.8-10.6) k/uL RBC (4.30-5.90) m/uL Hgb (13.0-17.5) gm/dL Hct (39.0-53.0) % MCV (80.0-100.0) fL MCH (25.0-35.0) pg MCHC (31.0-37.0) g/dL RDW (11.5-15.5) % Plt Count (150-450) k/uL MPV Neutrophils % % Lymphocytes % % Monocytes % % Eosinophils % % Basophils % % Neutrophils # (1.3-7.7) k/uL Lymphocytes # (1.0-4.8) k/uL Monocytes # (0-1.0) k/uL Eosinophils # (0-0.7) k/uL Basophils # (0-0.2) k/uL PT (9.0-12.0) sec INR (<1.2) APTT (22.0-30.0) sec Sodium (137-145) mmol/L Potassium (3.5-5.1) mmol/L Chloride (98-107) mmol/L Carbon Dioxide (22-30) mmol/L Anion Gap mmol/L BUN (9-20) mg/dL Creatinine (0.66-1.25) mg/dL Est GFR (CKD-EPI)AfAm (>60 ml/min/1.73 sqM) Est GFR (CKD-EPI)NonAf (>60 ml/min/1.73 sqM) Glucose (74-99) mg/dL Calcium (8.4-10.2) mg/dL Magnesium (1.6-2.3) mg/dL Total Bilirubin (0.2-1.3) mg/dL AST (17-59) U/L ALT (4-49) U/L Alkaline Phosphatase (38-126) U/L Troponin I 0.023 (0.000-0.034) ng/mL NT-Pro-B Natriuret Pep 2370 pg/mL Total Protein (6.3-8.2) g/dL Albumin (3.5-5.0) g/dL Coronavirus (PCR) Not Detected (Not Detectd) Critical Care Time Critical Care Time: Yes Total Critical Care Time: 33 Disposition Clinical Impression: Acute respiratory failure with hypoxia Disposition: ADMITTED IP TO THIS [facility] Condition: Fair Referrals: Ivan Lackey DO [Primary Care Provider] - 1-2 days
[2021-08-27 12:45] LABS: Calcium 8.6 mg/dL (8.4-10.2); Total Bilirubin 0.9 mg/dL (0.2-1.3); Total Protein 6.2 g/dL (6.3-8.2)
[2021-08-27 12:50] LABS: Basophils # (A) 0.1 k/uL (0-0.2); Basophils % (A) 1 %; Eosinophils % (A) 0 %; HCT 44.5 % (39.0-53.0); HGB 14.9 gm/dL (13.0-17.5); Lymphocytes # (A) 1.2 k/uL (1.0-4.8); Lymphocytes % (A) 7 %; MCH 30.1 pg (25.0-35.0); MCHC 33.6 g/dL (31.0-37.0); MCV 89.8 fL (80.0-100.0); Mean Platelet Volume 7.7; Monocytes # (A) 0.9 k/uL (0-1.0); Monocytes % (A) 5 %; Neutrophils % (A) 87 %; Platelet Count 235 k/uL (150-450); RBC 4.96 m/uL (4.30-5.90); RDW 14.4 % (11.5-15.5); WBC 17.3 k/uL (3.8-10.6)
[2021-08-27 12:52] LABS: Potassium 5.5 mmol/L (3.5-5.1)
--- NOTE | 2021-08-27 13:27 | XR ---
EXAMINATION TYPE: XR chest 1V portable DATE OF EXAM: 08/27/2021 COMPARISON: Chest x-ray 08/14/2021 HISTORY: Shortness of breath TECHNIQUE: Single frontal view of the chest is obtained. FINDINGS: Patchy bilateral airspace disease persists. There is no evident pneumothorax or pleural ef fusion. Cardiomediastinal silhouette is stable. Bones are unchanged. There are overlying artifacts. IMPRESSION: Correlate for pneumonia.
[2021-08-27 13:28] LABS: INR 1.1 (<1.2); Prothrombin Time 11.3 sec (9.0-12.0)
[2021-08-27] MEDS ORDERED: LORazepam 2 MG/ML INJ IV STA (13:54)
[2021-08-27] MEDS ORDERED: AZITHROMYCIN 500 MG in SODIUM CHLORIDE 0.9% 250 ML IVPB STA (14:07)
[2021-08-27] MEDS ORDERED: NALOXONE 0.4 MG/ML 1 ML VIAL IV PRN (14:07)
[2021-08-27] MEDS ORDERED: cefTRIAXone IN SWFI 1,000 MG/10 ML SYRINGE IVP STA (14:07)
[2021-08-27] MEDS ORDERED: FUROSEMIDE 10 MG/ML 4 ML VIAL IV STA (14:11)
[2021-08-27] MEDS ORDERED: RX INFO: IV CONTRAST WAS GIVEN 1 EACH MISC MISCELLANE PRN (14:36)
[2021-08-27] MEDS ORDERED: IOPAMIDOL CONTRAST (ORAL USE) VIAL PO PRN (14:39)
--- NOTE | 2021-08-27 15:06 | P.HPIM ---
History of Present Illness H&P Date: 08/27/21 Chief Complaint: lethargy, hypoxia 80-year-old man who was recently discharged from our facility after being treated for Covid pneumonia on 5 L of oxygen with hospital course complicated by lingular pulmonary embolism as well as new onset atrial fibrillation with RVR, with history of hypertension, hypothyroidism, hyperlipidemia presented from detention worse found to be lethargic. When care staff checked on patient, he was lethargic but arousable, saturation was 60% on room air apparently. EMS was called and patient was placed on BiPAP and brought to the hospital for further evaluation. Emergency room care team tried to down titrate patient off of BiPAP, but he desaturated to 90% on 15 L of nasal cannula. Patient is lethargic after having received Ativan at the time of my evaluation, and therefore review of systems could not be completed. Patient is noted to be 98% on BiPAP settings of 12/5, FiO2 100%. Also of note, patient is 110/64, but heart rate is 130s to 150s in atrial fibrillation. CBC demonstrates a leukocytosis to 17.3. Chemistries show hyponatremia with hyperkalemia, CO2 of 18, BUNs of 32. LFTs show ALT of 160, AST of 70. BNP was elevated to 2370. Echocardiogram from prior hospitalization was reviewed and had normal ejection fraction of 55-60% with no evidence of diastolic dysfunction. EKG shows A. fib with RVR. Chest x-ray shows patchy bilateral airspace disease, however, significantly worsening left lower lobe. Patient was treated with ceftriaxone, Lasix, Ativan in the emergency room, and then was started on Zosyn. Review of Systems See HPI Past Medical History Past Medical History: Cancer, Hypertension History of Any Multi-Drug Resistant Organisms: None Reported Past Surgical History: Cholecystectomy, Hernia Repair Past Psychological History: No Psychological Hx Reported Smoking Status: Never smoker Past Alcohol Use History: None Reported Past Drug Use History: None Reported Medications and Allergies Home Medications Medication Instructions Recorded Confirmed Type Levothyroxine Sodium [Synthroid] 50 mcg PO HS 07/25/21 08/27/21 History Simvastatin [Zocor] 40 mg PO HS 07/25/21 08/27/21 History Ascorbic Acid [Vitamin C] 1,000 mg PO DAILY #30 tab 08/12/21 08/27/21 Rx Cholecalciferol [Vitamin D3 (125 125 mcg PO DAILY #30 tablet 08/12/21 08/27/21 Rx Mcg = 5000 Iu)] Apixaban [Eliquis] 5 mg PO BID #0 tab 08/19/21 08/27/21 Rx Metoprolol Tartrate [Lopressor] 50 mg PO TID@0500,1300,2100 08/27/21 08/27/21 History Zinc 50 mg PO HS 08/27/21 08/27/21 History Allergies Allergy/AdvReac Type Severity Reaction Status Date / Time No Known Allergies Allergy Verified 08/27/21 12:56 Physical Exam Osteopathic Statement: *. No significant issues noted on an osteopathic structural exam other than those noted in the History and Physical/Consult. Vitals: Vital Signs Temp Pulse Resp BP Pulse Ox 08/27/21 14:15 123 H 24 110/64 98 08/27/21 13:03 98 08/27/21 12:07 97.7 F 108 H 28 H 145/125 90 L Intake and Output 08/26/21 08/27/21 08/27/21 22:59 06:59 14:59 Other: Weight 68.039 kg Gen: Obtunded HEENT: normocephalic, atraumatic, good hearing acuity, moist mucous membranes Resp: good air exchange, breathing comfortably with no accessory muscle use CVS: good distal perfusion x 4, tachycardic with an irregular rhythm, no appreciable murmurs GI: Diffusely tender to palpation with voluntary guarding : no SPT, no CVAT, barillas catheter not present MSK: no pitting edema, no clubbing Neuro: non-focal, moving all extremities Results CBC & Chem 7: 08/27/21 12:20 08/27/21 12:20 Labs: Abnormal Lab Results - Last 24 Hours (Table) 08/27/21 08/27/21 08/27/21 Range/Units 12:20 12:20 12:20 WBC 17.3 H (3.8-10.6) k/uL Neutrophils # 15.0 H (1.3-7.7) k/uL APTT 20.0 L (22.0-30.0) sec Sodium 131 L (137-145) mmol/L Potassium 5.5 H (3.5-5.1) mmol/L Carbon Dioxide 18 L (22-30) mmol/L BUN 32 H (9-20) mg/dL AST 70 H (17-59) U/L ALT 160 H (4-49) U/L Total Protein 6.2 L (6.3-8.2) g/dL Albumin 3.0 L (3.5-5.0) g/dL Assessment and Plan Assessment: Acute hypoxemic respiratory failure History of pulmonary embolism Paroxysmal Atrial fibrillation with RVR Covid 19 Elevated BNP -Admit to inpatient, telemetry -Pulmonary consult, cardiology consult -Repeat echocardiogram -CT chest with contrast -ABG -Continue home metoprolol, can convert to IV pushes if patient cannot tolerate by mouth -Hold off on dexamethasone for now -Agree with Zosyn -Agree with Lasix Abdominal pain -Zosyn as above -CT abdomen/pelvis Hypertension Hyperlipidemia Hypothyroidism -Home medications reviewed and reconciled Patient is a full code DVT prophylaxis with Apixiban
--- NOTE | 2021-08-27 15:12 | P.CNPUL ---
History of Present Illness Consult date: 08/27/21 Requesting physician: Stacy Martin Reason for consult: dyspnea, hypoxemia Chief complaint: Altered mental status History of present illness: This is a frail cachectic 80-year-old male patient who was recently discharged from here following COVID-19 pneumonia. He also has a history of hypot hyroidism, hypertension,. He was discharged on 08/19/2021 2. [facility] care facility. He was brought back to the emergency room today with altered mental status and hypoxemia. He reported the patient had been alert and oriented 3 with worsening mentation over the past couple of days. He is seen today in consultation in the emergency room. Currently he is obtunded. He had received Ativan. On BiPAP at 8/5 on 40% FiO2. He is also in atrial fibrillation with a rapid ventricular response. Chest x-ray showing patchy bilateral airspace disease stable compared to previous on 08/14/2021. White count 17.3. Hemoglobin 14.9. Lymphocytes 7. Sodium 141 potassium 5.5. Bicarb 18. Creatinine 1.10. AST 70. ALT 160. Troponin 0.0-3. ProBNP 2370. Patrick virus by PCR not detected. He was initiated on Zosyn and azithromycin. He was given IV diuretics. He had been on Eliquis 5 mg twice a day in the outpatient setting. Review of Systems ROS unobtainable: due to mental status Past Medical History Past Medical History: Cancer, Hypertension History of Any Multi-Drug Resistant Organisms: None Reported Past Surgical History: Cholecystectomy, Hernia Repair Past Psychological History: No Psychological Hx Reported Smoking Status: Never smoker Past Alcohol Use History: None Reported Past Drug Use History: None Reported Medications and Allergies Home Medications Medication Instructions Recorded Confirmed Type Levothyroxine Sodium [Synthroid] 50 mcg PO HS 07/25/21 08/27/21 History Simvastatin [Zocor] 40 mg PO HS 07/25/21 08/27/21 History Ascorbic Acid [Vitamin C] 1,000 mg PO DAILY #30 tab 08/12/21 08/27/21 Rx Cholecalciferol [Vitamin D3 (125 125 mcg PO DAILY #30 tablet 08/12/21 08/27/21 Rx Mcg = 5000 Iu)] Apixaban [Eliquis] 5 mg PO BID #0 tab 08/19/21 08/27/21 Rx Metoprolol Tartrate [Lopressor] 50 mg PO TID@0500,1300,2100 08/27/21 08/27/21 History Zinc 50 mg PO HS 08/27/21 08/27/21 History Allergies Allergy/AdvReac Type Severity Reaction Status Date / Time No Known Allergies Allergy Verified 08/27/21 12:56 Physical Exam Vitals: Vital Signs Temp Pulse Resp BP Pulse Ox 08/27/21 14:15 123 H 24 110/64 98 08/27/21 13:03 98 08/27/21 12:07 97.7 F 108 H 28 H 145/125 90 L Intake and Output 08/26/21 08/27/21 08/27/21 22:59 06:59 14:59 Other: Weight 68.039 kg GENERAL EXAM: Obtunded, frail, 80-year-old male patient, on BiPAP 8/5 and 40% FiO2. HEAD: Normocephalic. EYES: Normal reaction of pupils, equal size. NOSE: Clear with pink turbinates. THROAT: No erythema or exudates. NECK: No masses, no JVD. CHEST: No chest wall deformity. LUNGS: Equal air entry with coarse crackles in the posterior bases. CVS: S1 and S2 normal with no audible murmur, regular rhythm. ABDOMEN: Distended. No hepatosplenomegaly, normal bowel sounds. SPINE: No scoliosis or deformity SKIN: No rashes CENTRAL NERVOUS SYSTEM: No focal deficits, tone is normal in all 4 extremities. EXTREMITIES: There is no peripheral edema. No clubbing, no cyanosis. Peripheral pulses are intact. Results - Laboratory Findings CBC and BMP: 08/27/21 12:20 08/27/21 12:20 PT/INR, D-dimer PT 11.3 sec (9.0-12.0) 08/27/21 12:20 INR 1.1 (<1.2) 08/27/21 12:20 Abnormal lab findings: Abnormal Labs 08/27/21 08/27/21 08/27/21 12:20 12:20 12:20 WBC 17.3 H Neutrophils # 15.0 H APTT 20.0 L Sodium 131 L Potassium 5.5 H Carbon Dioxide 18 L BUN 32 H AST 70 H ALT 160 H Total Protein 6.2 L Albumin 3.0 L - Diagnostic Findings Chest x-ray: image reviewed Assessment and Plan Assessment: 1 Acute hypoxemic respiratory failure in a patient with recent COVID-19 pneumonia however recovered and was discharged on 08/19/2021. Current CoVID screen negative. Currently requiring BiPAP support 8/5 on 40% FiO2. Recent echocardiogram revealed preserved left ventricular function. There is leuk ocytosis though afebrile. The patient had a recent urinary tract infection in early July treated with Bactrim. 2 Altered mental status of unclear etiology, initially restless and was given Ativan in the emergency room, currently obtunded 3 Atrial fibrillation with a rapid ventricular response, on Eliquis 4 Subsegmental acute pulmonary embolism and the lingula and left lower lobe from previous COVID-19 admission, currently on Eliquis 5 Hypothyroidism 6 History of hypertension Plan: The patient was seen and evaluated Chest x-ray and labs reviewed Currently on BiPAP 8/5 and 40% FiO2 Currently in atrial fibrillation with RVR Continued on Eliquis Obtain computed tomography scan of the chest Obtain arterial blood gases Initiate Zosyn Received diuretics Recommend computed tomography scan of the brain We will continue to follow and make further recommendations based on his clinical status I, the cosigning physician, performed a history & physical examination of the patient. Lungs sounds crackles in the bilateral bases. Maintaining O2 saturations in the 90s on BiPAP 8/5-40% FiO2 I discussed the assessment and plan of care with my nurse practitioner, Vale Florez. I attest to the above consultation as dictated by her. Time with Patient: Greater than 30
--- NOTE | 2021-08-27 15:46 | CT ---
EXAMINATION TYPE: CT angio chest DATE OF EXAM: 08/27/2021 COMPARISON: 08/05/2021 HISTORY: hypoxia CT DLP: 345.6 mGycm Automated exposure control for dose reduction was used. CONTRAST: Performed with IV Contrast, patient injected with 100 mL of Isovue 300. Images obtained from the thoracic inlet to the diaphragm with IV contrast. There are 3-D post process ed images. There is patchy infiltrate and atelectasis in the posterior lung amin bilaterally. Heart is slightl y enlarged. There is no pericardial effusion. There is small left pleural effusion. There is some con trast reflux into the inferior vena cava. The ascending aorta measures 3.6 cm. There is no aneurysm or dissection. There is normal contrast opacification of the pulmonary arteries. There are no filling defects. There is no mediastinal adenopathy. There are no hilar masses. Thoracic vertebra appear intact. There is no compression fracture. Sternum is intact. IMPRESSION: Patchy pulmonary infiltrates. Small left pleural effusion. Possible congestive heart failure. No evidence of pulmonary embolism.
[2021-08-27] MEDS: SODIUM CHLORIDE 0.9% 1,000 ML IV SCH (15:47)
--- NOTE | 2021-08-27 15:51 | CT ---
EXAMINATION TYPE: CT abdomen pelvis w con DATE OF EXAM: 08/27/2021 COMPARISON: None HISTORY: abdominal pain CT DLP: 864.8 mGycm Automated exposure control for dose reduction was used. CONTRAST: Performed with IV Contrast, patient injected with 100 mL of Isovue 300. Images obtained from the diaphragm to the floor the pelvis with IV contrast. There is small left pleural effusion. There is moderate pulmonary airspace infiltrates in both lower lobes. Heart is slightly enlarged. Liver spleen appear intact. There is no pancreatic mass. Gallbladder appears normal. The bile ducts a re not dilated. Stomach is intact. There is no adrenal mass. Kidneys show satisfactory contrast opacification. There is no hydronephrosi s. There is 4 cm cortical cyst anterior left kidney. There are bilateral smaller renal cortical cysts . There is no hydronephrosis. Delayed images show normal renal excretion. Ureters are not dilated. Th ere is no retroperitoneal adenopathy. Bladder distends smoothly. There is no inguinal hernia. There i s no free fluid in the pelvis. Lumbar vertebra have normal alignment. Posterior elements are intact. Bony pelvis is intact. The hip joints are intact. There are mild spondylotic changes in the lumbar spine. There is no significant co mpression deformity. There is mild osteopenia. There is no mesenteric edema. There is no ascites or free air. There is no bowel obstruction. IMPRESSION: Bilateral lower lobe pneumonia and atelectasis. Small left pleural effusion. Cardiomegaly. Mild ather osclerotic vascular disease. Lumbar spondylotic changes. There is moderate spinal stenosis at L4-5 due to ligament thickening and facet arthropathy.
[2021-08-27] MEDS ORDERED: DILTIAZEM 125 MG in SODIUM CHLORIDE 0.9% 100 ML IV SCH (16:30)
[2021-08-27] MEDS: PIPERACILLIN-TAZOBACTAM 3.375 GM in SODIUM CHLORIDE 0.9% 100 ML IVPB SCH (17:48)
[2021-08-27 18:06] LABS: Glucose,Whole Blood 71 mg/dL (75-99)
--- NOTE | 2021-08-27 19:52 | CT ---
EXAMINATION TYPE: CT brain wo con DATE OF EXAM: 08/27/2021 COMPARISON: 07/25/2021 HISTORY: ams CT DLP: 1142.4 mGycm Automated exposure control for dose reduction was used. There is some cerebral cortical atrophy. There is no mass effect nor midline shift. There is no sign of intracranial hemorrhage. The calvarium is intact. IMPRESSION: Cerebral atrophy. No acute intracranial abnormality. No change.
[2021-08-27] MEDS: APIXABAN 5 MG TAB PO SCH (21:41)
[2021-08-27] MEDS: LEVOTHYROXINE 50 MCG TAB PO SCH (21:41)
[2021-08-27] MEDS: METOPROLOL TARTRATE 50 MG TAB PO SCH (21:41)
[2021-08-27] MEDS: ZINC SULFATE 220 MG CAP PO SCH (21:41)
[2021-08-27] MEDS: ATORVASTATIN 20 MG TAB PO SCH (21:41)
[2021-08-28] MEDS: PIPERACILLIN-TAZOBACTAM 3.375 GM in SODIUM CHLORIDE 0.9% 100 ML IVPB SCH ×4 (02:00→23:42)
[2021-08-28] MEDS: METOPROLOL TARTRATE 50 MG TAB PO SCH ×3 (06:52→20:57)
[2021-08-28 07:44] LABS: Albumin 2.3 g/dL (3.5-5.0); C Reactive Protein 5.7 mg/dL (<1.0); Calcium 7.9 mg/dL (8.4-10.2); Potassium 4.9 mmol/L (3.5-5.1); Total Bilirubin 0.6 mg/dL (0.2-1.3); Total Protein 5.1 g/dL (6.3-8.2)
[2021-08-28 08:01] LABS: HCT 40.2 % (39.0-53.0); HGB 13.5 gm/dL (13.0-17.5); MCH 30.2 pg (25.0-35.0); MCHC 33.6 g/dL (31.0-37.0); MCV 89.9 fL (80.0-100.0); Mean Platelet Volume 8.4; Platelet Count 152 k/uL (150-450); RBC 4.47 m/uL (4.30-5.90); RDW 14.7 % (11.5-15.5); WBC 9.4 k/uL (3.8-10.6)
[2021-08-28] MEDS: CHOLECALCIFEROL 125 MCG (5000 IU) TABLET PO SCH (09:02)
[2021-08-28] MEDS: ASCORBIC ACID 500 MG TAB PO SCH (09:02)
[2021-08-28] MEDS: APIXABAN 5 MG TAB PO SCH ×2 (09:02→20:56)
--- NOTE | 2021-08-28 09:32 | P.PN ---
Subjective Progress Note Date: 08/28/21 Principal diagnosis: shortness of breath 80-year-old male who is recently discharged from our facility after COVID-19 pneumonia, lingular pulmonary embolism, and newly discovered Claudia quarles with prior known hypertension, hypothyroidism, and dyslipidemia who presented to the ER from the [place] [facility] secondary to lethargy. Apparently patient was found to be 60% on room air and EMS was called. In the ER apparently his CT escalated to 15 L nasal cannula. He received Ativan in the ER for unknown reasons. Initial blood pressure was elevated at 145/125 and respiratory rate was elevated at 28. Initial laboratory analysis showed white blood cell count 17.8, sodium 131, potassium 5.5 (hemolyzed), carbon dioxide 18, AST 70, ALT 160. We'll be testing was negative. Chest x-ray demonstrated pneumonia. He then underwent a CT of the chest which showed a left-sided pleural effusion. Effusion appears to be minimal. He was seen by pulmonary. CT abdomen and pelvis showed again bilateral lower lobe pneumonia and atelectasis, mild atherosclerotic disease, and lumbar spondylitic changes. CT head showed no cerebral atrophy. On the morning of 08/28 patient was awake alert and oriented 3. Patient seen and examined at bedside. He is still having some shortness of b reath which is unchanged. He denies any chest pain. He denies any abdominal pain. No nausea or vomiting. He is feeling hungry. He is alert and oriented 3. He does feel as though distal August 26 but this is likely due to his Ativan dose yesterday. General: non toxic, no distress, appears at stated age Derm: warm, dry multiple areas of ecchymosis in various stages of healing Head: atraumatic, normocephalic, symmetric Eyes: EOMI, no lid lag, anicteric sclera Mouth: no lip lesion, mucus membranes moist Cardiovascular: S1S2 reg, no murmur, positive posterior tibial pulse bilateral, Lungs: Course bs bilateral, no rhonchi, no rales , no accessory muscle use Abdominal: soft, nontender to palpation, no guarding, no appreciable organomegaly Ext: no gross muscle atrophy, no edema, no contractures Neuro: CN II-XI grossly intact, no focal neuro deficits Psych: Alert, oriented, appropriate affect Acute on chronic hypoxic respiratory failure History of recent pulmonary embolism Recent COVID-19 pneumonia and negative - Patient is currently 100% on 15 L nonrebreather. We'll attempt to wean. -Cardiology and pulmonary recommendations appreciated -Continue with Zosyn -Received IV Lasix 1 and appears to be fluid optimized - reepat CXR in AM - eliquis Acute encephalopathy, toxic, resolved -Secondary to Ativan and hypoxia A. fib with RVR now rate controlled -Discontinue Cardizem drip, continue with metoprolol -Eliquis -Telemetry -No need for repeat echo at this time, Echo 08/05 EF 55-60% Abdominal pain, resolved Chronic: Hypertension Dyslipidemia Hypothyroidism DVT prophylaxis: SCDs Discussed with: nursing, patient Anticipated discharge date: 08/[address]: SNF A total of 35 minutes was spent on the care of this complex patient more than 50% of the time was spent in counseling and care coordination. Objective - Vital Signs Vital signs: Vital Signs Temp 97.8 F 08/28/21 08:00 Pulse 74 08/28/21 08:00 Resp 18 08/28/21 08:00 BP 84/55 08/28/21 08:00 Pulse Ox 98 08/28/21 08:00 Intake & Output 08/27/21 08/28/21 08/28/21 18:59 06:59 18:59 Output Total 50 Balance -50 Weight 68.039 kg Output: Urine 50 - Labs CBC & Chem 7: 08/28/21 06:33 08/28/21 06:33 Labs: Abnormal Lab Results - Last 24 Hours (Table) 08/27/21 08/27/21 08/27/21 Range/Units 12:20 12:20 12:20 WBC 17.3 H (3.8-10.6) k/uL Neutrophils # 15.0 H (1.3-7.7) k/uL APTT 20.0 L (22.0-30.0) sec Sodium 131 L (137-145) mmol/L Potassium 5.5 H (3.5-5.1) mmol/L Carbon Dioxide 18 L (22-30) mmol/L BUN 32 H (9-20) mg/dL Glucose (74-99) mg/dL POC Glucose (mg/dL) (75-99) mg/dL Calcium (8.4-10.2) mg/dL AST 70 H (17-59) U/L ALT 160 H (4-49) U/L Lactate Dehydrogenase (313-618) U/L C-Reactive Protein (<1.0) mg/dL Total Protein 6.2 L (6.3-8.2) g/dL Albumin 3.0 L (3.5-5.0) g/dL 08/27/21 08/28/21 Range/Units 18:04 06:33 WBC (3.8-10.6) k/uL Neutrophils # (1.3-7.7) k/uL APTT (22.0-30.0) sec Sodium 133 L (137-145) mmol/L Potassium (3.5-5.1) mmol/L Carbon Dioxide 20 L (22-30) mmol/L BUN 32 H (9-20) mg/dL Glucose 58 L (74-99) mg/dL POC Glucose (mg/dL) 71 L (75-99) mg/dL Calcium 7.9 L (8.4-10.2) mg/dL AST (17-59) U/L ALT 106 H (4-49) U/L Lactate Dehydrogenase 1030 H (313-618) U/L C-Reactive Protein 5.7 H (<1.0) mg/dL Total Protein 5.1 L (6.3-8.2) g/dL Albumin 2.3 L (3.5-5.0) g/dL
--- NOTE | 2021-08-28 10:44 | P.CRDCN ---
History of Present Illness Consult date: 08/28/21 History of present illness: This is a 80-year-old gentleman with history of recent covid pneumonia, lingular pulmonary embolism and also newly detected atrial fibrillation who was discharged home to a nursing facility. He is readmitted to the emergency room with complaints of altered mental status and hypoxia. A chest x-ray and computed tomography scan consistent with pneumonia. On arrival patient was found to be in atrial fibrillation with rapid and corresponds. He was started on IV Cardizem. Subsequently his heart rate has come down and has been maintained in the 80s and 90s. According to nurses patient to is back in sinus rhythm. There going to get an EKG done. Patient is adequately anticoagulated. His previous echocardiogram showed normal LV function without any significant valvular abnormalities. At this point there doesn't seem to be in acute cardiac issue except atrial fibrillation which is controlled. He is being managed by pulmonology also. Most of the information is gathered from the chart and nurse's note and consultation notes. Patient is not personally examined. We'll continue beta amara as prescribed along with anticoagulation. We'll be seeing him as needed Review of Systems As per the chart Past Medical History Past Medical History: Cancer, Hypertension History of Any Multi-Drug Resistant Organisms: None Reported Past Surgical History: Cholecystectomy, Hernia Repair Past Psychological History: No Psychological Hx Reported Smoking Status: Never smoker Past Alcohol Use History: None Reported Past Drug Use History: None Reported Medications and Allergies Home Medications Medication Instructions Recorded Confirmed Type Levothyroxine Sodium [Synthroid] 50 mcg PO HS 07/25/21 08/27/21 History Simvastatin [Zocor] 40 mg PO HS 07/25/21 08/27/21 History Ascorbic Acid [Vitamin C] 1,000 mg PO DAILY #30 tab 08/12/21 08/27/21 Rx Cholecalciferol [Vitamin D3 (125 125 mcg PO DAILY #30 tablet 08/12/21 08/27/21 Rx Mcg = 5000 Iu)] Apixaban [Eliquis] 5 mg PO BID #0 tab 08/19/21 08/27/21 Rx Metoprolol Tartrate [Lopressor] 50 mg PO TID@0500,1300,2100 08/27/21 08/27/21 History Zinc 50 mg PO HS 08/27/21 08/27/21 History Allergies Allergy/AdvReac Type Severity Reaction Status Date / Time No Known Allergies Allergy Verified 08/27/21 12:56 Physical Exam Vitals: Vital Signs Temp Pulse Pulse Resp BP BP Pulse Ox 08/28/21 08:00 97.8 F 74 18 84/55 98 08/28/21 01:31 77 18 105/65 100 08/28/21 01:10 98.0 F 77 19 105/65 100 08/28/21 00:00 98.1 F 82 19 102/65 100 08/27/21 21:37 98.6 F 97 18 112/76 100 08/27/21 20:47 83 18 112/76 100 08/27/21 19:37 98.3 F 93 20 106/68 100 08/27/21 18:30 85 100 08/27/21 18:00 130 H 100 08/27/21 17:30 92 94/65 100 08/27/21 17:00 98 20 91/62 100 08/27/21 16:30 114 H 20 95/63 100 08/27/21 16:18 99 20 92/57 100 08/27/21 16:00 105 H 20 114/76 100 08/27/21 15:51 108 H 20 114/76 100 08/27/21 15:30 95 20 100/45 100 08/27/21 15:28 111 H 20 100/45 98 08/27/21 15:00 122 H 20 112/70 100 08/27/21 14:15 123 H 24 110/64 98 08/27/21 13:03 98 08/27/21 12:07 97.7 F 108 H 28 H 145/125 90 L Intake and Output 08/27/21 08/28/21 08/28/21 22:59 06:59 14:59 Output Total 50 Balance -50 Output: Urine 50 This patient is not personally examined. Most of the information is gathered from the chart. According nurses. Patient is relatively stable. Mental status is improved Results 08/28/21 06:33 08/28/21 06:33 Cardiac Enzymes 08/27/21 08/27/21 08/28/21 Range/Units 12:20 12:20 06:33 AST 70 H 38 (17-59) U/L Lactate Dehydrogenase 1030 H (313-618) U/L Troponin I 0.023 (0.000-0.034) ng/mL Coagulation 08/27/21 Range/Units 12:20 PT 11.3 (9.0-12.0) sec APTT 20.0 L (22.0-30.0) sec CBC 08/27/21 08/28/21 Range/Units 12:20 06:33 WBC 17.3 H 9.4 (3.8-10.6) k/uL RBC 4.96 4.47 (4.30-5.90) m/uL Hgb 14.9 13.5 (13.0-17.5) gm/dL Hct 44.5 40.2 (39.0-53.0) % Plt Count 235 152 (150-450) k/uL Comprehensive Metabolic Panel 08/27/21 08/28/21 Range/Units 12: 06:33 Sodium 131 L 133 L (137-145) mmol/L Potassium 5.5 H 4.9 (3.5-5.1) mmol/L Chloride 102 103 (98-107) mmol/L Carbon Dioxide 18 L 20 L (22-30) mmol/L BUN 32 H 32 H (9-20) mg/dL Creatinine 1.10 1.06 (0.66-1.25) mg/dL Glucose 85 58 L (74-99) mg/dL Calcium 8.6 7.9 L (8.4-10.2) mg/dL AST 70 H 38 (17-59) U/L ALT 160 H 106 H (4-49) U/L Alkaline Phosphatase 125 94 (38-126) U/L Total Protein 6.2 L 5.1 L (6.3-8.2) g/dL Albumin 3.0 L 2.3 L (3.5-5.0) g/dL Current Medications Generic Name Dose Route Start Last Admin Trade Name Freq PRN Reason Stop Dose Admin Acetaminophen 650 mg 08/27/21 14:07 Acetaminophen Tab 325 Mg Tab PO Q6HR PRN Mild Pain or Fever > 100.5 Apixaban 5 mg 08/27/21 21:00 08/28/21 09:02 Apixaban 5 Mg Tab PO 5 mg BID SOLEDAD Administration Protocol Ascorbic Acid 1,000 mg 08/28/21 09:00 08/28/21 09:02 Ascorbic Acid 500 Mg Tab PO 1,000 mg DAILY SOLEDAD Administration Atorvastatin Calcium 20 mg 08/27/21 21:00 08/27/21 21:41 Atorvastatin 20 Mg Tab PO Not Given HS SOLEDAD Cholecalciferol 125 mcg 08/28/21 09:00 08/28/21 09:02 Cholecalciferol 125 Mcg (5000 Iu) Tablet PO 125 mcg DAILY SOLEDAD Administration Sodium Chloride 1,000 mls @ 20 mls/hr 08/27/21 14:15 08/27/21 15:47 Saline 0.9% IV 20 mls/hr .Q24H SOLEDAD Administration Piperacillin Sod/Tazobactam 100 mls @ 25 mls/hr 08/27/21 16:00 08/28/21 09:01 Sod 3.375 gm/ Sodium Chloride IVPB 25 mls/hr Q8HR SOLEDAD Administration Iopamidol 30 ml 08/27/21 14:39 Iopamidol Contrast (Oral Use) Vial PO 08/28/21 14:[address] Scan Levothyroxine Sodium 50 mcg 08/27/21 21:00 08/27/21 21:41 Levothyroxine 50 Mcg Tab PO Not Given HS SOLEDAD Metoprolol Tartrate 50 mg 08/27/21 21:00 08/28/21 06:52 Metoprolol Tartrate 50 Mg Tab PO 50 mg TID@0500,1300,2100 SOLEDAD Administration Miscellaneous Information 1 each 08/27/21 14:36 Rx Info: Iv Contrast Was Given 1 Each Misc MISCELLANE 08/29/21 14:38 DAILY PRN Per Protocol Naloxone HCl 0.2 mg 08/27/21 14:07 Naloxone 0.4 Mg/Ml 1 Ml Vial IV Q2M PRN Opioid Reversal Zinc Sulfate 220 mg 08/27/21 21:00 08/27/21 21:41 Zinc Sulfate 220 Mg Cap PO Not Given HS SOLEDAD Intake and Output 08/27/21 08/28/21 08/28/21 22:59 06:59 14:59 Output Total 50 Balance -50 Output: Urine 50 08/28/21 06:33 08/28/21 06:33 EKG Interpretations (text) Initial EKG showed atrial fibrillation with RVR Assessment and Plan (1) Atrial fibrillation with RVR Current Visit: Yes Status: Acute Code(s): I48.91 - UNSPECIFIED ATRIAL FIBRILLATION SNOMED Code(s): 634139591323783 (2) Acute respiratory failure with hypoxia Current Visit: Yes Status: Acute Code(s): J96.01 - ACUTE RESPIRATORY FAILURE WITH HYPOXIA SNOMED Code(s): 91721980 (3) COVID-19 Current Visit: No Status: Acute Code(s): U07.1 - COVID-19 SNOMED Code(s): 912887020 Plan: Continue the beta amara and anticoagulation. Continue treatment for his pneumonia and respiratory failure. We'll follow as needed
--- NOTE | 2021-08-28 11:18 | P.PN ---
Subjective Progress Note Date: 08/28/21 Principal diagnosis: Altered mental status This is a frail cachectic 80-year-old male patient who was recently discharged from here following COVID-19 pneumonia. He also has a history of hypothyroidism, hypertension,. He was discharged on 08/19/2021 2. Extended care facility. He was brought back to the emergency room today with altered mental status and hypoxemia. He reported the patient had been alert and oriented 3 with worsening mentation over the past couple of days. He is seen today in consultation in the emergency room. Currently he is obtunded. He had received Ativan. On BiPAP at 8/5 on 40% FiO2. He is also in atrial fibrillation with a rapid ventricular response. Chest x-ray showing patchy bilateral airspace disease stable compared to previous on 08/14/2021. White count 17.3. Hemoglobin 14.9. Lymphocytes 7. Sodium 141 potassium 5.5. Bicarb 18. Creatinine 1.10. AST 70. ALT 160. Troponin 0.0-3. ProBNP 2370. Patrick virus by PCR not detected. He was initiated on Zosyn and azithromycin. He was given IV diuretics. He had been on Eliquis 5 mg twice a day in the outpatient setting. The patient is seen today 08/28/2021 in follow-up on the selective care unit. He is a bit more awake and alert today compared to yesterday. Computed candy ography scan of the brain revealed cerebral atrophy but no acute intracranial abnormalities. He is currently off the BiPAP and on 100% nonrebreather mask with O2 saturations in the 90s. Once off the mask his O2 saturation does drop in the low 80s. CT angiogram yesterday revealed no evidence of pulmonary embolism. There is some patchy pulmonary infiltrates. Small left pleural effusion. Suspected congestive heart failure. Echocardiogram is pending. white count 9.4. Hemoglobin 13.5. Sodium 133. Potassium 4.9. Creatinine 1.06. LDH 1030. C- reactive protein 5.7. Patrick virus by PCR was not detected. He is anticoagulated with Eliquis. Continued on Zosyn. Received IV diuretics yesterday. Objective - Vital Signs Vital signs: Vital Signs Temp 97.8 F 08/28/21 08:00 Pulse 74 08/28/21 08:00 Resp 18 08/28/21 08:00 BP 84/55 08/28/21 08:00 Pulse Ox 98 08/28/21 08:00 Intake & Output 08/27/21 08/28/21 08/28/21 18:59 06:59 18:59 Output Total 50 Balance -50 Weight 68.039 kg Output: Urine 50 - Exam GENERAL EXAM: Alert, frail, 80-year-old male patient, on 100% nonrebreather mask. HEAD: Normocephalic. EYES: Normal reaction of pupils, equal size. NOSE: Clear with pink turbinates. THROAT: No erythema or exudates. NECK: No masses, no JVD. CHEST: No chest wall deformity. LUNGS: Equal air entry with coarse crackles in the posterior bases. CVS: S1 and S2 normal with no audible murmur, regular rhythm. ABDOMEN: Distended. No hepatosplenomegaly, normal bowel sounds. SPINE: No scoliosis or deformity SKIN: No rashes CENTRAL NERVOUS SYSTEM: No focal deficits, tone is normal in all 4 extremities. EXTREMITIES: There is no peripheral edema. No clubbing, no cyanosis. Peripheral pulses are intact. - Labs CBC & Chem 7: 08/28/21 06:33 08/28/21 06:33 Labs: Abnormal Lab Results - Last 24 Hours (Table) 08/27/21 08/27/21 08/27/21 Range/Units 12:20 12:20 12:20 WBC 17.3 H (3.8-10.6) k/uL Neutrophils # 15.0 H (1.3-7.7) k/uL APTT 20.0 L (22.0-30.0) sec Sodium 131 L (137-145) mmol/L Potassium 5.5 H (3.5-5.1) mmol/L Carbon Dioxide 18 L (22-30) mmol/L BUN 32 H (9-20) mg/dL Glucose (74-99) mg/dL POC Glucose (mg/dL) (75-99) mg/dL Calcium (8.4-10.2) mg/dL AST 70 H (17-59) U/L ALT 160 H (4-49) U/L Lactate Dehydrogenase (313-618) U/L C-Reactive Protein (<1.0) mg/dL Total Protein 6.2 L (6.3-8.2) g/dL Albumin 3.0 L (3.5-5.0) g/dL 08/27/21 08/28/21 Range/Units 18:04 06:33 WBC (3.8-10.6) k/uL Neutrophils # (1.3-7.7) k/uL APTT (22.0-30.0) sec Sodium 133 L (137-145) mmol/L Potassium (3.5-5.1) mmol/L Carbon Dioxide 20 L (22-30) mmol/L BUN 32 H (9-20) mg/dL Glucose 58 L (74-99) mg/dL POC Glucose (mg/dL) 71 L (75-99) mg/dL Calcium 7.9 L (8.4-10.2) mg/dL AST (17-59) U/L ALT 106 H (4-49) U/L Lactate Dehydrogenase 1030 H (313-618) U/L C-Reactive Protein 5.7 H (<1.0) mg/dL Total Protein 5.1 L (6.3-8.2) g/dL Albumin 2.3 L (3.5-5.0) g/dL Assessment and Plan Assessment: 1 Acute hypoxemic respiratory failure in a patient with recent COVID-19 pneumonia however recovered and was discharged on 08/19/2021. Current CoVID screen negative. Currently requiring BiPAP support 04/08 on 40% FiO2. Recent echocardiogram revealed preserved left ventricular function. There is leukocytosis though afebrile. The patient had a recent urinary tract infection in early July treated with Bactrim. CT angiogram ruled out pulmonary embolism. There was evidence of bilateral infiltrates. Suspected CHF. Repeat echocardiogram pending. 2 Altered mental status of unclear etiology, initially restless and was given Ativan in the emergency room, currently awake and alert. Computed tomography scan of the brain 08/27/2021 did not reveal any acute intracranial process. 3 Atrial fibrillation with a rapid ventricular response, on Eliquis 4 Subsegmental acute pulmonary embolism and the lingula and left lower lobe from previous COVID-19 admission, currently on Eliquis. CT angiogram performed on 08/27/2021 did not reveal any evidence of pulmonary embolism. 5 Hypothyroidism 6 History of hypertension Plan: The patient was seen and evaluated CT angiogram and labs reviewed No evidence of pulmonary embolism Computed tomography scan of the brain with no acute intracranial process Currently on nonrebreather mask at 100% FiO2 Continued on Eliquis Continue Zosyn Received diuretics We will continue to follow I, the cosigning physician, performed a history & physical examination of the patient. Lungs sounds crackles in the bilateral bases. Maintaining O2 saturations in the 90s on 100% nonrebreather mask. I discussed the assessment and plan of care with my nurse practitioner, Vale Florez. I attest to the above note as dictated by her.
[2021-08-28] MEDS: SODIUM CHLORIDE 0.9% 1,000 ML IV SCH (11:43)
[2021-08-28] MEDS: ATORVASTATIN 20 MG TAB PO SCH (20:56)
[2021-08-28] MEDS: LEVOTHYROXINE 50 MCG TAB PO SCH (20:56)
[2021-08-28] MEDS: ZINC SULFATE 220 MG CAP PO SCH (20:56)
[2021-08-29] MEDS: METOPROLOL TARTRATE 50 MG TAB PO SCH ×3 (05:28→20:57)
[2021-08-29 08:25] LABS: HCT 39.1 % (39.0-53.0); HGB 12.9 gm/dL (13.0-17.5); MCH 30.5 pg (25.0-35.0); MCHC 33.1 g/dL (31.0-37.0); Mean Platelet Volume 7.8; Platelet Count 173 k/uL (150-450); RBC 4.25 m/uL (4.30-5.90); RDW 14.6 % (11.5-15.5); WBC 8.8 k/uL (3.8-10.6)
[2021-08-29 08:37] LABS: Calcium 7.9 mg/dL (8.4-10.2); Magnesium 2.2 mg/dL (1.6-2.3); Potassium 4.1 mmol/L (3.5-5.1)
[2021-08-29] MEDS: PIPERACILLIN-TAZOBACTAM 3.375 GM in SODIUM CHLORIDE 0.9% 100 ML IVPB SCH ×2 (10:20→15:28)
[2021-08-29] MEDS: CHOLECALCIFEROL 125 MCG (5000 IU) TABLET PO SCH (10:20)
[2021-08-29] MEDS: APIXABAN 5 MG TAB PO SCH ×2 (10:20→20:57)
[2021-08-29] MEDS: ASCORBIC ACID 500 MG TAB PO SCH (10:21)
--- NOTE | 2021-08-29 10:34 | P.PN ---
Subjective Progress Note Date: 08/29/21 This is a 80-year-old gentleman with history of colon pneumonia was again admitted to the hospital with the shortness of breath. We saw him because of atrial fibrillation. Patient is currently on metoprolol 50 mg by mouth along with apixaban 5 mg by mouth twice a day. Patient blood pressure is low in the range of 96/62. Patient continues to be short of breath. His echocardiogram from previous admission showed normal LV function. His proBNP is an minimally elevated for his age. I think his symptoms are mostly pneumonia related and pulmonary. I'll continue current medical therapy. Follow the recommendation of practice managers Objective - Vital Signs Vital signs: Vital Signs Temp 98.1 F 08/29/21 10:23 Pulse 105 H 08/29/21 10:23 Resp 19 08/29/21 10:23 BP 96/62 08/29/21 10:23 Pulse Ox 92 L 08/29/21 10:23 Intake & Output 08/28/21 08/29/21 08/29/21 18:59 06:59 18:59 Intake Total 240 100 Output Total 400 Balance 240 -300 Intake: Intake, IV Titration 100 Amount Piperacillin-Tazobactam 3 100 .375 gm In Sodium Chloride 0.9% 100 ml @ 25 mls/hr IVPB Q8HR [facility] Rx# :[id number] Oral 240 Output: Urine 400 Other: # Voids 1 # Bowel Movements 1 - Exam This patient has not personally examined. Information is gathered from the chart - Labs CBC & Chem 7: 08/29/21 07:58 08/29/21 07:58 Labs: Abnormal Lab Results - Last 24 Hours (Table) 08/28/21 08/29/21 08/29/21 Range/Units 06:33 07:58 07:58 RBC 4.25 L (4.30-5.90) m/uL Hgb 12.9 L (13.0-17.5) gm/dL Sodium 134 L (137-145) mmol/L BUN 28 H (9-20) mg/dL Calcium 7.9 L (8.4-10.2) mg/dL Procalcitonin 0.40 H (0.02-0.09) ng/mL Microbiology - Last 24 Hours (Table) 08/27/21 15:39 Blood Culture - Preliminary Blood No Growth after 24 hours Assessment and Plan (1) Atrial fibrillation with RVR Current Visit: Yes Status: Acute Code(s): I48.91 - UNSPECIFIED ATRIAL FIBRILLATION SNOMED Code(s): 306187469224647 (2) Acute respiratory failure with hypoxia Current Visit: Yes Status: Acute Code(s): J96.01 - ACUTE RESPIRATORY FAILURE WITH HYPOXIA SNOMED Code(s): 42239133 (3) COVID-19 Current Visit: No Status: Acute Code(s): U07.1 - COVID-19 SNOMED Code(s): 469909721 Plan: Continue current treatment with beta blockers and anticoagulation for rate fibrillation. Continue the rest of the management. We'll follow
[2021-08-29] MEDS: SODIUM CHLORIDE 0.9% 1,000 ML IV SCH (13:16)
--- NOTE | 2021-08-29 15:19 | P.PN ---
Subjective Progress Note Date: 08/29/21 Principal diagnosis: This is a frail cachectic 80-year-old male patient who was recently discharged from here following COVID-19 pneumonia. He also has a history of hypothyroidism, hypertension,. He was discharged on 08/19/2021 2. Extended care facility. He was brought back to the emergency room today with altered mental status and hypoxemia. He reported the patient had been alert and oriented 3 with worsening mentation over the past couple of days. He is seen today in consultation in the emergency room. Currently he is obtunded. He had received Ativan. On BiPAP at 8/5 on 40% FiO2. He is also in atrial fibrillation with a rapid ventricular response. Chest x-ray showing patchy bilateral airspace disease stable compared to previous on 08/14/2021. White count 17.3. Hemoglobin 14.9. Lymphocytes 7. Sodium 141 potassium 5.5. Bicarb 18. Creatinine 1.10. AST 70. ALT 160. Troponin 0.0-3. ProBNP 2370. Patrick virus by PCR not detected. He was initiated on Zosyn and azithromycin. He was given IV diuretics. He had been on Eliquis 5 mg twice a day in the outpatient setting. The patient is seen today 08/28/2021 in follow-up on the selective care unit. He is a bit more awake and alert today compared to yesterday. Computed tomography scan of the brain revealed cerebral atrophy but no acute intracranial abnormalities. He is currently off the BiPAP and on 100% nonrebreather mask with O2 saturations in the 90s. Once off the mask his O2 saturation does drop in the low 80s. CT angiogram yesterday revealed no evidence of pulmonary embolism. There is some patchy pulmonary infiltrates. Small left pleural effusion. Suspected congestive heart failure. Echocardiogram is pending. white count 9.4. Hemoglobin 13.5. Sodium 133. Potassium 4.9. Creatinine 1.06. LDH 1030. C- reactive protein 5.7. Patrick virus by PCR was not detected. He is anticoa gulated with Eliquis. Continued on Zosyn. Received IV diuretics yesterday. On 08/29/2021 patient seen in follow-up on selective care unit, he sitting up in a recliner breathing comfortably, currently on 4 L of oxygen pulse ox 92-95%. No worsening dyspnea or cough, he is awake and alert, oriented 3. His been afebrile, vital signs have been stable, his brain CT on admission showed no acute intracranial abnormality. CT angiogram of the chest showed patchy pulmonary infiltrates, small left pleural effusion. Possibility of CHF. No evidence of pulmonary embolism. Today's labs have been reviewed, his white blood cell count continues to improve and is down to 8.8 on today's labs, hemoglobin is 12.9, sodium is 134, the respiratory tract lites were within normal limits, B1 is 28 and creatinine is 1.07, his LDH was 1030, CRP was 5.7, and his proBNP was improving down to 1920. Patient continues on Eliquis for atrial fibrillation and the rate is in the low 100s. Patient is receiving Lopr essor 50 mg twice daily for rate control. He has no specific complaints. Clinically he looks very comfortable, breathing has improved. Objective - Vital Signs Vital signs: Vital Signs Temp 98.1 F 08/29/21 13:19 Pulse 101 H 08/29/21 13:19 Resp 17 08/29/21 13:19 BP 99/68 08/29/21 13:19 Pulse Ox 92 L 08/29/21 13:19 Intake & Output 08/28/21 08/29/21 08/29/21 18:59 06:59 18:59 Intake Total 240 100 360 Output Total 400 200 Balance 240 -300 160 Intake: Intake, IV Titration 100 Amount Piperacillin-Tazobactam 3 100 .375 gm In Sodium Chloride 0.9% 100 ml @ 25 mls/hr IVPB Q8HR [facility] Rx# :[id number] Oral 240 360 Output: Urine 400 200 Other: Voiding Method Urinal Diaper Incontinent # Voids 1 1 # Bowel Movements 1 1 - Exam GENERAL EXAM: Alert, pleasant, 80-year-old frail-looking white male, sitting up in a recliner, currently on 5 L of oxygen pulse ox 92% comfortable in no apparent distress. HEAD: Normocephalic/atraumatic. EYES: Normal reaction of pupils, equal size. Conjunctiva pink, sclera white. NOSE: Clear with pink turbinates. THROAT: No erythema or exudates. NECK: No masses, no JVD, no thyroid enlargement, no adenopathy. CHEST: No chest wall deformity. Symmetrical expansion. LUNGS: Equal air entry with diffuse crackles CVS: Regular rate and rhythm, normal S1 and S2, no gallops, no murmurs, no rubs ABDOMEN: Soft, nontender. No hepatosplenomegaly, normal bowel sounds, no guarding or rigidity. EXTREMITIES: No clubbing, no edema, no cyanosis, 2+ pulses and upper and lower extremities. MUSCULOSKELETAL: Muscle strength and tone normal. SPINE: No scoliosis or deformity SKIN: No rashes CENTRAL NERVOUS SYSTEM: Alert and oriented -3. No focal deficits, tone is normal in all 4 extremities. PSYCHIATRIC: Alert and oriented -3. Appropriate affect. Intact judgment and insight. - Labs CBC & Chem 7: 08/29/21 07:58 08/29/21 07:58 Labs: Abnormal Lab Results - Last 24 Hours (Table) 08/29/21 08/29/21 Range/Units 07:58 07:58 RBC 4.25 L (4.30-5.90) m/uL Hgb 12.9 L (13.0-17.5) gm/dL Sodium 134 L (137-145) mmol/L BUN 28 H (9-20) mg/dL Calcium 7.9 L (8.4-10.2) mg/dL Microbiology - Last 24 Hours (Table) 08/27/21 15:39 Blood Culture - Preliminary Blood No Growth after 24 hours Assessment and Plan Plan: Assessment: #1. Acute hypoxic respiratory failure related to recent history of COVID-19 related pneumonia. Patient was discharged home on 08/19/2021. Currently COVID- 19 negative. Conjunctivae factors could be related to acute A. fib with RVR, and a urinary tract infection. CT angiogram was negative for PE. There was evidence of bilateral infiltrates. During last admission patient received monoclonal antibodies, Remdesivir and Baricitinib. [facility] #2. New onset A. fib with RVR, patient is on beta blockers in the form of Lopressor 50 mg 3 times a day and Eliquis #3. Possibility of bacterial superinfection, covered with Zosyn, currently improving #4. Recent urinary tract infection, urine culture positive for Klebsiella oxytoca and proteus mirabilis #5. History of hypertension #6. Hypothyroidism #7. Nonsmoker #8. Subsegmental acute pulmonary embolism in the lingula and left lower lobe from previous COVID-19 admission currently on Eliquis. CT angiogram completed during this admission on 08/27/2021 did not reveal any evidence of pulmonary embolism Plan: Continue antibiotics Continue oral anticoagulation Clinically patient is improving Breathing comfortably Patient is on 5 L of oxygen Maintaining stable O2 saturations Patient can be considered for discharge back to the [facility] in the next 24 hours I performed a history & physical examination of the patient and discussed their management with my nurse practitioner, Lucy Acosta. I reviewed the nurse practitioner's note and agree with the documented findings and plan of care. Lung sounds are positive for diffuse crackles throughout the lung amin. The findings and the impression was discussed with the patient. I attest to the documentation by the nurse practitioner. Time with Patient: Less than 30
--- NOTE | 2021-08-29 15:35 | P.PN ---
Subjective Progress Note Date: 08/29/21 (delayed charting seen at 1215) Principal diagnosis: shortness of breath 80-year-old male who is recently discharged from our facility after COVID-19 pneumonia, lingular pulmonary embolism, and newly discovered A. fib with prior known hypertension, hypothyroidism, and dyslipidemia who presented to the ER from the shelter secondary to lethargy. Apparently patient was found to be 60% on room air and EMS was called. In the ER apparently his CT escalated to 15 L nasal cannula. He received Ativan in the ER for unknown reasons. Initial blood pressure was elevated and respiratory rate was elevated at 28. Initial laboratory analysis showed white blood cell count 17.8, sodium 131, potassium 5.5 (hemolyzed), carbon dioxide 18, AST 70, ALT 160. We'll be testing was negative. Chest x-ray demonstrated pneumonia. He then underwent a CT of the chest which showed a left-sided pleural effusion. Effusion appears to be minimal. He was seen by pulmonary. CT abdomen and pelvis showed again bilateral lower lobe pneumonia and atelectasis, mild atherosclerotic disease, and lumbar spondylitic changes. CT head showed no cerebral atrophy. On the morning of 08/28 patient was awake alert and oriented 3. Consult that was mildly elevated at 0.0 for bolus was checked for 24 hours from antibiotics being started. Patient seen and examined at bedside. He reports feeling well. His breathing is better than it has been. He denies any nausea or vomiting. He is still very weak and wants to get back to rehab so he can continue to get stronger. General: non toxic, no distress, appears at stated age Derm: warm, dry multiple areas of ecchymosis in various stages of healing Head: atraumatic, normocephalic, symmetric Eyes: EOMI, no lid lag, anicteric sclera Mouth: no lip lesion, mucus membranes moist Cardiovascular: S1S2 reg, no murmur, positive posterior tibial pulse bilateral, Lungs: Course bs bilateral, no rhonchi, no rales , no accessory muscle use Abdominal: soft, nontender to palpation, no guarding, no appreciable organomegaly Ext: no gross muscle atrophy, no edema, no contractures Neuro: CN II-XI grossly intact, no focal neuro deficits Psych: Alert, oriented, appropriate affect Acute on chronic hypoxic respiratory failure History of recent pulmonary embolism Recent COVID-19 pneumonia and negative - Patient is down to 5L NC - Cardiology and pulmonary recommendations appreciated - Zosyn changed to augmentin - Received IV Lasix 1 and appears to be fluid optimized - repeat CXR pending - eliquis Acute encephalopathy, toxic, resolved -Secondary to Ativan and hypoxia A. fib with RVR now rate controlled -Metoprolol HR in 90a- low 100s -Eliquis -Telemetry -No need for repeat echo at this time, Echo 08/05 EF 55-60% Abdominal pain, resolved Chronic: Hypertension Dyslipidemia Hypothyroidism DVT prophylaxis: SCDs Discussed with: nursing, patient Anticipated discharge date: 08/[address]: [facility] A total of 35 minutes was spent on the care of this complex patient more than 50% of the time was spent in counseling and care coordination. Objective - Vital Signs Vital signs: Vital Signs Temp 98.1 F 08/29/21 13:19 Pulse 101 H 08/29/21 13:19 Resp 17 08/29/21 13:19 BP 99/68 08/29/21 13:19 Pulse Ox 92 L 08/29/21 13:19 Intake & Output 08/28/21 08/29/21 08/29/21 18:59 06:59 18:59 Intake Total 240 100 360 Output Total 400 200 Balance 240 -300 160 Intake: Intake, IV Titration 100 Amount Piperacillin-Tazobactam 3 100 .375 gm In Sodium Chloride 0.9% 100 ml @ 25 mls/hr IVPB Q8HR [facility] Rx# :[id number] Oral 240 360 Output: Urine 400 200 Other: Voiding Method Urinal Diaper Incontinent # Voids 1 1 # Bowel Movements 1 1 - Labs CBC & Chem 7: 08/29/21 07:58 08/29/21 07:58 Labs: Abnormal Lab Results - Last 24 Hours (Table) 08/29/21 08/29/21 Range/Units 07:58 07:58 RBC 4.25 L (4.30-5.90) m/uL Hgb 12.9 L (13.0-17.5) gm/dL Sodium 134 L (137-145) mmol/L BUN 28 H (9-20) mg/dL Calcium 7.9 L (8.4-10.2) mg/dL Microbiology - Last 24 Hours (Table) 08/27/21 15:39 Blood Culture - Preliminary Blood No Growth after 24 hours
--- NOTE | 2021-08-29 17:30 | XR ---
EXAMINATION TYPE: XR chest 1V portable DATE OF EXAM: 08/29/2021 COMPARISON: CT chest 08/27/2021, chest radiograph 08/27/2021 HISTORY: Pneumonia, shortness of breath TECHNIQUE: Single frontal view of the chest is obtained. FINDINGS: Cardiac mediastinal silhouette appears unchanged. Redemonstration of patchy multifocal airspace opaci ties most pronounced in the left lung base. Trace left-sided pleural effusion. No pneumothorax. Visua lized osseous structures appear intact. IMPRESSION: Redemonstration of patchy multifocal airspace opacities most pronounced in the left lung base and tra ce left pleural effusion.
[2021-08-29] MEDS: ATORVASTATIN 20 MG TAB PO SCH (20:57)
[2021-08-29] MEDS: AMOXIC-POT CLAV 875-125MG 1 EACH TAB PO SCH (20:57)
[2021-08-29] MEDS: LEVOTHYROXINE 50 MCG TAB PO SCH (20:57)
[2021-08-30] MEDS: METOPROLOL TARTRATE 50 MG TAB PO SCH ×3 (05:47→20:41)
[2021-08-30 08:26] LABS: HCT 38.7 % (39.0-53.0); HGB 12.7 gm/dL (13.0-17.5); MCH 30.2 pg (25.0-35.0); MCHC 32.7 g/dL (31.0-37.0); MCV 92.3 fL (80.0-100.0); Mean Platelet Volume 7.7; Platelet Count 170 k/uL (150-450); RBC 4.19 m/uL (4.30-5.90); RDW 14.7 % (11.5-15.5); WBC 8.7 k/uL (3.8-10.6)
[2021-08-30 08:43] LABS: African American GFR (CKD) >90 (>60 ml/min/1.73 sqM); Anion Gap 4 mmol/L; Blood Urea Nitrogen 22 mg/dL (9-20); Calcium 7.8 mg/dL (8.4-10.2); Carbon Dioxide 24 mmol/L (22-30); Chloride 105 mmol/L (98-107); Glucose 76 mg/dL (74-99); Magnesium 2.1 mg/dL (1.6-2.3); Non-African American GFR(CKD) 80 (>60 ml/min/1.73 sqM); Sodium 133 mmol/L (137-145)
[2021-08-30] MEDS: APIXABAN 5 MG TAB PO SCH ×2 (09:34→20:41)
[2021-08-30] MEDS: CHOLECALCIFEROL 125 MCG (5000 IU) TABLET PO SCH (09:34)
[2021-08-30] MEDS: AMOXIC-POT CLAV 875-125MG 1 EACH TAB PO SCH ×2 (09:34→20:41)
--- NOTE | 2021-08-30 09:55 | P.PN ---
Subjective Progress Note Date: 08/30/21 Principal diagnosis: Acute hypoxic respiratory failure The patient is an 80-year-old gentleman was admitted to the hospital with acute hypoxic respiratory failure. Consulted to see the patient for atrial fibrillation. The patient was seen this morning. He continues to be in A. fib with controlled heart rate. He is on oral anticoagulation. He reports no heart racing or flu ttering or any symptoms of chest pain or chest discomfort. Objective - Vital Signs Vital signs: Vital Signs Temp 98.2 F 08/30/21 09:30 Pulse 97 08/30/21 09:30 Resp 22 08/30/21 09:30 BP 98/58 08/30/21 09:30 Pulse Ox 97 08/30/21 09:30 Intake & Output 08/29/21 08/30/21 08/30/21 18:59 06:59 18:59 Intake Total 540 Output Total 200 200 Balance 340 -200 Intake: Oral 540 Output: Urine 200 200 Other: Voiding Method Urinal Urinal Diaper Diaper Incontinent Incontinent # Voids 1 1 # Bowel Movements 1 1 - Constitutional General appearance: Present: no acute distress - Respiratory Respiratory: bilateral: diminished - Cardiovascular Rhythm: irregularly irregular - Labs CBC & Chem 7: 08/30/21 07:18 08/30/21 07:18 Labs: Abnormal Lab Results - Last 24 Hours (Table) 08/30/21 08/30/21 Range/Units 07:18 07:18 RBC 4.19 L (4.30-5.90) m/uL Hgb 12.7 L (13.0-17.5) gm/dL Hct 38.7 L (39.0-53.0) % Sodium 133 L (137-145) mmol/L BUN 22 H (9-20) mg/dL Calcium 7.8 L (8.4-10.2) mg/dL Microbiology - Last 24 Hours (Table) 08/27/21 15:39 Blood Culture - Preliminary Blood No Growth after 48 hours Assessment and Plan Assessment: Assessment #1 A. fib with controlled heart rate #2 acute hypoxic respiratory failure #3 history of COVID-19 pneumonia Plan #1 continue the current dose of beta amara #2 continue oral anticoagulation #3 follow-up with the patient
--- NOTE | 2021-08-30 11:00 | ECHOF ---
Referral Reason:HF on CXR MEASUREMENTS -------- HEIGHT: 172.7 cm WEIGHT: 68.0 kg BP: RVIDd: 2.7 cm (< 3.3) IVSd: 1.1 cm (0.6 - 1.1) LVIDd: 3.0 cm (3.9 - 5.3) LVPWd: 1.2 cm (0.6 - 1.1) IVSs: 1.3 cm LVIDs: 2.0 cm LVPWs: 1.6 cm LAESV Index (A-L): 30.77 ml/m Ao Diam: 3.4 cm (2.0 - 3.7) AV Cusp: 1.9 cm (1.5 - 2.6) LA Diam: 3.0 cm (2.7 - 3.8) MV EXCURSION: 19.490 mm (> 18.000) MV EF SLOPE: 75 mm/s (70 - 150) MV E Matt: 0.81 m/s MV DecT: 173 ms MV A Matt: 0.27 m/s MV E/A Ratio: 3.07 RAP: 15.00 mmHg RVSP: 55.14 mmHg FINDINGS -------- This was a technically good study. The left ventricular size is normal. There is mild concentric left ventricular hypertrophy. Overa ll left ventricular systolic function is normal with, an EF between 55 - 60 %. The right ventricle is normal in size. LA is midly dilated 29-33ml/m2. The right atrial size is normal. The aortic valve is trileaflet and appears structurally normal. The mitral valve is normal. Mild mitral regurgitation is present. The tricuspid valve appears structurally normal. Mild tricuspid regurgitation present. There is m oderate pulmonary hypertension. The right ventricular systolic pressure, as measured by Doppler, is 55.14mmHg. There is no pulmonic regurgitation present. The aortic root size is normal. The inferior vena cava is mildly dilated. There is no pericardial effusion. CONCLUSIONS -------- 1. The left ventricular size is normal. 2. There is mild concentric left ventricular hypertrophy. 3. Overall left ventricular systolic function is normal with, an EF between 55 - 60 %. 4. LA is midly dilated 29-33ml/m2. 5. Mild mitral regurgitation is present. 6. Mild tricuspid regurgitation present. 7. There is moderate pulmonary hypertension. 8. The right ventricular systolic pressure, as measured by Doppler, is 55.14mmHg. 9. The inferior vena cava is mildly dilated. 10. There is no pericardial effusion. [employer] ADMINISTRATOR: Shirley Gongora RDCS
--- NOTE | 2021-08-30 13:17 | P.PN ---
Subjective Progress Note Date: 08/30/21 Principal diagnosis: This is a frail cachectic 80-year-old male patient who was recently discharged from here following COVID-19 pneumonia. He also has a history of hypothyroidism, hypertension,. He was discharged on 08/19/2021 2. Extended care facility. He was brought back to the emergency room today with altered mental status and hypoxemia. He reported the patient had been alert and oriented 3 with worsening mentation over the past couple of days. He is seen today in consultation in the emergency room. Currently he is obtunded. He had received Ativan. On BiPAP at 8/5 on 40% FiO2. He is also in atrial fibrillation with a rapid ventricular response. Chest x-ray showing patchy bilateral airspace disease stable compared to previous on 08/14/2021. White count 17.3. Hemoglobin 14.9. Lymphocytes 7. Sodium 141 potassium 5.5. Bicarb 18. Creatinine 1.10. AST 70. ALT 160. Troponin 0.0-3. ProBNP 2370. Patrick virus by PCR not detected. He was initiated on Zosyn and azithromycin. He was given IV diuretics. He had been on Eliquis 5 mg twice a day in the outpatient setting. The patient is seen today 08/28/2021 in follow-up on the selective care unit. He is a bit more awake and alert today compared to yesterday. Computed tomography scan of the brain revealed cerebral atrophy but no acute intracranial abnormalities. He is currently off the BiPAP and on 100% nonrebreather mask with O2 saturations in the 90s. Once off the mask his O2 saturation does drop in the low 80s. CT angiogram yesterday revealed no evidence of pulmonary embolism. There is some patchy pulmonary infiltrates. Small left pleural effusion. Suspected congestive heart failure. Echocardiogram is pending. white count 9.4. Hemoglobin 13.5. Sodium 133. Potassium 4.9. Creatinine 1.06. LDH 1030. C- reactive protein 5.7. Patrick virus by PCR was not detected. He is anticoa gulated with Eliquis. Continued on Zosyn. Received IV diuretics yesterday. On 08/29/2021 patient seen in follow-up on selective care unit, he sitting up in a recliner breathing comfortably, currently on 4 L of oxygen pulse ox 92-95%. No worsening dyspnea or cough, he is awake and alert, oriented 3. His been afebrile, vital signs have been stable, his brain CT on admission showed no acute intracranial abnormality. CT angiogram of the chest showed patchy pulmonary infiltrates, small left pleural effusion. Possibility of CHF. No evidence of pulmonary embolism. Today's labs have been reviewed, his white blood cell count continues to improve and is down to 8.8 on today's labs, hemoglobin is 12.9, sodium is 134, the respiratory tract lites were within normal limits, B1 is 28 and creatinine is 1.07, his LDH was 1030, CRP was 5.7, and his proBNP was improving down to 1920. Patient continues on Eliquis for atrial fibrillation and the rate is in the low 100s. Patient is receiving Lopr essor 50 mg twice daily for rate control. He has no specific complaints. Clinically he looks very comfortable, breathing has improved. 08/30/2021 patient seen in follow-up on selective care unit, he is resting comfortably in bed, in no acute distress, he is currently on 3 L of oxygen pulse ox 97%, no fever or chills, vital signs have been stable, lung sounds are clear, patient has been switched over to oral amoxicillin, he continues on Eliquis 5 mg twice daily for history of atrial fibrillation, his heart rate is currently controlled, patient is tolerating oral intake, he has had no acute events overnight, no specific complaints. His labs have been reviewed, white blood cell count is 8.7, hemoglobin is 12.7, sodium is 133, the rest of electrolytes and renal profile are unremarkable. ProBNP was improving on yesterday's labs. His last chest x-ray from yesterday showed patchy multifocal airspace disease with trace left pleural effusion patient has been stable. Afebrile, blood cultu res have shown no growth. His pro calcitonin level was 0.40. Tested negative for COVID-19 during this admission. Objective - Vital Signs Vital signs: Vital Signs Temp 98.2 F 08/30/21 09:30 Pulse 97 08/30/21 09:30 Resp 22 08/30/21 09:30 BP 98/58 08/30/21 09:30 Pulse Ox 97 08/30/21 09:30 Intake & Output 08/29/21 08/30/21 08/30/21 18:59 06:59 18:59 Intake Total 540 214 Output Total 200 200 Balance 340 -200 214 Intake: Oral 540 214 Output: Urine 200 200 Other: Voiding Method Urinal Urinal Urinal Diaper Diaper Diaper Incontinent Incontinent Incontinent # Voids 1 1 # Bowel Movements 1 1 - Exam GENERAL EXAM: Alert, pleasant, 80-year-old frail-looking white male, sitting up in a recliner, currently on 3 L of oxygen pulse ox 92% comfortable in no apparent distress. HEAD: Normocephalic/atraumatic. EYES: Normal reaction of pupils, equal size. Conjunctiva pink, sclera white. NOSE: Clear with pink turbinates. THROAT: No erythema or exudates. NECK: No masses, no JVD, no thyroid enlargement, no adenopathy. CHEST: No chest wall deformity. Symmetrical expansion. LUNGS: Equal air entry with diffuse crackles CVS: Regular rate and rhythm, normal S1 and S2, no gallops, no murmurs, no rubs ABDOMEN: Soft, nontender. No hepatosplenomegaly, normal bowel sounds, no guarding or rigidity. EXTREMITIES: No clubbing, no edema, no cyanosis, 2+ pulses and upper and lower extremities. MUSCULOSKELETAL: Muscle strength and tone normal. SPINE: No scoliosis or deformity SKIN: No rashes CENTRAL NERVOUS SYSTEM: Alert and oriented -3. No focal deficits, tone is normal in all 4 extremities. PSYCHIATRIC: Alert and oriented -3. Appropriate affect. Intact judgment and insight. - Labs CBC & Chem 7: 08/30/21 07:18 08/30/21 07:18 Labs: Abnormal Lab Results - Last 24 Hours (Table) 08/30/21 08/30/21 Range/Units 07:18 07:18 RBC 4.19 L (4.30-5.90) m/uL Hgb 12.7 L (13.0-17.5) gm/dL Hct 38.7 L (39.0-53.0) % Sodium 133 L (137-145) mmol/L BUN 22 H (9-20) mg/dL Calcium 7.8 L (8.4-10.2) mg/dL Microbiology - Last 24 Hours (Table) 08/27/21 15:39 Blood Culture - Preliminary Blood No Growth after 48 hours Assessment and Plan Plan: Assessment: #1. Acute hypoxic respiratory failure related to recent history of COVID-19 related pneumonia. Patient was discharged home on 08/19/2021. Currently COVID- 19 negative. Conjunctivae factors could be related to acute A. fib with RVR, and a urinary tract infection. CT angiogram was negative for PE. There was evidence of bilateral infiltrates. During last admission patient received monoclonal antibodies, Remdesivir and Baricitinib. Patient was discharged to the [facility]CF on 08/19/2021 #2. New onset A. fib with RVR, patient is on beta blockers in the form of Lopressor 50 mg 3 times a day and Eliquis #3. Possibility of bacterial superinfection, covered with Zosyn, currently i mproving #4. Recent urinary tract infection, urine culture positive for Klebsiella oxytoca and proteus mirabilis #5. History of hypertension #6. Hypothyroidism #7. Nonsmoker #8. Subsegmental acute pulmonary embolism in the lingula and left lower lobe from previous COVID-19 admission currently on Eliquis. CT angiogram completed during this admission on 08/27/2021 did not reveal any evidence of pulmonary embolism Plan: Clinical patient has remained stable in the last 24 hours Currently down to 3 L of oxygen, breathing comfortable, maintaining O2 saturations above 95% Patient has been transitioned to oral antibiotics He continues on oral anticoagulation No fever or chills, vital signs have been stable He is being transferred back to [facility] today I performed a history & physical examination of the patient and discussed their management with my nurse practitioner, Lucy Acosta. I reviewed the nurse practitioner's note and agree with the documented findings and plan of care. Lung sounds are positive for diffuse crackles throughout the lung amin. The findings and the impression was discussed with the patient. I attest to the documentation by the nurse practitioner. Time with Patient: Less than 30
--- NOTE | 2021-08-30 13:41 | CDI ---
Documentation Clarification Form Date: 08/30/2021 01:21:45 PM From: Fabiana Kerr Admit Date: 08/27/2021 02:09:00 PM Patient Name: Mariam Schmitz Visit Number: [id number] Discharge Date: ATTENTION: The Clinical Documentation Specialists (CDI) and [facility] Coding Staff appreciate your assistance in clarifying documentation. Please respond to the clarification below the line at the bottom and electronically sign. The CDI & [facility] Coding staff will review the response and follow-up if needed. Please note: Queries are made part of the Legal Health Record. If you have any questions, please contact the author of this message via ITS. Dr. Marilin Birch Pneumonia is documented Cardiology consult, 08/28, but is not noted in subsequent documentation. Clarification is requested. History/Risk Factors: 80-year-old female presents to the ED via EMS from ECF after found hypoxic. Medical History: Recent hospital admission with COVID 19, PE and respiratory failure one month ago. Atrial Fib and HTN. Clinical Indicators: VSS: B/P 145/125, HR 108, Temp 97.7F Oral, RR 28, SpO2 90% Non-Rebreather 15 L LABS: 08/27 Wbc 17.3, Neutrophils 15.0 CXR: 08/27 Patchy bilateral airspace disease persists. Correlate for pneumonia CT Chest: 08/27 Patchy pulmonary infiltrates. Small left pleural effusion. Cardiology Consult: 08/28 Continue treatment for his pneumonia and respiratory failure. Medicine progress note: 08/29 CT abdomen and pelvis showed again bilateral lower lobe pneumonia and atelectasis Treatment: 08/27 Azithromycin 500mg IVPB x 1; 08/27 Rocephin IVP x 1; 08/27 08/29 Zosyn 3.375gm IVPB Q8HR,08/29 to current Amoxicillin/Clavulanate Potassium 875-125mg 1 Tab PO Q12HR. Please clarify if the Pneumonia is: [ ] Pneumonia confirmed, resolved [ ] Pneumonia ruled out [ ] Other condition, please specify [ ] Unable to determine [ X ] Pneumonia confirmed, remains under treatment (Template Last Revised: November 2020) MTDD
--- NOTE | 2021-08-30 17:29 | P.PN ---
Subjective Progress Note Date: 08/30/21 (delayed charting seen at 1045) Principal diagnosis: shortness of breath 80-year-old male who is recently discharged from our facility after COVID-19 pneumonia, lingular pulmonary embolism, and newly discovered A. willam with prior known hypertension, hypothyroidism, and dyslipidemia who presented to the ER from the residential secondary to lethargy. Apparently patient was found to be 60% on room air and EMS was called. In the ER apparently his CT escalated to 15 L nasal cannula. He received Ativan in the ER for unknown reasons. Initial blood pressure was elevated and respiratory rate was elevated at 28. Initial laboratory analysis showed white blood cell count 17.8, sodium 131, potassium 5.5 (hemolyzed), carbon dioxide 18, AST 70, ALT 160. We'll be testing was negative. Chest x-ray demonstrated pneumonia. He then underwent a CT of the chest which showed a left-sided pleural effusion. Effusion appears to be minimal. He was seen by pulmonary. CT abdomen and pelvis showed again bilateral lower lobe pneumonia and atelectasis, mild atherosclerotic disease, and lumbar spondylitic changes. CT head showed no cerebral atrophy. On the morning of 08/28 patient was awake alert and oriented 3. Procalcitonin was mildly elevated at 0.40, but was checkedor 24 hours from antibiotics being started. Patient seen and examined at bedside. Feeling weak. No complaints of shortness of breath, chest pain, or nausea. General: non toxic, no distress, appears at stated age Derm: warm, dry multiple areas of ecchymosis in various stages of healing Head: atraumatic, normocephalic, symmetric Eyes: EOMI, no lid lag, anicteric sclera Mouth: no lip lesion, mucus membranes moist Cardiovascular: S1S2 irreg, no murmur, positive posterior tibial pulse bilateral , Lungs: Course bs bilateral, no rhonchi, no rales , no accessory muscle use Abdominal: soft, nontender to palpation, no guarding, no appreciable organomegaly Ext: no gross muscle atrophy, no edema, no contractures Neuro: CN II-XI grossly intact, no focal neuro deficits Psych: Alert, oriented, appropriate affect Acute on chronic hypoxic respiratory failure History of recent pulmonary embolism Recent COVID-19 pneumonia and negative - Patient is down to 5L NC - Cardiology and pulmonary recommendations appreciated - Augmentin - Received IV Lasix 1 and appears to be fluid optimized - repeat CXR unchanged - eliquis Acute encephalopathy, toxic, resolved -Secondary to Ativan and hypoxia A. fib with RVR now rate controlled -Metoprolol HR in 90a- low 100s -Eliquis -Telemetry -No need for repeat echo at this time, Echo 08/05 EF 55-60% Abdominal pain, resolved Chronic: Hypertension Dyslipidemia Hypothyroidism DVT prophylaxis: SCDs Discussed with: nursing, patient, social work Anticipated discharge date: in AM Anticipated discharge place: SNF A total of 35 minutes was spent on the care of this complex patient more than 50% of the time was spent in counseling and care coordination. Objective - Vital Signs Vital signs: Vital Signs Temp 96.7 F L 08/30/21 12:45 Pulse 102 H 08/30/21 12:45 Resp 20 08/30/21 12:45 BP 139/87 08/30/21 12:45 Pulse Ox 97 08/30/21 12:45 Intake & Output 08/29/21 08/30/21 08/30/21 18:59 06:59 18:59 Intake Total 540 454 Output Total 200 200 Balance 340 -200 454 Intake: Oral 540 454 Output: Urine 200 200 Other: Voiding Method Urinal Urinal Urinal Diaper Diaper Diaper Incontinent Incontinent Incontinent # Voids 1 1 # Bowel Movements 1 1 - Labs CBC & Chem 7: 08/30/21 07:18 08/30/21 07:18 Labs: Abnormal Lab Results - Last 24 Hours (Table) 08/30/21 08/30/21 Range/Units 07:18 07:18 RBC 4.19 L (4.30-5.90) m/uL Hgb 12.7 L (13.0-17.5) gm/dL Hct 38.7 L (39.0-53.0) % Sodium 133 L (137-145) mmol/L BUN 22 H (9-20) mg/dL Calcium 7.8 L (8.4-10.2) mg/dL Microbiology - Last 24 Hours (Table) 08/27/21 15:39 Blood Culture - Preliminary Blood No Growth after 48 hours
[2021-08-30] MEDS: LEVOTHYROXINE 50 MCG TAB PO SCH (20:41)
[2021-08-30] MEDS: ATORVASTATIN 20 MG TAB PO SCH (20:41)
[2021-08-30] MEDS: SODIUM CHLORIDE 0.9% 1,000 ML IV SCH (20:42)
[2021-08-31] MEDS: METOPROLOL TARTRATE 50 MG TAB PO SCH ×3 (05:51→20:50)
[2021-08-31] MEDS ORDERED: METOPROLOL TARTRATE 25 MG TAB PO STA (08:23)
[2021-08-31] MEDS: CHOLECALCIFEROL 125 MCG (5000 IU) TABLET PO SCH (10:30)
[2021-08-31] MEDS: APIXABAN 5 MG TAB PO SCH ×2 (10:30→20:50)
[2021-08-31] MEDS: AMOXIC-POT CLAV 875-125MG 1 EACH TAB PO SCH ×2 (10:30→20:50)
[2021-08-31] MEDS ORDERED: LACTULOSE 20 GM/30 ML CUP PO ONE (12:00)
--- NOTE | 2021-08-31 12:18 | P.PN ---
Subjective Progress Note Date: 08/31/21 Principal diagnosis: Acute hypoxic respiratory failure The patient is an 80-year-old gentleman was admitted to the hospital with acute hypoxic respiratory failure. Consulted to see the patient for atrial fibrillation. The patient was seen this morning. He remained stable from a cardiovascular standpoint overview. He continues to be in atrial fibrillation was controlled heart rate. He reports no symptoms of chest pain or chest discomfort. From a cardiovascular standpoint of view, the patient potentially can be discharged in the next 24 hours. No need for any further cardiac workup at this point Objective - Vital Signs Vital signs: Vital Signs Temp 98.9 F 08/31/21 10:25 Pulse 97 08/31/21 10:25 Resp 20 08/31/21 10:25 BP 100/67 08/31/21 10:25 Pulse Ox 93 L 08/31/21 10:25 Intake & Output 08/30/21 08/31/21 08/31/21 18:59 06:59 18:59 Intake Total 694 Output Total 150 Balance 544 Intake: Oral 694 Output: Urine 150 Other: Voiding Method Urinal Urinal Urinal Diaper Diaper Diaper Incontinent Incontinent Incontinent # Voids 1 # Bowel Movements 1 - Constitutional General appearance: Present: no acute distress - Respiratory Respiratory: bilateral: diminished - Cardiovascular Rhythm: irregularly irregular Heart sounds: normal: S1, S2 - Labs CBC & Chem 7: 08/30/21 07:18 08/30/21 07:18 Labs: Microbiology - Last 24 Hours (Table) 08/27/21 15:39 Blood Culture - Preliminary Blood No Growth after 72 hours Assessment and Plan Assessment: Assessment #1 A. fib with controlled heart rate #2 acute hypoxic respiratory failure #3 history of COVID-19 pneumonia Plan #1 continue the current dose of beta amara #2 continue oral anticoagulation #3 follow-up with the patient
--- NOTE | 2021-08-31 13:23 | P.PN ---
Subjective Progress Note Date: 08/31/21 (delayed charting seen at 1030) Principal diagnosis: shortness of breath 80-year-old male who is recently discharged from our facility after COVID-19 pneumonia, lingular pulmonary embolism, and newly discovered A. willam with prior known hypertension, hypothyroidism, and dyslipidemia who presented to the ER from the skilled nursing secondary to lethargy. Apparently patient was found to be 60% on room air and EMS was called. In the ER apparently his CT escalated to 15 L nasal cannula. He received Ativan in the ER for unknown reasons. Initial blood pressure was elevated and respiratory rate was elevated at 28. Initial laboratory analysis showed white blood cell count 17.8, sodium 131, potassium 5.5 (hemolyzed), carbon dioxide 18, AST 70, ALT 160. We'll be testing was negative. Chest x-ray demonstrated pneumonia. He then underwent a CT of the chest which showed a left-sided pleural effusion. Effusion appears to be minimal. He was seen by pulmonary. CT abdomen and pelvis showed again bilateral lower lobe pneumonia and atelectasis, mild atherosclerotic disease, and lumbar spondylitic changes. CT head showed no cerebral atrophy. On the morning of 08/28 patient was awake alert and oriented 3. Procalcitonin was mildly elevated at 0.40, but was checkedor 24 hours from antibiotics being started. PAtient with elevated HR overnight. Given one extra dose of metoprolol. Patient seen and examined at bedside. No complaints wants to get back to rehab to get stronger. General: non toxic, no distress, appears at stated age Derm: warm, dry multiple areas of ecchymosis in various stages of healing Head: atraumatic, normocephalic, symmetric Eyes: EOMI, no lid lag, anicteric sclera Mouth: no lip lesion, mucus membranes moist Cardiovascular: S1S2 irreg, no murmur, positive posterior tibial pulse bilateral, Lungs: Course bs bilateral, no rhonchi, no rales , no accessory muscle use Abdominal: soft, nontender to palpation, no guarding, no appreciable organomegaly Ext: no gross muscle atrophy, no edema, no contractures Neuro: CN II-XI grossly intact, no focal neuro deficits Psych: Alert, oriented, appropriate affect Acute on chronic hypoxic respiratory failure History of recent pulmonary embolism Recent COVID-19 pneumonia and negative - Patient is down to 3L NC - Cardiology and pulmonary recommendations appreciated - Augmentin - Received IV Lasix 1 and appears to be fluid optimized - repeat CXR unchanged - eliquis Acute encephalopathy, toxic, resolved -Secondary to Ativan and hypoxia A. fib with RVR -Metoprolol HR uncontrolled, metoprolol 25 mg X 1 extra, patient also with low HR -Eliquis -Telemetry -No need for repeat echo at this time, Echo 08/05 EF 55-60% Abdominal pain, resolved Chronic: Hypertension Dyslipidemia Hypothyroidism DVT prophylaxis: SCDs Discussed with: nursing, patient, social work Anticipated discharge date: in AM Anticipated discharge place: SNF A total of 35 minutes was spent on the care of this complex patient more than 50% of the time was spent in counseling and care coordination. Objective - Vital Signs Vital signs: Vital Signs Temp 98.9 F 08/31/21 10:25 Pulse 97 08/31/21 10:25 Resp 20 08/31/21 10:25 BP 100/67 08/31/21 10:25 Pulse Ox 93 L 08/31/21 10:25 Intake & Output 08/30/21 08/31/21 08/31/21 18:59 06:59 18:59 Intake Total 694 Output Total 150 Balance 544 Intake: Oral 694 Output: Urine 150 Other: Voiding Method Urinal Urinal Urinal Diaper Diaper Diaper Incontinent Incontinent Incontinent # Voids 1 # Bowel Movements 1 - Labs CBC & Chem 7: 08/30/21 07:18 08/30/21 07:18 Labs: Microbiology - Last 24 Hours (Table) 08/27/21 15:39 Blood Culture - Preliminary Blood No Growth after 72 hours
[2021-08-31] MEDS: LEVOTHYROXINE 50 MCG TAB PO SCH (20:50)
[2021-08-31] MEDS: SODIUM CHLORIDE 0.9% 1,000 ML IV SCH (20:50)
[2021-08-31] MEDS: ATORVASTATIN 20 MG TAB PO SCH (20:50)
[2021-09-01] MEDS: METOPROLOL TARTRATE 50 MG TAB PO SCH ×3 (06:38→20:20)
[2021-09-01] MEDS: APIXABAN 5 MG TAB PO SCH ×2 (10:07→20:19)
[2021-09-01] MEDS: AMOXIC-POT CLAV 875-125MG 1 EACH TAB PO SCH ×2 (10:07→20:19)
[2021-09-01] MEDS: CHOLECALCIFEROL 125 MCG (5000 IU) TABLET PO SCH (10:07)
--- NOTE | 2021-09-01 14:05 | P.PN ---
Subjective This is a 80-year-old gentleman with hypertension, hypothyroidism, history of recent covid pneumonia 07/2021, lingular pulmonary embolism and newly diagnosed atrial fibrillation 07/2021. Was to follow up with Dr. Russell from last admission. We are consulted for atrial fibrillation with RVR. He is readmitted to the emergency room with complaints of altered mental status, hypoxia and lethargy. Apparently patient was found to be 60% on room air and EMS was called. Echocardiogram 08/04/21, EF 5560 percent, no significant wall motion abnormalities. Patient seen and examined at bedside, no acute distress. Breathing has improved. Telemetry reviewed, patient in atrial fibrillation with HR 90s-115. Patient also with sinus pauses noted. Patients carvedilol has been discontinued and transition to metoprolol tartrate and increased to 50 TID 08/31. Currently maintained on Eliquis 5 mg twice a day, atorvastatin 20 mg nightly, metoprolol tartrate 50 mg 3 times a day. PHYSICAL EXAMINATION Vitals reviewed CONSTITUTIONAL: No apparent distress. HEENT: Head is normocephalic. No JVD. CHEST EXAMINATION: Lungs diminished bilaterally. No chest wall tenderness is noted on palpation or with deep breathing. HEART EXAMINATION: Irregular rate and rhythm. S1, S2 heard. ABDOMEN: Soft, nontender. EXTREMITIES: 2+ peripheral pulses, no lower extremity edema SKIN: warm, dry NEUROLOGIC EXAMINATION: Patient is awake, alert and oriented x2 ASSESSMENT Paroxysmal atrial fibrillation with RVR [id number] score 3 on Eliquis Hypertension Acute hypoxic respiratory failure Recent Covid-19 pneumonia PLAN -Recommend continue current medication regimen -Continue cardiac telemetry, monitor patient's blood pressure -Continue anticoagulation with Eliquis -Discharge per primary and clearance from other consultants Nurse Practitioner note has been reviewed, I agree with a documented findings and plan of care. Patient was seen and examined. Objective - Vital Signs Vital signs: Vital Signs Temp 97.5 F L 09/01/21 12:00 Pulse 104 H 08/31/21 14:00 Resp 20 09/01/21 12:00 BP 103/65 09/01/21 12:00 Pulse Ox 95 09/01/21 12:00 Intake & Output 08/31/21 09/01/21 09/01/21 18:59 06:59 18:59 Intake Total 480 240 480 Output Total 350 100 Balance 130 240 380 Intake: Oral 480 240 480 Output: Urine 350 100 Other: Voiding Method Urinal Urinal Diaper Diaper Incontinent Incontinent # Voids 4 # Bowel Movements 2 - Labs CBC & Chem 7: 08/30/21 07:18 08/30/21 07:18 Labs: Microbiology - Last 24 Hours (Table) 08/27/21 15:39 Blood Culture - Preliminary Blood No Growth after 96 hours
--- NOTE | 2021-09-01 17:16 | P.PN ---
Subjective Progress Note Date: 09/01/21 (delayed chartign seen at 0915) Principal diagnosis: shortness of breath 80-year-old male who is recently discharged from our facility after COVID-19 pneumonia, lingular pulmonary embolism, and newly discovered A. willam with prior known hypertension, hypothyroidism, and dyslipidemia who presented to the ER from the senior living secondary to lethargy. Apparently patient was found to be 60% on room air and EMS was called. In the ER apparently his CT escalated to 15 L nasal cannula. He received Ativan in the ER for unknown reasons. Initial blood pressure was elevated and respiratory rate was elevated at 28. Initial laboratory analysis showed white blood cell count 17.8, sodium 131, potassium 5.5 (hemolyzed), carbon dioxide 18, AST 70, ALT 160. We'll be testing was negative. Chest x-ray demonstrated pneumonia. He then underwent a CT of the chest which showed a left-sided pleural effusion. Effusion appears to be minimal. He was seen by pulmonary. CT abdomen and pelvis showed again bilateral lower lobe pneumonia and atelectasis, mild atherosclerotic disease, and lumbar spondylitic changes. CT head showed no cerebral atrophy. On the morning of 08/28 patient was awake alert and oriented 3. Procalcitonin was mildly elevated at 0.40, but was checked 24 hours from antibiotics being started. Patient with elevated HR overnight. Given one extra dose of metoprolol. His HR was better controlled. Patient seen and examined at bedside. Wants to get stronger to go home, no chest pain, no shortness of breath, no nausea, no vomiting. General: non toxic, no distress, appears at stated age Derm: warm, dry multiple areas of ecchymosis in various stages of healing Head: atraumatic, normocephalic, symmetric Eyes: EOMI, no lid lag, anicteric sclera Mouth: no lip lesion, mucus membranes moist Cardiovascular: S1S2 irreg, no murmur, positive posterior tibial pulse bilateral, Lungs: Course bs bilateral, no rhonchi, no rales , no accessory muscle use Abdominal: soft, nontender to palpation, no guarding, no appreciable organomegaly Ext: no gross muscle atrophy, no edema, no contractures Neuro: CN II-XI grossly intact, no focal neuro deficits Psych: Alert, oriented, appropriate affect Acute on chronic hypoxic respiratory failure History of recent pulmonary embolism Recent COVID-19 pneumonia and negative - Patient is down to 3L NC - Cardiology and pulmonary recommendations appreciated - Augmentin D 02/08 - Received IV Lasix 1 and appears to be fluid optimized - repeat CXR unchanged - eliquis Acute encephalopathy, toxic, resolved -Secondary to Ativan and hypoxia A. fib with RVR -Metoprolol HR - Discussed with cardiology and resting heart rate is in acceptable range and increases with activity, due to patient's advanced age as well as pauses will maintain current metoprolol dose. -Eliquis -Telemetry -No need for repeat echo at this time, Echo 08/05 EF 55-60% Abdominal pain, resolved Chronic: Hypertension Dyslipidemia Hypothyroidism Still awaiting authorization for [facility] facility. Patient is medically optimized to discharge whenever auth obtained. DVT prophylaxis: SCDs Discussed with: nursing, patient, social work Anticipated discharge date: in AM Anticipated discharge place: SNF A total of 35 minutes was spent on the care of this complex patient more than 50% of the time was spent in counseling and care coordination. Objective - Vital Signs Vital signs: Vital Signs Temp 98.2 F 09/01/21 14:00 Pulse 104 H 08/31/21 14:00 Resp 20 09/01/21 14:00 BP 102/74 09/01/21 14:00 Pulse Ox 96 09/01/21 14:00 Intake & Output 08/31/21 09/01/21 09/01/21 18:59 06:59 18:59 Intake Total 480 240 600 Output Total 350 101 Balance 130 240 499 Intake: Oral 480 240 600 Output: Urine 350 100 Stool 1 Other: Voiding Method Urinal Urinal Urinal Diaper Diaper Diaper Incontinent Incontinent # Voids 4 # Bowel Movements 2 - Labs CBC & Chem 7: 08/30/21 07:18 08/30/21 07:18 Labs: Microbiology - Last 24 Hours (Table) 08/27/21 15:39 Blood Culture - Preliminary Blood No Growth after 96 hours
[2021-09-01] MEDS: SODIUM CHLORIDE 0.9% 1,000 ML IV SCH (18:27)
[2021-09-01] MEDS: LEVOTHYROXINE 50 MCG TAB PO SCH (20:19)
[2021-09-01] MEDS: ATORVASTATIN 20 MG TAB PO SCH (20:19)
[2021-09-02] MEDS: METOPROLOL TARTRATE 50 MG TAB PO SCH ×3 (06:24→22:08)
[2021-09-02 09:08] VITALS: BMI 22.8
[2021-09-02] MEDS: AMOXIC-POT CLAV 875-125MG 1 EACH TAB PO SCH ×2 (09:54→22:08)
[2021-09-02] MEDS: CHOLECALCIFEROL 125 MCG (5000 IU) TABLET PO SCH (09:54)
[2021-09-02] MEDS: APIXABAN 5 MG TAB PO SCH ×2 (09:54→22:08)
--- NOTE | 2021-09-02 10:07 | P.PN ---
Subjective Progress Note Date: 09/02/21 Principal diagnosis: Acute hypoxic respiratory failure The patient is an 80-year-old gentleman was admitted to the hospital with acute hypoxic respiratory failure. Consulted to see the patient for atrial fibrillation. The patient was seen this morning. He remained stable from a cardiovascular standpoint overview. He continues to be in atrial fibrillation was controlled heart rate. He reports no symptoms of chest pain or chest discomfort. 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 Objective - Vital Signs Vital signs: Vital Signs Temp 98.0 F 09/02/21 02:00 Pulse 109 H 09/02/21 05:00 Resp 16 09/02/21 05:00 BP 119/69 09/02/21 05:00 Pulse Ox 97 09/02/21 05:00 Intake & Output 09/01/21 09/02/21 09/02/21 18:59 06:59 18:59 Intake Total 600 Output Total 101 Balance 499 Weight 68.039 kg Intake: Oral 600 Output: Urine 100 Stool 1 Other: Voiding Method Urinal Urinal Diaper Diaper # Voids 1 1 # Bowel Movements 1 1 - Constitutional General appearance: Present: no acute distress - Respiratory Respiratory: bilateral: diminished - Cardiovascular Rhythm: irregularly irregular Heart sounds: normal: S1, S2 - Labs CBC & Chem 7: 08/30/21 07:18 08/30/21 07:18 Labs: Microbiology - Last 24 Hours (Table) 08/27/21 15:39 Blood Culture - Preliminary Blood No Growth after 120 hours Assessment and Plan Assessment: Assessment #1 A. fib with controlled heart rate #2 acute hypoxic respiratory failure #3 history of COVID-19 pneumonia Plan #1 continue the current dose of beta amara #2 continue oral anticoagulation #3 the patient can be discharged home
--- NOTE | 2021-09-02 14:13 | XR ---
EXAMINATION TYPE: XR chest 1V DATE OF EXAM: 09/02/2021 COMPARISON: 08/29/2021 HISTORY: 80 years Male. STUDY INDICATION GIVEN: pneumonia . TECHNIQUE: AP upright chest radiograph IMPRESSION: Interval decrease in left lower lobe patchy airspace opacities and atelectasis. Small left pleural ef fusion, decreased in size compared to prior. Mild bilateral left greater than right interstitial opac ities without cardiomegaly. No pneumothorax or right-sided effusion. The osseous structures are not significantly changed in appearance compared to prior. Atherosclerotic calcifications again seen in the intrathoracic aorta.
[2021-09-02] MEDS ORDERED: FUROSEMIDE 10 MG/ML 4 ML VIAL IV STA (14:52)
[2021-09-02] MEDS: SODIUM CHLORIDE 0.9% 1,000 ML IV SCH (15:49)
[2021-09-02 16:46] LABS: HCT 40.1 % (39.0-53.0); HGB 12.7 gm/dL (13.0-17.5); MCH 29.1 pg (25.0-35.0); MCHC 31.7 g/dL (31.0-37.0); MCV 91.8 fL (80.0-100.0); Mean Platelet Volume 8.3; Platelet Count 215 k/uL (150-450); RBC 4.37 m/uL (4.30-5.90); RDW 14.8 % (11.5-15.5); WBC 8.8 k/uL (3.8-10.6)
[2021-09-02 16:52] LABS: Albumin 2.5 g/dL (3.5-5.0); Phosphorus 3.6 mg/dL (2.5-4.5); Potassium 3.6 mmol/L (3.5-5.1); Total Bilirubin 0.5 mg/dL (0.2-1.3); Total Protein 5.5 g/dL (6.3-8.2)
--- NOTE | 2021-09-02 17:39 | P.PN ---
Subjective Progress Note Date: 09/02/21 (delayed charting seen at 1030) Principal diagnosis: shortness of breath 80-year-old male who is recently discharged from our facility after COVID-19 pneumonia, lingular pulmonary embolism, and newly discovered A. fib with prior known hypertension, hypothyroidism, and dyslipidemia who [facility]. Apparently patient was found to be 60% on room air and EMS was called. In the ER apparently his CT escalated to 15 L nasal cannula. He received Ativan in the ER for unknown reasons. Initial blood pressure was elevated and respiratory rate was elevated at 28. Initial laboratory analysis showed white blood cell count 17.8, sodium 131, potassium 5.5 (hemolyzed), carbon dioxide 18, AST 70, ALT 160. We'll be testing was negative. Chest x-ray demonstrated pneumonia. He then underwent a CT of the chest which showed a left-sided pleural effusion. Effusion appears to be minimal. He was seen by pulmonary. CT abdomen and pelvis showed again bilateral lower lobe pneumonia and atelectasis, mild atherosclerotic disease, and lumbar spondylitic changes. CT head showed no cerebral atrophy. On the morning of 08/28 patient was awake alert and oriented 3. Procalcitonin was mildly elevated at 0.40, but was checked 24 hours from antibiotics being started. Patient with elevated HR overnight. Given one extra dose of metoprolol. His HR was better controlled. On the afternoon of 09/02 patient had desaturations. He required a non rebreahter. Patient seen and examined at bedside. denies shortness of breath, wheezing, nausea. Denies any chest pain or palpitations. Again wants to go home. General: non toxic, no distress, appears at stated age Derm: warm, dry multiple areas of ecchymosis in various stages of healing Head: atraumatic, normocephalic, symmetric Eyes: EOMI, no lid lag, anicteric sclera Mouth: no lip lesion, mucus membranes moist Cardiovascular: S1S2 irreg, no murmur, positive posterior tibial pulse bilateral, Lungs: Course bs bilateral, no rhonchi, no rales , no accessory muscle use Abdominal: soft, nontender to palpation, no guarding, no appreciable organomegaly Ext: no gross muscle atrophy, no edema, no contractures Neuro: CN II-XI grossly intact, no focal neuro deficits Psych: Alert, oriented, appropriate affect Acute on chronic hypoxic respiratory failure History of recent pulmonary embolism Recent COVID-19 pneumonia and negative -Stat chest x-ray, CBC, CMP. Lasix 1 - Cardiology and pulmonary recommendations appreciated - Augmentin D 03/10 - eliquis Acute encephalopathy, toxic, resolved -Secondary to Ativan and hypoxia A. fib with RVR -Metoprolol HR - Discussed with cardiology and resting heart rate is in acceptable range and increases with activity, due to patient's advanced age as well as pauses will maintain current metoprolol dose. -Eliquis -Telemetry -No need for repeat echo at this time, Echo 08/05 EF 55-60% Abdominal pain, resolved Chronic: Hypertension Dyslipidemia Hypothyroidism Still awaiting authorization for assisted facility. Patient is medically optimized to discharge whenever auth obtained. DVT prophylaxis: SCDs Discussed with: nursing, patient, social work Anticipated discharge date: in AM Anticipated discharge place: SNF A total of 35 minutes was spent on the care of this complex patient more than 50% of the time was spent in counseling and care coordination. Objective - Vital Signs Vital signs: Vital Signs Temp 97.6 F 09/02/21 08:00 Pulse 103 H 09/02/21 08:00 Resp 18 09/02/21 08:00 BP 88/50 09/02/21 08:00 Pulse Ox 96 09/02/21 08:00 Intake & Output 09/01/21 09/02/21 09/02/21 18:59 06:59 18:59 Intake Total 600 118 Output Total 101 Balance 499 118 Weight 68.039 kg Intake: Oral 600 118 Output: Urine 100 Stool 1 Other: Voiding Method Urinal Urinal Urinal Diaper Diaper Diaper # Voids 1 1 # Bowel Movements 1 1 2 - Labs CBC & Chem 7: 08/30/21 07:18 08/30/21 07:18 Labs: Microbiology - Last 24 Hours (Table) 08/27/21 15:39 Blood Culture - Preliminary Blood No Growth after 120 hours
[2021-09-02] MEDS: ATORVASTATIN 20 MG TAB PO SCH (22:08)
[2021-09-02] MEDS: LEVOTHYROXINE 50 MCG TAB PO SCH (22:08)
[2021-09-02] MEDS: ACETAMINOPHEN TAB 325 MG TAB PO PRN (22:09)
[2021-09-03] MEDS: METOPROLOL TARTRATE 50 MG TAB PO SCH ×3 (05:39→20:09)
[2021-09-03] MEDS: APIXABAN 5 MG TAB PO SCH ×2 (09:45→20:09)
[2021-09-03] MEDS: FUROSEMIDE 20 MG TAB PO SCH (09:45)
[2021-09-03] MEDS: CHOLECALCIFEROL 125 MCG (5000 IU) TABLET PO SCH (09:45)
[2021-09-03] MEDS: AMOXIC-POT CLAV 875-125MG 1 EACH TAB PO SCH ×2 (09:45→20:09)
[2021-09-03] MEDS: SODIUM CHLORIDE 0.9% 1,000 ML IV SCH (13:17)
--- NOTE | 2021-09-03 19:16 | P.PN ---
Subjective Progress Note Date: 09/03/21 (delayed charting seen at 1400) Principal diagnosis: shortness of breath 80-year-old male who is recently discharged from our facility after COVID-19 pneumonia, lingular pulmonary embolism, and newly discovered A. fib with prior known hypertension, hypothyroidism, and dyslipidemia who presented to the ER from the long-term secondary to lethargy. Apparently patient was found to be 60% on room air and EMS was called. In the ER apparently his CT escalated to 15 L nasal cannula. He received Ativan in the ER for unknown reasons. Initial blood pressure was elevated and respiratory rate was elevated at 28. Initial laboratory analysis showed white blood cell count 17.8, sodium 131, potassium 5.5 (hemolyzed), carbon dioxide 18, AST 70, ALT 160. We'll be testing was negative. Chest x-ray demonstrated pneumonia. He then underwent a CT of the chest which showed a left-sided pleural effusion. Effusion appears to be minimal. He was seen by pulmonary. CT abdomen and pelvis showed again bilateral lower lobe pneumonia and atelectasis, mild atherosclerotic disease, and lumbar spondylitic changes. CT head showed no cerebral atrophy. On the morning of 08/28 patient was awake alert and oriented 3. Procalcitonin was mildly elevated at 0.40, but was checked 24 hours from antibiotics being started. Patient with elevated HR overnight. Given one extra dose of metoprolol. His HR was better controlled. On the afternoon of 09/02 patient had desaturations. He required a non rebreahter. Patient seen and examined at bedside. Breathing is better today, no chest pain, + weak Told him he has to sit in the chair General: non toxic, no distress, appears at stated age Derm: warm, dry multiple areas of ecchymosis in various stages of healing Head: atraumatic, normocephalic, symmetric Eyes: EOMI, no lid lag, anicteric sclera Mouth: no lip lesion, mucus membranes moist Cardiovascular: S1S2 irreg, no murmur, positive posterior tibial pulse bilateral, Lungs: Crackles left base, no rhonchi, no rales , no accessory muscle use Abdominal: soft, nontender to palpation, no guarding, no appreciable organomegaly Ext: no gross muscle atrophy, no edema, no contractures Neuro: CN II-XI grossly intact, no focal neuro deficits Psych: Alert, oriented, appropriate affect Acute on chronic hypoxic respiratory failure History of recent pulmonary embolism Recent COVID-19 pneumonia and negative Left pleural effusion - lasix 20 mg daily - Cardiology and pulmonary recommendations appreciated - Augmentin D 03/10 - eliquis Acute encephalopathy, toxic, resolved -Secondary to Ativan and hypoxia A. fib with RVR -Metoprolol HR - Discussed with cardiology and resting heart rate is in acceptable range and increases with activity, due to patient's advanced age as well as pauses will maintain current metoprolol dose. -Eliquis -Telemetry -No need for repeat echo at this time, Echo 08/05 EF 55-60% Abdominal pain, resolved Chronic: Hypertension Dyslipidemia Hypothyroidism Continue to await authorization for [facility] facility. Patient is medically optimized to discharge whenever auth obtained. DVT prophylaxis: SCDs Discussed with: nursing, patient, social work Anticipated discharge date: in AM Anticipated discharge place: SNF A total of 25 minutes was spent on the care of this complex patient more than 50% of the time was spent in counseling and care coordination. Objective - Vital Signs Vital signs: Vital Signs Temp 98.1 F 09/03/21 08:00 Pulse 62 09/03/21 16:00 Resp 20 09/03/21 02:00 BP 107/73 09/03/21 16:00 Pulse Ox 88 L 09/03/21 16:00 Intake & Output 09/03/21 09/03/21 09/04/21 06:59 18:59 06:59 Intake Total 378 Output Total 351 100 Balance -351 278 Intake: Intake, IV Titration 20 Amount Sodium Chloride 0.9% 1, 20 000 ml @ 20 mls/hr IV . Q24H [facility] Rx#:[id number] Oral 358 Output: Urine 350 100 Stool 1 Other: Voiding Method Diaper Diaper External Catheter External Catheter # Voids 1 2 # Bowel Movements 1 - Labs CBC & Chem 7: 09/02/21 16:21 09/02/21 16:21 Labs: Microbiology - Last 24 Hours (Table) 08/27/21 15:39 Blood Culture - Final Blood No Growth after 144 hours
[2021-09-03] MEDS: LEVOTHYROXINE 50 MCG TAB PO SCH (20:09)
[2021-09-03] MEDS: ATORVASTATIN 20 MG TAB PO SCH (20:09)
[2021-09-04] MEDS: METOPROLOL TARTRATE 50 MG TAB PO SCH ×3 (05:17→20:45)
[2021-09-04 08:11] LABS: HCT 36.7 % (39.0-53.0); HGB 11.8 gm/dL (13.0-17.5); MCH 29.3 pg (25.0-35.0); MCHC 32.2 g/dL (31.0-37.0); Mean Platelet Volume 7.8; Platelet Count 246 k/uL (150-450); RBC 4.03 m/uL (4.30-5.90); RDW 15.3 % (11.5-15.5); WBC 6.8 k/uL (3.8-10.6)
[2021-09-04 08:24] LABS: African American GFR (CKD) >90 (>60 ml/min/1.73 sqM); Anion Gap 7 mmol/L; Blood Urea Nitrogen 23 mg/dL (9-20); Calcium 7.8 mg/dL (8.4-10.2); Carbon Dioxide 25 mmol/L (22-30); Chloride 101 mmol/L (98-107); Glucose 89 mg/dL (74-99); Magnesium 1.8 mg/dL (1.6-2.3); Non-African American GFR(CKD) 82 (>60 ml/min/1.73 sqM); Potassium 3.8 mmol/L (3.5-5.1); Sodium 133 mmol/L (137-145)
[2021-09-04] MEDS: AMOXIC-POT CLAV 875-125MG 1 EACH TAB PO SCH ×2 (08:25→20:45)
[2021-09-04] MEDS: APIXABAN 5 MG TAB PO SCH ×2 (08:25→20:45)
[2021-09-04] MEDS: CHOLECALCIFEROL 125 MCG (5000 IU) TABLET PO SCH (08:25)
[2021-09-04] MEDS: FUROSEMIDE 20 MG TAB PO SCH (08:25)
--- NOTE | 2021-09-04 11:20 | P.PN ---
Subjective Progress Note Date: 09/04/21 Still very weak shortness of breath improving -year-old male who is recently discharged from our facility after COVID-19 pneumonia, lingular pulmonary embolism, and newly discovered A. willam with prior known hypertension, hypothyroidism, and dyslipidemia who presented to the ER from the residential secondary to lethargy. Apparently patient was found to be 60% on room air and EMS was called. In the ER apparently his CT escalated to 15 L nasal cannula. He received Ativan in the ER for unknown reasons. Initial blood pressure was elevated and respiratory rate was elevated at 28. Initial laboratory analysis showed white blood cell count 17.8, sodium 131, potassium 5.5 (hemolyzed), carbon dioxide 18, AST 70, ALT 160. We'll be testing was negative. Chest x-ray demonstrated pneumonia. He then underwent a CT of the chest which showed a left-sided pleural effusion. Effusion appears to be minimal. He was seen by pulmonary. CT abdomen and pelvis showed again bilateral lower lobe pneumonia and atelectasis, mild atherosclerotic disease, and lumbar spondylitic changes. CT head showed no cerebral atrophy. On the morning of 08/28 patient was awake alert and oriented 3. Procalcitonin was mildly elevated at 0.40, but was checked 24 hours from antibiotics being started. Patient with elevated HR overnight. Given one extra dose of metoprolol. His HR was better controlled. On the afternoon of 09/02 patient had desaturations. He required a non rebreahter. Patient seen and examined at bedside. Breathing is better today, no chest pain, + weak Told him he has to sit in the chair General: non toxic, no distress, appears at stated age Derm: warm, dry multiple areas of ecchymosis in various stages of healing Head: atraumatic, normocephalic, symmetric Eyes: EOMI, no lid lag, anicteric sclera Mouth: no lip lesion, mucus membranes moist Cardiovascular: S1S2 irreg, no murmur, positive posterior tibial pulse bilateral, Lungs: Crackles left base, no rhonchi, no rales , no accessory muscle use Abdominal: soft, nontender to palpation, no guarding, no appreciable organomegaly Ext: no gross muscle atrophy, no edema, no contractures Neuro: CN II-XI grossly intact, no focal neuro deficits Psych: Alert, oriented, appropriate affect Acute on chronic hypoxic respiratory failure History of recent pulmonary embolism Recent COVID-19 pneumonia and negative Left pleural effusion - lasix 20 mg daily - Cardiology and pulmonary recommendations appreciated - Augmentin D 03/10 - eliquis Acute encephalopathy, toxic, resolved -Secondary to Ativan and hypoxia A. fib with RVR -Metoprolol HR - Discussed with cardiology and resting heart rate is in acceptable range and increases with activity, due to patient's advanced age as well as pauses will maintain current metoprolol dose. -Eliquis -Telemetry -No need for repeat echo at this time, Echo 08/05 EF 55-60% Abdominal pain, resolved Chronic: Hypertension Dyslipidemia Hypothyroidism Continue to await authorization for [facility] facility. Patient is medically optimized to discharge whenever auth obtained. DVT prophylaxis: SCDs Discussed with: nursing, patient, social work Anticipated discharge date: in AM Anticipated discharge place: SNF A total of 25 minutes was spent on the care of this complex patient more than 50% of the time was spent in counseling and care coordination. Patient needs to go to a rehab likely will be arranged on Monday Objective - Vital Signs Vital signs: Vital Signs Temp 96.3 F L 09/04/21 08:00 Pulse 84 09/04/21 08:00 Resp 18 09/04/21 08:00 BP 100/61 09/04/21 08:00 Pulse Ox 94 L 09/04/21 08:00 Intake & Output 09/03/21 09/04/21 09/04/21 18:59 06:59 18:59 Intake Total 378 180 Output Total 100 501 Balance 278 -501 180 Intake: Intake, IV Titration 20 Amount Sodium Chloride 0.9% 1, 20 000 ml @ 20 mls/hr IV . Q24H [facility] Rx#:[id number] Oral 358 180 Output: Urine 100 501 Other: Voiding Method Diaper Urinal Urinal External Catheter # Voids 2 4 # Bowel Movements 1 1 2 - Labs CBC & Chem 7: 09/04/21 07:18 09/04/21 07:18 Labs: Abnormal Lab Results - Last 24 Hours (Table) 09/04/21 09/04/21 Range/Units 07:18 07:18 RBC 4.03 L (4.30-5.90) m/uL Hgb 11.8 L (13.0-17.5) gm/dL Hct 36.7 L (39.0-53.0) % Sodium 133 L (137-145) mmol/L BUN 23 H (9-20) mg/dL Calcium 7.8 L (8.4-10.2) mg/dL
[2021-09-04] MEDS: SODIUM CHLORIDE 0.9% 1,000 ML IV SCH (13:23)
[2021-09-04] MEDS: ACETAMINOPHEN TAB 325 MG TAB PO PRN (20:45)
[2021-09-04] MEDS: LEVOTHYROXINE 50 MCG TAB PO SCH (20:45)
[2021-09-04] MEDS: ATORVASTATIN 20 MG TAB PO SCH (20:45)
[2021-09-05] MEDS: METOPROLOL TARTRATE 50 MG TAB PO SCH ×3 (06:11→21:06)
[2021-09-05] MEDS: APIXABAN 5 MG TAB PO SCH ×2 (08:56→21:06)
[2021-09-05] MEDS: FUROSEMIDE 20 MG TAB PO SCH (08:57)
[2021-09-05] MEDS: CHOLECALCIFEROL 125 MCG (5000 IU) TABLET PO SCH (08:57)
[2021-09-05] MEDS: AMOXIC-POT CLAV 875-125MG 1 EACH TAB PO SCH ×2 (08:57→21:07)
--- NOTE | 2021-09-05 13:55 | P.PN ---
Subjective Progress Note Date: 09/05/21 Patient still feels weak no chest pain no more shortness of breath -year-old male who is recently discharged from our facility after COVID-19 pneumonia, lingular pulmonary embolism, and newly discovered A. fib with prior known hypertension, hypothyroidism, and dyslipidemia who [facility]. Apparently patient was found to be 60% on room air and EMS was called. In the ER apparently his CT escalated to 15 L nasal cannula. He received Ativan in the ER for unknown reasons. Initial blood pressure was elevated and respiratory rate was elevated at 28. Initial laboratory analysis showed white blood cell count 17.8, sodium 131, potassium 5.5 (hemolyzed), carbon dioxide 18, AST 70, ALT 160. We'll be testing was negative. Chest x-ray demonstrated pneumonia. He then underwent a CT of the chest which showed a left-sided pleural effusion. Effusion appears to be minimal. He was seen by pulmonary. CT abdomen and pelvis showed again bila teral lower lobe pneumonia and atelectasis, mild atherosclerotic disease, and lumbar spondylitic changes. CT head showed no cerebral atrophy. On the morning of 08/28 patient was awake alert and oriented 3. Procalcitonin was mildly elevated at 0.40, but was checked 24 hours from antibiotics being started. Patient with elevated HR overnight. Given one extra dose of metoprolol. His HR was better controlled. On the afternoon of 09/02 patient had desaturations. He required a non rebreahter. Patient seen and examined at bedside. Breathing is better today, no chest pain, + weak Told him he has to sit in the chair General: non toxic, no distress, appears at stated age Derm: warm, dry multiple areas of ecchymosis in various stages of healing Head: atraumatic, normocephalic, symmetric Eyes: EOMI, no lid lag, anicteric sclera Mouth: no lip lesion, mucus membranes moist Cardiovascular: S1S2 irreg, no murmur, positive posterior tibial pulse bilateral, Lungs: Crackles left base, no rhonchi, no rales , no accessory muscle use Abdominal: soft, nontender to palpation, no guarding, no appreciable organomegaly Ext: no gross muscle atrophy, no edema, no contractures Neuro: CN II-XI grossly intact, no focal neuro deficits Psych: Alert, oriented, appropriate affect Acute on chronic hypoxic respiratory failure History of recent pulmonary embolism Recent COVID-19 pneumonia and negative Left pleural effusion - lasix 20 mg daily - Cardiology and pulmonary recommendations appreciated - Augmentin D 03/10 - eliquis Acute encephalopathy, toxic, resolved -Secondary to Ativan and hypoxia A. fib with RVR -Metoprolol HR - Discussed with cardiology and resting heart rate is in acceptable range and increases with activity, due to patient's advanced age as well as pauses will maintain current metoprolol dose. -Eliquis -Telemetry -No need for repeat echo at this time, Echo 08/05 EF 55-60% Abdominal pain, resolved Chronic: Hypertension Dyslipidemia Hypothyroidism Continue to await [facility]. Patient is medically optimized to discharge whenever auth obtained. DVT prophylaxis: SCDs Discussed with: nursing, patient, social work Anticipated discharge date: in AM Anticipated discharge place: SNF A total of 25 minutes was spent on the care of this complex patient more than 50% of the time was spent in counseling and care coordination. Patient needs to go to a rehab likely will be arranged on Monday Overall appears to be stable pending rehab Objective - Vital Signs Vital signs: Vital Signs Temp 97.3 F L 09/05/21 13:49 Pulse 103 H 09/05/21 07:50 Resp 18 09/05/21 13:49 BP 109/65 09/05/21 13:49 Pulse Ox 95 09/05/21 13:49 Intake & Output 09/04/21 09/05/21 09/05/21 18:59 06:59 18:59 Intake Total 540 118 Output Total 200 Balance 340 118 Intake: Oral 540 118 Output: Urine 200 Other: Voiding Method Urinal Urinal Urinal # Voids 1 1 # Bowel Movements 1 1 - Labs CBC & Chem 7: 09/04/21 07:18 09/04/21 07:18
[2021-09-05] MEDS: SODIUM CHLORIDE 0.9% 1,000 ML IV SCH (14:21)
[2021-09-05] MEDS: ATORVASTATIN 20 MG TAB PO SCH (21:06)
[2021-09-05] MEDS: LEVOTHYROXINE 50 MCG TAB PO SCH (21:07)
[2021-09-06] MEDS: METOPROLOL TARTRATE 50 MG TAB PO SCH ×3 (06:03→21:37)
[2021-09-06] MEDS: APIXABAN 5 MG TAB PO SCH ×2 (10:08→21:37)
[2021-09-06] MEDS: FUROSEMIDE 20 MG TAB PO SCH (10:08)
[2021-09-06] MEDS: CHOLECALCIFEROL 125 MCG (5000 IU) TABLET PO SCH (10:08)
[2021-09-06 10:23] LABS: Basophils % (A) 0 %; Eosinophils # (A) 0.1 k/uL (0-0.7); Eosinophils % (A) 1 %; HCT 35.4 % (39.0-53.0); HGB 11.6 gm/dL (13.0-17.5); Lymphocytes # (A) 2.4 k/uL (1.0-4.8); Lymphocytes % (A) 33 %; MCH 29.8 pg (25.0-35.0); MCHC 32.7 g/dL (31.0-37.0); MCV 91.1 fL (80.0-100.0); Mean Platelet Volume 7.8; Monocytes # (A) 0.3 k/uL (0-1.0); Monocytes % (A) 4 %; Neutrophils # (A) 4.3 k/uL (1.3-7.7); Neutrophils % (A) 60 %; Platelet Count 282 k/uL (150-450); RBC 3.89 m/uL (4.30-5.90); RDW 15.3 % (11.5-15.5); WBC 7.3 k/uL (3.8-10.6)
[2021-09-06 10:24] LABS: ALT 92 U/L (4-49); AST 54 U/L (17-59); African American GFR (CKD) >90 (>60 ml/min/1.73 sqM); Albumin 2.1 g/dL (3.5-5.0); Alkaline Phosphatase 110 U/L (38-126); Anion Gap 5 mmol/L; Blood Urea Nitrogen 16 mg/dL (9-20); Calcium 7.8 mg/dL (8.4-10.2); Carbon Dioxide 26 mmol/L (22-30); Chloride 102 mmol/L (98-107); Glucose 137 mg/dL (74-99); Non-African American GFR(CKD) 81 (>60 ml/min/1.73 sqM); Potassium 3.1 mmol/L (3.5-5.1); Sodium 133 mmol/L (137-145); Total Bilirubin 0.4 mg/dL (0.2-1.3)
[2021-09-06] MEDS ORDERED: POTASSIUM CHLORIDE ER 20 MEQ TAB.ER PO STA (13:18)
--- NOTE | 2021-09-06 13:30 | P.PN ---
Subjective Progress Note Date: 09/06/21 Principal diagnosis: shortness of breath 80-year-old male who is recently discharged from our facility after COVID-19 pneumonia, lingular pulmonary embolism, and newly discovered A. willam with prior known hypertension, hypothyroidism, and dyslipidemia who [facility] to [facility]. Apparently patient was found to be 60% on room air and EMS was called. In the ER apparently his CT escalated to 15 L nasal cannula. He received Ativan in the ER for unknown reasons. Initial blood pressure was elevated and respiratory rate was elevated at 28. Initial laboratory analysis showed white blood cell count 17.8, sodium 131, potassium 5 .5 (hemolyzed), carbon dioxide 18, AST 70, ALT 160. We'll be testing was negative. Chest x-ray demonstrated pneumonia. He then underwent a CT of the chest which showed a left-sided pleural effusion. Effusion appears to be minimal. He was seen by pulmonary. CT abdomen and pelvis showed again bi lateral lower lobe pneumonia and atelectasis, mild atherosclerotic disease, and lumbar spondylitic changes. CT head showed no cerebral atrophy. On the morning of 08/28 patient was awake alert and oriented 3. Procalcitonin was mildly elevated at 0.40, but was checked 24 hours from antibiotics being started. Patient with elevated HR overnight. Given one extra dose of metoprolol. His HR was better controlled. Cardio felt that HR adaquately controlled at rest and with movement in light of pauses an did not recommend further medication adjustment. On the afternoon of 09/02 patient had desaturations. He required a non rebreahter, CXR showed left pleural effusion. He responded well to IV lasix anf was back down to his prior 4L. Patient seen and examined at bedside. States that he feels like a new man today. No chest pain, SOB, or nausea. General: non toxic, no distress, appears at stated age Derm: warm, dry multiple areas of ecchymosis in various stages of healing Head: atraumatic, normocephalic, symmetric Eyes: EOMI, no lid lag, anicteric sclera Mouth: no lip lesion, mucus membranes moist Cardiovascular: S1S2 irreg, no murmur, positive posterior tibial pulse bilateral, Lungs: CTA bilateral, no rhonchi, no rales , no accessory muscle use Abdominal: soft, nontender to palpation, no guarding, no appreciable organomegaly Ext: no gross muscle atrophy, no edema, no contractures Neuro: CN II-XI grossly intact, no focal neuro deficits Psych: Alert, oriented, appropriate affect Assessment/Plan: Acute on chronic hypoxic respiratory failure History of recent pulmonary embolism Recent COVID-19 pneumonia and negative Left pleural effusion Acute encephalopathy, toxic, resolved A. fib with RVR Abdominal pain, resolved Hypertension Dyslipidemia Hypothyroidism Continue to await authorization for retirement facility. Patient is medically optimized to discharge whenever auth obtained. Continue with current medications. DVT prophylaxis: SCDs Discussed with: nursing, patient, social work Anticipated discharge date: once auth obtained Anticipated discharge place: SNF A total of 25 minutes was spent on the care of this complex patient more than 50% of the time was spent in counseling and care coordination. Active Medications Generic Name Dose Route Start Last Admin Trade Name Freq PRN Reason Stop Dose Admin Acetaminophen 650 mg 08/27/21 14:07 09/04/21 20:45 Acetaminophen Tab 325 Mg Tab PO 650 mg Q6HR PRN Administration Mild Pain or Fever > 100.5 Apixaban 5 mg 08/27/21 21:00 09/06/21 10:08 Apixaban 5 Mg Tab PO 5 mg BID SOLEDAD Administration Protocol Atorvastatin Calcium 20 mg 08/27/21 21:00 09/05/21 21:06 Atorvastatin 20 Mg Tab PO 20 mg HS SOLEDAD Administration Cholecalciferol 125 mcg 08/28/21 09:00 09/06/21 10:08 Cholecalciferol 125 Mcg (5000 Iu) Tablet PO 125 mcg DAILY SOLEDAD Administration Furosemide 20 mg 09/03/21 09:00 09/06/21 10:08 Furosemide 20 Mg Tab PO 20 mg DAILY SOLEDAD Administration Sodium Chloride 1,000 mls @ 20 mls/hr 08/27/21 14:15 09/05/21 14:21 Saline 0.9% IV Not Given .Q24H SOLEDAD Levothyroxine Sodium 50 mcg 08/27/21 21:00 09/05/21 21:07 Levothyroxine 50 Mcg Tab PO 50 mcg HS SOLEDAD Administration Metoprolol Tartrate 50 mg 08/27/21 21:00 09/06/21 12:25 Metoprolol Tartrate 50 Mg Tab PO 50 mg TID@0500,1300,2100 SOLEDAD Administration Naloxone HCl 0.2 mg 08/27/21 14:07 Naloxone 0.4 Mg/Ml 1 Ml Vial IV Q2M PRN Opioid Reversal Objective - Vital Signs Vital signs: Vital Signs Temp 97.2 F L 09/06/21 08:00 Pulse 78 09/06/21 11:13 Resp 18 09/06/21 11:13 BP 111/68 09/06/21 11:13 Pulse Ox 95 09/06/21 11:13 Intake & Output 09/05/21 09/06/21 09/06/21 18:59 06:59 18:59 Intake Total 354 100 180 Balance 354 100 180 Intake: Oral 354 100 180 Other: Voiding Method Urinal Urinal Urinal Incontinent Incontinent # Voids 1 1 # Bowel Movements 1 1 - Labs CBC & Chem 7: 09/06/21 09:18 09/06/21 09:18 Labs: Abnormal Lab Results - Last 24 Hours (Table) 09/06/21 09/06/21 Range/Units 09:18 09:18 RBC 3.89 L (4.30-5.90) m/uL Hgb 11.6 L (13.0-17.5) gm/dL Hct 35.4 L (39.0-53.0) % Sodium 133 L (137-145) mmol/L Potassium 3.1 L (3.5-5.1) mmol/L Glucose 137 H (74-99) mg/dL Calcium 7.8 L (8.4-10.2) mg/dL ALT 92 H (4-49) U/L Total Protein 5.0 L (6.3-8.2) g/dL Albumin 2.1 L (3.5-5.0) g/dL
[2021-09-06] MEDS: SODIUM CHLORIDE 0.9% 1,000 ML IV SCH (14:23)
[2021-09-06] MEDS: ATORVASTATIN 20 MG TAB PO SCH (21:37)
[2021-09-06] MEDS: LEVOTHYROXINE 50 MCG TAB PO SCH (21:37)
[2021-09-06] MEDS: ACETAMINOPHEN TAB 325 MG TAB PO PRN (21:39)
[2021-09-07] MEDS: METOPROLOL TARTRATE 50 MG TAB PO SCH ×3 (06:00→20:01)
[2021-09-07] MEDS: APIXABAN 5 MG TAB PO SCH ×2 (09:27→20:01)
[2021-09-07] MEDS: FUROSEMIDE 20 MG TAB PO SCH (09:27)
[2021-09-07] MEDS: CHOLECALCIFEROL 125 MCG (5000 IU) TABLET PO SCH (09:27)
--- NOTE | 2021-09-07 10:47 | CDI ---
Documentation Clarification Form Date: 09/07/2021 10:24:15 AM From: Fabiana Kerr RN CCDS Admit Date: 08/27/2021 02:09:00 PM Patient Name: Mariam Schmitz Visit Number: [id number] Discharge Date: ATTENTION: The Clinical Documentation Specialists (CDI) and [facility] Coding Staff appreciate your assistance in clarifying documentation. Please respond to the clarification below the line at the bottom and electronically sign. The CDI & [facility] Coding staff will review the response and follow-up if needed. Please note: Queries are made part of the Legal Health Record. If you have any questions, please contact the author of this message via ITS. Dr. Ganesh Morgan Your patient is receiving the following: Lasix 40mg IV x 1, 08/27; Lasix 40mg IV x 1, 09/02; Lasix 20mg PO Daily, 09/03 to current. Please clarify what condition/diagnosis is being treated. History/Risk Factors: 80-year-old male presents to the ED via EMS for lethargy and SpO2 60% on room air. Medical History: COVID 19 Pneumonia, HTN, PE and Atrial Fibrillation. Clinical indicators: CXR: 08/27 Patchy bilateral airspace disease CXR: 09/02 Interval decrease in left lower lobe patchy airspace opacites and atelectasis. Small left pleural effusion decreased in size compared to prior. Mild bilateral left greater than right interstitial opacites without cardiomegaly. 08/28, 08/29, 08/30, Pulmonary Progress notes. Suspected congestive heart failure. Treatment: Lasix 40mg IV x 1, 08/27; Lasix 40mg IV x 1, 09/02; Lasix 20mg PO Daily, 09/03 to current; Lopressor 50mg PO 08/27 to current; Lopressor 25mg PO x 1 08/31. What diagnosis are you treating with Lasix? [ ] Acute Diastolic CHF [ ] Acute and chronic Diastolic CHF [ ] Chronic Diastolic CHF [ ] No additional diagnosis [ ] Other, please specify [ ] Unable to determine (Template Last Reviewed: October 2020) Acute Diastolic CHF MTDD
--- NOTE | 2021-09-07 13:30 | P.PN ---
Subjective Progress Note Date: 09/07/21 Principal diagnosis: sob 80-year-old male who is recently discharged from our facility after COVID-19 pneumonia, lingular pulmonary embolism, and newly discovered A. fib with prior known hypertension, hypothyroidism, and dyslipidemia who presented to the ER from the long term secondary to lethargy. Apparently patient was found to be 60% on room air and EMS was called. In the ER apparently his CT escalated to 15 L nasal cannula. He received Ativan in the ER for unknown reasons. Initial blood pressure was elevated and respiratory rate was elevated at 28. Initial laboratory analysis showed white blood cell count 17.8, sodium 131, potassium 5.5 (hemolyzed), carbon dioxide 18, AST 70, ALT 160. We'll be testing was negative. Chest x-ray demonstrated pneumonia. He then underwent a CT of the chest which showed a left-sided pleural effusion. Effusion appears to be minimal. He was seen by pulmonary. CT abdomen and pelvis showed again bilateral lower lobe pneumonia and atelectasis, mild atherosclerotic disease, and lumbar spondylitic changes. CT head showed no cerebral atrophy. On the morning of 08/28 patient was awake alert and oriented 3. Procalcitonin was mildly elevated at 0.40, but was checked 24 hours from antibiotics being started. Patient with elevated HR overnight. Given one extra dose of metoprolol. His HR was better controlled. Cardio felt that HR adequately controlled at rest and with movement in light of pauses an did not recommend further medication adjustment. On the afternoon of 09/02 patient had desaturations. He required a non rebreahter, CXR showed left pleural effusion. He responded well to IV lasix anf was back down to his prior 4L. 09/07: Patient feeling ok. No complaints currently. Objective - Vital Signs Vital signs: Vital Signs Temp 98.1 F 09/07/21 07:40 Pulse 94 09/07/21 07:40 Resp 20 09/07/21 07:40 BP 99/65 09/07/21 07:40 Pulse Ox 90 L 09/07/21 07:40 Intake & Output 09/06/21 09/07/21 09/07/21 18:59 06:59 18:59 Intake Total 540 340 480 Output Total 400 2 Balance 140 338 480 Intake: Oral 540 340 480 Output: Urine 400 2 Other: Voiding Method Urinal Urinal Urinal Incontinent Diaper Diaper Incontinent Incontinent # Voids 1 1 1 # Bowel Movements 1 2 2 - Exam General: non toxic, no distress, appears at stated age Derm: warm, dry multiple areas of ecchymosis in various stages of healing Head: atraumatic, normocephalic, symmetric Eyes: EOMI, no lid lag, anicteric sclera Mouth: no lip lesion, mucus membranes moist Cardiovascular: S1S2 irreg, no murmur, positive posterior tibial pulse bilateral, Lungs: CTA bilateral, no rhonchi, no rales , no accessory muscle use Abdominal: soft, nontender to palpation, no guarding, no appreciable organomegaly Ext: no gross muscle atrophy, no edema, no contractures Neuro: CN II-XI grossly intact, no focal neuro deficits Psych: Alert, oriented, appropriate affect - Labs CBC & Chem 7: 09/06/21 09:18 09/06/21 09:18 Assessment and Plan Plan: Acute on chronic hypoxic respiratory failure History of recent pulmonary embolism Recent COVID-19 pneumonia and negative HCAP Left pleural effusion Acute encephalopathy, toxic, resolved A. fib with RVR Abdominal pain, resolved Hypertension Dyslipidemia Hypothyroidism Continue to await authorization for care home facility. Patient is medically optimized to discharge whenever auth obtained. Continue with current medications. DVT prophylaxis: SCDs Discussed with: nursing, patient, social work Anticipated discharge date: once auth obtained Anticipated discharge place: SNF A total of 25 minutes was spent on the care of this complex patient more than 50% of the time was spent in counseling and care coordination.
[2021-09-07] MEDS: SODIUM CHLORIDE 0.9% 1,000 ML IV SCH (14:41)
[2021-09-07] MEDS: LEVOTHYROXINE 50 MCG TAB PO SCH (20:01)
[2021-09-07] MEDS: ATORVASTATIN 20 MG TAB PO SCH (20:01)
[2021-09-08] MEDS: METOPROLOL TARTRATE 50 MG TAB PO SCH ×3 (06:07→20:43)
[2021-09-08] MEDS: APIXABAN 5 MG TAB PO SCH ×2 (08:01→20:43)
[2021-09-08] MEDS: FUROSEMIDE 20 MG TAB PO SCH (08:01)
[2021-09-08] MEDS: CHOLECALCIFEROL 125 MCG (5000 IU) TABLET PO SCH (08:01)
--- NOTE | 2021-09-08 13:26 | P.PN ---
Subjective Progress Note Date: 09/08/21 Principal diagnosis: sob Patient feeling well. No complaints, no overnight events. Objective - Vital Signs Vital signs: Vital Signs Temp 97.6 F 09/08/21 13:23 Pulse 102 H 09/08/21 13:23 Resp 18 09/08/21 13:23 BP 103/59 09/08/21 13:23 Pulse Ox 97 09/08/21 13:23 Intake & Output 09/07/21 09/08/21 09/08/21 18:59 06:59 18:59 Intake Total 720 Output Total 500 275 Balance 720 -500 -275 Intake: Oral 720 Output: Urine 500 275 Other: Voiding Method Urinal Urinal Urinal Diaper Diaper Diaper Incontinent Incontinent Incontinent # Voids 1 1 # Bowel Movements 3 - Exam General: non toxic, no distress, appears at stated age Derm: warm, dry multiple areas of ecchymosis in various stages of healing Head: atraumatic, normocephalic, symmetric Eyes: EOMI, no lid lag, anicteric sclera Mouth: no lip lesion, mucus membranes moist Cardiovascular: S1S2 irreg, no murmur, positive posterior tibial pulse bilateral, Lungs: CTA bilateral, no rhonchi, no rales , no accessory muscle use Abdominal: soft, nontender to palpation, no guarding, no appreciable organomegaly Ext: no gross muscle atrophy, no edema, no contractures Neuro: CN II-XI grossly intact, no focal neuro deficits Psych: Alert, oriented, appropriate affect - Labs CBC & Chem 7: 09/06/21 09:18 09/06/21 09:18 Assessment and Plan Plan: Acute on chronic hypoxic respiratory failure History of recent pulmonary embolism Recent COVID-19 pneumonia and negative HCAP Left pleural effusion Acute encephalopathy, toxic, resolved A. fib with RVR Abdominal pain, resolved Hypertension Dyslipidemia Hypothyroidism Continue to await authorization for long-term facility. Patient is medically optimized to discharge whenever auth obtained. Continue with current medications. DVT prophylaxis: SCDs Discussed with: nursing, patient, social work Anticipated discharge date: once auth obtained Anticipated discharge place: SNF A total of 25 minutes was spent on the care of this complex patient more than 50% of the time was spent in counseling and care coordination.
[2021-09-08] MEDS: SODIUM CHLORIDE 0.9% 1,000 ML IV SCH (13:43)
[2021-09-08] MEDS: LEVOTHYROXINE 50 MCG TAB PO SCH (20:43)
[2021-09-08] MEDS: ATORVASTATIN 20 MG TAB PO SCH (20:43)
[2021-09-09] MEDS: METOPROLOL TARTRATE 50 MG TAB PO SCH ×2 (05:42→13:46)
[2021-09-09] MEDS: CHOLECALCIFEROL 125 MCG (5000 IU) TABLET PO SCH (08:13)
[2021-09-09] MEDS: FUROSEMIDE 20 MG TAB PO SCH (08:13)
[2021-09-09] MEDS: APIXABAN 5 MG TAB PO SCH (08:13)
--- NOTE | 2021-09-09 12:06 | P.DS ---
Providers Date of admission: 08/27/21 14:09 Expected date of discharge: 09/09/21 Attending physician: Ganesh Morgan MD Consults: 08/27/21 14:08 Consult Physician Routine Consulting Provider: Aniya Ferguson Consult Reason/Comments: hypoxia Do you want consulting provider notified?: Yes 08/27/21 14:14 Consult Physician Routine Consulting Provider: Melany High Consult Reason/Comments: suspect heart failure Do you want consulting provider notified?: Yes Primary care physician: [facility] Hospital Course: 80-year-old male who is recently discharged from our facility after COVID-19 pneumonia, lingular pulmonary embolism, and newly discovered A. fib with prior known hypertension, hypothyroidism, and dyslipidemia who presented to the ER from the half-way secondary to lethargy. Apparently patient's O2 sat was found to be 60% on room air and EMS was called. In the ER apparently his O2 needs escalated to 15 L nasal cannula. He received Ativan in the ER for unknown reasons. Initial blood pressure was elevated and respiratory rate was elevated at 28. Initial laboratory analysis showed white blood cell count 17.8, sodium 131, potassium 5.5 (hemolyzed), carbon dioxide 18, AST 70, ALT 160. We'll be testing was negative. Chest x-ray demonstrated pneumonia. He then underwent a CT of the chest which showed a left-sided pleural effusion. Effusion appears to be minimal. He was seen by pulmonary. CT abdomen and pelvis showed again bilateral lower lobe pneumonia and atelectasis, mild atherosclerotic disease, and lumbar spondylitic changes. CT head showed no cerebral atrophy. On the afternoon of 09/02 patient had desaturations. He required a non rebreahter, CXR showed left pleural effusion. He responded well to IV lasix. For pneumonia he was treated with zosyn and then switched to augmentin. He was able to come back to is original 4L of O2 needs. He is currently doing well. Will be sent back to the [facility] in a stable condition. Time for discharge 36 min Patient Condition at Discharge: Fair Plan - Discharge Summary New Discharge Prescriptions: New Acetaminophen Tab [Tylenol] 650 mg PO Q6HR PRN tab PRN Reason: Mild Pain Or Fever > 100.5 Continue Simvastatin [Zocor] 40 mg PO HS Zinc 50 mg PO HS Levothyroxine Sodium [Synthroid] 50 mcg PO HS Ascorbic Acid [Vitamin C] 1,000 mg PO DAILY #30 tab Cholecalciferol [Vitamin D3 (125 Mcg = 5000 Iu)] 125 mcg PO DAILY #30 tablet Apixaban [Eliquis] 5 mg PO BID #0 tab Metoprolol Tartrate [Lopressor] 50 mg PO TID@0500,1300,2100 Discharge Medication List Levothyroxine Sodium [Synthroid] 50 mcg PO HS 07/25/21 [History] Simvastatin [Zocor] 40 mg PO HS 07/25/21 [History] Ascorbic Acid [Vitamin C] 1,000 mg PO DAILY #30 tab 08/12/21 [Rx] Cholecalciferol [Vitamin D3 (125 Mcg = 5000 Iu)] 125 mcg PO DAILY #30 tablet 08/12/21 [Rx] Apixaban [Eliquis] 5 mg PO BID #0 tab 08/19/21 [Rx] Metoprolol Tartrate [Lopressor] 50 mg PO TID@0500,1300,2100 08/27/21 [History] Zinc 50 mg PO HS 08/27/21 [History] Acetaminophen Tab [Tylenol] 650 mg PO Q6HR PRN tab 09/02/21 [Rx] Follow up Appointment(s)/Referral(s): Vianey Russell MD [STAFF PHYSICIAN] - 1 Week Ivan Lackey DO [Primary Care Provider] - 1-2 days Activity/Diet/Wound Care/Special Instructions: Activity: as tolerated Diet: heart health Special Instructions: Acceptable resting heart rate is 100-110, acceptable with activity is 130 or less. Discharge Disposition: TRANSFER TO SNF/ECF
[2021-09-09 13:45] VITALS: BP 91/56; PULSE 113; RESP 19; TEMP 97.9
[2021-09-09] MEDS: SODIUM CHLORIDE 0.9% 1,000 ML IV SCH (13:47)
== END 2021-09-09 17:23 | disposition home or self-care (01) | DRG 189 ==
LOC: EC 11:51 → 4SSUR 14:09 → 3SCARD 15:14
PROVIDERS: ADMIT Internal Medicine; ATTEND Internal Medicine
DX: J96.21 Acute and chronic respiratory failure with hypoxia (principal); I50.31 Acute diastolic (congestive) heart failure; G92.9 Unspecified toxic encephalopathy; G92.8 Other toxic encephalopathy; J18.9 Pneumonia, unspecified organism; E87.1 Hypo-osmolality and hyponatremia; E87.2 Acidosis; R64 Cachexia; J90 Pleural effusion, not elsewhere classified; I11.0 Hypertensive heart disease with heart failure; E03.9 Hypothyroidism, unspecified; E78.5 Hyperlipidemia, unspecified; E87.5 Hyperkalemia; I48.0 Paroxysmal atrial fibrillation; T42.4X5A Adverse effect of benzodiazepines, initial encounter; R54 Age-related physical debility; U09.9 Post COVID-19 condition, unspecified; Z79.01 Long term (current) use of anticoagulants; Z79.890 Hormone replacement therapy; Z79.899 Other long term (current) drug therapy; Z86.711 Personal history of pulmonary embolism
CPT/HCPCS: 36415; 70450; 71045; 71275; 74177; 80048; 80053; 83615; 83735; 83880; 84100; 84145; 84484; 85025; 85027; 85610; 85730; 86140; 87040; 87635; 93005; 93306; 94660; 94760; 96361; 96365; 96366; 96374; 96375; 99285; 99291

== ENCOUNTER 2021-09-21 14:42 | Inpatient (IN) | payer BC, MEDICARE ==
[2021-09-21] MEDS ORDERED: SODIUM CHLORIDE 0.9% 500 ML 500 ML IV STA (14:49)
[2021-09-21 15:49] LABS: Basophils # (A) 0.1 k/uL (0-0.2); Basophils % (A) 0 %; Eosinophils # (A) 0.1 k/uL (0-0.7); Eosinophils % (A) 0 %; HGB 11.4 gm/dL (13.0-17.5); Hypochromasia Moderate; Lymphocytes # (A) 5.3 k/uL (1.0-4.8); Lymphocytes % (A) 29 %; MCH 29.9 pg (25.0-35.0); MCHC 32.5 g/dL (31.0-37.0); Mean Platelet Volume 7.5; Monocytes # (A) 0.9 k/uL (0-1.0); Monocytes % (A) 5 %; Neutrophils # (A) 11.5 k/uL (1.3-7.7); Neutrophils % (A) 63 %; Platelet Count 574 k/uL (150-450); RBC 3.81 m/uL (4.30-5.90); RDW 15.6 % (11.5-15.5); WBC 18.2 k/uL (3.8-10.6)
--- NOTE | 2021-09-21 15:57 | XR ---
EXAMINATION TYPE: XR chest 2V DATE OF EXAM: 09/21/2021 COMPARISON: 09/02/2021 TECHNIQUE: PA and lateral views submitted. HISTORY: Shortness of breath FINDINGS: Hyperexpansion along with diffuse osteopenia and arthropathy of the shoulders. Diffuse bilateral infi ltrates with bilateral effusion greater on the left. Heart size stable. Hypertrophic change of the sp ine. No pneumothorax. IMPRESSION: 1. Correlate for CHF versus diffuse pneumonia.
[2021-09-21 15:59] LABS: INR 1.6 (<1.2); Prothrombin Time 16.2 sec (9.0-12.0)
[2021-09-21 16:02] LABS: Polychromasia Present
[2021-09-21 16:04] LABS: Albumin 2.6 g/dL (3.5-5.0); Calcium 8.6 mg/dL (8.4-10.2); Magnesium 2.2 mg/dL (1.6-2.3); Potassium 3.9 mmol/L (3.5-5.1); Total Protein 6.1 g/dL (6.3-8.2)
[2021-09-21] MEDS ORDERED: ACETAMINOPHEN TAB 500 MG TAB PO STA (16:10)
[2021-09-21 16:19] LABS: C Reactive Protein 23.1 mg/dL (<1.0)
[2021-09-21] MEDS ORDERED: IPRATROPIUM-ALBUTEROL 3 ML NEB INHALATION STA (16:44)
[2021-09-21] MEDS ORDERED: PIPERACILLIN-TAZOBACTAM 3.375 GM in SODIUM CHLORIDE 0.9% 100 ML IVPB STA (16:44)
[2021-09-21] MEDS ORDERED: VANCOMYCIN IV PER PHARMACY 1 EACH MISC MISCELLANE PRN (16:44)
[2021-09-21] MEDS ORDERED: methylPREDNISolone SOD SUCCI 125 MG/2 ML VIAL IV STA (16:44)
[2021-09-21] MEDS ORDERED: VANCOMYCIN 1,250 MG in SODIUM CHLORIDE 0.9% 250 ML IVPB STA (16:48)
--- NOTE | 2021-09-21 16:49 | ED ---
General Adult HPI - General Chief complaint: Shortness of Breath Stated complaint: SOB Time Seen by Provider: 09/21/21 14:49 Source: patient, family, RN notes reviewed Mode of arrival: wheelchair Limitations: no limitations - History of Present Illness Initial comments: 80-year-old male presents emergency Department with chief complaint of shortness of breath. Patient's been having increasing symptoms last day or so. Patient had multiple recent admissions for COVID-19 initial infection was in July. Family states that he's been confused,short of breath, appears to be dehydrated. Patient has no specific complaints. Denies any chest pain or palpitations nor his heart rate to be higher and states his pulse ox at home was around 84%. Patient is normally on oxygen after having COVID-19. Patient had no recent vomiting has noted increasing cough and congestion. - Related Data Home Medications Medication Instructions Recorded Confirmed Levothyroxine Sodium [Synthroid] 50 mcg PO HS 07/25/21 08/27/21 Simvastatin [Zocor] 40 mg PO HS 07/25/21 08/27/21 Zinc 50 mg PO HS 08/27/21 08/27/21 Previous Rx's Medication Instructions Recorded Ascorbic Acid [Vitamin C] 1,000 mg PO DAILY #30 tab 08/12/21 Cholecalciferol [Vitamin D3 (125 125 mcg PO DAILY #30 tablet 08/12/21 Mcg = 5000 Iu)] Apixaban [Eliquis] 5 mg PO BID #0 tab 08/19/21 Acetaminophen Tab [Tylenol] 650 mg PO Q6HR PRN tab 09/02/21 Metoprolol Tartrate [Lopressor] 50 mg PO TID@0500,1300,2100 30 09/10/21 Days #90 tab Allergies Allergy/AdvReac Type Severity Reaction Status Date / Time No Known Allergies Allergy Verified 09/21/21 16:54 Review of Systems ROS Statement: Those systems with pertinent positive or pertinent negative responses have been documented in the HPI. ROS Other: All systems not noted in ROS Statement are negative. Past Medical History Past Medical History: Atrial Fibrillation, Cancer, Hypertension History of Any Multi-Drug Resistant Organisms: None Reported Past Surgical History: Cholecystectomy, Hernia Repair Past Psychological History: No Psychological Hx Reported Smoking Status: Never smoker Past Alcohol Use History: None Reported Past Drug Use History: None Reported General Exam Limitations: no limitations General appearance: alert, in no apparent distress, cachectic Head exam: Present: atraumatic, normocephalic, normal inspection Eye exam: Present: normal appearance, PERRL, EOMI. Absent: scleral icterus, conjunctival injection, periorbital swelling ENT exam: Present: normal exam, mucous membranes moist Neck exam: Present: normal inspection, full ROM. Absent: tenderness, meningismus, lymphadenopathy Respiratory exam: Present: wheezes, rhonchi. Absent: normal lung sounds bilaterally, respiratory distress, rales, stridor Cardiovascular Exam: Present: tachycardia, irregular rhythm, normal heart sounds. Absent: normal rhythm, systolic murmur, diastolic murmur, rubs, gallop, clicks GI/Abdominal exam: Present: soft, normal bowel sounds. Absent: distended, tenderness, guarding, rebound, rigid Neurological exam: Present: alert. Absent: oriented X3 Course Vital Signs 09/21/21 09/21/21 09/21/21 14:44 15:07 15:33 Temperature 99.1 F Pulse Rate 105 H 120 H Respiratory 24 28 H 24 Rate Blood Pressure 112/59 97/45 O2 Sat by Pulse 81 L 92 L Oximetry Medical Decision Making - Medical Decision Making Chest x-ray shows diffuse pneumonia, patient has hypoxia, leukocytosis. Patient's r start broad-spectrum antibiotic patient blood cultures, lactic is elevated. Patient started on maintenance fluids. - Lab Data Result diagrams: 09/21/21 15:33 09/21/21 15:33 Lab Results 09/21/21 09/21/21 09/21/21 Range/Units 15:33 15:33 15:33 WBC 18.2 H (3.8-10.6) k/uL RBC 3.81 L (4.30-5.90) m/uL Hgb 11.4 L (13.0-17.5) gm/dL Hct 35.0 L (39.0-53.0) % MCV 92.0 (80.0-100.0) fL MCH 29.9 (25.0-35.0) pg MCHC 32.5 (31.0-37.0) g/dL RDW 15.6 H (11.5-15.5) % Plt Count 574 H D (150-450) k/uL MPV 7.5 Neutrophils % 63 % Lymphocytes % 29 % Monocytes % 5 % Eosinophils % 0 % Basophils % 0 % Neutrophils # 11.5 H (1.3-7.7) k/uL Lymphocytes # 5.3 H (1.0-4.8) k/uL Monocytes # 0.9 (0-1.0) k/uL Eosinophils # 0.1 (0-0.7) k/uL Basophils # 0.1 (0-0.2) k/uL Polychromasia Present Hypochromasia Moderate PT 16.2 H (9.0-12.0) sec INR 1.6 H (<1.2) APTT 26.0 (22.0-30.0) sec Sodium 140 (137-145) mmol/L Potassium 3.9 (3.5-5.1) mmol/L Chloride 107 (98-107) mmol/L Carbon Dioxide 22 (22-30) mmol/L Anion Gap 11 mmol/L BUN 17 (9-20) mg/dL Creatinine 0.92 (0.66-1.25) mg/dL Est GFR (CKD-EPI)AfAm 89 (>60 ml/min/1.73 sqM) Est GFR (CKD-EPI)NonAf 77 (>60 ml/min/1.73 sqM) Glucose 121 H (74-99) mg/dL Plasma Lactic Acid Jakub (0.7-2.0) mmol/L Calcium 8.6 (8.4-10.2) mg/dL Magnesium 2.2 (1.6-2.3) mg/dL Total Bilirubin 1.0 (0.2-1.3) mg/dL AST 70 H (17-59) U/L ALT 77 H (4-49) U/L Alkaline Phosphatase 131 H (38-126) U/L Lactate Dehydrogenase 1139 H (313-618) U/L Troponin I (0.000-0.034) ng/mL C-Reactive Protein 23.1 H (<1.0) mg/dL NT-Pro-B Natriuret Pep pg/mL Total Protein 6.1 L (6.3-8.2) g/dL Albumin 2.6 L (3.5-5.0) g/dL Coronavirus (PCR) (Not Detectd) 09/21/21 09/21/21 09/21/21 Range/Units 15:33 15:33 15:33 WBC (3.8-10.6) k/uL RBC (4.30-5.90) m/uL Hgb (13.0-17.5) gm/dL Hct (39.0-53.0) % MCV (80.0-100.0) fL MCH (25.0-35.0) pg MCHC (31.0-37.0) g/dL RDW (11.5-15.5) % Plt Count (150-450) k/uL MPV Neutrophils % % Lymphocytes % % Monocytes % % Eosinophils % % Basophils % % Neutrophils # (1.3-7.7) k/uL Lymphocytes # (1.0-4.8) k/uL Monocytes # (0-1.0) k/uL Eosinophils # (0-0.7) k/uL Basophils # (0-0.2) k/uL Polychromasia Hypochromasia PT (9.0-12.0) sec INR (<1.2) APTT (22.0-30.0) sec Sodium (137-145) mmol/L Potassium (3.5-5.1) mmol/L Chloride (98-107) mmol/L Carbon Dioxide (22-30) mmol/L Anion Gap mmol/L BUN (9-20) mg/dL Creatinine (0.66-1.25) mg/dL Est GFR (CKD-EPI)AfAm (>60 ml/min/1.73 sqM) Est GFR (CKD-EPI)NonAf (>60 ml/min/1.73 sqM) Glucose (74-99) mg/dL Plasma Lactic Acid Jakub 3.1 H* (0.7-2.0) mmol/L Calcium (8.4-10.2) mg/dL Magnesium (1.6-2.3) mg/dL Total Bilirubin (0.2-1.3) mg/dL AST (17-59) U/L ALT (4-49) U/L Alkaline Phosphatase (38-126) U/L Lactate Dehydrogenase (313-618) U/L Troponin I 0.014 (0.000-0.034) ng/mL C-Reactive Protein (<1.0) mg/dL NT-Pro-B Natriuret Pep 3810 pg/mL Total Protein (6.3-8.2) g/dL Albumin (3.5-5.0) g/dL Coronavirus (PCR) (Not Detectd) 09/21/21 Range/Units 15:33 WBC (3.8-10.6) k/uL RBC (4.30-5.90) m/uL Hgb (13.0-17.5) gm/dL Hct (39.0-53.0) % MCV (80.0-100.0) fL MCH (25.0-35.0) pg MCHC (31.0-37.0) g/dL RDW (11.5-15.5) % Plt Count (150-450) k/uL MPV Neutrophils % % Lymphocytes % % Monocytes % % Eosinophils % % Basophils % % Neutrophils # (1.3-7.7) k/uL Lymphocytes # (1.0-4.8) k/uL Monocytes # (0-1.0) k/uL Eosinophils # (0-0.7) k/uL Basophils # (0-0.2) k/uL Polychromasia Hypochromasia PT (9.0-12.0) sec INR (<1.2) APTT (22.0-30.0) sec Sodium (137-145) mmol/L Potassium (3.5-5.1) mmol/L Chloride (98-107) mmol/L Carbon Dioxide (22-30) mmol/L Anion Gap mmol/L BUN (9-20) mg/dL Creatinine (0.66-1.25) mg/dL Est GFR (CKD-EPI)AfAm (>60 ml/min/1.73 sqM) Est GFR (CKD-EPI)NonAf (>60 ml/min/1.73 sqM) Glucose (74-99) mg/dL Plasma Lactic Acid Jakub (0.7-2.0) mmol/L Calcium (8.4-10.2) mg/dL Magnesium (1.6-2.3) mg/dL Total Bilirubin (0.2-1.3) mg/dL AST (17-59) U/L ALT (4-49) U/L Alkaline Phosphatase (38-126) U/L Lactate Dehydrogenase (313-618) U/L Troponin I (0.000-0.034) ng/mL C-Reactive Protein (<1.0) mg/dL NT-Pro-B Natriuret Pep pg/mL Total Protein (6.3-8.2) g/dL Albumin (3.5-5.0) g/dL Coronavirus (PCR) Not Detected (Not Detectd) Disposition Clinical Impression: Acute respiratory failure with hypoxia, Pneumonia Disposition: ADMITTED IP TO THIS HOSP Condition: Serious Referrals: Kennedy Chowdary MD [Primary Care Provider] - 1-2 days
[2021-09-21] MEDS ORDERED: ONDANSETRON 4 MG/2 ML VIAL IVP PRN (16:57)
[2021-09-21] MEDS ORDERED: NALOXONE 0.4 MG/ML 1 ML VIAL IV PRN (16:57)
[2021-09-21] MEDS: ACETAMINOPHEN TAB 325 MG TAB PO PRN (17:23)
[2021-09-21] MEDS: SODIUM CHLORIDE 0.9% 1,000 ML IV SCH (17:28)
[2021-09-21] MEDS ORDERED: ALBUTEROL HFA INHALER INHALATION STA (17:29)
--- NOTE | 2021-09-21 21:40 | P.HPIM ---
History of Present Illness H&P Date: 09/21/21 Chief Complaint: Shortness of breath This is a 80-year-old patient who follows with Dr. Lackey. Patient was discharged from the hospital on August 19: He was then admitted for COVID-19 pneumonia unvaccinated, metabolic encephalopathy, subsegmental acute PE in the lingula and left lower lobe, new onset atrial fibrillation, hypertension, hypothyroid, 2-D echocardiogram showed an EF of 55-60%. Patient subsequently was admitted on August 27, with hypoxia. This occasionally was diagnosed with pneumonia. He was discharged on [address] chest had shown a small pleural effusion. Patient was brought in by the family to the ER. Patient had been worsening shor tness of breath for at least a day. He's been getting increasingly confused. Possibly dehydrated. Patient himself unable to give much of her history. Speech is somewhat slurred. He has a cough. He says his appetite is fair. He states is too weak to walk. Denies any fever or chills. No chest pain. He has not able to tell me that he is or why he is here. Review of systems: GEN.: Tired EYES: None HEENT: None NECK: None RESPIRATORY: Cough short of breath CARDIOVASCULAR: None GASTROINTESTINAL: None GENITOURINARY: None MUSCULOSKELETAL: None LYMPHATICS: None HEMATOLOGICAL: None PSYCHIATRY: Forgetful NEUROLOGICAL: None Past medical history to include: COVID-19, pulmonary embolism, atrial fibrillation, hypertension, hypothyroid, hyperlipidemia, chronic hypoxic respiratory failure Social history: Denies any smoking or alcohol. Family history: Patient cannot tell Physical examination: VITAL SIGNS: 99, 105, 26, 112/59, 81% on 4 L upon presentation GENERAL: BMI 24.8, laying in bed, awake, tired, coughing intermittently. EYES: Pupils equal. Conjunctiva normal. HEENT: External appearance of nose and ears normal, oral cavity grossly normal. NECK: JVD not raised; masses not palpable. HEART: First and second heart sounds are normal; no edema. LUNGS: Respiratory rate increased; decreased breath sounds. ABDOMEN: Soft, nontender, liver spleen not palpable, no masses palpable. PSYCH: Patient does not know why she is or the yearl. MUSCULOSKELETAL:No Clubbing/cyanosis;muscles-grossly intact. Evidence of OA NEUROLOGICAL: Cranial nerves grossly intact; no facial asymmetry, power and sensation grossly intact. LYMPHATICS: No lymph nodes palpable in the axilla and neck INVESTIGATIONS, reviewed in the clinical context: White count 8.2 hemoglobin 11.4 platelets 574 increased neutrophils sodium 140 potassium 3.9 creatinine 0.9 to AST 70 ALT 77 LDH 1139 CRP 23.1 albumin 2.6. ProBNP 3810 Coronavirus [PCR]: Not detected EKG tracing personally reviewed by me-atrial flutter with a possible intraventricular block with some ST segment changes. Chest x-ray film personally reviewed by me-bilateral infiltrates. 2-D echocardiogram [August 2021]: EF 55-60% Assessment and plan: -Bilateral pneumonia. Suspect gram-negative organism. IV Zosyn. Check procalcitonin. Aspiration precautions. -Acute hypoxic respiratory failure from pneumonia Requiring 6 L of oxygen. -Acute metabolic encephalopathy/delirium from pneumonia Follow clinically -Persistent atrial flutter, rate uncontrolled Consult cardiology. Recent echocardiogram showed preserved LV function. Resume Coreg. -Chronic medical debility. Patient's had a recent admissions. Fall precautions. PT OT. -Essential hypertension Coreg 6.25 mg twice a day -Hypothyroid Synthroid 50 g a day -Hyperlipidemia Zocor 40 mg daily at bedtime -Chronic hypoxic respiratory failure from COVID-19 pneumonia On 4 L of oxygen at home IV Zosyn. Oxygen supplementation. Aspiration precautions. All feeding assiste d. Resume home medications. Telemetry. Cardiology consultation. Given the complexity and severity of patient's condition expect the patient to be in the hospital at least for 2 overnights Past Medical History Past Medical History: Atrial Fibrillation, Cancer, Hypertension History of Any Multi-Drug Resistant Organisms: None Reported Past Surgical History: Cholecystectomy, Hernia Repair Past Psychological History: No Psychological Hx Reported Smoking Status: Never smoker Past Alcohol Use History: None Reported Past Drug Use History: None Reported Medications and Allergies Home Medications Medication Instructions Recorded Confirmed Type Levothyroxine Sodium [Synthroid] 50 mcg PO DAILY 07/25/21 09/21/21 History Simvastatin [Zocor] 40 mg PO HS 07/25/21 09/21/21 History Ascorbic Acid [Vitamin C] 1,000 mg PO DAILY #30 tab 08/12/21 09/21/21 Rx Cholecalciferol [Vitamin D3 (125 125 mcg PO DAILY #30 tablet 08/12/21 09/21/21 Rx Mcg = 5000 Iu)] Apixaban [Eliquis] 5 mg PO BID #0 tab 08/19/21 09/21/21 Rx Zinc 50 mg PO HS 08/27/21 09/21/21 History carvediloL [Coreg] 6.25 mg PO BID 09/21/21 09/21/21 History Allergies Allergy/AdvReac Type Severity Reaction Status Date / Time No Known Allergies Allergy Verified 09/21/21 16:54 Physical Exam Vitals: Vital Signs Temp Pulse Pulse Resp BP BP Pulse Ox 09/21/21 19:33 98.2 F 97 18 96/50 96 09/21/21 17:38 98.3 F 93 20 106/62 96 09/21/21 15:33 120 H 24 97/45 92 L 09/21/21 15:07 28 H 09/21/21 14:44 99.1 F 105 H 24 112/59 81 L Intake and Output 09/21/21 09/21/21 09/21/21 06:59 14:59 22:59 Other: Weight 63.503 kg Results CBC & Chem 7: 09/21/21 15:33 09/21/21 15:33 Labs: Abnormal Lab Results - Last 24 Hours (Table) 09/21/21 09/21/21 09/21/21 Range/Units 15:33 15:33 15:33 WBC 18.2 H (3.8-10.6) k/uL RBC 3.81 L (4.30-5.90) m/uL Hgb 11.4 L (13.0-17.5) gm/dL Hct 35.0 L (39.0-53.0) % RDW 15.6 H (11.5-15.5) % Plt Count 574 H D (150-450) k/uL Neutrophils # 11.5 H (1.3-7.7) k/uL Lymphocytes # 5.3 H (1.0-4.8) k/uL PT 16.2 H (9.0-12.0) sec INR 1.6 H (<1.2) Glucose 121 H (74-99) mg/dL Plasma Lactic Acid Jakub (0.7-2.0) mmol/L AST 70 H (17-59) U/L ALT 77 H (4-49) U/L Alkaline Phosphatase 131 H (38-126) U/L Lactate Dehydrogenase 1139 H (313-618) U/L C-Reactive Protein 23.1 H (<1.0) mg/dL Total Protein 6.1 L (6.3-8.2) g/dL Albumin 2.6 L (3.5-5.0) g/dL 09/21/21 Range/Units 15:33 WBC (3.8-10.6) k/uL RBC (4.30-5.90) m/uL Hgb (13.0-17.5) gm/dL Hct (39.0-53.0) % RDW (11.5-15.5) % Plt Count (150-450) k/uL Neutrophils # (1.3-7.7) k/uL Lymphocytes # (1.0-4.8) k/uL PT (9.0-12.0) sec INR (<1.2) Glucose (74-99) mg/dL Plasma Lactic Acid Jakub 3.1 H* (0.7-2.0) mmol/L AST (17-59) U/L ALT (4-49) U/L Alkaline Phosphatase (38-126) U/L Lactate Dehydrogenase (313-618) U/L C-Reactive Protein (<1.0) mg/dL Total Protein (6.3-8.2) g/dL Albumin (3.5-5.0) g/dL
[2021-09-21] MEDS ORDERED: LACTULOSE 20 GM/30 ML CUP PO PRN (21:43)
[2021-09-21] MEDS ORDERED: CALCIUM CARBONATE 500 MG CHEWABLE PO PRN (21:43)
[2021-09-21] MEDS ORDERED: MELATONIN 3 MG TABLET PO PRN (21:43)
--- NOTE | 2021-09-21 22:50 | CT ---
EXAMINATION TYPE: CT brain wo con DATE OF EXAM: 09/21/2021 COMPARISON: 08/27/2021 HISTORY: AMS CT DLP: 2881.3 mGycm Automated exposure control for dose reduction was used. There is cerebral cortical atrophy. There is no mass effect or midline shift. There is no sign of int racranial hemorrhage. There is some patchy hypodensity in the periventricular white matter. Calvarium is intact. There is normal aeration of the mastoid sinuses. Skull base is intact. IMPRESSION: Cerebral atrophy. Mild chronic small vessel ischemia. No acute intracranial abnormality. No adverse c hange.
[2021-09-21] MEDS: APIXABAN 5 MG TAB PO SCH (23:25)
[2021-09-21] MEDS: carvediloL 6.25 MG TAB PO SCH (23:29)
[2021-09-22] MEDS: PIPERACILLIN-TAZOBACTAM 3.375 GM in SODIUM CHLORIDE 0.9% 100 ML IVPB SCH ×6 (00:58→23:51)
[2021-09-22] MEDS: LEVOTHYROXINE 50 MCG TAB PO SCH (06:00)
[2021-09-22 06:49] LABS: Basophils % (A) 0 %; Eosinophils % (A) 0 %; HCT 31.8 % (39.0-53.0); Hypochromasia Moderate; Lymphocytes # (A) 2.3 k/uL (1.0-4.8); Lymphocytes % (A) 20 %; MCH 29.2 pg (25.0-35.0); MCHC 31.5 g/dL (31.0-37.0); MCV 92.7 fL (80.0-100.0); Mean Platelet Volume 7.5; Monocytes # (A) 0.3 k/uL (0-1.0); Monocytes % (A) 3 %; Neutrophils # (A) 8.7 k/uL (1.3-7.7); Neutrophils % (A) 76 %; Platelet Count 444 k/uL (150-450); RBC 3.43 m/uL (4.30-5.90); RDW 15.4 % (11.5-15.5); WBC 11.4 k/uL (3.8-10.6)
[2021-09-22] MEDS: SODIUM CHLORIDE 0.9% 1,000 ML IV SCH (09:16)
[2021-09-22] MEDS: FUROSEMIDE 10 MG/ML 4 ML VIAL IV SCH ×2 (09:19→21:56)
[2021-09-22] MEDS: CHOLECALCIFEROL 125 MCG (5000 IU) TABLET PO SCH (09:19)
[2021-09-22] MEDS: APIXABAN 5 MG TAB PO SCH ×2 (09:19→21:57)
[2021-09-22] MEDS: ASCORBIC ACID 500 MG TAB PO SCH (09:19)
[2021-09-22] MEDS: METOPROLOL TARTRATE 50 MG TAB PO SCH ×2 (09:19→21:57)
--- NOTE | 2021-09-22 09:27 | P.CRDCN ---
History of Present Illness Consult date: 09/22/21 History of present illness: HISTORY OF PRESENT ILLNESS: This is a 80-year-old male with a past medical history significant for atrial fibrillation and COPD. 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 We have been asked to see the patient in consultation for atrial flutter. Patient examined at the bedside. Patient is a poor historian. Apparently the patient presented to the hospital with worsening shortness of breath and confusion. Patient currently denies any chest pain or pressure. Denies shortness of breath. Denies palpitations. EKG reveals atrial fibrillation with RVR Chest xray correlate for CHF versus diffuse pneumonia Laboratory data: WBC 11.4. Hemoglobin 10.0. Platelet count 444. Sodium 140. Potassium 3.9. BUN 17. Creatinine 0.92. Troponin negative 1. ProBNP 3810. Current home cardiac medications include Zocor 40 mg at night, carvedilol 6.25 mg twice a day, Eliquis 5 mg twice a day Most recent echocardiogram obtained in August 2021 revealed ejection fraction 55-60%, mild mitral regurgitation, mild tricuspid regurgitation, and moderate pulmonary hypertension REVIEW OF SYSTEMS: At the time of my exam: CONSTITUTIONAL: Denies fever or chills. HEENT: Denies blurred vision, vision changes, or eye pain. Denies hemoptysis CARDIOVASCULAR: Denies chest pain. Denies orthopnea. Denies PND. Denies palpitations RESPIRATORY: Denies shortness of breath. GASTROINTESTINAL: Denies abdominal pain. Denies nausea or vomiting. HEMATOLOGIC: Denies bleeding disorders. GENITOURINARY: Denies any blood in urine. SKIN: Denies pruitis. Denies rash. PHYSICAL EXAM: VITAL SIGNS: Reviewed. GENERAL: Well-developed in no acute distress. HEENT: Head is normocephalic. Pupils are equal, round. Sclerae anicteric. Mucous membranes of the mouth are moist. Neck supple. No JVD or thyromegaly LUNGS: Respirations even and unlabored. Lungs diminished with bibasilar rales HEART: Irregular rate and rhythm. S1 and S2 heard. ABDOMEN: Soft. Nondistended. Nontender. EXTREMITIES: Normal range of motion. No clubbing or cyanosis. Peripheral pulses intact. No lower extremity edema NEUROLOGIC: Awake and alert. ASSESSMENT: Shortness of breath Bilateral pneumonia Acute COPD exacerbation Acute diastolic congestive heart failure Paroxysmal atrial fibrillation with RVR, currently rate controlled Chronic debility Chronic hypoxic respiratory failure, on home oxygen Hypertension Hypothyroidism Hyperlipidemia PLAN: No need to repeat echocardiogram as this was performed in August [address] Russell revealing atrial fibrillation, not atrial flutter. Patient is currently rate controlled. Discontinue carvedilol. Begin metoprolol tartrate 50 mg twice a day Begin telemetry monitoring Begin IV Lasix 40 mg every 12 hours Accurate I&O Daily weights Monitor kidney function Further recommendations pending patient course Nurse practitioner note has been reviewed by physician. Signing provider agrees with the documented findings, assessment, and plan of care. Past Medical History Past Medical History: Atrial Fibrillation, Cancer, Hypertension Additional Past Medical History / Comment(s): Prostate cancer with prostatectom y; a fib secondary to Covid; had blood clot in lung with Covid History of Any Multi-Drug Resistant Organisms: None Reported Past Surgical History: Cholecystectomy, Hernia Repair Past Anesthesia/Blood Transfusion Reactions: No Reported Reaction Past Psychological History: No Psychological Hx Reported Smoking Status: Never smoker Past Alcohol Use History: None Reported Past Drug Use History: None Reported Medications and Allergies Home Medications Medication Instructions Recorded Confirmed Type Levothyroxine Sodium [Synthroid] 50 mcg PO DAILY 07/25/21 09/21/21 History Simvastatin [Zocor] 40 mg PO HS 07/25/21 09/21/21 History Ascorbic Acid [Vitamin C] 1,000 mg PO DAILY #30 tab 08/12/21 09/21/21 Rx Cholecalciferol [Vitamin D3 (125 125 mcg PO DAILY #30 tablet 08/12/21 09/21/21 Rx Mcg = 5000 Iu)] Apixaban [Eliquis] 5 mg PO BID #0 tab 08/19/21 09/21/21 Rx Zinc 50 mg PO HS 08/27/21 09/21/21 History carvediloL [Coreg] 6.25 mg PO BID 09/21/21 09/21/21 History Allergies Allergy/AdvReac Type Severity Reaction Status Date / Time No Known Allergies Allergy Verified 09/21/21 16:54 Physical Exam Vitals: Vital Signs Temp Pulse Pulse Resp BP BP Pulse Ox 09/22/21 07:30 97.4 F L 71 20 103/58 93 L 09/22/21 02:00 97.7 F 81 20 134/76 95 09/21/21 23:29 72 18 98/61 97 09/21/21 19:33 98.2 F 97 18 96/50 96 09/21/21 17:38 98.3 F 93 20 106/62 96 09/21/21 15:33 120 H 24 97/45 92 L 09/21/21 15:07 28 H 09/21/21 14:44 99.1 F 105 H 24 112/59 81 L Intake and Output 09/21/21 09/22/21 09/22/21 22:59 06:59 14:59 Intake Total 1000 Balance 1000 Intake: Intake, IV Titration 1000 Amount Sodium Chloride 0.9% 1, 750 000 ml @ 75 mls/hr IV . [id number] [facility] Rx#:[id number] Vancomycin 1,250 mg In 250 Sodium Chloride 0.9% 250 ml @ 125 mls/hr IVPB Q16H [facility] Rx#:[id number] Other: Voiding Method Urinal Results 09/22/21 05:35 09/21/21 15:33 Cardiac Enzymes 09/21/21 09/21/21 Range/Units 15:33 15:33 AST 70 H (17-59) U/L Lactate Dehydrogenase 1139 H (313-618) U/L Troponin I 0.014 (0.000-0.034) ng/mL Coagulation 09/21/21 Range/Units 15:33 PT 16.2 H (9.0-12.0) sec APTT 26.0 (22.0-30.0) sec CBC 09/21/21 09/22/21 Range/Units 15:33 05:35 WBC 18.2 H 11.4 H (3.8-10.6) k/uL RBC 3.81 L 3.43 L (4.30-5.90) m/uL Hgb 11.4 L 10.0 L (13.0-17.5) gm/dL Hct 35.0 L 31.8 L (39.0-53.0) % Plt Count 574 H D 444 (150-450) k/uL Comprehensive Metabolic Panel 09/21/21 Range/Units 15:33 Sodium 140 (137-145) mmol/L Potassium 3.9 (3.5-5.1) mmol/L Chloride 107 (98-107) mmol/L Carbon Dioxide 22 (22-30) mmol/L BUN 17 (9-20) mg/dL Creatinine 0.92 (0.66-1.25) mg/dL Glucose 121 H (74-99) mg/dL Calcium 8.6 (8.4-10.2) mg/dL AST 70 H (17-59) U/L ALT 77 H (4-49) U/L Alkaline Phosphatase 131 H (38-126) U/L Total Protein 6.1 L (6.3-8.2) g/dL Albumin 2.6 L (3.5-5.0) g/dL Current Medications Generic Name Dose Route Start Last Admin Trade Name Freq PRN Reason Stop Dose Admin Acetaminophen 650 mg 09/21/21 16:57 09/21/21 17:23 Acetaminophen Tab 325 Mg Tab PO 650 mg Q6HR PRN Administration Mild Pain or Fever > 100.5 Apixaban 5 mg 09/21/21 21:45 09/21/21 23:25 Apixaban 5 Mg Tab PO 5 mg BID [facility] Administration Protocol Ascorbic Acid 1,000 mg 09/22/21 09:00 Ascorbic Acid 500 Mg Tab PO DAILY [facility] Atorvastatin Calcium 20 mg 09/22/21 21:00 Atorvastatin 20 Mg Tab PO HS [facility] Calcium Carbonate/Glycine 1,000 mg 09/21/21 21:43 Calcium Carbonate 500 Mg Chewable PO Q4HR PRN Dyspepsia Cholecalciferol 125 mcg 09/22/21 09:00 Cholecalciferol 125 Mcg (5000 Iu) Tablet PO DAILY [facility] Furosemide 40 mg 09/22/21 09:00 Furosemide 10 Mg/Ml 4 Ml Vial IV Q12HR [facility] Piperacillin Sod/Tazobactam 100 mls @ 25 mls/hr 09/21/21 22:00 09/22/21 05:59 Sod 3.375 gm/ Sodium Chloride IVPB 25 mls/hr Q8H [facility] Administration Lactulose 20 gm 09/21/21 21:43 Lactulose 20 Gm/30 Ml Cup PO DAILY PRN Constipation Levothyroxine Sodium 50 mcg 09/22/21 06:30 09/22/21 06:00 Levothyroxine 50 Mcg Tab PO 50 mcg DAILY@0630 [facility] Administration Lorazepam 0.5 mg 09/21/21 21:43 Lorazepam 0.5 Mg Tab PO Q6HR PRN Anxiety Melatonin 3 mg 09/21/21 21:43 Melatonin 3 Mg Tablet PO HS PRN Insomnia Metoprolol Tartrate 50 mg 09/22/21 09:00 Metoprolol Tartrate 50 Mg Tab PO BID [facility] Naloxone HCl 0.2 mg 09/21/21 16:57 Naloxone 0.4 Mg/Ml 1 Ml Vial IV Q2M PRN Opioid Reversal Ondansetron HCl 4 mg 09/21/21 16:57 Ondansetron 4 Mg/2 Ml Vial IVP Q8HR PRN Nausea And Vomiting Intake and Output 09/21/21 09/22/21 09/22/21 22:59 06:59 14:59 Intake Total 1000 Balance 1000 Intake: Intake, IV Titration 1000 Amount Sodium Chloride 0.9% 1, 750 000 ml @ 75 mls/hr IV . [id number] [facility] Rx#:[id number] Vancomycin 1,250 mg In 250 Sodium Chloride 0.9% 250 ml @ 125 mls/hr IVPB Q16H [facility] Rx#:[id number] Other: Voiding Method Urinal 09/22/21 05:35 09/21/21 15:33
[2021-09-22] MEDS: carvediloL 6.25 MG TAB PO SCH (09:36)
[2021-09-22] MEDS ORDERED: VANCOMYCIN 1,250 MG in SODIUM CHLORIDE 0.9% 250 ML IVPB SCH (10:00)
[2021-09-22] MEDS ORDERED: IPRATROPIUM-ALBUTEROL 3 ML NEB INHALATION PRN (13:39)
--- NOTE | 2021-09-22 13:39 | P.CNPUL ---
History of Present Illness Consult date: 09/22/21 Requesting physician: Errol Choi Reason for consult: dyspnea, hypoxemia (Dyspnea, hypoxia, altered mental status) Chief complaint: Dyspnea, hypoxia, altered mental status. History of present illness: This is a 80-year-old white male patient who recently had a hospitalization for acute COVID-19 pneumonia in this hospital from 08/27/2021 through 09/09/2021. During his hospitalization patient was also diagnosed new onset atrial fibrillation, he has a known history of hypertension, hypothyroidism, dyslipidemia. Patient was discharged to a skilled nursing after his hospitalization and at the time of discharge she was on 4 L of oxygen, doing well, patient was also treated for a lingular pneumonia with possibility of bacterial pneumonia with Zosyn. He was started on Eliquis for anticoagulation. On 09/21/2021 patient was brought into the hospital by his family for complaints of shortness of breath, with increasing symptoms over a day or 2 prior to presentation. Patient's family also stated that he had been confused, appeared to be dehydrated. Patient offered no specific complaints, he denied any chest pain or palpitations, he still confused, he is a poor historian. His pulse ox at home was around 84%, and we're not sure how much oxygen this was on. No reported nausea or vomiting, no increasing cough or congestion. Chest x-ray showed diffuse bilateral infiltrates with bilateral effusions greater on the left, no pneumothorax. Brain CT showed mild chronic small vessel ischemia, no acute intracranial abnormality, no adverse change. Admission labs showed white blood cell count of 18.2, hemoglobin of 11.4, INR of 1.6, electrolytes and renal profile within normal, lactic acid was 3.1, AST was 70, ALT was 77, alkaline phosphatase was 131, LDH was 1139, troponin was 0.014, CRP was 23.1, proBNP was 3810, pro-calcitonin level came back elevated at 0.33 suggesting possibility of pneumonia, COVID-19 ECR was negative. Patient was placed on 6 L of oxygen his pulse ox is 97%, his been afebrile while in the hospital, patient was given some IV fluids for lactic acidosis, he was started on Zosyn and vancomycin for possibility of pneumonia cardiology consultation was obtained, patient is being subjected to some IV diuretics for possibility of CHF, was started on IV Lasix at 40 mg every 12 hours. Currently breathing comfortably, he is still on 6 L of oxygen, denies any cough or phlegm production, he is much more awake, he knows he is in the hospital, he knew the correct year, knew the president. Denies any chest pain, no lower extremity swelling. EKG on admission showed A. fib with a controlled rate Review of Systems All systems: negative Constitutional: Denies chills, Denies fever Eyes: denies blurred vision, denies pain Ears, nose, mouth and throat: Denies headache, Denies sore throat Cardiovascular: Denies chest pain, Denies shortness of breath Respiratory: Reports cough, Reports dyspnea, Reports home oxygen Gastrointestinal: Denies abdominal pain, Denies diarrhea, Denies nausea, Denies vomiting Musculoskeletal: Denies myalgias Integumentary: Denies pruritus, Denies rash Neurological: Denies numbness, Denies weakness Psychiatric: Denies anxiety, Denies depression Endocrine: Denies fatigue, Denies weight change Past Medical History Past Medical History: Atrial Fibrillation, Cancer, Hypertension Additional Past Medical History / Comment(s): Prostate cancer with pr ostatectomy; a fib secondary to Covid; had blood clot in lung with Covid History of Any Multi-Drug Resistant Organisms: None Reported Past Surgical History: Cholecystectomy, Hernia Repair Past Anesthesia/Blood Transfusion Reactions: No Reported Reaction Past Psychological History: No Psychological Hx Reported Smoking Status: Never smoker Past Alcohol Use History: None Reported Past Drug Use History: None Reported Medications and Allergies Home Medications Medication Instructions Recorded Confirmed Type Levothyroxine Sodium [Synthroid] 50 mcg PO DAILY 07/25/21 09/21/21 History Simvastatin [Zocor] 40 mg PO HS 07/25/21 09/21/21 History Ascorbic Acid [Vitamin C] 1,000 mg PO DAILY #30 tab 08/12/21 09/21/21 Rx Cholecalciferol [Vitamin D3 (125 125 mcg PO DAILY #30 tablet 08/12/21 09/21/21 Rx Mcg = 5000 Iu)] Apixaban [Eliquis] 5 mg PO BID #0 tab 08/19/21 09/21/21 Rx Zinc 50 mg PO HS 08/27/21 09/21/21 History carvediloL [Coreg] 6.25 mg PO BID 09/21/21 09/21/21 History Allergies Allergy/AdvReac Type Severity Reaction Status Date / Time No Known Allergies Allergy Verified 09/21/21 16:54 Physical Exam Vitals: Vital Signs Temp Pulse Pulse Resp BP BP Pulse Ox 09/22/21 12:25 98.1 F 76 18 89/63 96 09/22/21 07:30 97.4 F L 71 20 103/58 93 L 09/22/21 02:00 97.7 F 81 20 134/76 95 09/21/21 23:29 72 18 98/61 97 09/21/21 19:33 98.2 F 97 18 96/50 96 09/21/21 17:38 98.3 F 93 20 106/62 96 09/21/21 15:33 120 H 24 97/45 92 L 09/21/21 15:07 28 H 09/21/21 14:44 99.1 F 105 H 24 112/59 81 L Intake and Output 09/21/21 09/22/21 09/22/21 22:59 06:59 14:59 Intake Total 1000 Balance 1000 Intake: Intake, IV Titration 1000 Amount Sodium Chloride 0.9% 1, 750 000 ml @ 75 mls/hr IV . [id number] [facility] Rx#:[id number] Vancomycin 1,250 mg In 250 Sodium Chloride 0.9% 250 ml @ 125 mls/hr IVPB Q16H [facility] Rx#:[id number] Other: Voiding Method Urinal GENERAL EXAM: Alert, pleasant, 80-year-old white male, on 8 L of oxygen with a pulse ox of 96% comfortable in no apparent distress. HEAD: Normocephalic/atraumatic. EYES: Normal reaction of pupils, equal size. Conjunctiva pink, sclera white. NOSE: Clear with pink turbinates. THROAT: No erythema or exudates. NECK: No masses, no JVD, no thyroid enlargement, no adenopathy. CHEST: No chest wall deformity. Symmetrical expansion. LUNGS: Equal air entry with no crackles, wheeze, rhonchi or dullness. CVS: Irregular rate and rhythm, normal S1 and S2, no gallops, no murmurs, no rubs ABDOMEN: Soft, nontender. No hepatosplenomegaly, normal bowel sounds, no guarding or rigidity. EXTREMITIES: No clubbing, no edema, no cyanosis, 2+ pulses and upper and lower extremities. MUSCULOSKELETAL: Muscle strength and tone normal. SPINE: No scoliosis or deformity SKIN: No rashes CENTRAL NERVOUS SYSTEM: Alert and oriented -3. No focal deficits, tone is normal in all 4 extremities. PSYCHIATRIC: Alert and oriented -3. Appropriate affect. Intact judgment and insight. Results - Laboratory Findings CBC and BMP: 09/22/21 05:35 09/21/21 15:33 PT/INR, D-dimer PT 16.2 sec (9.0-12.0) H 09/21/21 15:33 INR 1.6 (<1.2) H 09/21/21 15:33 Abnormal lab findings: Abnormal Labs 09/21/21 09/21/21 09/21/21 15:33 15:33 15:33 WBC 18.2 H RBC 3.81 L Hgb 11.4 L Hct 35.0 L RDW 15.6 H Plt Count 574 H D Neutrophils # 11.5 H Lymphocytes # 5.3 H PT 16.2 H INR 1.6 H Glucose 121 H Plasma Lactic Acid Jakub AST 70 H ALT 77 H Alkaline Phosphatase 131 H Lactate Dehydrogenase 1139 H C-Reactive Protein 23.1 H Total Protein 6.1 L Albumin 2.6 L Procalcitonin 09/21/21 09/22/21 09/22/21 15:33 05:35 05:35 WBC 11.4 H RBC 3.43 L Hgb 10.0 L Hct 31.8 L RDW Plt Count Neutrophils # 8.7 H Lymphocytes # PT INR Glucose Plasma Lactic Acid Jakub 3.1 H* AST ALT Alkaline Phosphatase Lactate Dehydrogenase C-Reactive Protein Total Protein Albumin Procalcitonin 0.33 H - Diagnostic Findings Chest x-ray: report reviewed, image reviewed Additional studies: EKG, brain CT reviewed Assessment and Plan Plan: Assessment: #1. Acute hypoxic respiratory failure, suspect possibility of healthcare acquired pneumonia, and a component of CHF is not excluded. COVID-19 PCR was negative #2. Altered mental status, brain CT was Negative, this may relate to possibility of pneumonia with sepsis. Mental status is currently improved #3. Acute exacerbation of diastolic CHF #4. Chronic A. fib, on Eliquis #5. Recent hospitalization in August 2021 for COVID19 related pneumonia, with new onset atrial fibrillation #6. Hypothyroidism #7. Hypertension #8. History of COPD #9. Hyperlipidemia Plan: Continue Zosyn, and dose of vancomycin had been given Blood cultures have been sent, obtain a sputum culture Pro-calcitonin level was noted Chest x-ray has been reviewed, labs have been reviewed Patient has been started on IV Lasix, follow up labs including CBC and BMP tomorrow Daily weight, adequate intake and output No need for IV steroids, Start some breathing treatments We'll continue to follow his clinical course I performed a history & physical examination of the patient and discussed their management with my nurse practitioner, Lucy Acosta. I reviewed the nurse practitioner's note and agree with the documented findings and plan of care. Lung sounds are positive for clear breath sounds throughout the lung amin. The findings and the impression was discussed with the patient. I attest to the documentation by the nurse practitioner. Time with Patient: Greater than 30
[2021-09-22] MEDS: IPRATROPIUM-ALBUTEROL 3 ML NEB INHALATION SCH (20:32)
--- NOTE | 2021-09-22 21:23 | P.PN ---
Progress Note - Text Progress Note Date: 09/22/21 Chief Complaint: Shortness of breath This is a 80-year-old patient who follows with Dr. Lackey. Patient was discharged from the hospital on August 19: He was then admitted for COVID-19 pneumonia unvaccinated, metabolic encephalopathy, subsegmental acute PE in the lingula and left lower lobe, new onset atrial fibrillation, hypertension, hypothyroid, 2-D echocardiogram showed an EF of 55-60%. Patient subsequently was admitted on August 27, with hypoxia. This occasionally was diagnosed with pneumonia. He was discharged on [address] chest had shown a small pleural effusion. Patient was brought in by the family to the ER. Patient had been worsening shortness of breath for at least a day. He's been getting increasingly confused. Possibly dehydrated. Patient himself unable to give much of her history. Speech is somewhat slurred. He has a cough. He says his appetite is fair. He states is too weak to walk. Denies any fever or chills. No chest pain. He has not able to tell me that he is or why he is here. Admitted with bilateral pneumonia, acute hypoxic respiratory failure, acute metabolic encephalopathy and delirium, atrial flutter fibrillation uncontrolled. Started on IV Zosyn, oxygen, Lopressor 12.5 twice a day. September 22: Laying in bed. A bit more awake. Answers questions a bit better. Afebrile. Eating good breakfast. Atrial flutter fibrillation better controlled Review of systems: Was done for constitutional, cardiovascular, GI, pulmonary. relevant finding as above Active Medications Acetaminophen (Acetaminophen Tab 325 Mg Tab) 650 mg PO Q6HR PRN PRN Reason: Mild Pain or Fever > 100.5 Last Admin: 09/21/21 17:23 Dose: 650 mg Documented by: Albuterol/Ipratropium (Ipratropium-Albuterol 3 Ml Neb) 3 ml INHALATION RT-Q2H PRN PRN Reason: Shortness Of Breath Or Wheezing Albuterol/Ipratropium (Ipratropium-Albuterol 3 Ml Neb) 3 ml INHALATION RT-TID [facility] Last Admin: 09/22/21 20:32 Dose: 3 ml Documented by: Apixaban (Apixaban 5 Mg Tab) 5 mg PO BID [facility]; Protocol Last Admin: 09/22/21 09:19 Dose: 5 mg Documented by: Ascorbic Acid (Ascorbic Acid 500 Mg Tab) 1,000 mg PO DAILY [facility] Last Admin: 09/22/21 09:19 Dose: 1,000 mg Documented by: Atorvastatin Calcium (Atorvastatin 20 Mg Tab) 20 mg PO HS [facility] Calcium Carbonate/Glycine (Calcium Carbonate 500 Mg Chewable) 1,000 mg PO Q4HR PRN PRN Reason: Dyspepsia Cholecalciferol (Cholecalciferol 125 Mcg (5000 Iu) Tablet) 125 mcg PO DAILY [facility] Last Admin: 09/22/21 09:19 Dose: 125 mcg Documented by: Furosemide (Furosemide 10 Mg/Ml 4 Ml Vial) 40 mg IV Q12HR [facility] Last Admin: 09/22/21 09:19 Dose: 40 mg Documented by: Piperacillin Sod/Tazobactam (Sod 3.375 gm/ Sodium Chloride) 100 mls @ 25 mls/hr IVPB Q8H [facility] Last Admin: 09/22/21 15:54 Dose: 25 mls/hr Documented by: Lactulose (Lactulose 20 Gm/30 Ml Cup) 20 gm PO DAILY PRN PRN Reason: Constipation Levothyroxine Sodium (Levothyroxine 50 Mcg Tab) 50 mcg PO DAILY@0630 [facility] Last Admin: 09/22/21 06:00 Dose: 50 mcg Documented by: Lorazepam (Lorazepam 0.5 Mg Tab) 0.5 mg PO Q6HR PRN PRN Reason: Anxiety Melatonin (Melatonin 3 Mg Tablet) 3 mg PO HS PRN PRN Reason: Insomnia Metoprolol Tartrate (Metoprolol Tartrate 50 Mg Tab) 50 mg PO BID [facility] Last Admin: 09/22/21 09:19 Dose: 50 mg Documented by: Naloxone HCl (Naloxone 0.4 Mg/Ml 1 Ml Vial) 0.2 mg IV Q2M PRN PRN Reason: Opioid Reversal Ondansetron HCl (Ondansetron 4 Mg/2 Ml Vial) 4 mg IVP Q8HR PRN PRN Reason: Nausea And Vomiting Past medical history to include: COVID-19, pulmonary embolism, atrial fibrillation, hypertension, hypothyroid, hyperlipidemia, chronic hypoxic respiratory failure Social history: Denies any smoking or alcohol. Family history: Patient cannot tell Physical examination: VITAL SIGNS: 98.1, 76, 18, 89/63, 96% on 6 L GENERAL: , laying in bed, awake, tired, coughing intermittently. EYES: Pupils equal. Conjunctiva normal. HEENT: External appearance of nose and ears normal, oral cavity grossly normal. NECK: JVD not raised; masses not palpable. HEART: Heart sounds irregular no edema. LUNGS: Respiratory rate increased; decreased breath sounds. ABDOMEN: Soft, nontender, liver spleen not palpable, no masses palpable. PSYCH: Able to answer simple questions MUSCULOSKELETAL:No Clubbing/cyanosis;muscles-grossly intact. Evidence of OA NEUROLOGICAL: Cranial nerves grossly intact; no facial asymmetry, power and sensation grossly intact. INVESTIGATIONS, reviewed in the clinical context: September 22: White count 11.4 hemoglobin 10 platelets 444. Pro-calcitonin 0.33 White count 8.2 hemoglobin 11.4 platelets 574 increased neutrophils sodium 140 potassium 3.9 creatinine 0.9 to AST 70 ALT 77 LDH 1139 CRP 23.1 albumin 2.6. ProBNP 3810 Coronavirus [PCR]: Not detected EKG tracing personally reviewed by me-atrial flutter with a possible intraventricular block with some ST segment changes. Chest x-ray film personally reviewed by me-bilateral infiltrates. 2-D echocardiogram [August 2021]: EF 55-60% Assessment and plan: -Bilateral pneumonia. Suspect gram-negative organism.: Slow to respond IV Zosyn. Aspiration precautions. -Acute hypoxic respiratory failure from pneumonia: Slow to respond Requiring 6 L of oxygen. -Acute metabolic encephalopathy/delirium from pneumonia: Slow improvement Follow clinically -Persistent atrial flutter, rate uncontrolled on presentation. Better controlled Follow cardiology. Recent echocardiogram showed preserved LV function. Lopressor 50 mg twice a day. Eliquis -Chronic medical debility. Fall precautions. PT OT. -Essential hypertension Lopressor 50 mg twice a day -Hypothyroid Synthroid 50 g a day -Hyperlipidemia Zocor 40 mg daily at bedtime -Chronic hypoxic respiratory failure from COVID-19 pneumonia On 4 L of oxygen at home IV Zosyn. Eliquis Oxygen supplementation. Aspiration precautions. All feeding assisted. Lopressor 51 g twice a day. IV Zosyn.
[2021-09-22] MEDS: ATORVASTATIN 20 MG TAB PO SCH (21:57)
[2021-09-23] MEDS: LEVOTHYROXINE 50 MCG TAB PO SCH (05:31)
[2021-09-23 06:54] LABS: Basophils % (A) 0 %; Eosinophils % (A) 0 %; HCT 34.1 % (39.0-53.0); HGB 10.5 gm/dL (13.0-17.5); Hypochromasia Slight; Lymphocytes % (A) 14 %; MCH 28.4 pg (25.0-35.0); MCHC 30.9 g/dL (31.0-37.0); MCV 91.9 fL (80.0-100.0); Mean Platelet Volume 7.7; Monocytes % (A) 5 %; Neutrophils # (A) 17.9 k/uL (1.3-7.7); Neutrophils % (A) 81 %; Platelet Count 513 k/uL (150-450); RBC 3.71 m/uL (4.30-5.90); RDW 15.1 % (11.5-15.5); WBC 22.1 k/uL (3.8-10.6)
[2021-09-23] MEDS: PIPERACILLIN-TAZOBACTAM 3.375 GM in SODIUM CHLORIDE 0.9% 100 ML IVPB SCH ×2 (08:27→16:37)
[2021-09-23] MEDS: ASCORBIC ACID 500 MG TAB PO SCH (08:27)
[2021-09-23] MEDS: APIXABAN 5 MG TAB PO SCH ×2 (08:27→20:46)
[2021-09-23] MEDS: CHOLECALCIFEROL 125 MCG (5000 IU) TABLET PO SCH (08:28)
[2021-09-23] MEDS: FUROSEMIDE 10 MG/ML 4 ML VIAL IV SCH (08:28)
[2021-09-23] MEDS: METOPROLOL TARTRATE 50 MG TAB PO SCH ×2 (08:28→20:46)
[2021-09-23] MEDS: IPRATROPIUM-ALBUTEROL 3 ML NEB INHALATION SCH ×3 (09:32→19:59)
[2021-09-23 10:28] LABS: African American GFR (CKD) 45.8 (60.0-200.0); Anion Gap 14.3 mmol/L (10.00-18.00); BUN/Creat Ratio 20.44 Ratio (12.00-20.00); Blood Urea Nitrogen 32.7 mg/dL (9.0-27.0); Calcium 8.2 mg/dL (8.7-10.3); Carbon Dioxide 23.7 mmol/L (20.0-27.5); Non-African American GFR(CKD) 39.5 (60.0-200.0); Potassium 3.1 mmol/L (3.5-5.5)
--- NOTE | 2021-09-23 11:49 | CT ---
EXAMINATION TYPE: CT chest wo con DATE OF EXAM: 09/23/2021 COMPARISON: CTA chest August 27, 2021. Most recent chest x-ray earlier today and older x-rays HISTORY: SOB CT DLP: 367.7 mGycm. Automated Exposure Control for Dose Reduction was Utilized. TECHNIQUE: CT scan of the thorax is performed without IV contrast. High resolution protocol requeste d with 1 mm sequences obtained in 10 mm intervals. Patient could not tolerate prone imaging. FINDINGS: Evaluation is suboptimal as patient could not tolerate prone imaging. LUNGS: There is now small to moderate size left pleural effusion and small to tiny sized right pleura l effusions. There are areas of groundglass opacity throughout the bilateral lungs greatest with rela tive sparing of the anterior right upper and midlung. Mild focal cylindrical bronchiectasis anterior left upper lobe is now present at site of organizing consolidation. No pneumothorax is seen bilateral ly. Associated compressive atelectasis left lung base is seen. MEDIASTINUM: Lack of IV contrast and technique are noted to limit evaluation for mediastinal and kateryna cially hilar adenopathy. There are no definitive greater than 1 cm mediastinal lymph nodes. No card iomegaly or pericardial effusion is seen. [id number] calcified plaque in the aorta is present. OTHER: Suspect simple appearing thin-walled cyst upper pole level left kidney measure 4.3 cm. Suspect central 8mm calculus left kidney axial image 35. IMPRESSION: Suboptimal study. Small to moderate size left pleural effusion. New small tiny right pleu ral effusion. Bilateral areas of edema and/or infiltrate with relative sparing of the anterior right lung show continued progression from older studies.
--- NOTE | 2021-09-23 11:58 | XR ---
EXAMINATION TYPE: XR chest 1V portable DATE OF EXAM: 09/23/2021 COMPARISON: Chest x-ray 09/21/2021 HISTORY: Congestive heart failure, pneumonia TECHNIQUE: Single frontal view of the chest is obtained. FINDINGS: Bilateral airspace disease has progressed in the interval. Pleural thickening is noted virginia ng the left lateral pleural margin similar to prior exam. Left hemidiaphragm is secured. No evident p neumothorax. Cardiac mediastinal silhouette is likely stable, patient is rotated. There are overlying artifacts and leads. Bones are unchanged. IMPRESSION: Correlate for pneumonia, congestive heart failure with pulmonary edema little pleural ef fusion not excluded. There has been progression in the interval.
--- NOTE | 2021-09-23 12:16 | P.PN ---
Subjective Progress Note Date: 09/23/21 HISTORY OF PRESENT ILLNESS: This is a 80-year-old male with a past medical history significant for atrial fibrillation and COPD. 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 We have been asked to see the patient in consultation for atrial flutter. Patient examined at the bedside. Patient is a poor historian. Apparently the patient presented to the hospital with worsening shortness of breath and confusion. Patient currently denies any chest pain or pressure. Denies shortness of breath. Denies palpitations. EKG reveals atrial fibrillation with RVR Chest xray correlate for CHF versus diffuse pneumonia Laboratory data: WBC 11.4. Hemoglobin 10.0. Platelet count 444. Sodium 140. Potassium 3.9. BUN 17. Creatinine 0.92. Troponin negative 1. ProBNP 3810. Current home cardiac medications include Zocor 40 mg at night, carvedilol 6.25 mg twice a day, Eliquis 5 mg twice a day Most recent echocardiogram obtained in August 2021 revealed ejection fraction 55-60%, mild mitral regurgitation, mild tricuspid regurgitation, and moderate pulmonary hypertension 09-23-2021 Patient examined this morning at the bedside. Patient denies chest pain or p ressure. Denies SOB. He remains on IV lasix. Patients heart rate is controlled. Blood pressure stable. PHYSICAL EXAM: VITAL SIGNS: Reviewed. GENERAL: Well-developed in no acute distress. HEENT: Head is normocephalic. Pupils are equal, round. Sclerae anicteric. Mucous membranes of the mouth are moist. Neck supple. No JVD or thyromegaly LUNGS: Respirations even and unlabored. Lungs diminished with expiratory wheezing. HEART: Irregular rate and rhythm. S1 and S2 heard. ABDOMEN: Soft. Nondistended. Nontender. EXTREMITIES: Normal range of motion. No clubbing or cyanosis. Peripheral pulses intact. No lower extremity edema NEUROLOGIC: Awake and alert. ASSESSMENT: Shortness of breath Bilateral pneumonia Acute COPD exacerbation Acute diastolic congestive heart failure Paroxysmal atrial fibrillation with RVR, currently rate controlled Chronic debility Chronic hypoxic respiratory failure, on home oxygen Hypertension Hypothyroidism Hyperlipidemia PLAN: Continue current cardiac medications Discontinue IV lasix. Begin oral lasix 40mg BID. No further recommendations from a cardiac standpoint We will sign off. Please reconsult if needed Nurse practitioner note has been reviewed by physician. Signing provider agrees with the documented findings, assessment, and plan of care. Objective - Vital Signs Vital signs: Vital Signs Temp 97.7 F 09/23/21 05:45 Pulse 82 09/23/21 08:30 Resp 20 09/23/21 05:45 BP 119/72 09/23/21 08:30 Pulse Ox 91 L 09/23/21 08:30 Intake & Output 09/22/21 09/23/21 09/23/21 18:59 06:59 18:59 Intake Total 200 Balance 200 Weight 60 kg Intake: Oral 200 Other: Voiding Method Bedpan Bedpan Bedpan Diaper Diaper Diaper # Voids 5 4 3 # Bowel Movements 4 - Labs CBC & Chem 7: 09/23/21 06:24 09/23/21 06:24 Labs: Abnormal Lab Results - Last 24 Hours (Table) 09/21/21 09/23/21 09/23/21 Range/Units 15:33 06:24 06:24 WBC 22.1 H (3.8-10.6) k/uL RBC 3.71 L (4.30-5.90) m/uL Hgb 10.5 L (13.0-17.5) gm/dL Hct 34.1 L (39.0-53.0) % MCHC 30.9 L (31.0-37.0) g/dL Plt Count 513 H (150-450) k/uL Neutrophils # 17.9 H (1.3-7.7) k/uL Potassium 3.1 L (3.5-5.5) mmol/L BUN 32.7 H (9.0-27.0) mg/dL Creatinine 1.6 H (0.6-1.5) mg/dL Est GFR (CKD-EPI)AfAm 45.8 L (60.0-200.0) Est GFR (CKD-EPI)NonAf 39.5 L (60.0-200.0) BUN/Creatinine Ratio 20.44 H (12.00-20.00) Ratio Glucose 126 H (70-110) mg/dL Calcium 8.2 L (8.7-10.3) mg/dL Ferritin 3020.0 H (22.0-322.0) ng/mL Microbiology - Last 24 Hours (Table) 09/21/21 17:46 Blood Culture - Preliminary Blood No Growth after 24 hours 09/21/21 17:46 Blood Culture - Preliminary Blood No Growth after 24 hours
--- NOTE | 2021-09-23 13:12 | P.PN ---
Subjective Progress Note Date: 09/23/21 This is a 80-year-old white male patient who recently had a hospitalization for acute COVID-19 pneumonia in this hospital from 08/27/2021 through 09/09/2021. During his hospitalization patient was also diagnosed new onset atrial fibrillation, he has a known history of hypertension, hypothyroidism, dysli pidemia. Patient was discharged to a [facility] after his hospitalization and at the time of discharge she was on 4 L of oxygen, doing well, patient was also treated for a lingular pneumonia with possibility of bacterial pneumonia with Zosyn. He was started on Eliquis for anticoagulation. On 09/21/2021 patient was brought into the hospital by his family for complaints of shortness of breath, with increasing symptoms over a day or 2 prior to presentation. Patient's family also stated that he had been confused, appeared to be dehydrated. Patient offered no specific complaints, he denied any chest pain or palpitations, he still confused, he is a poor historian. His pulse ox at home was around 84%, and we're not sure how much oxygen this was on. No reported nausea or vomiting, no increasing cough or congestion. Chest x-ray showed diffuse bilateral infiltrates with bilateral effusions greater on the left, no pneumothorax. Brain CT showed mild chronic small vessel ischemia, no acute intracranial abnormality, no adverse change. Admission labs showed white blood cell count of 18.2, hemoglobin of 11.4, INR of 1.6, electrolytes and renal profile within normal, lactic acid was 3.1, AST was 70, ALT was 77, alkaline phosphatase was 131, LDH was 1139, troponin was 0.014, CRP was 23.1, proBNP was 3810, pro-calcitonin level came back elevated at 0.33 suggesting possibility of pneumonia, COVID-19 ECR was negative. Patient was placed on 6 L of oxygen his pulse ox is 97%, his been afebrile while in the hospital, patient was given some IV fluids for lactic acidosis, he was started on Zosyn and vancomycin for possibility of pneumonia cardiology consultation was obtained, patient is being subjected to some IV diuretics for possibility of CHF, was started on IV Lasix at 40 mg every 12 hours. Currently breathing comfortably, he is still on 6 L of oxygen, denies any cough or phlegm production, he is much more awake, he knows he is in the hospital, he knew the correct year, knew the president. Denies any chest pain, no lower extremity swelling. EKG on admission showed A. fib with a controlled rate The patient is seen today on 09/23/2021 in follow-up on the regular medical floor. He is currently sitting up in bed. Awake and alert in no acute distress. He is still requiring 6 L high flow nasal cannula to maintain O2 saturations 88-90%. Computed tomography scan of the chest was suboptimal. There is small to moderate left sided pleural effusion with new small tiny right pleural effusion. Bilateral areas of edema/infiltrate. Blood cultures reveal no growth. White count 22.1. Hemoglobin 10.5. Sodium 142. Potassium 3.1. Creatinine 1.6. Glucose 126. Pro-calcitonin 0.33. No accurate diagnosis. He is continued on diuretics. Continued on antibiotics in the form of Zosyn. Remains on bronchodilators. Anticoagulated with Eliquis. Objective - Vital Signs Vital signs: Vital Signs Temp 97.7 F 09/23/21 05:45 Pulse 72 09/23/21 12:50 Resp 20 09/23/21 05:45 BP 119/72 09/23/21 08:30 Pulse Ox 91 L 09/23/21 08:30 Intake & Output 09/22/21 09/23/21 09/23/21 18:59 06:59 18:59 Intake Total 200 Balance 200 Weight 60 kg Intake: Oral 200 Other: Voiding Method Bedpan Bedpan Bedpan Diaper Diaper Diaper # Voids 5 4 3 # Bowel Movements 4 - Exam GENERAL EXAM: Alert, pleasant, 80-year-old male, on 6 L of oxygen with a pulse ox of 90% comfortable in no apparent distress. HEAD: Normocephalic/atraumatic. EYES: Normal reaction of pupils, equal size. Conjunctiva pink, sclera white. NOSE: Clear with pink turbinates. THROAT: No erythema or exudates. NECK: No masses, no JVD, no thyroid enlargement, no adenopathy. CHEST: No chest wall deformity. Symmetrical expansion. LUNGS: Equal air entry with crackles in the bilateral bases left greater than right. CVS: Irregular rate and rhythm, normal S1 and S2, no gallops, no murmurs, no rubs ABDOMEN: Soft, nontender. No hepatosplenomegaly, normal bowel sounds, no guarding or rigidity. EXTREMITIES: No clubbing, no edema, no cyanosis, 2+ pulses and upper and lower extremities. MUSCULOSKELETAL: Muscle strength and tone normal. SPINE: No scoliosis or deformity SKIN: No rashes CENTRAL NERVOUS SYSTEM: No focal deficits, tone is normal in all 4 extremities. PSYCHIATRIC: Alert and oriented -3. Appropriate affect. Intact judgment and insight. - Labs CBC & Chem 7: 09/23/21 06:24 09/23/21 06:24 Labs: Abnormal Lab Results - Last 24 Hours (Table) 09/21/21 09/23/21 09/23/21 Range/Units 15:33 06:24 06:24 WBC 22.1 H (3.8-10.6) k/uL RBC 3.71 L (4.30-5.90) m/uL Hgb 10.5 L (13.0-17.5) gm/dL Hct 34.1 L (39.0-53.0) % MCHC 30.9 L (31.0-37.0) g/dL Plt Count 513 H (150-450) k/uL Neutrophils # 17.9 H (1.3-7.7) k/uL Potassium 3.1 L (3.5-5.5) mmol/L BUN 32.7 H (9.0-27.0) mg/dL Creatinine 1.6 H (0.6-1.5) mg/dL Est GFR (CKD-EPI)AfAm 45.8 L (60.0-200.0) Est GFR (CKD-EPI)NonAf 39.5 L (60.0-200.0) BUN/Creatinine Ratio 20.44 H (12.00-20.00) Ratio Glucose 126 H (70-110) mg/dL Calcium 8.2 L (8.7-10.3) mg/dL Ferritin 3020.0 H (22.0-322.0) ng/mL Microbiology - Last 24 Hours (Table) 09/21/21 17:46 Blood Culture - Preliminary Blood No Growth after 24 hours 09/21/21 17:46 Blood Culture - Preliminary Blood No Growth after 24 hours Assessment and Plan Assessment: 1 Acute hypoxic respiratory failure, suspect possibility of healthcare acquired pneumonia, and a component of CHF is not excluded. COVID-19 PCR was negative. Progress toward and 0.33. ProBNP 3810. Continued on Zosyn and diuretics. 2 Altered mental status, brain CT was Negative, this may relate to possibility of pneumonia with sepsis. Mental status is currently improved 3 Acute exacerbation of diastolic CHF 4 Chronic A. fib, on Eliquis 5 Recent hospitalization in August 2021 for COVID19 related pneumonia, with new onset atrial fibrillation 6 Hypothyroidism 7 Hypertension 8 History of COPD 9 Hyperlipidemia Plan: Chest x-ray, CAT scans and labs reviewed We'll continue with diuretics and antibiotics Follow-up chest x-ray in a.m. May consider left-sided thoracentesis Titrate the FiO2 as tolerated Prognosis remains guarded We will continue to follow I, the cosigning physician, performed a history & physical examination of the patient. Lungs sounds with bibasilar crackles left greater than right. Maintaining O2 saturations in the 90s on 6 L/m per nasal cannula. I discussed the assessment and plan of care with my nurse practitioner, Vale Florez. I attest to the above note as dictated by her.
[2021-09-23] MEDS ORDERED: FUROSEMIDE 40 MG TAB PO SCH (16:00)
--- NOTE | 2021-09-23 16:31 | P.PN ---
Progress Note - Text Progress Note Date: 09/23/21 Chief Complaint: Shortness of breath This is a 80-year-old patient who follows with Dr. Lackey. Patient was discharged from the hospital on August 19: He was then admitted for COVID-19 pneumonia unvaccinated, metabolic encephalopathy, subsegmental acute PE in the lingula and left lower lobe, new onset atrial fibrillation, hypertension, hypothyroid, 2-D echocardiogram showed an EF of 55-60%. Patient subsequently was admitted on August 27, with hypoxia. This occasionally was diagnosed with pneumonia. He was discharged on [address] chest had shown a small pleural effusion. Patient was brought in by the family to the ER. Patient had been worsening shortness of breath for at least a day. He's been getting increasingly confused. Possibly dehydrated. Patient himself unable to give much of her history. Speech is somewhat slurred. He has a cough. He says his appetite is fair. He states is too weak to walk. Denies any fever or chills. No chest pain. He has not able to tell me that he is or why he is here. Admitted with bilateral pneumonia, acute hypoxic respiratory failure, acute metabolic encephalopathy and delirium, atrial flutter fibrillation uncontrolled. Started on IV Zosyn, oxygen, Lopressor 12.5 twice a day. September 22: Laying in bed. A bit more awake. Answers questions a bit better. Afebrile. Eating good breakfast. Atrial flutter fibrillation better controlled September 23: In bed. Tired. Had 25% of his breakfast. Answering occasional question. Atrial fibrillation rate controlled. IV Zosyn. Worsening renal function. Hold Lasix Review of systems: Attempted for constitutional, cardiovascular, GI, pulmonary. relevant finding as above Active Medications Acetaminophen (Acetaminophen Tab 325 Mg Tab) 650 mg PO Q6HR PRN PRN Reason: Mild Pain or Fever > 100.5 Last Admin: 09/21/21 17:23 Dose: 650 mg Documented by: Albuterol/Ipratropium (Ipratropium-Albuterol 3 Ml Neb) 3 ml INHALATION RT-Q2H PRN PRN Reason: Shortness Of Breath Or Wheezing Albuterol/Ipratropium (Ipratropium-Albuterol 3 Ml Neb) 3 ml INHALATION RT-TID [place] Last Admin: 09/23/21 12:50 Dose: 3 ml Documented by: Apixaban (Apixaban 5 Mg Tab) 5 mg PO BID [facility]; Protocol Last Admin: 09/23/21 08:27 Dose: 5 mg Documented by: Ascorbic Acid (Ascorbic Acid 500 Mg Tab) 1,000 mg PO DAILY [facility] Last Admin: 09/23/21 08:27 Dose: 1,000 mg Documented by: Atorvastatin Calcium (Atorvastatin 20 Mg Tab) 20 mg PO HS [facility] Last Admin: 09/22/21 21:57 Dose: 20 mg Documented by: Calcium Carbonate/Glycine (Calcium Carbonate 500 Mg Chewable) 1,000 mg PO Q4HR PRN PRN Reason: Dyspepsia Cholecalciferol (Cholecalciferol 125 Mcg (5000 Iu) Tablet) 125 mcg PO DAILY [facility] Last Admin: 09/23/21 08:28 Dose: 125 mcg Documented by: Piperacillin Sod/Tazobactam (Sod 3.375 gm/ Sodium Chloride) 100 mls @ 25 mls/hr IVPB Q8H [facility] Last Admin: 09/23/21 08:27 Dose: 25 mls/hr Documented by: Lactulose (Lactulose 20 Gm/30 Ml Cup) 20 gm PO DAILY PRN PRN Reason: Constipation Levothyroxine Sodium (Levothyroxine 50 Mcg Tab) 50 mcg PO DAILY@0630 [facility] Last Admin: 09/23/21 05:31 Dose: 50 mcg Documented by: Lorazepam (Lorazepam 0.5 Mg Tab) 0.5 mg PO Q6HR PRN PRN Reason: Anxiety Melatonin (Melatonin 3 Mg Tablet) 3 mg PO HS PRN PRN Reason: Insomnia Metoprolol Tartrate (Metoprolol Tartrate 50 Mg Tab) 50 mg PO BID [facility] Last Admin: 09/23/21 08:28 Dose: 50 mg Documented by: Naloxone HCl (Naloxone 0.4 Mg/Ml 1 Ml Vial) 0.2 mg IV Q2M PRN PRN Reason: Opioid Reversal Ondansetron HCl (Ondansetron 4 Mg/2 Ml Vial) 4 mg IVP Q8HR PRN PRN Reason: Nausea And Vomiting Past medical history to include: COVID-19, pulmonary embolism, atrial fibrillation, hypertension, hypothyroid, hyperlipidemia, chronic hypoxic respiratory failure Social history: Denies any smoking or alcohol. Family history: Patient cannot tell Physical examination: VITAL SIGNS: 97.9, 64, 24, 107/64, 90% on 6 L GENERAL: , laying in bed, awake, tired, coughing intermittently. EYES: Pupils equal. Conjunctiva normal. HEENT: External appearance of nose and ears normal, oral cavity grossly normal. NECK: JVD not raised; masses not palpable. HEART: Heart sounds irregular no edema. LUNGS: Respiratory rate increased; decreased breath sounds. ABDOMEN: Soft, nontender, liver spleen not palpable, no masses palpable. PSYCH: Able to answer occasional questions MUSCULOSKELETAL:No Clubbing/cyanosis;muscles-grossly intact. Evidence of OA NEUROLOGICAL: Cranial nerves grossly intact; no facial asymmetry, power and sensation grossly intact. INVESTIGATIONS, reviewed in the clinical context: September 23: White count 22.1 hemoglobin 10.5 platelets 513 potassium 3.1 BUN [address] chest: Small to moderate size left pleural effusion. Eating is of groundglass opacities throughout the bilateral lungs with relative sparing of t he anterior right upper and midlung. Mild focal cylindrical bronchiectasis anterior left upper lobe is now present. Compressive atelectasis left lung base is seen. September 22: White count 11.4 hemoglobin 10 platelets 444. Pro-calcitonin 0.33 White count 8.2 hemoglobin 11.4 platelets 574 increased neutrophils sodium 140 potassium 3.9 creatinine 0.9 to AST 70 ALT 77 LDH 1139 CRP 23.1 albumin 2.6. ProBNP 3810 Coronavirus [PCR]: Not detected EKG tracing personally reviewed by me-atrial flutter with a possible intraventricular block with some ST segment changes. Chest x-ray film personally reviewed by me-bilateral infiltrates. 2-D echocardiogram [August 2021]: EF 55-60% Assessment and plan: -Bilateral pneumonia. Suspect gram-negative organism.: Slow to respond IV Zosyn. Aspiration precautions. -Acute hypoxic respiratory failure from pneumonia: Slow to respond Requiring 6 L of oxygen. -Acute kidney injury likely prerenal from diuretics Creatinine is gone up from 0.9 to up to 1.6. Consult nephrology -Acute metabolic encephalopathy/delirium from pneumonia: Slow to respond Follow clinically -Persistent atrial flutter, rate uncontrolled on presentation. Better controlled Follow cardiology. Recent echocardiogram showed preserved LV function. Lopressor 50 mg twice a day. Eliquis -Chronic medical debility. Fall precautions. PT OT. -Essential hypertension Lopressor 50 mg twice a day -Hypothyroid Synthroid 50 g a day -Hyperlipidemia Zocor 40 mg daily at bedtime -Chronic hypoxic respiratory failure from COVID-19 pneumonia On 4 L of oxygen at home IV Zosyn. Eliquis Oxygen supplementation. Aspiration precautions. All feeding assisted. IV Zosyn. Oral Lasix hold until evaluation by nephrology.
[2021-09-23] MEDS ORDERED: POTASSIUM CHLORIDE ER 20 MEQ TAB.ER PO STA (17:12)
[2021-09-23] MEDS: ATORVASTATIN 20 MG TAB PO SCH (20:46)
[2021-09-24] MEDS: PIPERACILLIN-TAZOBACTAM 3.375 GM in SODIUM CHLORIDE 0.9% 100 ML IVPB SCH ×3 (00:05→16:35)
[2021-09-24] MEDS: LEVOTHYROXINE 50 MCG TAB PO SCH (05:14)
[2021-09-24 06:40] LABS: Basophils % (A) 0 %; Eosinophils % (A) 0 %; HCT 35.1 % (39.0-53.0); Hypochromasia Slight; Lymphocytes # (A) 3.9 k/uL (1.0-4.8); Lymphocytes % (A) 22 %; MCH 28.5 pg (25.0-35.0); MCHC 31.3 g/dL (31.0-37.0); MCV 91.1 fL (80.0-100.0); Mean Platelet Volume 7.7; Monocytes # (A) 0.6 k/uL (0-1.0); Monocytes % (A) 3 %; Neutrophils % (A) 73 %; Platelet Count 527 k/uL (150-450); RBC 3.86 m/uL (4.30-5.90); RDW 15.6 % (11.5-15.5); WBC 17.7 k/uL (3.8-10.6)
[2021-09-24 06:43] LABS: African American GFR (CKD) 46 (>60 ml/min/1.73 sqM); Anion Gap 9 mmol/L; Blood Urea Nitrogen 37 mg/dL (9-20); Calcium 8.4 mg/dL (8.4-10.2); Carbon Dioxide 25 mmol/L (22-30); Chloride 106 mmol/L (98-107); Glucose 92 mg/dL (74-99); Magnesium 1.8 mg/dL (1.6-2.3); Non-African American GFR(CKD) 40 (>60 ml/min/1.73 sqM); Sodium 140 mmol/L (137-145)
[2021-09-24] MEDS: ASCORBIC ACID 500 MG TAB PO SCH (07:59)
[2021-09-24] MEDS: METOPROLOL TARTRATE 50 MG TAB PO SCH ×2 (07:59→21:31)
[2021-09-24] MEDS: APIXABAN 5 MG TAB PO SCH ×2 (08:00→21:32)
[2021-09-24] MEDS: CHOLECALCIFEROL 125 MCG (5000 IU) TABLET PO SCH (08:00)
[2021-09-24] MEDS: IPRATROPIUM-ALBUTEROL 3 ML NEB INHALATION SCH ×3 (08:15→20:07)
--- NOTE | 2021-09-24 08:50 | XR ---
EXAMINATION TYPE: XR chest 1V portable DATE OF EXAM: 09/24/2021 COMPARISON: Chest x-ray and chest CT 09/23/2021 HISTORY: Congestive heart failure, shortness of breath TECHNIQUE: Single frontal view of the chest is obtained. FINDINGS: There is some improvement in aeration as compared to prior exam. Bilateral groundglass op[place], prominence interstitium is again noted. There is pleural thickening along the left lateral ches t margin. There are overlying artifacts. No evident pneumothorax. Cardiac mediastinal silhouette is s table. Aorta is dense. IMPRESSION: There may be some improvement in aeration, volume status, there is pleural effusion note d on previous CT.
[2021-09-24] MEDS ORDERED: POTASSIUM CHLORIDE ER 20 MEQ TAB.ER PO STA (10:02)
--- NOTE | 2021-09-24 10:06 | P.NPCON ---
History of Present Illness - Reason for Consult acute renal failure - History of Present Illness Reason for consultation: Acute kidney injury History of present illness: Patient is a 80-year-old male seen in consultation for acute kidney injury. Patient's creatinine on admission was 0.92 on 09/21/2021 and was up to 1.6 yesterday. It is stable at 1.6 today. Patient presented to the hospital or shortness of breath. He was also more confused and family was concerned that he was dehydrated. He tested negative for coronavirus. He's being treated for pneumonia. CT of the chest done 09/23/2021 did show bilateral pleural effusions he's been receiving IV Lasix. Diuretics were stopped yesterday due to worsening renal function. Chest x-ray from today shows improvement and volume status and bilateral groundglass opacities. Patient is incontinent. Has been voiding. No hematuria. Blood pressure stable but has been as low as 89/63 this admission. Echocardiogram from August 2021 showed preserved ejection fraction and moderate pulmonary hypertension. Currently on 6 L nasal cannula. Patient is not a reliable historian. Vital signs are stable. General: Patient is somewhat agitated. HEENT: Head exam is unremarkable. LUNGS: Breath sounds decreased. HEART: Rate and Rhythm are regular. ABDOMEN: No distention noted. EXTREMITITES: No edema. Past Medical History Past Medical History: Atrial Fibrillation, Cancer, Hypertension Additional Past Medical History / Comment(s): Prostate cancer with prostatectomy; a fib secondary to Covid; had blood clot in lung with Covid History of Any Multi-Drug Resistant Organisms: None Reported Past Surgical History: Cholecystectomy, Hernia Repair Past Anesthesia/Blood Transfusion Reactions: No Reported Reaction Past Psychological History: No Psychological Hx Reported Smoking Status: Never smoker Past Alcohol Use History: None Reported Past Drug Use History: None Reported Medications and Allergies Home Medications Medication Instructions Recorded Confirmed Type Levothyroxine Sodium [Synthroid] 50 mcg PO DAILY 07/25/21 09/21/21 History Simvastatin [Zocor] 40 mg PO HS 07/25/21 09/21/21 History Ascorbic Acid [Vitamin C] 1,000 mg PO DAILY #30 tab 08/12/21 09/21/21 Rx Cholecalciferol [Vitamin D3 (125 125 mcg PO DAILY #30 tablet 08/12/21 09/21/21 Rx Mcg = 5000 Iu)] Apixaban [Eliquis] 5 mg PO BID #0 tab 08/19/21 09/21/21 Rx Zinc 50 mg PO HS 08/27/21 09/21/21 History carvediloL [Coreg] 6.25 mg PO BID 09/21/21 09/21/21 History Allergies Allergy/AdvReac Type Severity Reaction Status Date / Time No Known Allergies Allergy Verified 09/21/21 16:54 Physical Exam Vitals: Vital Signs Temp Pulse Pulse Resp BP Pulse Ox 09/24/21 08:23 75 09/24/21 08:16 72 09/24/21 05:00 97.5 F L 56 L 22 130/71 94 L 09/23/21 20:29 98.2 F 95 22 110/70 90 L 09/23/21 20:07 77 09/23/21 19:59 74 09/23/21 19:58 20 09/23/21 13:03 74 09/23/21 12:59 97.9 F 64 24 107/64 90 L 09/23/21 12:50 72 Intake and Output 09/23/21 09/24/21 09/24/21 22:59 06:59 14:59 Intake Total 580 300 Balance 580 300 Intake: Intake, IV Titration 100 Amount Piperacillin-Tazobactam 3 100 .375 gm In Sodium Chloride 0.9% 100 ml @ 25 mls/hr IVPB Q8H [facility] Rx#: [id number] Oral 580 200 Other: Voiding Method Bedpan Diaper # Voids 4 3 # Bowel Movements 4 4 Weight 59.5 kg Results - Lab Results Most recent lab results Calcium 8.4 mg/dL (8.4-10.2) 09/24/21 06:07 Magnesium 1.8 mg/dL (1.6-2.3) 09/24/21 06:07 09/24/21 06:07 09/24/21 06:07 Assessment and Plan Plan: Assessment: 1. Acute kidney injury secondary to ATN secondary to hypotension and diuresis. Creatinine stable at 1.6. Baseline creatinine near 1. No hydronephrosis noted on CAT scan done in August 2021. 2. Chronic diastolic CHF with pulmonary hypertension. 3. Hypokalemia from diuresis and poor intake. 4. Volume overload. Improved. 5. Pneumonia on antibiotics. Plan: Hold off on diuretics for now. Replace potassium. Check urinalysis. Check bladder scan to rule out urinary retention. Avoid nephrotoxins. Continue to monitor renal function and urine output. Thank you for the consultation. I will continue to follow the patient with you during his hospital stay.
--- NOTE | 2021-09-24 12:35 | P.PN ---
Subjective Progress Note Date: 09/24/21 This is a 80-year-old white male patient who recently had a hospitalization for acute COVID-19 pneumonia in this hospital from 08/27/2021 through 09/09/2021. During his hospitalization patient was also diagnosed new onset atrial fibrillation, he has a known history of hypertension, hypothyroidism, dysli pidemia. Patient was discharged to a residential after his hospitalization and at the time of discharge she was on 4 L of oxygen, doing well, patient was also treated for a lingular pneumonia with possibility of bacterial pneumonia with Zosyn. He was started on Eliquis for anticoagulation. On 09/21/2021 patient was brought into the hospital by his family for complaints of shortness of breath, with increasing symptoms over a day or 2 prior to presentation. Patient's family also stated that he had been confused, appeared to be dehydrated. Patient offered no specific complaints, he denied any chest pain or palpitations, he still confused, he is a poor historian. His pulse ox at home was around 84%, and we're not sure how much oxygen this was on. No reported nausea or vomiting, no increasing cough or congestion. Chest x-ray showed diffuse bilateral infiltrates with bilateral effusions greater on the left, no pneumothorax. Brain CT showed mild chronic small vessel ischemia, no acute intracranial abnormality, no adverse change. Admission labs showed white blood cell count of 18.2, hemoglobin of 11.4, INR of 1.6, electrolytes and renal profile within normal, lactic acid was 3.1, AST was 70, ALT was 77, alkaline phosphatase was 131, LDH was 1139, troponin was 0.014, CRP was 23.1, proBNP was 3810, pro-calcitonin level came back elevated at 0.33 suggesting possibility of pneumonia, COVID-19 ECR was negative. Patient was placed on 6 L of oxygen his pulse ox is 97%, his been afebrile while in the hospital, patient was given some IV fluids for lactic acidosis, he was started on Zosyn and vancomycin for possibility of pneumonia cardiology consultation was obtained, patient is being subjected to some IV diuretics for possibility of CHF, was started on IV Lasix at 40 mg every 12 hours. Currently breathing comfortably, he is still on 6 L of oxygen, denies any cough or phlegm production, he is much more awake, he knows he is in the hospital, he knew the correct year, knew the president. Denies any chest pain, no lower extremity swelling. EKG on admission showed A. fib with a controlled rate The patient is seen today on 09/23/2021 in follow-up on the regular medical floor. He is currently sitting up in bed. Awake and alert in no acute distress. He is still requiring 6 L high flow nasal cannula to maintain O2 saturations 88-90%. Computed tomography scan of the chest was suboptimal. There is small to moderate left sided pleural effusion with new small tiny right pleural effusion. Bilateral areas of edema/infiltrate. Blood cultures reveal no growth. White count 22.1. Hemoglobin 10.5. Sodium 142. Potassium 3.1. Creatinine 1.6. Glucose 126. Pro-calcitonin 0.33. No accurate diagnosis. He is continued on diuretics. Continued on antibiotics in the form of Zosyn. Remains on bronchodilators. Anticoagulated with Eliquis. The patient is seen today 09/24/2021 in follow-up on the regular medical floor. He is currently sitting up in bed. Awake and alert in no acute distress. He states he is breathing better today compared to yesterday. His chest x-ray is showing improvement in aeration. Blood cultures revealed no growth. White count 17.7. Hemoglobin 11.0. Platelets 527. Sodium 140. Potassium 3.0. Creatinine 1.60. He is continued on DuoNeb inhalations, antibiotics in the form of Zosyn. Anticoagulated with Eliquis. Objective - Vital Signs Vital signs: Vital Signs Temp 97.5 F L 09/24/21 05:00 Pulse 75 09/24/21 08:23 Resp 22 09/24/21 05:00 BP 130/71 09/24/21 05:00 Pulse Ox 94 L 09/24/21 05:00 Intake & Output 09/23/21 09/24/21 09/24/21 18:59 06:59 18:59 Intake Total 580 300 Balance 580 300 Weight 59.5 kg Intake: Intake, IV Titration 100 Amount Piperacillin-Tazobactam 3 100 .375 gm In Sodium Chloride 0.9% 100 ml @ 25 mls/hr IVPB Q8H [facility] Rx#: [id number] Oral 580 200 Other: Voiding Method Bedpan Bedpan Bedpan Diaper Diaper Diaper # Voids 4 3 3 # Bowel Movements 4 4 - Exam GENERAL EXAM: Alert, pleasant, 80-year-old male, on 6 L of oxygen with a pulse ox of 90% comfortable in no apparent distress. HEAD: Normocephalic/atraumatic. EYES: Normal reaction of pupils, equal size. Conjunctiva pink, sclera white. NOSE: Clear with pink turbinates. THROAT: No erythema or exudates. NECK: No masses, no JVD, no thyroid enlargement, no adenopathy. CHEST: No chest wall deformity. Symmetrical expansion. LUNGS: Equal air entry with crackles in the bilateral bases. CVS: Irregular rate and rhythm, normal S1 and S2, no gallops, no murmurs, no rubs ABDOMEN: Soft, nontender. No hepatosplenomegaly, normal bowel sounds, no guarding or rigidity. EXTREMITIES: No clubbing, no edema, no cyanosis, 2+ pulses and upper and lower extremities. MUSCULOSKELETAL: Muscle strength and tone normal. SPINE: No scoliosis or deformity SKIN: No rashes CENTRAL NERVOUS SYSTEM: No focal deficits, tone is normal in all 4 extremities. PSYCHIATRIC: Alert and oriented -3. Appropriate affect. Intact judgment and insight. - Labs CBC & Chem 7: 09/24/21 06:07 09/24/21 06:07 Labs: Abnormal Lab Results - Last 24 Hours (Table) 09/21/21 09/24/21 09/24/21 Range/Units 15:33 06:07 06:07 WBC 17.7 H (3.8-10.6) k/uL RBC 3.86 L (4.30-5.90) m/uL Hgb 11.0 L (13.0-17.5) gm/dL Hct 35.1 L (39.0-53.0) % RDW 15.6 H (11.5-15.5) % Plt Count 527 H (150-450) k/uL Neutrophils # 13.0 H (1.3-7.7) k/uL Potassium 3.0 L (3.5-5.1) mmol/L BUN 37 H (9-20) mg/dL Creatinine 1.60 H (0.66-1.25) mg/dL Procalcitonin 0.17 H (0.02-0.09) ng/mL Microbiology - Last 24 Hours (Table) 09/21/21 17:46 Blood Culture - Preliminary Blood No Growth after 48 hours 09/21/21 17:46 Blood Culture - Preliminary Blood No Growth after 48 hours Assessment and Plan Assessment: 1 Acute hypoxic respiratory failure, suspect possibility of healthcare acquired pneumonia, aspiration pneumonia, and a component of CHF is not excluded. COVID- 19 PCR was negative. Pro-calcitonin 0.33. ProBNP 3810. Continued on Zosyn. Follow-up chest x-ray showing improvement. 2 Altered mental status, brain CT was Negative, this may relate to possibility of pneumonia with sepsis. Mental status is currently improved 3 Acute exacerbation of diastolic CHF 4 Chronic A. fib, on Eliquis 5 Recent hospitalization in August 2021 for COVID19 related pneumonia, with new onset atrial fibrillation 6 Hypothyroidism 7 Hypertension 8 History of COPD 9 Hyperlipidemia Plan: The patient was seen and evaluated Chest x-ray and labs reviewed Improved aeration, titrate down the FiO2 as tolerated We'll continue with antibiotics Prognosis remains guarded May need to consider subacute rehabilitation I, the cosigning physician, performed a history & physical examination of the patient. Lungs sounds with bibasilar crackles. Maintaining O2 saturations in the 90s on 6 L/m per nasal cannula. I discussed the assessment and plan of care with my nurse practitioner, Vale Florez. I attest to the above note as dictated by her.
[2021-09-24 15:12] LABS: Appearance,Urine Turbid (Clear); Bacteria,Urine Occasional /hpf; Bilirubin,Urine Negative (Negative); Blood,Urine Trace (Negative); Budding Yeast,Urine Few /hpf; Color,Urine Yellow; Glucose,Urine (UA) Negative (Negative); Ketones,Urine Negative (Negative); Leukocyte Esterase,Urine Large (Negative); Nitrite,Urine Negative (Negative); Protein,Urine 1+ (Negative); RBC,Urine 15 /hpf (0-5); Specific Gravity,Urine 1.019 (1.001-1.035); Squamous Epithelial Cell,Urine <1 /hpf (0-4); Uric Acid Crystals,Urine Many /hpf; Urobilinogen,Urine <2.0 mg/dL (<2.0); WBC,Urine 39 /hpf (0-5)
--- NOTE | 2021-09-24 18:49 | P.PN ---
Progress Note - Text Progress Note Date: 09/24/21 Chief Complaint: Shortness of breath This is a 80-year-old patient who follows with Dr. Lackey. Patient was discharged from the hospital on August 19: He was then admitted for COVID-19 pneumonia unvaccinated, metabolic encephalopathy, subsegmental acute PE in the lingula and left lower lobe, new onset atrial fibrillation, hypertension, hypothyroid, 2-D echocardiogram showed an EF of 55-60%. Patient subsequently was admitted on August 27, with hypoxia. This occasionally was diagnosed with pneumonia. He was discharged on [address] chest had shown a small pleural effusion. Patient was brought in by the family to the ER. Patient had been worsening shortness of breath for at least a day. He's been getting increasingly confused. Possibly dehydrated. Patient himself unable to give much of her history. Speech is somewhat slurred. He has a cough. He says his appetite is fair. He states is too weak to walk. Denies any fever or chills. No chest pain. He has not able to tell me that he is or why he is here. Admitted with bilateral pneumonia, acute hypoxic respiratory failure, acute metabolic encephalopathy and delirium, atrial flutter fibrillation uncontrolled. Started on IV Zosyn, oxygen, Lopressor 12.5 twice a day. September 22: Laying in bed. A bit more awake. Answers questions a bit better. Afebrile. Eating good breakfast. Atrial flutter fibrillation better controlled September 23: In bed. Tired. Had 25% of his breakfast. Answering occasional question. Atrial fibrillation rate controlled. IV Zosyn. Worsening renal function. Hold Lasix September 24: Had 25% of his breakfast. No lunch. Does answer some questions. Lasix is continued to be held. Creatinine 1.6. Tired. 6 L of oxygen. Review of systems: Attempted for constitutional, cardiovascular, GI, pulmonary. relevant finding as above Active Medications Acetaminophen (Acetaminophen Tab 325 Mg Tab) 650 mg PO Q6HR PRN PRN Reason: Mild Pain or Fever > 100.5 Last Admin: 09/21/21 17:23 Dose: 650 mg Documented by: Albuterol/Ipratropium (Ipratropium-Albuterol 3 Ml Neb) 3 ml INHALATION RT-Q2H PRN PRN Reason: Shortness Of Breath Or Wheezing Albuterol/Ipratropium (Ipratropium-Albuterol 3 Ml Neb) 3 ml INHALATION RT-TID [facility] Last Admin: 09/24/21 11:45 Dose: Not Given Documented by: Apixaban (Apixaban 5 Mg Tab) 5 mg PO BID [facility]; Protocol Last Admin: 09/24/21 08:00 Dose: 5 mg Documented by: Ascorbic Acid (Ascorbic Acid 500 Mg Tab) 1,000 mg PO DAILY [facility] Last Admin: 09/24/21 07:59 Dose: 1,000 mg Documented by: Atorvastatin Calcium (Atorvastatin 20 Mg Tab) 20 mg PO HS [facility] Last Admin: 09/23/21 20:46 Dose: 20 mg Documented by: Calcium Carbonate/Glycine (Calcium Carbonate 500 Mg Chewable) 1,000 mg PO Q4HR PRN PRN Reason: Dyspepsia Cholecalciferol (Cholecalciferol 125 Mcg (5000 Iu) Tablet) 125 mcg PO DAILY [facility] Last Admin: 09/24/21 08:00 Dose: 125 mcg Documented by: Piperacillin Sod/Tazobactam (Sod 3.375 gm/ Sodium Chloride) 100 mls @ 25 mls/hr IVPB Q8H [facility] Last Admin: 09/24/21 16:35 Dose: 25 mls/hr Documented by: Lactulose (Lactulose 20 Gm/30 Ml Cup) 20 gm PO DAILY PRN PRN Reason: Constipation Levothyroxine Sodium (Levothyroxine 50 Mcg Tab) 50 mcg PO DAILY@0630 [facility] Last Admin: 09/24/21 05:14 Dose: 50 mcg Documented by: Lorazepam (Lorazepam 0.5 Mg Tab) 0.5 mg PO Q6HR PRN PRN Reason: Anxiety Melatonin (Melatonin 3 Mg Tablet) 3 mg PO HS PRN PRN Reason: Insomnia Metoprolol Tartrate (Metoprolol Tartrate 50 Mg Tab) 50 mg PO BID [facility] Last Admin: 09/24/21 07:59 Dose: 50 mg Documented by: Naloxone HCl (Naloxone 0.4 Mg/Ml 1 Ml Vial) 0.2 mg IV Q2M PRN PRN Reason: Opioid Reversal Ondansetron HCl (Ondansetron 4 Mg/2 Ml Vial) 4 mg IVP Q8HR PRN PRN Reason: Nausea And Vomiting Past medical history to include: COVID-19, pulmonary embolism, atrial fibrillation, hypertension, hypothyroid, hyperlipidemia, chronic hypoxic respiratory failure Social history: Denies any smoking or alcohol. Family history: Patient cannot tell Physical examination: VITAL SIGNS: 98.4, 88, 22, 1 24 x 68, 92% on 6 L GENERAL: , laying in bed, awake, tired, EYES: Pupils equal. Conjunctiva normal. HEENT: External appearance of nose and ears normal, oral cavity grossly normal. NECK: JVD not raised; masses not palpable. HEART: Heart sounds irregular no edema. LUNGS: Respiratory rate increased; decreased breath sounds. ABDOMEN: Soft, nontender, liver spleen not palpable, no masses palpable. PSYCH: Able to answer occasional questions MUSCULOSKELETAL:No Clubbing/cyanosis;muscles-grossly intact. Evidence of OA NEUROLOGICAL: Cranial nerves grossly intact; no facial asymmetry, power and sensation grossly intact. INVESTIGATIONS, reviewed in the clinical context: September 24: White count 17.7 hemoglobin 11 platelets 527 potassium 3 BUN 37 creatinine 1.6 UA positive September 23: White count 22.1 hemoglobin 10.5 platelets 513 potassium 3.1 BUN [address] chest: Small to moderate size left pleural effusion. Eating is of groundglass opacities throughout the bilateral lungs with relative sparing of the anterior right upper and midlung. Mild focal cylindrical bronchiectasis anterior left upper lobe is now present. Compressive atelectasis left lung base is seen. September 22: White count 11.4 hemoglobin 10 platelets 444. Pro-calcitonin 0.33 White count 8.2 hemoglobin 11.4 platelets 574 increased neutrophils sodium 140 potassium 3.9 creatinine 0.9 to AST 70 ALT 77 LDH 1139 CRP 23.1 albumin 2.6. ProBNP 3810 Coronavirus [PCR]: Not detected EKG tracing personally reviewed by me-atrial flutter with a possible intraventricular block with some ST segment changes. Chest x-ray film personally reviewed by me-bilateral infiltrates. 2-D echocardiogram [August 2021]: EF 55-60% Assessment and plan: -Bilateral pneumonia. Suspect gram-negative organism.: Slow to respond IV Zosyn. Aspiration precautions. -Acute hypoxic respiratory failure from pneumonia: Slow to respond Requiring 6 L of oxygen. -Acute kidney injury likely prerenal from diuretics: Slow to respond Creatinine is gone up from 0.9 to up to 1.6. Lasix held. Follow nephrology -Acute metabolic encephalopathy/delirium from pneumonia: Slow to respond Follow clinically -Persistent atrial flutter, rate uncontrolled on presentation. Better controlled Follow cardiology. Recent echocardiogram showed preserved LV function. Lopressor 50 mg twice a day. Eliquis -Chronic medical debility. Fall precautions. PT OT. -Essential hypertension Lopressor 50 mg twice a day -Hypothyroid Synthroid 50 g a day -Hyperlipidemia Zocor 40 mg daily at bedtime -Chronic hypoxic respiratory failure from COVID-19 pneumonia On 4 L of oxygen at home IV Zosyn. Eliquis Oxygen supplementation. Aspiration precautions. All feeding assisted. Continue to hold Lasix. Encourage oral intake.
[2021-09-24] MEDS: ATORVASTATIN 20 MG TAB PO SCH (21:31)
[2021-09-25] MEDS: PIPERACILLIN-TAZOBACTAM 3.375 GM in SODIUM CHLORIDE 0.9% 100 ML IVPB SCH ×3 (00:59→17:48)
[2021-09-25] MEDS: LEVOTHYROXINE 50 MCG TAB PO SCH (06:01)
[2021-09-25 07:26] LABS: African American GFR (CKD) 56 (>60 ml/min/1.73 sqM); Anion Gap 6 mmol/L; Blood Urea Nitrogen 27 mg/dL (9-20); Calcium 8.4 mg/dL (8.4-10.2); Carbon Dioxide 26 mmol/L (22-30); Chloride 111 mmol/L (98-107); Glucose 105 mg/dL (74-99); Non-African American GFR(CKD) 48 (>60 ml/min/1.73 sqM); Potassium 3.1 mmol/L (3.5-5.1); Sodium 143 mmol/L (137-145)
[2021-09-25] MEDS: IPRATROPIUM-ALBUTEROL 3 ML NEB INHALATION SCH ×3 (07:27→21:35)
[2021-09-25] MEDS: ACETAMINOPHEN TAB 325 MG TAB PO PRN (08:21)
[2021-09-25] MEDS: CHOLECALCIFEROL 125 MCG (5000 IU) TABLET PO SCH (08:22)
[2021-09-25] MEDS: METOPROLOL TARTRATE 50 MG TAB PO SCH ×2 (08:22→21:44)
[2021-09-25] MEDS: APIXABAN 5 MG TAB PO SCH ×2 (08:22→21:44)
[2021-09-25] MEDS: ASCORBIC ACID 500 MG TAB PO SCH (08:22)
[2021-09-25] MEDS ORDERED: POTASSIUM CHLORIDE ER 20 MEQ TAB.ER PO STA (13:50)
--- NOTE | 2021-09-25 16:28 | P.PN ---
Subjective Progress Note Date: 09/25/21 Follow-up for acute kidney injury. Objective - Vital Signs Vital signs: Vital Signs Temp 98.1 F 09/25/21 15:44 Pulse 74 09/25/21 15:44 Resp 18 09/25/21 15:44 BP 116/72 09/25/21 15:44 Pulse Ox 94 L 09/25/21 15:44 Intake & Output 09/24/21 09/25/21 09/25/21 18:59 06:59 18:59 Output Total 150 Balance -150 Weight 58.5 kg Output: Urine 150 Other: Voiding Method Bedpan Urinal Urinal Diaper Diaper Diaper # Voids 1 # Bowel Movements 1 - Exam No acute distress S1-S2 heard Decreased breath sounds Trace edema - Labs CBC & Chem 7: 09/24/21 06:07 09/25/21 06:26 Labs: Abnormal Lab Results - Last 24 Hours (Table) 09/25/21 09/25/21 Range/Units 06:26 06:26 Potassium 3.1 L (3.5-5.1) mmol/L Chloride 111 H (98-107) mmol/L BUN 27 H (9-20) mg/dL Creatinine 1.36 H (0.66-1.25) mg/dL Glucose 105 H (74-99) mg/dL Procalcitonin 0.26 H (0.02-0.09) ng/mL Microbiology - Last 24 Hours (Table) 09/21/21 17:46 Blood Culture - Preliminary Blood No Growth after 72 hours 09/21/21 17:46 Blood Culture - Preliminary Blood No Growth after 72 hours Assessment and Plan Assessment: #1 nonoliguric acute kidney injury secondary to hemodynamic ATN with low blood pressures -Baseline creatinine 1.0 MG per DL. -No hydronephrosis on computed tomography scan. [August 2021] #2 chronic diastolic CHF with pulmonary hypertension #3 urinary tract infection #4 hypokalemia suspect decreased by mouth intake Plan: #1 renal function improving. #2 continue with antibiotics for urinary tract infection #3 daily renal labs.
--- NOTE | 2021-09-25 20:28 | P.PN ---
Progress Note - Text Progress Note Date: 09/25/21 Chief Complaint: Shortness of breath This is a 80-year-old patient who follows with Dr. Lackey. Patient was discharged from the hospital on August 19: He was then admitted for COVID-19 pneumonia unvaccinated, metabolic encephalopathy, subsegmental acute PE in the lingula and left lower lobe, new onset atrial fibrillation, hypertension, hypothyroid, 2-D echocardiogram showed an EF of 55-60%. Patient subsequently was admitted on August 27, with hypoxia. This occasionally was diagnosed with pneumonia. He was discharged on [address] chest had shown a small pleural effusion. Patient was brought in by the family to the ER. Patient had been worsening shortness of breath for at least a day. He's been getting increasingly confused. Possibly dehydrated. Patient himself unable to give much of her history. Speech is somewhat slurred. He has a cough. He says his appetite is fair. He states is too weak to walk. Denies any fever or chills. No chest pain. He has not able to tell me that he is or why he is here. Admitted with bilateral pneumonia, acute hypoxic respiratory failure, acute metabolic encephalopathy and delirium, atrial flutter fibrillation uncontrolled. Started on IV Zosyn, oxygen, Lopressor 12.5 twice a day. September 22: Laying in bed. A bit more awake. Answers questions a bit better. Afebrile. Eating good breakfast. Atrial flutter fibrillation better controlled September 23: In bed. Tired. Had 25% of his breakfast. Answering occasional question. Atrial fibrillation rate controlled. IV Zosyn. Worsening renal function. Hold Lasix September 24: Had 25% of his breakfast. No lunch. Does answer some questions. Lasix is continued to be held. Creatinine 1.6. Tired. 6 L of oxygen. September 25: I fitted the patient has lunch and he had about 5 or 6 teaspoons of food. I did ask the aide 2 feeding. Remains on 6 L of walk-in. Some drop in creatinine. Following commands. Tired. I did speak to patient's daughter Yaquelin over the phone. Regarding the CODE STATUS. She will talk to her mother and her brother. And get back to us. I recommended DO NOT RESUSCITATE. Review of systems: Attempted for constitutional, cardiovascular, GI, pulmonary. relevant finding as above Active Medications Acetaminophen (Acetaminophen Tab 325 Mg Tab) 650 mg PO Q6HR PRN PRN Reason: Mild Pain or Fever > 100.5 Last Admin: 09/25/21 08:21 Dose: 650 mg Documented by: Albuterol/Ipratropium (Ipratropium-Albuterol 3 Ml Neb) 3 ml INHALATION RT-Q2H PRN PRN Reason: Shortness Of Breath Or Wheezing Albuterol/Ipratropium (Ipratropium-Albuterol 3 Ml Neb) 3 ml INHALATION RT-TID REPLACED BY [facility] Last Admin: 09/25/21 11:33 Dose: 3 ml Documented by: Apixaban (Apixaban 5 Mg Tab) 5 mg PO BID REPLACED BY [facility]; Protocol Last Admin: 09/25/21 08:22 Dose: 5 mg Documented by: Ascorbic Acid (Ascorbic Acid 500 Mg Tab) 1,000 mg PO DAILY REPLACED BY [facility] Last Admin: 09/25/21 08:22 Dose: 1,000 mg Documented by: Atorvastatin Calcium (Atorvastatin 20 Mg Tab) 20 mg PO HS REPLACED BY [facility] Last Admin: 09/24/21 21:31 Dose: 20 mg Documented by: Calcium Carbonate/Glycine (Calcium Carbonate 500 Mg Chewable) 1,000 mg PO Q4HR PRN PRN Reason: Dyspepsia Cholecalciferol (Cholecalciferol 125 Mcg (5000 Iu) Tablet) 125 mcg PO DAILY REPLACED BY [facility] Last Admin: 09/25/21 08:22 Dose: 125 mcg Documented by: Piperacillin Sod/Tazobactam (Sod 3.375 gm/ Sodium Chloride) 100 mls @ 25 mls/hr IVPB Q8H REPLACED BY [facility] Last Admin: 09/25/21 17:48 Dose: 25 mls/hr Documented by: Lactulose (Lactulose 20 Gm/30 Ml Cup) 20 gm PO DAILY PRN PRN Reason: Constipation Levothyroxine Sodium (Levothyroxine 50 Mcg Tab) 50 mcg PO DAILY@0630 REPLACED BY [facility] Last Admin: 09/25/21 06:01 Dose: 50 mcg Documented by: Lorazepam (Lorazepam 0.5 Mg Tab) 0.5 mg PO Q6HR PRN PRN Reason: Anxiety Melatonin (Melatonin 3 Mg Tablet) 3 mg PO HS PRN PRN Reason: Insomnia Metoprolol Tartrate (Metoprolol Tartrate 50 Mg Tab) 50 mg PO BID REPLACED BY [facility] Last Admin: 09/25/21 08:22 Dose: 50 mg Documented by: Naloxone HCl (Naloxone 0.4 Mg/Ml 1 Ml Vial) 0.2 mg IV Q2M PRN PRN Reason: Opioid Reversal Ondansetron HCl (Ondansetron 4 Mg/2 Ml Vial) 4 mg IVP Q8HR PRN PRN Reason: Nausea And Vomiting Past medical history to include: COVID-19, pulmonary embolism, atrial fibrillation, hypertension, hypothyroid, hyperlipidemia, chronic hypoxic respiratory failure Social history: Denies any smoking or alcohol. Family history: Patient cannot tell Physical examination: VITAL SIGNS: 98.1, 74, 18, 116/72, 94% on 6 L GENERAL: , laying in bed, awake, tired, EYES: Pupils equal. Conjunctiva normal. HEENT: External appearance of nose and ears normal, oral cavity grossly normal. NECK: JVD not raised; masses not palpable. HEART: Heart sounds irregular no edema. LUNGS: Respiratory rate increased; decreased breath sounds. ABDOMEN: Soft, nontender, liver spleen not palpable, no masses palpable. PSYCH: Able to answer occasional questions MUSCULOSKELETAL:No Clubbing/cyanosis;muscles-grossly intact. Evidence of OA NEUROLOGICAL: Cranial nerves grossly intact; no facial asymmetry, power and sensation grossly intact. Does follow commands INVESTIGATIONS, reviewed in the clinical context: September 25: Potassium 3.1 BUN 27 creatinine 1.36 pro-calcitonin 0.26 September 24: White count 17.7 hemoglobin 11 platelets 527 potassium 3 BUN 37 creatinine 1.6 UA positive September 23: White count 22.1 hemoglobin 10.5 platelets 513 potassium 3.1 BUN [address] chest: Small to moderate size left pleural effusion. Eating is of groundglass opacities throughout the bilateral lungs with relative sparing of the anterior right upper and midlung. Mild focal cylindrical bronchiectasis anterior left upper lobe is now present. Compressive atelectasis left lung base is seen. September 22: White count 11.4 hemoglobin 10 platelets 444. Pro-calcitonin 0.33 White count 8.2 hemoglobin 11.4 platelets 574 increased neutrophils sodium 140 potassium 3.9 creatinine 0.9 to AST 70 ALT 77 LDH 1139 CRP 23.1 albumin 2.6. ProBNP 3810 Coronavirus [PCR]: Not detected EKG tracing personally reviewed by me-atrial flutter with a possible intraventricular block with some ST segment changes. Chest x-ray film personally reviewed by me-bilateral infiltrates. 2-D echocardiogram [August 2021]: EF 55-60% Assessment and plan: -Bilateral pneumonia. Suspect gram-negative organism.: Slow to respond IV Zosyn. Aspiration precautions. -Acute hypoxic respiratory failure from pneumonia: Slow to respond Requiring 6 L of oxygen. -Acute kidney injury likely prerenal from diuretics: Slow to respond Creatinine is gone up from 0.9 to up to 1.6. Lasix held. Follow nephrology -Acute metabolic encephalopathy/delirium from pneumonia: Slow to respond Follow clinically -Persistent atrial flutter, rate uncontrolled on presentation. Better controlled Follow cardiology. Recent echocardiogram showed preserved LV function. Lopressor 50 mg twice a day. Eliquis -Chronic medical debility. Fall precautions. PT OT. -Essential hypertension Lopressor 50 mg twice a day -Hypothyroid Synthroid 50 g a day -Hyperlipidemia Zocor 40 mg daily at bedtime -Chronic hypoxic respiratory failure from COVID-19 pneumonia On 4 L of oxygen at home IV Zosyn. Eliquis. Oxygen supplementation. Aspiration precautions. All f eeding assisted. Follow labs. Prognosis guarded. Advanced care planning: Spoke to patient is Dr. Ruddy Martinez, over the phone at [phone]. Gave him a clinical update. His guarded prognosis because of multiple comorbidities. Baseline oxygen of 4 L before coming in. Recent multiple admissions. Regarding POA she is applying for the same and she will be the patient's POA. Regarding CODE STATUS she will speak to her mother and a brother and get back to me. I did render an opinion my suggestion would be to DO NOT RESUSCITATE given his comorbidities and fragility. They will decide and get back to me. Time spent for this was about 20 minutes
[2021-09-25] MEDS: ATORVASTATIN 20 MG TAB PO SCH (21:44)
[2021-09-26] MEDS: PIPERACILLIN-TAZOBACTAM 3.375 GM in SODIUM CHLORIDE 0.9% 100 ML IVPB SCH ×3 (00:47→16:38)
[2021-09-26] MEDS: ACETAMINOPHEN TAB 325 MG TAB PO PRN (00:51)
[2021-09-26] MEDS: LEVOTHYROXINE 50 MCG TAB PO SCH (05:58)
[2021-09-26] MEDS: ASCORBIC ACID 500 MG TAB PO SCH (07:57)
[2021-09-26] MEDS: APIXABAN 5 MG TAB PO SCH ×2 (07:57→21:50)
[2021-09-26] MEDS: METOPROLOL TARTRATE 50 MG TAB PO SCH ×2 (07:57→21:50)
[2021-09-26] MEDS: CHOLECALCIFEROL 125 MCG (5000 IU) TABLET PO SCH (07:58)
[2021-09-26] MEDS: IPRATROPIUM-ALBUTEROL 3 ML NEB INHALATION SCH ×3 (08:54→20:15)
--- NOTE | 2021-09-26 13:04 | P.PN ---
Subjective Progress Note Date: 09/26/21 Follow-up for acute kidney injury. Objective - Vital Signs Vital signs: Vital Signs Temp 97.2 F L 09/26/21 07:55 Pulse 90 09/26/21 12:44 Resp 18 09/26/21 08:20 BP 145/74 09/26/21 07:55 Pulse Ox 91 L 09/26/21 07:55 Intake & Output 09/25/21 09/26/21 09/26/21 18:59 06:59 18:59 Output Total 200 Balance -200 Weight 59 kg Output: Urine 200 Other: Voiding Method Urinal Urinal Urinal Diaper Diaper Diaper # Voids 1 - Exam No acute distress S1-S2 heard Decreased breath sounds Trace edema - Labs CBC & Chem 7: 09/24/21 06:07 09/25/21 06:26 Labs: Microbiology - Last 24 Hours (Table) 09/21/21 17:46 Blood Culture - Preliminary Blood No Growth after 96 hours 09/21/21 17:46 Blood Culture - Preliminary Blood No Growth after 96 hours Assessment and Plan Assessment: #1 nonoliguric acute kidney injury secondary to hemodynamic ATN with low blood pressures. -Baseline creatinine 1.0 MG per DL. -No hydronephrosis on computed tomography scan. 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 Plan: #1 renal function improving. #2 continue with antibiotics for urinary tract infection #3 replace KCl. Check magnesium in the morning #4 daily renal labs
[2021-09-26] MEDS: POTASSIUM CHLORIDE ER 20 MEQ TAB.ER PO SCH ×2 (14:40→21:50)
[2021-09-26] MEDS: LORazepam 0.5 MG TAB PO PRN (14:40)
[2021-09-26 17:23] LABS: Basophils % (A) 0 %; Eosinophils # (A) 0.2 k/uL (0-0.7); Eosinophils % (A) 2 %; HCT 32.7 % (39.0-53.0); HGB 10.1 gm/dL (13.0-17.5); Hypochromasia Marked; Lymphocytes % (A) 16 %; MCH 28.7 pg (25.0-35.0); MCV 92.8 fL (80.0-100.0); Mean Platelet Volume 7.7; Monocytes # (A) 0.5 k/uL (0-1.0); Monocytes % (A) 4 %; Neutrophils # (A) 9.2 k/uL (1.3-7.7); Neutrophils % (A) 77 %; Platelet Count 458 k/uL (150-450); RBC 3.53 m/uL (4.30-5.90); RDW 15.9 % (11.5-15.5)
[2021-09-26 17:31] LABS: African American GFR (CKD) 66 (>60 ml/min/1.73 sqM); Anion Gap 6 mmol/L; Blood Urea Nitrogen 26 mg/dL (9-20); Calcium 7.9 mg/dL (8.4-10.2); Carbon Dioxide 24 mmol/L (22-30); Chloride 109 mmol/L (98-107); Glucose 114 mg/dL (74-99); Non-African American GFR(CKD) 57 (>60 ml/min/1.73 sqM); Potassium 3.3 mmol/L (3.5-5.1); Sodium 139 mmol/L (137-145)
--- NOTE | 2021-09-26 19:07 | P.PN ---
Progress Note - Text Progress Note Date: 09/26/21 Chief Complaint: Shortness of breath This is a 80-year-old patient who follows with Dr. Lackey. Patient was discharged from the hospital on August 19: He was then admitted for COVID-19 pneumonia unvaccinated, metabolic encephalopathy, subsegmental acute PE in the lingula and left lower lobe, new onset atrial fibrillation, hypertension, hypothyroid, 2-D echocardiogram showed an EF of 55-60%. Patient subsequently was admitted on August 27, with hypoxia. This occasionally was diagnosed with pneumonia. He was discharged on [address] chest had shown a small pleural effusion. Patient was brought in by the family to the ER. Patient had been worsening shortness of breath for at least a day. He's been getting increasingly confused. Possibly dehydrated. Patient himself unable to give much of her history. Speech is somewhat slurred. He has a cough. He says his appetite is fair. He states is too weak to walk. Denies any fever or chills. No chest pain. He has not able to tell me that he is or why he is here. Admitted with bilateral pneumonia, acute hypoxic respiratory failure, acute metabolic encephalopathy and delirium, atrial flutter fibrillation uncontrolled. Started on IV Zosyn, oxygen, Lopressor 12.5 twice a day. September 22: Laying in bed. A bit more awake. Answers questions a bit better. Afebrile. Eating good breakfast. Atrial flutter fibrillation better controlled September 23: In bed. Tired. Had 25% of his breakfast. Answering occasional question. Atrial fibrillation rate controlled. IV Zosyn. Worsening renal function. Hold Lasix September 24: Had 25% of his breakfast. No lunch. Does answer some questions. Lasix is continued to be held. Creatinine 1.6. Tired. 6 L of oxygen. September 25: I fitted the patient has lunch and he had about 5 or 6 teaspoons of food. I did ask the aide 2 feeding. Remains on 6 L of walk-in. Some drop in creatinine. Following commands. Tired. I did speak to patient's daughter Yaquelin over the phone. Regarding the CODE STATUS. She will talk to her mother and her brother. And get back to us. I recommended DO NOT RESUSCITATE. September 26: Eating about 25%. Diet. Occasional delirium. 92% on 6 L. Review of systems: Attempted for constitutional, cardiovascular, GI, pulmonary. relevant finding as above Active Medications Acetaminophen (Acetaminophen Tab 325 Mg Tab) 650 mg PO Q6HR PRN PRN Reason: Mild Pain or Fever > 100.5 Last Admin: 09/26/21 00:51 Dose: 650 mg Documented by: Albuterol/Ipratropium (Ipratropium-Albuterol 3 Ml Neb) 3 ml INHALATION RT-Q2H PRN PRN Reason: Shortness Of Breath Or Wheezing Albuterol/Ipratropium (Ipratropium-Albuterol 3 Ml Neb) 3 ml INHALATION RT-TID [facility] Last Admin: 09/26/21 12:31 Dose: 3 ml Documented by: Apixaban (Apixaban 5 Mg Tab) 5 mg PO BID [facility]; Protocol Last Admin: 09/26/21 07:57 Dose: 5 mg Documented by: Ascorbic Acid (Ascorbic Acid 500 Mg Tab) 1,000 mg PO DAILY [facility] Last Admin: 09/26/21 07:57 Dose: 1,000 mg Documented by: Atorvastatin Calcium (Atorvastatin 20 Mg Tab) 20 mg PO HS [facility] Last Admin: 09/25/21 21:44 Dose: 20 mg Documented by: Calcium Carbonate/Glycine (Calcium Carbonate 500 Mg Chewable) 1,000 mg PO Q4HR PRN PRN Reason: Dyspepsia Cholecalciferol (Cholecalciferol 125 Mcg (5000 Iu) Tablet) 125 mcg PO DAILY [facility] Last Admin: 09/26/21 07:58 Dose: 125 mcg Documented by: Piperacillin Sod/Tazobactam (Sod 3.375 gm/ Sodium Chloride) 100 mls @ 25 mls/hr IVPB Q8H [facility] Last Admin: 09/26/21 16:38 Dose: 25 mls/hr Documented by: Lactulose (Lactulose 20 Gm/30 Ml Cup) 20 gm PO DAILY PRN PRN Reason: Constipation Levothyroxine Sodium (Levothyroxine 50 Mcg Tab) 50 mcg PO DAILY@0630 [facility] Last Admin: 09/26/21 05:58 Dose: 50 mcg Documented by: Lorazepam (Lorazepam 0.5 Mg Tab) 0.5 mg PO Q6HR PRN PRN Reason: Anxiety Last Admin: 09/26/21 14:40 Dose: 0.5 mg Documented by: Melatonin (Melatonin 3 Mg Tablet) 3 mg PO HS PRN PRN Reason: Insomnia Metoprolol Tartrate (Metoprolol Tartrate 50 Mg Tab) 50 mg PO BID [facility] Last Admin: 09/26/21 07:57 Dose: 50 mg Documented by: Naloxone HCl (Naloxone 0.4 Mg/Ml 1 Ml Vial) 0.2 mg IV Q2M PRN PRN Reason: Opioid Reversal Ondansetron HCl (Ondansetron 4 Mg/2 Ml Vial) 4 mg IVP Q8HR PRN PRN Reason: Nausea And Vomiting Potassium Chloride (Potassium Chloride Er 20 Meq Tab.Er) 20 meq PO BID [facility] Last Admin: 09/26/21 14:40 Dose: 20 meq Documented by: Past medical history to include: COVID-19, pulmonary embolism, atrial fibrillation, hypertension, hypothyroid, hyperlipidemia, chronic hypoxic respiratory failure Social history: Denies any smoking or alcohol. Family history: Patient cannot tell Physical examination: VITAL SIGNS: 98, 110, 21, 126/67, 92% on 6 L GENERAL: , laying in bed, awake, tired, sometimes on sensorium fluctuates EYES: Pupils equal. Conjunctiva normal. HEENT: External appearance of nose and ears normal, oral cavity grossly normal. NECK: JVD not raised; masses not palpable. HEART: Heart sounds irregular no edema. LUNGS: Respiratory rate increased; decreased breath sounds. ABDOMEN: Soft, nontender, liver spleen not palpable, no masses palpable. PSYCH: Able to answer occasional questions MUSCULOSKELETAL:No Clubbing/cyanosis;muscles-grossly intact. Evidence of OA NEUROLOGICAL: Cranial nerves grossly intact; no facial asymmetry, power and sensation grossly intact. Does follow commands INVESTIGATIONS, reviewed in the clinical context: September 26: White count 12 hemoglobin 10.1 potassium 3.3 creatinine 1.19 September 25: Potassium 3.1 BUN 27 creatinine 1.36 pro-calcitonin 0.26 September 24: White count 17.7 hemoglobin 11 platelets 527 potassium 3 BUN 37 creatinine 1.6 UA positive September 23: White count 22.1 hemoglobin 10.5 platelets 513 potassium 3.1 BUN [address] chest: Small to moderate size left pleural effusion. Eating is of gr oundglass opacities throughout the bilateral lungs with relative sparing of the anterior right upper and midlung. Mild focal cylindrical bronchiectasis anterior left upper lobe is now present. Compressive atelectasis left lung base is seen. September 22: White count 11.4 hemoglobin 10 platelets 444. Pro-calcitonin 0.33 White count 8.2 hemoglobin 11.4 platelets 574 increased neutrophils sodium 140 potassium 3.9 creatinine 0.9 to AST 70 ALT 77 LDH 1139 CRP 23.1 albumin 2.6. ProBNP 3810 Coronavirus [PCR]: Not detected EKG tracing personally reviewed by me-atrial flutter with a possible intraven tricular block with some ST segment changes. Chest x-ray film personally reviewed by me-bilateral infiltrates. 2-D echocardiogram [August 2021]: EF 55-60% Assessment and plan: -Bilateral pneumonia. Suspect gram-negative organism.: Slow to respond IV Zosyn. Aspiration precautions. -Acute hypoxic respiratory failure from pneumonia: Slow to respond Requiring 6 L of oxygen. -Acute kidney injury likely prerenal from diuretics: Better Creatinine is gone up from 0.9 to up to 1.6. Lasix held. Follow nephrology -Acute metabolic encephalopathy/delirium from pneumonia: Slow to respond Follow clinically -Persistent atrial flutter, rate uncontrolled on presentation. Better controlled Follow cardiology. Recent echocardiogram showed preserved LV function. Lopressor 50 mg twice a day. Eliquis -Chronic medical debility. Fall precautions. PT OT. -Essential hypertension Lopressor 50 mg twice a day -Hypothyroid Synthroid 50 g a day -Hyperlipidemia Zocor 40 mg daily at bedtime -Chronic hypoxic respiratory failure from COVID-19 pneumonia On 4 L of oxygen at home -Full code IV Zosyn. Eliquis. Oxygen supplementation. Aspiration precautions. All feeding assisted. Spoke to the nurse. Daughter did not get back to us as yet regarding any change in CODE STATUS. Remains full code. Prognosis remains guarded.
[2021-09-26] MEDS: ATORVASTATIN 20 MG TAB PO SCH (21:50)
[2021-09-27] MEDS: PIPERACILLIN-TAZOBACTAM 3.375 GM in SODIUM CHLORIDE 0.9% 100 ML IVPB SCH ×3 (00:58→17:03)
[2021-09-27] MEDS: LEVOTHYROXINE 50 MCG TAB PO SCH (05:44)
[2021-09-27] MEDS: POTASSIUM CHLORIDE ER 20 MEQ TAB.ER PO SCH ×2 (07:38→20:02)
[2021-09-27] MEDS: ASCORBIC ACID 500 MG TAB PO SCH (07:38)
[2021-09-27] MEDS: APIXABAN 5 MG TAB PO SCH ×2 (07:38→20:02)
[2021-09-27] MEDS: CHOLECALCIFEROL 125 MCG (5000 IU) TABLET PO SCH (07:38)
[2021-09-27] MEDS: METOPROLOL TARTRATE 50 MG TAB PO SCH ×2 (07:38→20:02)
[2021-09-27] MEDS: IPRATROPIUM-ALBUTEROL 3 ML NEB INHALATION SCH ×3 (07:41→19:28)
--- NOTE | 2021-09-27 14:54 | P.PN ---
Subjective Principal diagnosis: Pt is seen for f/u for FABIENNE. Renal function has improved. Cr 1.19 today. Good UOP. Objective - Vital Signs Vital signs: Vital Signs Temp 97.6 F 09/27/21 11:22 Pulse 97 09/27/21 11:34 Resp 24 09/27/21 11:22 BP 134/74 09/27/21 11:22 Pulse Ox 91 L 09/27/21 11:22 Intake & Output 09/26/21 09/27/21 09/27/21 18:59 06:59 18:59 Output Total 200 200 Balance -200 -200 Weight 59 kg Output: Urine 200 200 Other: Voiding Method Urinal Urinal Urinal Diaper Diaper Diaper Incontinent # Voids 1 # Bowel Movements 1 - Exam Awake, comfortable. No acute distress. Lungs : decreased breath sounds at bases. CVS: S1 and S2 Abdomen is soft. Examination of the lower extremities shows trace edema. - Labs CBC & Chem 7: 09/26/21 17:01 09/26/21 17:01 Labs: Abnormal Lab Results - Last 24 Hours (Table) 09/26/21 09/26/21 Range/Units 17:01 17:01 WBC 12.0 H (3.8-10.6) k/uL RBC 3.53 L (4.30-5.90) m/uL Hgb 10.1 L (13.0-17.5) gm/dL Hct 32.7 L (39.0-53.0) % RDW 15.9 H (11.5-15.5) % Plt Count 458 H (150-450) k/uL Neutrophils # 9.2 H (1.3-7.7) k/uL Potassium 3.3 L (3.5-5.1) mmol/L Chloride 109 H (98-107) mmol/L BUN 26 H (9-20) mg/dL Glucose 114 H (74-99) mg/dL Calcium 7.9 L (8.4-10.2) mg/dL Microbiology - Last 24 Hours (Table) 09/21/21 17:46 Blood Culture - Preliminary Blood No Growth after 120 hours 09/21/21 17:46 Blood Culture - Preliminary Blood No Growth after 120 hours Assessment and Plan Assessment: #1 nonoliguric acute kidney injury secondary to hemodynamic ATN with low blood pressures. -Baseline creatinine 1.0 MG per DL. -No hydronephrosis on computed tomography scan. 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 Plan: Replace potassium Encourage increased oral intake. Repeat labs in am.
--- NOTE | 2021-09-27 17:53 | P.PN ---
Progress Note - Text Progress Note Date: 09/27/21 Chief Complaint: Shortness of breath This is a 80-year-old patient who follows with Dr. Lackey. Patient was discharged from the hospital on August 19: He was then admitted for COVID-19 pneumonia unvaccinated, metabolic encephalopathy, subsegmental acute PE in the lingula and left lower lobe, new onset atrial fibrillation, hypertension, hypothyroid, 2-D echocardiogram showed an EF of 55-60%. Patient subsequently was admitted on August 27, with hypoxia. This occasionally was diagnosed with pneumonia. He was discharged on [address] chest had shown a small pleural effusion. Patient was brought in by the family to the ER. Patient had been worsening shortness of breath for at least a day. He's been getting increasingly confused. Possibly dehydrated. Patient himself unable to give much of her history. Speech is somewhat slurred. He has a cough. He says his appetite is fair. He states is too weak to walk. Denies any fever or chills. No chest pain. He has not able to tell me that he is or why he is here. Admitted with bilateral pneumonia, acute hypoxic respiratory failure, acute metabolic encephalopathy and delirium, atrial flutter fibrillation uncontrolled. Started on IV Zosyn, oxygen, Lopressor 12.5 twice a day. September 22: Laying in bed. A bit more awake. Answers questions a bit better. Afebrile. Eating good breakfast. Atrial flutter fibrillation better controlled September 23: In bed. Tired. Had 25% of his breakfast. Answering occasional question. Atrial fibrillation rate controlled. IV Zosyn. Worsening renal function. Hold Lasix September 24: Had 25% of his breakfast. No lunch. Does answer some questions. Lasix is continued to be held. Creatinine 1.6. Tired. 6 L of oxygen. September 25: I fitted the patient has lunch and he had about 5 or 6 teaspoons of food. I did ask the aide 2 feeding. Remains on 6 L of walk-in. Some drop in creatinine. Following commands. Tired. I did speak to patient's daughter Yaquelin over the phone. Regarding the CODE STATUS. She will talk to her mother and her brother. And get back to us. I recommended DO NOT RESUSCITATE. September 26: Eating about 25%. Diet. Occasional delirium. 92% on 6 L. September 27: Patient requiring Ventimask. Doesn't feel like eating. Tired. and granddaughter present. Patient was made DO NOT RESUSCITATE last night. Discussion was held. We'll take the patient home with hospice. excellence manager consulted. Comfort feeding. Active Medications Acetaminophen (Acetaminophen Tab 325 Mg Tab) 650 mg PO Q6HR PRN PRN Reason: Mild Pain or Fever > 100.5 Last Admin: 09/26/21 00:51 Dose: 650 mg Documented by: Albuterol/Ipratropium (Ipratropium-Albuterol 3 Ml Neb) 3 ml INHALATION RT-Q2H PRN PRN Reason: Shortness Of Breath Or Wheezing Albuterol/Ipratropium (Ipratropium-Albuterol 3 Ml Neb) 3 ml INHALATION RT-TID [facility] Last Admin: 09/27/21 11:21 Dose: 3 ml Documented by: Apixaban (Apixaban 5 Mg Tab) 5 mg PO BID [facility]; Protocol Last Admin: 09/27/21 07:38 Dose: 5 mg Documented by: Ascorbic Acid (Ascorbic Acid 500 Mg Tab) 1,000 mg PO DAILY [facility] Last Admin: 09/27/21 07:38 Dose: 1,000 mg Documented by: Atorvastatin Calcium (Atorvastatin 20 Mg Tab) 20 mg PO HS [facility] Last Admin: 09/26/21 21:50 Dose: 20 mg Documented by: Calcium Carbonate/Glycine (Calcium Carbonate 500 Mg Chewable) 1,000 mg PO Q4HR PRN PRN Reason: Dyspepsia Cholecalciferol (Cholecalciferol 125 Mcg (5000 Iu) Tablet) 125 mcg PO DAILY [facility] Last Admin: 09/27/21 07:38 Dose: 125 mcg Documented by: Piperacillin Sod/Tazobactam (Sod 3.375 gm/ Sodium Chloride) 100 mls @ 25 mls/hr IVPB Q8H [facility] Last Admin: 09/27/21 17:03 Dose: 25 mls/hr Documented by: Lactulose (Lactulose 20 Gm/30 Ml Cup) 20 gm PO DAILY PRN PRN Reason: Constipation Levothyroxine Sodium (Levothyroxine 50 Mcg Tab) 50 mcg PO DAILY@0630 [facility] Last Admin: 09/27/21 05:44 Dose: 50 mcg Documented by: Lorazepam (Lorazepam 0.5 Mg Tab) 0.5 mg PO Q6HR PRN PRN Reason: Anxiety Last Admin: 09/26/21 14:40 Dose: 0.5 mg Documented by: Melatonin (Melatonin 3 Mg Tablet) 3 mg PO HS PRN PRN Reason: Insomnia Metoprolol Tartrate (Metoprolol Tartrate 50 Mg Tab) 50 mg PO BID [facility] Last Admin: 09/27/21 07:38 Dose: 50 mg Documented by: Naloxone HCl (Naloxone 0.4 Mg/Ml 1 Ml Vial) 0.2 mg IV Q2M PRN PRN Reason: Opioid Reversal Ondansetron HCl (Ondansetron 4 Mg/2 Ml Vial) 4 mg IVP Q8HR PRN PRN Reason: Nausea And Vomiting Potassium Chloride (Potassium Chloride Er 20 Meq Tab.Er) 20 meq PO BID [facility] Last Admin: 09/27/21 07:38 Dose: 20 meq Documented by: Past medical history to include: COVID-19, pulmonary embolism, atrial fibrillation, hypertension, hypothyroid, hyperlipidemia, chronic hypoxic respiratory failure Social history: Denies any smoking or alcohol. Family history: Patient cannot tell Physical examination: VITAL SIGNS: 97.6, 84, 24, 1:30/74, 91% on 15 L GENERAL: , laying in bed, awake, tired, lethargic EYES: Pupils equal. Conjunctiva normal. HEENT: External appearance of nose and ears normal, oral cavity grossly normal. NECK: JVD not raised; masses not palpable. HEART: Heart sounds irregular no edema. LUNGS: Respiratory rate increased; decreased breath sounds. ABDOMEN: Soft, nontender, liver spleen not palpable, no masses palpable. PSYCH: Barely able to answer questions MUSCULOSKELETAL:No Clubbing/cyanosis;muscles-grossly intact. Evidence of OA NEUROLOGICAL: Does follow commands INVESTIGATIONS, reviewed in the clinical context: September 27: White count 12 hemoglobin 10.1 platelets 458 potassium 3.3 creatinine 1.19 September 26: White count 12 hemoglobin 10.1 potassium 3.3 creatinine 1.19 September 25: Potassium 3.1 BUN 27 creatinine 1.36 pro-calcitonin 0.26 September 24: White count 17.7 hemoglobin 11 platelets 527 potassium 3 BUN 37 creatinine 1.6 UA positive September 23: White count 22.1 hemoglobin 10.5 platelets 513 potassium 3.1 BUN [address] chest: Small to moderate size left pleural effusion. Eating is of groundglass opacities throughout the bilateral lungs with relative sparing of the anterior right upper and midlung. Mild focal cylindrical bronchiectasis anterior left upper lobe is now present. Compressive atelectasis left lung base is seen. September 22: White count 11.4 hemoglobin 10 platelets 444. Pro-calcitonin 0.33 White count 8.2 hemoglobin 11.4 platelets 574 increased neutrophils sodium 140 potassium 3.9 creatinine 0.9 to AST 70 ALT 77 LDH 1139 CRP 23.1 albumin 2.6. ProBNP 3810 Coronavirus [PCR]: Not detected EKG tracing personally reviewed by me-atrial flutter with a possible intraventricular block with some ST segment changes. Chest x-ray film personally reviewed by me-bilateral infiltrates. 2-D echocardiogram [August 2021]: EF 55-60% Assessment and plan: -Bilateral pneumonia. Suspect gram-negative organism.: Slow to respond IV Zosyn. Aspiration precautions. -Acute hypoxic respiratory failure from pneumonia: Worsening On 15 L nonrebreather -Acute kidney injury likely prerenal from diuretics: Better Creatinine is gone up from 0.9 to up to 1.6. Lasix held. Follow nephrology -Acute metabolic encephalopathy/delirium from pneumonia: Slow to respond Follow clinically -Persistent atrial flutter, rate uncontrolled on presentation. Better controlled Follow cardiology. Recent echocardiogram showed preserved LV function. Lopressor 50 mg twice a day. Eliquis -Chronic medical debility. Fall precautions. PT OT. -Essential hypertension Lopressor 50 mg twice a day -Hypothyroid Synthroid 50 g a day -Hyperlipidemia Zocor 40 mg daily at bedtime -Chronic hypoxic respiratory failure from COVID-19 pneumonia On 4 L of oxygen at home -DO NOT RESUSCITATE IV Zosyn. 15 L Ventimask. Plan for patient to be discharged home with hospice tomorrow. Comfort feeding. Advanced care planning: Care was discussed at the bedside with the patient's and granddaughter. Patient has expressed not to continue like this anymore and wishes to go home. Acceptable to getting hospice involved and going home with hospice tomorrow. Hospital bed is being arranged. Patient's daughter and granddaughter retake dose to be day. lives with the patient. Comfort feeding. Oxygen for comfort. Questions answered. excellence manager informed and discussed. Time spent for this 20 minutes
[2021-09-27] MEDS: LORazepam 0.5 MG TAB PO PRN ×2 (18:00→23:37)
[2021-09-27] MEDS: ATORVASTATIN 20 MG TAB PO SCH (20:02)
[2021-09-28] MEDS: PIPERACILLIN-TAZOBACTAM 3.375 GM in SODIUM CHLORIDE 0.9% 100 ML IVPB SCH ×2 (00:33→08:05)
[2021-09-28] MEDS: ACETAMINOPHEN TAB 325 MG TAB PO PRN ×2 (00:42→13:08)
[2021-09-28] MEDS: LORazepam 0.5 MG TAB PO PRN ×2 (05:41→11:30)
[2021-09-28] MEDS: LEVOTHYROXINE 50 MCG TAB PO SCH (05:41)
[2021-09-28 07:53] VITALS: RESP 22
[2021-09-28] MEDS: IPRATROPIUM-ALBUTEROL 3 ML NEB INHALATION SCH ×2 (07:53→13:05)
[2021-09-28] MEDS: METOPROLOL TARTRATE 50 MG TAB PO SCH (08:05)
[2021-09-28] MEDS: CHOLECALCIFEROL 125 MCG (5000 IU) TABLET PO SCH (08:05)
[2021-09-28] MEDS: APIXABAN 5 MG TAB PO SCH (08:05)
[2021-09-28] MEDS: ASCORBIC ACID 500 MG TAB PO SCH (08:05)
[2021-09-28] MEDS: POTASSIUM CHLORIDE ER 20 MEQ TAB.ER PO SCH (08:05)
[2021-09-28 11:30] VITALS: BP 130/72; PULSE 85; TEMP 96.7
[2021-09-28 11:48] VITALS: BMI 23.0
--- NOTE | 2021-09-28 14:40 | P.DS ---
Providers Date of admission: 09/21/21 16:57 Expected date of discharge: 09/28/21 Attending physician: Errol Choi Consults: 09/21/21 16:58 Consult Physician Urgent Consulting Provider: Aniya Ferguson Consult Reason/Comments: Pneumonia, hypoxia Do you want consulting provider notified?: Yes 09/23/21 16:31 Consult Physician Routine Consulting Provider: Leandro Parsons Consult Reason/Comments: Kathrin Do you want consulting provider notified?: Yes Primary care physician: [facility] Course: Chief Complaint: Shortness of breath This is a 80-year-old patient who follows with Dr. Lackey. Patient was discharged from the hospital on August 19: He was then admitted for COVID-19 pneumonia unvaccinated, metabolic encephalopathy, subsegmental acute PE in the lingula and left lower lobe, new onset atrial fibrillation, hypertension, hypothyroid, 2-D echocardiogram showed an EF of 55-60%. Patient subsequently was admitted on August 27, with hypoxia. This occasionally was diagnosed with pneumonia. He was discharged on [address] chest had shown a small pleural effusion. Patient was brought in by the family to the ER. Patient had been worsening shortness of breath for at least a day. He's been getting increasingly confused. Possibly dehydrated. Patient himself unable to give much of her history. Speech is somewhat slurred. He has a cough. He says his appetite is fair. He states is too weak to walk. Denies any fever or chills. No chest pain. He has not able to tell me that he is or why he is here. Admitted with bilateral pneumonia, acute hypoxic respiratory failure, acute metabolic encephalopathy and delirium, atrial flutter fibrillation uncontrolled. Started on IV Zosyn, oxygen, Lopressor 12.5 twice a day. September 22: Laying in bed. A bit more awake. Answers questions a bit better. Afebrile. Eating good breakfast. Atrial flutter fibrillation better controlled September 23: In bed. Tired. Had 25% of his breakfast. Answering occasional question. Atrial fibrillation rate controlled. IV Zosyn. Worsening renal function. Hold Lasix September 24: Had 25% of his breakfast. No lunch. Does answer some questions. Lasix is continued to be held. Creatinine 1.6. Tired. 6 L of oxygen. September 25: I fitted the patient has lunch and he had about 5 or 6 teaspoons of food. I did ask the aide 2 feeding. Remains on 6 L of walk-in. Some drop in creatinine. Following commands. Tired. I did speak to patient's daughter Yaquelin over the phone. Regarding the CODE STATUS. She will talk to her mother and her brother. And get back to us. I recommended DO NOT RESUSCITATE. September 26: Eating about 25%. Diet. Occasional delirium. 92% on 6 L. September 27: Patient requiring Ventimask. Doesn't feel like eating. Tired. and granddaughter present. Patient was made DO NOT RESUSCITATE last night. Discussion was held. We'll take the patient home with hospice. commercial credit portfolio manager consulted. Comfort feeding. September 28 oxygen for comfort. Patient be getting discharged with hospice. Discussion and discharge planning more than 35 minutes Past medical history to include: COVID-19, pulmonary embolism, atrial fibrillation, hypertension, hypothyroid, hyperlipidemia, chronic hypoxic respiratory failure Social history: Denies any smoking or alcohol. Family history: Patient cannot tell Physical examination: VITAL SIGNS: 96.7, 85, 22, 1:30/72, GENERAL: , laying in bed, awake, tired, lethargic EYES: Pupils equal. Conjunctiva normal. HEENT: External appearance of nose and ears normal, oral cavity grossly normal. NECK: JVD not raised; masses not palpable. HEART: Heart sounds irregular no edema. LUNGS: Respiratory rate increased; decreased breath sounds. ABDOMEN: Soft, nontender, liver spleen not palpable, no masses palpable. PSYCH: Barely able to answer questions MUSCULOSKELETAL:No Clubbing/cyanosis;muscles-grossly intact. Evidence of OA NEUROLOGICAL: Does follow commands INVESTIGATIONS, reviewed in the clinical context: September 27: White count 12 hemoglobin 10.1 platelets 458 potassium 3.3 creatinine 1.19 September 26: White count 12 hemoglobin 10.1 potassium 3.3 creatinine 1.19 September 25: Potassium 3.1 BUN 27 creatinine 1.36 pro-calcitonin 0.26 September 24: White count 17.7 hemoglobin 11 platelets 527 potassium 3 BUN 37 creatinine 1.6 UA positive September 23: White count 22.1 hemoglobin 10.5 platelets 513 potassium 3.1 BUN [address] chest: Small to moderate size left pleural effusion. Eating is of groundglass opacities throughout the bilateral lungs with relative sparing of the anterior right upper and midlung. Mild focal cylindrical bronchiectasis anterior left upper lobe is now present. Compressive atelectasis left lung base is seen. September 22: White count 11.4 hemoglobin 10 platelets 444. Pro-calcitonin 0.33 White count 8.2 hemoglobin 11.4 platelets 574 increased neutrophils sodium 140 potassium 3.9 creatinine 0.9 to AST 70 ALT 77 LDH 1139 CRP 23.1 albumin 2.6. ProBNP 3810 Coronavirus [PCR]: Not detected EKG tracing personally reviewed by me-atrial flutter with a possible intraventricular block with some ST segment changes. Chest x-ray film personally reviewed by me-bilateral infiltrates. 2-D echocardiogram [August 2021]: EF 55-60% Cause for hospice: Acute and chronic respiratory failure secondary to pneumonia and COVID-19 Assessment and plan: -Bilateral pneumonia. Suspect gram-negative organism.: Slow to respond IV Zosyn. Aspiration precautions. -Acute hypoxic respiratory failure from pneumonia: Worsening On 15 L nonrebreather -Acute kidney injury likely prerenal from diuretics: Better Creatinine is gone up from 0.9 to up to 1.6. Lasix held. Follow nephrology -Acute metabolic encephalopathy/delirium from pneumonia: Slow to respond Follow clinically -Persistent atrial flutter, rate uncontrolled on presentation. Better controlled Follow cardiology. Recent echocardiogram showed preserved LV function. Lopressor 50 mg twice a day. Eliquis -Chronic medical debility. Fall precautions. PT OT. -Essential hypertension Lopressor 50 mg twice a day -Hypothyroid Synthroid 50 g a day -Hyperlipidemia Zocor 40 mg daily at bedtime -Chronic hypoxic respiratory failure from COVID-19 pneumonia On 4 L of oxygen at home -DO NOT RESUSCITATE Disposition: Home with hospice Patient Condition at Discharge: Serious Plan - Discharge Summary New Discharge Prescriptions: New Metoprolol Tartrate [Lopressor] 50 mg PO BID tab Acetaminophen Tab [Tylenol] 650 mg PO Q6HR PRN tab PRN Reason: Mild Pain Or Fever > 100.5 Ipratropium-Albuterol Nebulize [Duoneb 0.5 mg-3 mg/3 ml Soln] 3 ml INHALATION RT-TID ml Continue Levothyroxine Sodium [Synthroid] 50 mcg PO DAILY Apixaban [Eliquis] 5 mg PO BID #0 tab Discontinued Simvastatin [Zocor] 40 mg PO HS Zinc 50 mg PO HS carvediloL [Coreg] 6.25 mg PO BID Ascorbic Acid [Vitamin C] 1,000 mg PO DAILY #30 tab Cholecalciferol [Vitamin D3 (125 Mcg = 5000 Iu)] 125 mcg PO DAILY #30 tablet Discharge Medication List Levothyroxine Sodium [Synthroid] 50 mcg PO DAILY 07/25/21 [History] Apixaban [Eliquis] 5 mg PO BID #0 tab 08/19/21 [Rx] Acetaminophen Tab [Tylenol] 650 mg PO Q6HR PRN tab 09/28/21 [Rx] Ipratropium-Albuterol Nebulize [Duoneb 0.5 mg-3 mg/3 ml Soln] 3 ml INHALATION RT-TID ml 09/28/21 [Rx] Metoprolol Tartrate [Lopressor] 50 mg PO BID tab 09/28/21 [Rx] Follow up Appointment(s)/Referral(s): Kennedy Chowdary MD [Primary Care Provider] - 1-2 days Patient Instructions/Handouts: Hospice (DC), Hospice Care (GEN), Hypoxia (GEN), Pneumonia (DC) Activity/Diet/Wound Care/Special Instructions: [facility] Discharge Disposition: HOME WITH HOSPICE
--- NOTE | 2021-09-28 18:02 | P.PN ---
Subjective Principal diagnosis: Pt is seen for f/u for FABIENNE. Renal function has improved. Cr 1.19 on 09/26/2021 Good UOP. Patient is confused Objective - Vital Signs Vital signs: Vital Signs Temp 96.7 F L 09/28/21 11:28 Pulse 85 09/28/21 11:28 Resp 22 09/28/21 11:28 BP 130/72 09/28/21 11:28 Pulse Ox 85 L 09/28/21 11:28 Intake & Output 09/27/21 09/28/21 09/28/21 18:59 06:59 18:59 Output Total 200 Balance -200 Weight 59 kg 59 kg Output: Urine 200 Other: Voiding Method Urinal Urinal Diaper Diaper Diaper Incontinent Incontinent # Voids 1 # Bowel Movements 1 1 1 - Exam Awake, comfortable. No acute distress. Lungs : decreased breath sounds at bases. CVS: S1 and S2 Abdomen is soft. Examination of the lower extremities shows trace edema. - Labs CBC & Chem 7: 09/26/21 17:01 09/26/21 17:01 Labs: Microbiology - Last 24 Hours (Table) 09/21/21 17:46 Blood Culture - Final Blood No Growth after 144 hours 09/21/21 17:46 Blood Culture - Final Blood No Growth after 144 hours Assessment and Plan Assessment: #1 nonoliguric acute kidney injury secondary to hemodynamic ATN with low blood pressures. -Baseline creatinine 1.0 MG per DL. -No hydronephrosis on computed tomography scan. 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 Plan: Agree with plans for hospice.
== END 2021-09-28 14:04 | disposition hospice, home (50) | DRG 177 ==
LOC: SUPCPDRO 14:42 → EC 14:42 → 5NMEDONC 16:57
PROVIDERS: ADMIT Hospitalist; ATTEND Hospitalist
DX: J15.6 Pneumonia due to other Gram-negative bacteria (principal); J96.21 Acute and chronic respiratory failure with hypoxia; G93.41 Metabolic encephalopathy; I50.33 Acute on chronic diastolic (congestive) heart failure; N17.0 Acute kidney failure with tubular necrosis; E87.2 Acidosis; I48.92 Unspecified atrial flutter; J44.0 Chronic obstructive pulmonary disease with (acute) lower respiratory infection; J44.1 Chronic obstructive pulmonary disease with (acute) exacerbation; E03.9 Hypothyroidism, unspecified; E78.5 Hyperlipidemia, unspecified; E86.0 Dehydration; I95.9 Hypotension, unspecified; E87.6 Hypokalemia; F41.9 Anxiety disorder, unspecified; Z51.5 Encounter for palliative care; Z66 Do not resuscitate; Z20.822 Contact with and (suspected) exposure to COVID-19; T50.2X5A Adverse effect of carbonic-anhydrase inhibitors, benzothiadiazides and other diuretics, initial encounter; G47.00 Insomnia, unspecified; I11.0 Hypertensive heart disease with heart failure; Z99.81 Dependence on supplemental oxygen; I27.20 Pulmonary hypertension, unspecified; R45.1 Restlessness and agitation; K59.00 Constipation, unspecified; I48.0 Paroxysmal atrial fibrillation; Z86.16 Personal history of COVID-19; Z87.440 Personal history of urinary (tract) infections; Z87.01 Personal history of pneumonia (recurrent); R32 Unspecified urinary incontinence; Z79.01 Long term (current) use of anticoagulants; Z79.890 Hormone replacement therapy; Z79.899 Other long term (current) drug therapy; Z85.46 Personal history of malignant neoplasm of prostate; Z90.49 Acquired absence of other specified parts of digestive tract; Z98.890 Other specified postprocedural states; Z90.79 Acquired absence of other genital organ(s); Z86.711 Personal history of pulmonary embolism
CPT/HCPCS: 36415; 70450; 71045; 71046; 71250; 80048; 80053; 81001; 82728; 83605; 83615; 83735; 83880; 84145; 84484; 85025; 85610; 85730; 86140; 87040; 87635; 93005; 94640; 94760; 96365; 96375; 99285